=== PATIENT | female | born 1955 | race Caucasian/White ===

== ENCOUNTER 2016-10-06 13:27 | Inpatient (IN) | payer OTHER ==
[~2016-10-06] VITALS: Ht 157.5 cm; Wt 59.0 kg
[~2016-10-06 13:27] MED LIST: CREON 120000 U-1 ECC PO; DILAUDID2 MG PO; FOLIC ACID 1 MG PO; NOVOLOG FL100 UNIT/1 SC; TYLENOL WITH C1 EACH PO; ZOFRAN 4 MG TABL4 MG PO
--- NOTE | 2016-10-06 13:40 | NUR ---
BIBA FROM HOME, [facility] FALL FROM BED NOW WITH RIGHT HIP PAIN AND VISIBLE DEFORMITY. DENIES HEAD STRIKE, LOC OR BLOOD THINNERS, NO PAIN EXCEPT RIGHT HIP/THIGH.
--- NOTE | 2016-10-06 13:49 | NUR ---
SEEN BY LAZARO GOODE. IVF INFUSING, TYLENOL GIVEN, PER PA HOLDING MORPHINE UNTIL BP IMPROVES.
[2016-10-06 14:00] LABS: ABSOLUTE BASOPHIL COUNT 0 /CUMM (0.0-0.2); ABSOLUTE EOSINOPHIL COUNT 0 /CUMM (0.0-0.7); ABSOLUTE GRANULOCYTE CT 25.8 /CUMM (1.4-6.5); ABSOLUTE LYMPH COUNT 1.3 /CUMM (1.2-3.4); ABSOLUTE MONOCYTE COUNT 1.3 /CUMM (0.10-0.60); BASOPHIL % 0.2 % (0.0-2.0); EOSINOPHIL % 0 % (0-5); GRANULOCYTE % 90.6 % (42.2-75.2); HEMATOCRIT 35.8 % (37-47); MEAN CORPUSCULAR HGB 32.3 PG (27.0-31.0); MEAN CORPUSCULAR VOLUME 94.9 FL (81.0-99.0); MEAN PLATELET VOLUME 10.2 FL (7.4-10.4); PLATELET COUNT 278 /CUMM (130-400); RBC DISTRIBUTION WIDTH 13.6 % (11.5-14.5); RED BLOOD CELL CT 3.77 /CUMM (4.20-5.40); WHITE BLOOD CELL COUNT 28.4 /CUMM (4.8-10.8)
[2016-10-06 14:11] LABS: PT 10.3 SEC (9.4-12.5); PTT 28 SEC (25-37)
--- NOTE | 2016-10-06 14:13 | NUR ---
AWAITING PORTABLE XRAY; PER TECH, THEY ARE HAVING TECHNICAL ISSUES. IVF INFUSING, BP IMPROVING SLOWLY. PT REMAINS ALERT, CONTS TO APPEARS PEDERSON AND SHIVERING DESPITE BLANKETS, TEMP 96. NSR 80S ON MONITOR.
--- NOTE | 2016-10-06 14:30 | NUR ---
BP 123/58 AFTER 1000CC NS. 2MG MORPHINE GIVEN, WILL RECHECK VITALS BEFORE 2ND HALF OF DOSE. PT REMAINS ALERT.
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
--- NOTE | 2016-10-06 14:46 | NUR ---
MORPHINE GIVEN. PCXR AT BEDSIDE.
--- NOTE | 2016-10-06 15:57 | NUR ---
PINK TO DRAWN AND SENT TO LAB
--- NOTE | 2016-10-06 16:00 | NUR ---
PT CONTS TO C/O SEVERE PAIN, PA AWARE, DILAUDID GIVEN. PXR AT BEDSIDE.
--- NOTE | 2016-10-06 16:13 | CT SCAN REPORT ---
EXAMINATION: CT ABDOMEN AND PELVIS WITHOUT CONTRAST CLINICAL INFORMATION: History of fall. Fractured right hip. Abdominal pain. COMPARISON: CT of the abdomen and pelvis done on 12/30/2013. TECHNIQUE: Multidetector volumetric imaging was performed from the superior aspect of the liver through the pubic symphysis. Sagittal and coronal reformatted images were obtained on the technologist's workstation. DLP: 288.56 mGy-cm. FINDINGS: LUNG BASES: Subtle micronodularity is noted bilaterally, appears much more pronounced or new since prior study. Previously identified bibasilar atelectasis or interval resolution. Coronary arterial calcifications are present. LIVER, GALLBLADDER, AND BILIARY TREE: Stable indeterminate approximately 1.1 cm hypodensity is noted within the left lobe of the liver, unchanged since 12/30/2013. Underlying diffuse hepatic hypodensity consistent with hepatic steatosis is noted. The gallbladder is moderately distended, shows layering hyperdensity consistent with milk of calcium/calculi and measures approximately 3.6 cm at its maximum transverse dimension. The hypodense material seen along the dependent part of the gallbladder lumen appears new since prior study. There is no intrahepatic or extrahepatic biliary ductal dilatation present. PANCREAS: Remarkable for diffuse intraparenchymal as well as intraductal calcification with underlying pancreatic ductal dilatation, similar to prior study dated 12/30/2013, consistent with chronic calcific pancreatitis. There is no superimposed discrete focal mass or peripancreatic fluid collection or lymphadenopathy identified. SPLEEN: Unremarkable. ADRENAL GLANDS: Unremarkable. KIDNEYS AND URETERS: The kidneys are normal in size, shape, and attenuation. No hydronephrosis, hydroureter, or calculi seen. No perinephric stranding. BLADDER: The urinary bladder is decompressed, there is a Palacio's catheter present, accordingly urinary bladder is not evaluated. GASTROINTESTINAL TRACT: Significant fecal residual is noted within the large bowel. There is a short segment luminal narrowing identified within the proximal part of the sigmoid colon, although may represent physiologic changes, however, possibility of developing neoplasm may also have similar appearance and cannot be further differentiated. Followup direct visualization/colonoscopy is recommended if not performed recently. The small-bowel loops as well as the stomach appeared decompressed. ABDOMINAL WALL: No significant hernia is appreciated. LYMPH NODES: Normal. VASCULAR: Diffuse atherosclerotic disease is noted within the aorta and its branches without aneurysm formation. PELVIC VISCERA: There is no pelvic mass present. There is no free fluid and/or free air present. OSSEOUS STRUCTURES: Comminuted displaced right proximal femoral shaft fracture is present with extension into the intertrochanteric region with surrounding extensive soft tissue edema, hemorrhage extending into the proximal aspect of the visualized right medial thigh. Scoliotic and multilevel degenerative spondylosis-related changes are noted in the spine with most pronounced changes noted at L3-L4, and to a lesser extent L2-L3 level. IMPRESSION: 1. Comminuted displaced right proximal femoral shaft fracture with extension into the intertrochanteric region, surrounded by extensive soft tissue edema, and hemorrhage. 2. Nonspecific subtle micronodularity is noted within the visualized lung parenchyma, either appears more pronounced or new since prior study. 3. Hepatic steatosis and stable indeterminate 1.1 cm hypodensity within the left lobe of the liver. 4. Stable noncomplicated chronic calcific pancreatitis. 5. Short segment apparent narrowing involving the proximal part of the sigmoid colon, not optimally characterized. Followup direct visualization/colonoscopy is recommended if not performed recently. 6. Mildly distended gallbladder with features suggestive of milk of calcium and tiny layering calculi. This critical result was discussed with LAZARO Patel in the ED department at 3:47 PM on 10/06/2016 and it was ascertained that the content and urgency of the report was understood at the time of direct communication.
--- NOTE | 2016-10-06 16:26 | RADIOLOGY REPORT ---
EXAMINATION: XR HIP, RIGHT CLINICAL INFORMATION: Fall. Trauma. COMPARISON: None. TECHNIQUE: AP portable at 2:52 PM FINDINGS: Comminuted intratrochanteric fracture of the right hip. Superior displacement distal fracture fragment. Femoral head within the acetabulum. IMPRESSION: Comminuted intratrochanteric fracture of right hip.
--- NOTE | 2016-10-06 16:27 | RADIOLOGY REPORT ---
EXAMINATION: XR PORTABLE CHEST CLINICAL INFORMATION: Preop. COMPARISON: None. TECHNIQUE: Portable view of the chest was obtained. FINDINGS: No significant abnormality is noted involving the heart, lungs, mediastinum, bony thorax or soft tissues. IMPRESSION: Normal chest.
--- NOTE | 2016-10-06 17:00 | NUR ---
SURGERY AT BEDSIDE
--- NOTE | 2016-10-06 17:27 | Cons- Orthopedic ---
See Addendum General Information and HPI Consulting Request Date of Consult: 10/06/16 Requested By: emergency dept Reason for Consult: right hip fracture Source of Information: patient Exam Limitations: no limitations History of Present Illness: 61 yo female presents with right leg deformity and inability to ambulte after fall out of bed this am. She deneis loc at the time of fall. xrays taken after the fall demonstrate rigth intertrochanteric hip fracture requiring surgical fixation for ambulation Allergies/Medications Allergies: Coded Allergies: apple (Severe, THROAT CLOSURE 06/28/16) rose (Severe, THROAT CLOSURE 06/28/16) CHERRIES cezar (Severe, THROAT CLOSURE 06/28/16) peach (Severe, THROAT CLOSURE 06/28/16) sertraline (Intermediate, RASH 06/28/16) birch (UNKNOWN 06/28/16) Home Med List: Aspirin (Aspirin*) 81 MG TAB.CHEW 1 TAB PO DAILY Heart (Reported) Bupropion HCl (Bupropion HCl Sr) 150 MG TABLET.ER 1 TAB PO BID SMOKING CESSATION (Reported) Exemestane 25 MG TABLET 1 TAB PO DAILY BREAST CA (Reported) Folic Acid 1 MG TABLET 1 MG PO DAILY FOLIC ACID SUPPLEMENT (Reported) Insulin Aspart, Recombinant (Novolog Flexpen) 100 UNIT/ML INSULN.PEN DM ( Reported) Past History Medical History Musculoskeletal: OSTEOPENIA Endocrine: diabetes Cancer(s): BREAST CANCER Surgical History Pertinent Surgical History: 1 Family History Relations & Conditions If Any: BROTHER FHx: diabetes mellitus FHx: epilepsy FATHER FHx: diabetes mellitus MOTHER FH: breast cancer Psychosocial History Services at Home: None ETOH Use: occasional use Exam & Diagnostic Data Vital Signs and I&O Vital Signs Date Time Temp Pulse Resp B/P Pulse O2 O2 Flow FiO2 Ox Delivery Rate 10/06 1626 96.0 115 18 96/70 99 Room Air 10/06 1430 95.6 90 20 123/58 100 Room Air 10/06 1419 90 16 101/68 10/06 1412 99 10/06 1401 102/57 10/06 1335 96.0 115 20 90/54 99 Room Air Intake & Output 10/06 1600 10/06 0800 10/06 0000 10/05 1600 10/05 0800 10/05 0000 Intake Total 1100 Output Total Balance 1100 Intake, IV 1100 Patient 115 lb Weight Physical Exam General Appearance: anxious, mild distress Head: atraumatic, normal appearance Eyes: Bilateral: normal appearance, PERRL. Respiratory: normal breath sounds Cardiovascular: regular rate/rhythm, tachycardia Peripheral Pulses: 4+ dorsalis pedis (R), 4+ dorsalis pedis (L) Gastrointestinal: normal bowel sounds, soft Extremities: right le shortened and externally rotated, calves soft to palp Neurologic/Psych: awake, alert Skin: diaphoresis, pallor Last 24 Hours of Labs: Laboratory Tests 10/06 1510 Urines Urine Color (YEL,AMB,STR) YEL Urine Clarity (CLEAR) CLEAR Urine pH (5.0 - 8.0) 6.0 Ur Specific [place] (1.001 - 1.035) 1.020 Urine Protein (NEG,<30 MG/DL) NEG Urine Ketones (NEG) NEG Urine Nitrite (NEG) NEG Urine Bilirubin (NEG) NEG Urine Urobilinogen (0.1 - 1.0 EU/dl) 0.2 Ur Leukocyte Esterase (NEG) NEG Ur Microscopic SEDIMENT EXAMINED Urine RBC (0 - 5 /HPF) RARE Urine WBC (0 - 2 /HPF) RARE Ur Epithelial Cells (NONE,FEW) MOD H Urine Mucus (FEW,NONE) FEW Urine Hemoglobin (NEG) TRACE-LYSED Urine Glucose (N MG/DL) NEG 10/06 1343 Chemistry Sodium (137 - 145 mmol/L) 136 L Potassium (3.5 - 5.1 mmol/L) 5.0 Chloride (98 - 107 mmol/L) 98 Carbon Dioxide (22 - 30 mmol/L) 24 Anion Gap (5 - 16) 14 BUN (7 - 17 mg/dL) 6 L Creatinine (0.5 - 1.0 mg/dL) 0.7 Estimated GFR (>60 ml/min) > 60 BUN/Creatinine Ratio (7 - 25 %) 8.6 Glucose (65 - 99 mg/dL) 112 H Calcium (8.4 - 10.2 mg/dL) 9.4 Total Bilirubin (0.2 - 1.3 mg/dL) 0.7 AST (14 - 36 U/L) 67 H ALT (9 - 52 U/L) 35 Alkaline Phosphatase (<127 U/L) 155 H Total Protein (6.3 - 8.2 g/dL) 6.7 Albumin (3.5 - 5.0 g/dL) 4.0 Globulin (1.9 - 4.2 gm/dL) 2.7 Albumin/Globulin Ratio (1.1 - 2.2 %) 1.5 Amylase (30 - 110 U/L) 85 Lipase (23 - 300 U/L) 23 Coagulation PT (9.4 - 12.5 SEC) 10.3 INR (0.90 - 1.19) 0.98 APTT (25 - 37 SEC) 28 Hematology CBC w Diff MAN DIFF ORDERED WBC (4.8 - 10.8 /CUMM) 28.4 H RBC (4.20 - 5.40 /CUMM) 3.77 L Hgb (12.0 - 16.0 G/DL) 12.2 Hct (37 - 47 %) 35.8 L MCV (81.0 - 99.0 FL) 94.9 MCH (27.0 - 31.0 PG) 32.3 H RDW (11.5 - 14.5 %) 13.6 Plt Count (130 - 400 /CUMM) 278 MPV (7.4 - 10.4 FL) 10.2 Gran % (42.2 - 75.2 %) 90.6 H Lymphocytes % (20.5 - 51.1 %) 4.7 L Monocytes % (1.7 - 9.3 %) 4.5 Eosinophils % (0 - 5 %) 0 Basophils % (0.0 - 2.0 %) 0.2 Absolute Granulocytes (1.4 - 6.5 /CUMM) 25.8 H Segmented Neutrophils (42.2 - 75.2 %) 86 H Band Neutrophils (0.0 - 5.0 %) 6 H Absolute Lymphocytes (1.2 - 3.4 /CUMM) 1.3 Lymphocytes (20.5 - 51.1 %) 7 L Monocytes (1.7 - 9.3 %) 1 L Absolute Monocytes (0.10 - 0.60 /CUMM) 1.3 H Absolute Eosinophils (0.0 - 0.7 /CUMM) 0 Absolute Basophils (0.0 - 0.2 /CUMM) 0 Platelet Estimate (ADEQUATE) VERIFIED BY SMEAR Normocytic RBCs VERIFIED Normochromic RBCs VERIFIED PUBS MCHC (33.0 - 37.0 G/DL) 34.0 Toxicology Serum Alcohol (<10 MG/DL) < 10.0 Imaging Results: SERVICE DATE: 10/06/16-1329 EXAM TYPE: RAD - XRY-HIP 1 VIEW, RIGHT EXAMINATION: XR HIP, RIGHT CLINICAL INFORMATION: Fall. Trauma. COMPARISON: None. TECHNIQUE: AP portable at 2:52 PM FINDINGS: Comminuted intratrochanteric fracture of the right hip. Superior displacement distal fracture fragment. Femoral head within the acetabulum. IMPRESSION: Comminuted intratrochanteric fracture of right hip. DICTATED BY: LINO CLARKE MD DATE/TIME DICTATED:10/06/161621 BUILDING CONSTRUCTION ENGINEER:LUANNE DATE/TIME TRANSCRIBED:10/06/161621 Assessment/Plan Assessment/Plan Ms Nelson is a 61 y/o female wo presents with right hip pain after fall out of bed today. She wa unable to ambulate after the fall. Xrays toakne demonstrated rigth hip fracture requiring surgical fixation for ambulation plan case was discussed with dr Presley who wants the patient admitted to the medical service until she is optimized for orif irght hip fracture. Consult Acknowledgment - Thank you for your consult request.
--- NOTE | 2016-10-06 17:44 | History & Physical ---
RIRI BUSTOS,NORMA 10/06/16 1744: General Information and HPI MD Statement: I have seen and personally examined LUCHO LI and documented this H&P. The patient is a 61 year old F who presented with a patient stated chief complaint of [fracture]. Source of Information: patient Exam Limitations: no limitations History of Present Illness: This is a 61-year-old female with past medical history significant for insulin independent diabetes, chronic pancreatitis secondary to alcoholism, breast cancer treated with chemotherapy, osteopenia, who was brought in by ambulance for chief complaint of right hip pain. She states that she had a bad dream this AM and accidentally rolled out of bed around 6:30 am and fell on the floor. Secondary to excruciating right hip pain she states that she was unable to move and was down for an hour. Pain has since been increasing and patient noted significant swelling in the right lower extremity. She denies hitting her head, loss of consciousness, chest pain, abdominal pain, dizziness, vomiting, or nausea. Pt denies any DE JESUS, visual changes, cp, palpitations, seizures, weakness, abdominal pain loss of bowel, or bladder control. Of note, per patient she had gone to rehabilitation about 10 years ago for alcohol detox. But recently has started consuming alcohol again. She was unwilling to quantify a particular amount of etoh stating her consumption varied day by day. She finally suggested that she drank 1 bottle of vodka per week Allergies/Medications Allergies: Coded Allergies: apple (Severe, THROAT CLOSURE 06/28/16) rose (Severe, THROAT CLOSURE 06/28/16) CHERRIES cezar (Severe, THROAT CLOSURE 06/28/16) peach (Severe, THROAT CLOSURE 06/28/16) sertraline (Intermediate, RASH 06/28/16) birch (UNKNOWN 06/28/16) Compliance With Home Meds: UNKNOWN Past History Travel History Traveled to [place] past 21 day No Medical History Musculoskeletal: OSTEOPENIA Endocrine: diabetes Cancer(s): BREAST CANCER History of MRSA: No History of VRE: No History of CDIFF: No Surgical History Surgical History: none Past Family/Social History Family History Relations & Conditions if any BROTHER FHx: diabetes mellitus FHx: epilepsy FATHER FHx: diabetes mellitus MOTHER FH: breast cancer Psychosocial History Services at Home: None ETOH Use: heavy use, patient drinks a bottle of vodka a week Review of Systems Review of Systems Constitutional: Reports: malaise, weakness. Denies: chills, diaphoresis, fever. EENTM: Denies: blurred vision. Cardiovascular: Denies: chest pain, orthopena, palpitations, syncope. Respiratory: Denies: short of breath, wheezing. GI: Denies: constipation, diarrhea, distention. Genitourinary: Reports: no symptoms. Musculoskeletal: Reports: back pain, joint pain, joint swelling, muscle pain, muscle stiffness. Skin: Reports: no symptoms. Exam & Diagnostic Data Last 24 Hrs of Vital Signs/I&O Vital Signs Date Time Temp Pulse Resp B/P Pulse O2 O2 Flow FiO2 Ox Delivery Rate 10/06 2033 97.8 76 17 98/62 95 Room Air 10/06 1937 96.1 96 18 100/62 100 Room Air 10/06 1859 96.6 97 18 93/66 10/06 1827 96.6 97 18 93/66 97 Room Air 10/06 1626 96.0 115 18 96/70 99 Room Air 10/06 1430 95.6 90 20 123/58 100 Room Air 10/06 1419 90 16 101/68 10/06 1412 99 10/06 1401 102/57 10/06 1335 96.0 115 20 90/54 99 Room Air Intake & Output 10/06 1600 10/06 0800 10/06 0000 Intake Total 1100 Output Total Balance 1100 Intake, IV 1100 Patient 52.163 kg Weight Physical Exam General Appearance Alert, Oriented X3, Cooperative, Mild Distress, patient was acutely tremulous during interview. Skin No Rashes, No Breakdown HEENT Atraumatic, PERRLA, EOMI, mucous membranes were dry. Patient had not been eating or drinking anything all day. Neck Supple Cardiovascular Regular Rate, Normal S1, Normal S2, No Murmurs Lungs Normal Air Movement Abdomen Soft, No Tenderness Neurological Cranial Nerves 3-12 NL, tremulous Extremities significant swelling in right lower extremity. Hip to mid thigh tender to palpation. No signs of ecchymoses. Last 24 Hrs of Labs/Charles: Laboratory Tests 10/06/16 1928: Lactic Acid 1.6 10/06/16 1510: Urine Color YEL, Urine Clarity CLEAR, Urine pH 6.0, Ur Specific [place] 1.020, Urine Protein NEG, Urine Ketones NEG, Urine Nitrite NEG, Urine Bilirubin NEG, Urine Urobilinogen 0.2, Ur Leukocyte Esterase NEG, Ur Microscopic SEDIMENT EXAMINED, Urine RBC RARE, Urine WBC RARE, Ur Epithelial Cells MOD H, Urine Mucus FEW, Urine Hemoglobin TRACE-LYSED, Urine Glucose NEG 10/06/16 1343: Anion Gap 14, Estimated GFR > 60, BUN/Creatinine Ratio 8.6, Glucose 112 H, Calcium 9.4, Total Bilirubin 0.7, AST 67 H, ALT 35, Alkaline Phosphatase 155 H , Creatine Kinase 156 H, Troponin I < 0.01, Total Protein 6.7, Albumin 4.0, Globulin 2.7, Albumin/Globulin Ratio 1.5, Amylase 85, Lipase 23, PT 10.3, INR 0.98, APTT 28, CBC w Diff MAN DIFF ORDERED, RBC 3.77 L, MCV 94.9, MCH 32.3 H, RDW 13.6, MPV 10.2, Gran % 90.6 H, Lymphocytes % 4.7 L, Monocytes % 4.5, Eosinophils % 0, Basophils % 0.2, Absolute Granulocytes 25.8 H, Segmented Neutrophils 86 H, Band Neutrophils 6 H, Absolute Lymphocytes 1.3, Lymphocytes 7 L, Monocytes 1 L, Absolute Monocytes 1.3 H, Absolute Eosinophils 0, Absolute Basophils 0, Platelet Estimate VERIFIED BY SMEAR, Normocytic RBCs VERIFIED, Normochromic RBCs VERIFIED, PUBS MCHC 34.0, Serum Alcohol < 10.0 Microbiology 10/06 1928 BLOOD: Blood Culture - RECD 10/06 1755 LOWER RESP: Respiratory Culture - COLB 10/06 175 LOWER RESP: Gram Stain - COLB 10/06 1755 BLOOD: Blood Culture - COLB 10/06 1510 URINE ROUT: Urine Culture - RECD Assessment/Plan Assessment: This is a 61-year-old female with past medical history significant for insulin independent diabetes, chronic pancreatitis secondary to alcoholism, breast cancer treated with chemotherapy, osteopenia, who was brought in by ambulance for chief complaint of right hip pain secondary to fall. Workup in ED showed comminuted displaced right proximal femur shaft fracture with extension into intertrochanteric region. Additionally, patient was noted have significant leukocytosis with bands. She is admitted for possible ORIF after medical stabilization. ED workup showed: Vitals temperature 96.0, heart rate 115, respiration 18, blood pressure 96/70, pulse ox 99. UA negative; CBC showed white count 28.4, with 6 bands hemoglobin 12.2, hematocrit 35.8, platelets 278. Glucose 112. AST 67, ALT 35. Alkaline phosphatase 155. Neg amylase. Negative lipase. In ED she received a bolus of normal saline, Dilaudid for pain control, Zofran, morphine and Tylenol. CT IMPRESSION: 1. Comminuted displaced right proximal femoral shaft fracture with extension into the intertrochanteric region, surrounded by extensive soft tissue edema, and hemorrhage. 2. Nonspecific subtle micronodularity is noted within the visualized lung parenchyma, either appears more pronounced or new since prior study. 3. Hepatic steatosis and stable indeterminate 1.1 cm hypodensity within the left lobe of the liver. 4. Stable noncomplicated chronic calcific pancreatitis. 5. Short segment apparent narrowing involving the proximal part of the sigmoid colon, not optimally characterized. Followup direct visualization/colonoscopy is recommended if not performed recently. 6. Mildly distended gallbladder with features suggestive of milk of calcium and tiny layering calculi. CXR IMPRESSION: Normal chest. XRAY HIP IMPRESSION: Comminuted intratrochanteric fracture of right hip. PLAN Leukocytosis: Patient comes in with a white count of 28.4 with 6 bands. Possible reactive leukocytosis secondary secondary to her trauma. Patient has had leukocytosis chronically during previous admissions. However, this is higher than previously noted and additionally she has bands. In ED temperature measured was 95-96, she is tachycardic, with hypotension. There is concern for sepsis in this patient. * Follow blood cultures Hypotension: Per CT there is extensive edema and hemorrhage around the fracture site. Possibility that patient is developing hematoma, causing significant volume loss and hypertension. She received 3 L of bolus in the ED and a subsequent pressure measured in the 90s systolic. Concern for sepsis or significant hemorrhage into fracture site. * Type and cross * Transfusion of necessary * Monitor blood pressure * IV fluids 100 mL per hour * Echocardiogram Non-comminuted fracture of right hip: Patient has history of osteopenia and has now sustained noncommitted right hip fracture. Orthopedic consult was placed, patient was evaluated, possible ORIF once she is medically optimized. * Thank you orthopedic recommendations * Oxycodone for pain * Morphine when necessary Alcohol abuse: She didn't has had history significant for alcohol abuse. She has been to rehabilitation over 10 years ago for detox. Patient is now resumed drinking. She quantified around 1 bottle of vodka per week. Last drink was yesterday, per patient she had 3 beverages. * Monitor for withdrawal * CIWA protocol * Folic acid Smoking cessation: Chronic and stable * Continue Wellbutrin Full code Diabetic diet Chemical DVT prophylaxis As Ranked By This Provider Problem List: 1. Leukocytosis 2. Closed right femoral fracture 3. ETOH abuse Core Measures/Miscellaneous Acute Coronary Syndrome ACS Diagnosis: No Cerebrovascular Accident CVA/TIA Diagnosis: No Congestive Heart Failure CHF Diagnosis: No Venous Thromboembolism VTE Risk Factors: Age > 40 VTE Prophylaxis Ordered Inpt: Pharm- Lovenox No Mech VTE prophylaxis d/t: No contraindications No VTE Pharm Prophylaxis d/t: No contraindications VTE Diagnosis: No VTE Type: NONE VTE Confirmed by (Test): NONE Severe Sepsis Severe Sepsis Present: No Septic Shock Septic Shock Present: No Miscellaneous Documentation Attending Case Discussed With: GILSON CERON MDMontrell Primary Care Physician: ANDRES LINDSAY MD Patient sees these Specialists unknown Level of Patient Care: General Medicine UL MARTINEZ BUSTOS,[facility] 10/06/16 6011: General Information and HPI Allergies/Medications Home Med list Aspirin (Aspirin*) 81 MG TAB.CHEW 1 TAB PO DAILY Heart (Reported) Bupropion HCl (Bupropion HCl Sr) 150 MG TABLET.ER 1 TAB PO BID SMOKING CESSATION (Reported) Exemestane 25 MG TABLET 1 TAB PO DAILY BREAST CA (Reported) Folic Acid 1 MG TABLET 1 MG PO DAILY FOLIC ACID SUPPLEMENT (Reported) Insulin Aspart, Recombinant (Novolog Flexpen) 100 UNIT/ML INSULN.PEN DM ( Reported) Resident Review Statement Resident Statement: examined this patient, agreed with marketing pr intern, reviewed EMR data (avail) Other Findings: 61-year-old female with past medical history significant for insulin independent diabetes, chronic pancreatitis, breast cancer treated with chemotherapy, osteopenia, nictoine dependence came to emergency department after a Mechanical fall from bed after a bad dream. She was almost on the floor for an hour and then reached her phone to call the ambulance. She denied hitting her head, LOC , CP, sob, nausea, vomiting and other warning signs like weakness of any body part or lossof bowel or urine control or seizure. Vitals in ED, patient aferile, no significant tachycardia, systolic blood pressure in 90s and diastolic in 60s. Oxygen saturation of 95-100%on RA. On examination, patient was alert and oriented to time person and place but tremulous. Dry mucous memebranes and unremarkable lung and cardiac examination. Patient was unable to move her Left lower extremity and there was a prominent swelling around proximal thigh region. Labs were significant for leukocytosis, AST 67 and CK 156 Patient was admitted on GM for the management of following problems. Non-comminuted fracture of right Hip Patient with history of osteopenia and has now sustained noncommitted right hip fracture secondary to a mechanical fall. Orthopedic consult was placed, patient was evaluated, possible ORIF once she is medically optimized. Pain management PT consult placed RCRI scored only for Insulin requirind Diabetes, 0.9% risk of major cardiac event. Leukocytosis Source unclear No visible source, rash, cough, no fever or sore throat or diarrhea or urinary sypmtoms Leukocytosis of 28.4 with 6 bands, possible reactive leukocytosis secondary secondary to her trauma. Patient has had leukocytosis chronically during previous admissions. However, this is higher than previous baseline Will check the lactic acid and for now follow her off antibiotics unless she has a high grade temperature spike. Possible Hematoma Patient is developing hematoma, causing significant volume loss and hypotension secondary to extensive edema and hemorrhage around the fracture site.. She received 3 L of bolus in the ED and a subsequent pressure measured in the 90s systolic. We will do Type and cross, monitor blood pressure and replace vloume loss with IV fluids 100 mL per hour for now and consider increasing the fluid if sustained hypotension. Nicotine dependence/ Smoking cessation Continue Wellbutrin Alcohol dependence Has had history significant for alcohol dependence Patient has resumed drinking recently and drinks around 1 bottle of vodka per week Last drink was yesterday Monitor for withdrawal Patient placed on CIWA protocol Contonue Folic acid Patient is on ALPS for DVT prophylaxis Patient is pain pathways Patient is NPO JIE BUSTOS, [facility] 10/07/16 0016: Attending Review Statement Attending Statement Attending MD Statement: examined this patient, discuss w/resident/PA/WILLOW MACHINE OPERATOR, agreed w/resident/PA/WILLOW MACHINE OPERATOR Attending Assessment/Plan: 61 yo F smoker with h/o alcohol dependence, previous DT's, HTN, T2DM, NSTEMI, chronic pancreatitis, anxiety/ depression, breast ca s/p lumpectomy and chemoradiation currently on exemestane remote h/o seizure, presents s/p mechanical fall this AM, when she rolled off the bed after a bad dream. She denies dizziness, headache or LOC. She was on the floor for 1 hour after which she reached out to the phone and called 911. She continues to drink about 1 bottle of Vodka per week. Last detox at [place] 11 yrs ago. Last drink was 24 hours prior. She notes, seasonal allergies, cold/ congestion for past 1 month, received pneumonia and flu shot. No sick contacts. Vitals: afebrile, HR tachy to 90's, BP 90/54 --> 102/57 improved with fluids. SBP stayed around 95-98 overnight. Sats 97% RA. Exam: AAO, tremulous, anxious, noted dry mucous membranes. Chest b/l clear, Heart S1S2 regular, systolic murmur , Abd soft, NT. Right LE shortened and externally rotated. Peripheral pulses equal. Labs: WBC 28.4 (of note, WBC in Jul 2016 was 21 done as outpatient), bands 6, glucose 112, lactic acid 1.6 --> 2.9, AST 67, Alk phos 155, CK 156, trop neg, UA clear, alcohol <10. Hip Xray: comminuted intratrochanteric right hip fracture. CXR: normal, CT abd/pelvis: right hip fracture surrounded by soft tissue edema and hemorrhage, hepatic steatosis, mildly distended GB with tiny layering calculi, short segment luminal narrowing of sigmoid colon ?developing neoplasm. EKG: SR. Echo (2013): EF > 65%, stage 1 diastolic dysfunction. 1. Mechanical fall with right hip fracture. Fall precautions, check vit D, B12, TSH and free T4 levels. NPO, pain management, Ortho consult. She has a h/o NSTEMI/demand ischemia (EF 45%), however unclear if she had cardiac cath/ stress test. She also had diastolic CHF in the past. Per RCRI, she has 3 risk factors placing her at 9-11% risk of major cardiac event. Will obtain echo, serial EKG and troponin, Cardio consult for clearance prior to surgery (Dr. Sims seen her in the past). 2. Leukocytosis with bandemia of unclear etiology. No localizing symptoms. CXR neg, UA neg. CT abd/pelvis shows mildly distended GB with ?calculi with slight elevated AST no tenderness on exam. Panculture, monitor off antibiotics. IV hydration, trend lactic acid. If she spikes a fever, will give broad spectrum abx. Please obtain ID consult in AM. 3. Hematoma extending into right medial thigh. Monitor CBC Q12, transfuse to keep Hb > 8.0. Hypotension could to secondary to acute blood loss. Borderline hypotension she received 3 L NS bolus, now on maintenance 100/hr. Check AM Cortisol levels. Avoid fluid overload. I have discussed with her need for central line and pressors, she is agreeable if needed. Hold off aspirin. 4. Alcohol dependence. Monitor CIWA and place on IV ativan per CIWA for acute withdrawal. Banana bag daily. 5. Smoking cessation counseling, nicotine patch. 6. T2DM on insulin. Accucheks, lantus 5 units tonight as she is NPO (pt takes 10 units at bedtime), insulin NPO SS, check HbA1c. Obtain Endo consult. 7. H/o breast cancer diagnosed 2013 on exemestane. Courtesy Oncology consult. DVT ppx Alps (hold off heparin/lovenox until surgery). Full code.
--- NOTE | 2016-10-06 18:45 | NUR ---
HOUSE STAFF AT BEDSIDE
[2016-10-06 18:59] VITALS: BP 93/66
[2016-10-06] MEDS ORDERED: BUPROPION HCL150 M4 PO (19:47)
[2016-10-06] MEDS ORDERED: EXEMESTANE PO (19:47)
--- NOTE | 2016-10-06 19:49 | NUR ---
MSG LEFT FOR DISTRIBUTION FOR TRANSPORT TO FLOOR
--- NOTE | 2016-10-06 19:59 | NUR ---
PT MEDICATED WITH MORPHINE FOR C/O PAIN. DRINKING JUICE WITHOUT ISSUES, ALERT AND ORIENTED. AWAITING TRANSPORT TO FLOOR.
[2016-10-06] MEDS ORDERED: ASPIRIN81 M4 PO (20:27)
[2016-10-06 20:33] VITALS: BP 98/62
--- NOTE | 2016-10-06 22:17 | NUR ---
PATIENT ARRIVED TO FLOOR AT 2010 FROM ER, S/P FALL, R HIP FRACTURE VS 97.88 76 17 98/67 95% ROOM AIR A&O, LCTA, SKIN INTACT, TREMULOUS C/O PAIN TO R HIP 06/23, +[facility] IV #20 TO LF WITH NS RUNNING AT 100 ML/HR BOWER INSERTED DRAINING CLEAR YELLOW URINE HX OF BREAST CA, R LUMPECTOMY, R ARM RESTRICTION CURRENT SMOKER PER PATIENT STARTED DRINKING AGAIN RECENTLY, CIWA SCALE IN PLACE ORIENTED TO ROOM AND CALL CASTAÑEDA CONTINUE TO MONITOR
[2016-10-06 23:48] VITALS: BP 98/86
[2016-10-07] VITALS (11 sets, daily range): BP systolic 72–151; BP diastolic 40–91
--- NOTE | 2016-10-07 04:41 | Admission Certification ---
Admission Certification Certification Statement - As attending physician, I certify that at the time of - admission, based on clinical presentation, severity of - symptoms, need for further diagnostic testing and - therapeutic interventions, and risk of adverse outcomes - without in-hospital treatment, in my clinical assessment, - this patient requires an acute hospital stay for a minimum - of two nights or longer. I have also considered psychsocial - factors such as support system, advanced age, financial - issues, cognitive issues, and failed out-patient treatments, - past re-admission history, safety of patient, and lack of - compliance as applicable. Specific rationale supporting this admission is: Mechanical fall, right hip fracture with adjacent hematoma. Leukocytosis of unclear etiology. Alcohol withdrawal.
--- NOTE | 2016-10-07 05:37 | NUR ---
PT WITH FINGERSTICK OF 51. PT RECEIVED LEVIMIR LAST PM AND IS NPO ON NS ONLY. MIDNIGHT INSULIN WAS HELD. VSS, ASYMPTOMATIC. DR. YANES NOTIFIED
--- NOTE | 2016-10-07 05:58 | NUR ---
D50 GIVEN AND IVF CHANGED TO D5NS AT 75
[2016-10-07 06:33] LABS: ABSOLUTE BASOPHIL COUNT 0 /CUMM (0.0-0.2); ABSOLUTE EOSINOPHIL COUNT 0 /CUMM (0.0-0.7); ABSOLUTE GRANULOCYTE CT 28.1 /CUMM (1.4-6.5); ABSOLUTE LYMPH COUNT 1.4 /CUMM (1.2-3.4); ABSOLUTE MONOCYTE COUNT 1.7 /CUMM (0.10-0.60); BASOPHIL % 0.1 % (0.0-2.0); EOSINOPHIL % 0 % (0-5); MEAN CORPUSCULAR HGB 31.8 PG (27.0-31.0); MEAN CORPUSCULAR HGB CONC 33.2 G/DL (33.0-37.0); MEAN CORPUSCULAR VOLUME 95.8 FL (81.0-99.0); PLATELET COUNT 160 /CUMM (130-400); RBC DISTRIBUTION WIDTH 13.8 % (11.5-14.5)
[2016-10-07 06:48] LABS: HEMATOCRIT 21.6 % (37-47); RED BLOOD CELL CT 2.25 /CUMM (4.20-5.40)
[2016-10-07 06:50] LABS: WHITE BLOOD CELL COUNT 31.3 /CUMM (4.8-10.8)
[2016-10-07 07:58] LABS: ABSOLUTE BASOPHIL COUNT 0.1 /CUMM (0.0-0.2); ABSOLUTE EOSINOPHIL COUNT 0 /CUMM (0.0-0.7); ABSOLUTE GRANULOCYTE CT 30.4 /CUMM (1.4-6.5); ABSOLUTE LYMPH COUNT 1.5 /CUMM (1.2-3.4); ABSOLUTE MONOCYTE COUNT 2.1 /CUMM (0.10-0.60); BASOPHIL % 0.2 % (0.0-2.0); EOSINOPHIL % 0 % (0-5); GRANULOCYTE % 89.4 % (42.2-75.2); MEAN CORPUSCULAR HGB 32.5 PG (27.0-31.0); MEAN CORPUSCULAR HGB CONC 34.3 G/DL (33.0-37.0); MEAN CORPUSCULAR VOLUME 94.7 FL (81.0-99.0); MEAN PLATELET VOLUME 11.6 FL (7.4-10.4); PLATELET COUNT 171 /CUMM (130-400); RBC DISTRIBUTION WIDTH 13.6 % (11.5-14.5); RED BLOOD CELL CT 2.34 /CUMM (4.20-5.40)
[2016-10-07 08:01] LABS: HEMATOCRIT 22.2 % (37-47)
--- NOTE | 2016-10-07 08:18 | NUR ---
CRITICAL VALUES MADE AWARE TO RN BY LAB. RN ATTEMPTED TO CONTACT MD REETUP, NO CALL BACK. RN ATTEMPTED TO CONTACT DR. ARBEN Teixeira- PENDING RETURN CALL. WILL CONTINUE ATTEMPTS TO NOTIFY PHYSICIAN'S OF CRITICAL VALUES. WILL CONT TO MONITOR PT.
--- NOTE | 2016-10-07 08:20 | PN- Orthopedic ---
See Addendum Subjective Subjective: Patient reporting continued pain in right leg. Denies chest pain, shortness of breath and difficulty breathing. Denies temperature fluctations, denies diaphoresis. Denies nausea and vomitting. Objective Vital Signs and I&Os Vital Signs Date Time Temp Pulse Resp B/P Pulse O2 O2 Flow FiO2 Ox Delivery Rate 10/07 0803 98.7 110 20 108/62 99 10/07 0528 98.7 103 20 110/78 98 Room Air 10/06 2348 98.0 97 18 98/86 97 Room Air 10/06 2033 97.8 76 17 98/62 95 Room Air 10/06 1937 96.1 96 18 100/62 100 Room Air 10/06 1859 96.6 97 18 93/66 10/06 1827 96.6 97 18 93 97 Room Air 10/06 1626 96.0 115 18 96/70 99 Room Air 10/06 1430 95.6 90 20 123/58 100 Room Air 10/06 1419 90 16 101/68 10/06 1412 99 10/06 1401 102/57 10/06 1335 96.0 115 20 90/54 99 Room Air Intake & Output 10/07 1600 10/07 0800 10/07 0000 10/06 1600 10/06 0800 10/06 0000 Intake Total 757 224 3099 Output Total 50 100 Balance 885 103 1692 Intake, IV 849 914 7707 Intake, Oral 100 400 Output, Urine 50 100 Patient 115 lb 115 lb Weight Physical Exam: General: Alert and oriented x3, no acute distress Cardiac: RRR, s1s2 Pulmonary: Bilateral lung sounds clear to auscultaion Abdomen: Non-tender, non-distended Extremities: Right leg shortened and externally rotated, thigh edematous, no redness noted, calves soft and non-tender, dp pulses palpable, skin warm and well perfused Assessment/Plan Assessment/Plan This is a 61 year old female with a right hip fracture. PMH includes iddm, breast ca, etoh use. -Of note, H/H dropped acutely overnight, repeat labs confirmed -WBC count is trending high -Transfusions to be started today -Consider sepsis protocol, to be monitored by medicine -Monitor thigh compartment, H/H decrease likely due to bleeding from fracture site -Will discuss with Dr. See
--- NOTE | 2016-10-07 09:31 | NUR ---
PT'S BP SIGNIFICANTLY LOW- SEE VFS. SLIGHT IMPROVEMENT NOTED NOW- LAST BP 80/40 MANUALLY. PT CONTINUES TO RUN WITH TACHYCARDIA- LAST PULSE 106. IV BOLUS OF NS RUNNING PER MD ORDERS. BLOOD PRODUCT TEMPORARILY PLACED ON HOLD UNTIL ANOTHER IV ACCESS ESTABLISHED. AYDEE HOLLOWAYIVSORoosevelt OZUNA.
--- NOTE | 2016-10-07 10:00 | NUR ---
PT TRANSFERED TO ICU FROM 219 BED 1 R/T HYPOTENSION. PT ARRIVED A/0, TREMULOUS, MILDLY ANXIOUS. INITIAL VSS, BP >100. NSR 90'S. PT ON RA, SATS ABOVE 95%. BLOOD TRANSFUSION IN PROGRESS. BOWER INSITU W 50CC EMPTIED. PT NPO PENDING POSSIBLE SURGERY INTERVENTION. PT REPORTED PAIN 05/23. MSO4 IVP GIVEN.
--- NOTE | 2016-10-07 11:23 | PN- Housestaff ---
RIRI BUSTOS,NORMA 10/07/16 1113: Subjective Follow-up For: FRACTURE hypotension Subjective: Saw pt at bedside this AM. She continues to be hypotensive. She was getting 1u pRBC, we had to stop blood and bolus 1 liter fluids nad restart the blood. She denied any complaints. Her RLE was tender to palpation and was firmer than yesterday. Palpable pulses. Concern for compartment syndrome given hypotension, acute blood loss anemia and tenderness. Pt will be transferred to ICU Review of Systems Constitutional: Denies: chills, fever, weakness. EENTM: Denies: blurred vision. Cardiovascular: Denies: chest pain, palpitations, peripheral edema, syncope. Respiratory: Denies: hemoptysis, short of breath, wheezing. Gastrointestinal: Denies: abdominal pain, constipation, diarrhea, nausea, vomiting. Genitourinary: Reports: no symptoms. Musculoskeletal: Reports: joint pain, joint swelling, muscle pain, muscle stiffness. Skin: Reports: no symptoms. Objective Last 24 Hrs of Vital Signs/I&O Vital Signs Date Time Temp Pulse Resp B/P Pulse O2 O2 Flow FiO2 Ox Delivery Rate 10/07 0923 106 80/46 10/07 0848 99.6 108 20 72/40 96 Room Air 10/07 0803 98.7 110 20 108/62 99 10/07 0800 98.7 110 20 108/62 10/07 0528 98.7 103 20 110/78 98 Room Air 10/06 2348 98.0 97 18 98/86 97 Room Air 10/06 2033 97.8 76 17 98/62 95 Room Air 10/06 1937 96.1 96 18 100/62 100 Room Air 10/06 1859 96.6 97 18 93/66 10/06 1827 96.6 97 18 93/66 97 Room Air 10/06 1626 96.0 115 18 96/70 99 Room Air 10/06 1430 95.6 90 20 123/58 100 Room Air 10/06 1419 90 16 101/68 10/06 1412 99 10/06 1401 102/57 10/06 1335 96.0 115 20 90/54 99 Room Air Intake & Output 10/07 1600 10/07 0800 10/07 0000 Intake Total 800 650 Output Total 50 100 Balance 750 550 Intake, IV 700 250 Intake, Oral 100 400 Output, Urine 50 100 Patient 52.163 kg Weight Physical Exam General Appearance: Alert, Oriented X3, Cooperative, Mild Distress Skin: No Significant Lesion HEENT: Atraumatic, PERRLA, EOMI Neck: Supple Cardiovascular: Normal S1, Normal S2, TACHYCARDIC. NML S1 AND S2 Lungs: Normal Air Movement Abdomen: Soft, No Tenderness Neurological: Normal Speech, Cranial Nerves 3-12 NL Extremities: RLE, has significant swelling around pelvis and thigh. Palpable pulses but extremity feels significantly more firm and tight to touch Vascular: Normal Pulses, warm extremities Current Medications: Current Medications Sig/[place] Start time Last Medication Dose Route Stop Time Status Admin Acetaminophen 650 MG Q8 PRN 10/06 194 AC PO Acetaminophen 1,000 MG ONCE ONE 10/06 1345 DC 10/06 IV 10/06 1346 1348 Acetaminophen 0 .STK-MED ONE 10/06 1341 DC IV Bupropion HCl 150 MG BID 10/06 2200 AC 10/07 PO 0755 Ceftriaxone Sodium 1,000 MG DAILY 10/07 1000 AC 10/07 IV 0907 Dextrose 25 GM ONCE ONE 10/07 0545 DC 10/07 IV 10/07 0546 0551 Dextrose/Sodium 1,000 ML Q13H 10/07 0600 AC 10/07 Chloride IV 10/07 1859 0551 Dextrose/Sodium 1,000 ML Q13H 10/07 0545 DC Chloride IV 10/07 1844 Exemestane 25 MG DAILY 10/07 1000 AC PO Folic Acid 1 MG DAILY 10/07 1000 AC 10/07 PO 0756 Hydromorphone HCl 1 MG ONCE ONE 10/06 1600 DC 10/06 IV 10/06 1601 1600 Hydromorphone HCl 0 .STK-MED ONE 10/06 1558 DC .ROUTE Insulin Detemir 5 UNITS AT BEDTIME 10/06 220 AC 10/06 SC 2214 Insulin Human Regular 0 Q6 10/06 2359 AC SC Morphine Sulfate 2 MG Q4P PRN 10/07 1015 AC IV Morphine Sulfate 0.5 MG ONCE ONE 10/06 2315 DC 10/06 IV 10/06 2316 2342 Morphine Sulfate 0 .STK-MED ONE 10/06 1956 DC .ROUTE Morphine Sulfate 0.5 MG Q8P PRN 10/06 1945 DC 10/07 IV 0420 Morphine Sulfate 0 .STK-MED ONE 10/06 1422 DC .ROUTE Morphine Sulfate 4 MG ONCE ONE 10/06 1345 DC 10/06 IV 10/06 1346 1446 Ondansetron HCl 4 MG ONCE ONE 10/06 1430 DC 10/06 IV 10/06 1431 1430 Ondansetron HCl 0 .STK-MED ONE 10/06 1347 DC .ROUTE Oxycodone HCl 5 MG Q6 PRN 10/06 1945 AC 10/07 PO 0757 Sodium Chloride 1,000 ML BOLUS ONE 10/07 0900 DC 10/07 IV 10/07 0959 0907 Sodium Chloride 1,000 ML Q10H 10/06 1930 DC 10/06 IV 10/07 0529 2051 Sodium Chloride 1,000 ML BOLUS ONE 10/06 1645 DC 10/06 IV 10/06 1744 1651 Sodium Chloride 1,000 ML BOLUS ONE 10/06 1345 DC 10/06 IV 10/06 1444 1348 Sodium Polystyrene 60 ML ONCE ONE 10/07 1030 DC Sulfonate PO 10/07 1031 Last 24 Hrs of Lab/Charles Results Last 24 Hrs of Labs/Mics: Laboratory Tests 10/07/16 0704: CBC w Diff NO MAN DIFF REQ, RBC 2.34 L, MCV 94.7, MCH 32.5 H, RDW 13.6, MPV 11.6 H, Gran % 89.4 H, Lymphocytes % 4.3 L, Monocytes % 6.1, Eosinophils % 0, Basophils % 0.2, Absolute Granulocytes 30.4 H, Absolute Lymphocytes 1.5, Absolute Monocytes 2.1 H, Absolute Eosinophils 0, Absolute Basophils 0.1, PUBS MCHC 34.3 10/07/16 0610: Lactic Acid 1.3 10/07/16 0610: Cortisol AM Sample 18.5 10/07/16 0610: Anion Gap 5, Estimated GFR 42 L, BUN/Creatinine Ratio 10.0, Creatine Kinase 282 H, Troponin I < 0.01 10/07/16 0610: Sodium Cancelled, Potassium Cancelled, Chloride Cancelled, Carbon Dioxide Cancelled, Anion Gap Cancelled, BUN Cancelled, Creatinine Cancelled, BUN/ Creatinine Ratio Cancelled, CBC w Diff MAN DIFF ORDERED, RBC 2.25 L, MCV 95.8, MCH 31.8 H, RDW 13.8, MPV 10.0, Gran % 90.0 H, Lymphocytes % 4.5 L, Monocytes % 5.4, Eosinophils % 0, Basophils % 0.1, Absolute Granulocytes 28.1 H, Segmented Neutrophils 87 H, Band Neutrophils 2, Absolute Lymphocytes 1.4, Lymphocytes 7 L, Monocytes 3, Absolute Monocytes 1.7 H, Absolute Eosinophils 0 , Basophils 1, Absolute Basophils 0, Platelet Estimate ADEQUATE, Hypochromic- Microcytic 2+, Poikilocytosis 1+, Anisocytosis 1+, PUBS MCHC 33.2 10/06/162199: Lactic Acid 2.9 H 10/06/161927: Lactic Acid 1.6 10/06/16 1510: Urine Color YEL, Urine Clarity CLEAR, Urine pH 6.0, Ur Specific [place] 1.020, Urine Protein NEG, Urine Ketones NEG, Urine Nitrite NEG, Urine Bilirubin NEG, Urine Urobilinogen 0.2, Ur Leukocyte Esterase NEG, Ur Microscopic SEDIMENT EXAMINED, Urine RBC RARE, Urine WBC RARE, Ur Epithelial Cells MOD H, Urine Mucus FEW, Urine Hemoglobin TRACE-LYSED, Urine Glucose NEG 10/06/16 1343: Anion Gap 14, Estimated GFR > 60, BUN/Creatinine Ratio 8.6, Glucose 112 H, Calcium 9.4, Total Bilirubin 0.7, AST 67 H, ALT 35, Alkaline Phosphatase 155 H , Creatine Kinase 156 H, Troponin I < 0.01, Total Protein 6.7, Albumin 4.0, Globulin 2.7, Albumin/Globulin Ratio 1.5, Amylase 85, Lipase 23, PT 10.3, INR 0.98, APTT 28, CBC w Diff MAN DIFF ORDERED, RBC 3.77 L, MCV 94.9, MCH 32.3 H, RDW 13.6, MPV 10.2, Gran % 90.6 H, Lymphocytes % 4.7 L, Monocytes % 4.5, Eosinophils % 0, Basophils % 0.2, Absolute Granulocytes 25.8 H, Segmented Neutrophils 86 H, Band Neutrophils 6 H, Absolute Lymphocytes 1.3, Lymphocytes 7 L, Monocytes 1 L, Absolute Monocytes 1.3 H, Absolute Eosinophils 0, Absolute Basophils 0, Platelet Estimate VERIFIED BY SMEAR, Normocytic RBCs VERIFIED, Normochromic RBCs VERIFIED, PUBS MCHC 34.0, Serum Alcohol < 10.0 Microbiology 10/07 929 UPPER RESP: Surveillance Culture - ORD 10/07 929 GI: Surveillance Culture - ORD 12/24 2200 BLOOD: Blood Culture - RECD 10/06 192 BLOOD: Blood Culture - RECD 10/06 1755 LOWER RESP: Respiratory Culture - COLB 10/06 1755 LOWER RESP: Gram Stain - COLB 10/06 1510 URINE ROUT: Urine Culture - RES Assessment/Plan Assessment: This is a 61-year-old female with past medical history significant for insulin independent diabetes, chronic pancreatitis secondary to alcoholism, breast cancer treated with chemotherapy, osteopenia, who was brought in by ambulance for chief complaint of right hip pain secondary to fall. Workup in ED showed comminuted displaced right proximal femur shaft fracture with extension into intertrochanteric region. Additionally, patient was noted have significant leukocytosis with bands. She is admitted for possible ORIF after medical stabilization. UA negative; CBC showed white count 28.4, with 6 bands hemoglobin 12.2, hematocrit 35.8, platelets 278. Glucose 112. AST 67, ALT 35. Alkaline phosphatase 155. Neg amylase. Negative lipase. In ED she received a bolus of normal saline, Dilaudid for pain control, Zofran, morphine and Tylenol. CT IMPRESSION: 1. Comminuted displaced right proximal femoral shaft fracture with extensioninto the intertrochanteric region, surrounded by extensive soft tissue edema,and hemorrhage. 2. Nonspecific subtle micronodularity is noted within the visualized lungparenchyma, either appears more pronounced or new since prior study. 3. Hepatic steatosis and stable indeterminate 1.1 cm hypodensity within theleft lobe of the liver. 4. Stable noncomplicated chronic calcific pancreatitis. 5. Short segment apparent narrowing involving the proximal part of thesigmoid colon, not optimally characterized. Followup directvisualization/colonoscopy is recommended if not performed recently. 6. Mildly distended gallbladder with features suggestive of milk of calciumand tiny layering calculi. CXR IMPRESSION: Normal chest. XRAY HIP IMPRESSION: Comminuted intratrochanteric fracture of right hip. PLAN Leukocytosis: Patient comes in with a white count of 28.4 with 6 bands, today increasing to 34. Possible reactive leukocytosis secondary secondary to her trauma. Patient has had leukocytosis chronically during previous admissions. However, this is higher than previously noted and additionally she has bands during admission. In ED temperature measured was 95-96 today at 99, she is tachycardic, with hypotension. There is concern for sepsis, alcohol withdrawl, adrenal insufficiency, and given acute anemia and swollen RLE, compartment syndrome. * Follow blood cultures * Transfer to ICU Hypotension: Per CT there is extensive edema and hemorrhage around the fracture site. Possibility that patient is developing hematoma, causing significant volume loss and hypertension. She received 3 L of bolus in the ED last night and a subsequent pressure measured in the 90s systolic. This AM systolic with doppler measured in 70s. Concern for sepsis/significant hemorrhage into fracture site/adrenal insufficiency/alcohol withdrawl. * Type and cross * Transfusion of necessary * Monitor blood pressure * IV fluids 100 mL per hour * Echocardiogram Non-comminuted fracture of right hip: Patient has history of osteopenia and has now sustained noncommitted right hip fracture. Orthopedic consult was placed, patient was evaluated, possible ORIF once she is medically optimized. * Thank you orthopedic recommendations * Oxycodone for pain * Morphine when necessary Alcohol abuse: She didn't has had history significant for alcohol abuse. She has been to rehabilitation over 10 years ago for detox. Patient is now resumed drinking. She quantified around 1 bottle of vodka per week. Last drink was yesterday, per patient she had 3 beverages. * Monitor for withdrawal * CIWA protocol * Folic acid Smoking cessation: Chronic and stable * Continue Wellbutrin Full code Diabetic diet Chemical DVT prophylaxis Problem List: 1. Leukocytosis 2. Closed right femoral fracture 3. ALCOHOL WITHDRAWAL Pain Ratin Pain Location: none Pain Goal: Remain pain free Pain Plan: none Tomorrow's Labs & Rationales: none JOSHUA TOVAR MD 10/07/16 1527: Attending MD Review Statement Attending Statement Attending MD Statement: examined this patient, discuss w/resident/PA/OFFSHORING MANAGER, agreed w/resident/PA/OFFSHORING MANAGER, reviewed EMR data (avail), discussed with nursing, reviewed images, amended to note Attending Assessment/Plan: The patient was seen and discussed to house staff. As above, patient became hypotensive this morning with evidence of thigh hematoma. The patient was transferred to ICU to establish hemodynamic stability. Evaluate for infection. Transfuse PRBC''s. When stable will go to OR per Orthopedics.
[2016-10-07 17:16] LABS: ABSOLUTE BASOPHIL COUNT 0 /CUMM (0.0-0.2); ABSOLUTE EOSINOPHIL COUNT 0.1 /CUMM (0.0-0.7); ABSOLUTE GRANULOCYTE CT 27.8 /CUMM (1.4-6.5); ABSOLUTE LYMPH COUNT 1.2 /CUMM (1.2-3.4); ABSOLUTE MONOCYTE COUNT 2.1 /CUMM (0.10-0.60); BASOPHIL % 0.1 % (0.0-2.0); EOSINOPHIL % 0.2 % (0-5); MEAN CORPUSCULAR HGB 30.7 PG (27.0-31.0); MEAN CORPUSCULAR HGB CONC 33.6 G/DL (33.0-37.0); MEAN CORPUSCULAR VOLUME 91.3 FL (81.0-99.0); MEAN PLATELET VOLUME 9.9 FL (7.4-10.4); PLATELET COUNT 134 /CUMM (130-400); RBC DISTRIBUTION WIDTH 16.8 % (11.5-14.5)
[2016-10-07 17:37] LABS: HEMATOCRIT 29.5 % (37-47); RED BLOOD CELL CT 3.24 /CUMM (4.20-5.40); WHITE BLOOD CELL COUNT 31.1 /CUMM (4.8-10.8)
[2016-10-07 17:38] LABS: GRANULOCYTE % 89.3 % (42.2-75.2)
--- NOTE | 2016-10-07 17:40 | NUR ---
PT DROWSEY AND AROUSBLE C/O PAIN IN RIGHT HIP WHEN TOUGHED OR MOVED. ON ASSESSMENT RIGHT HIP SWOLLWEN AND RIGHT GROIN SWOLLEN AND HARD TO TOUCH. DR. HOLDEN CALLED TO BEDSIDE TO EVALUATED PATIENT. DOPPLER PULSED TO LEG. SURGICAL PA CALLED TO BEDSIDE TO EVALUATE PATIENT. ICE AND COMPRESSION WRAP ORDERED. WILL CONTINUE TO MONITOR.
--- NOTE | 2016-10-07 19:04 | Event Note ---
Event Note Event Note: Around 4:30 PM nursing staff noticed that the patient's right thigh was much more swollen than when she was brought up to the floor earlier this morning. Patient was seen to be sedated and comfortable with no complaints other than right hip pain. Vital signs demonstrated tachycardia 110/120s and a blood pressure within normal limits. Physical examination demonstrated a soft, nontense, but visible more swollen thigh without any superficial ecchymosis. Sensation and pulses were intact in the right lower extremity, however were weak and thready. Previously scheduled 5 PM labs were drawn early to assess for further bleeding that demonstrated minimally improved/persisting leukocytosis, improved hemoglobin/hematocrit to 9.9/29.5 from 7.6/22.2 respectively and serum chemistries relatively unchanged from admission. Surgical PA was contacted who evaluated the patient. Chava See MD, of orthopedic surgery, was contacted regarding this patient whom reportedly recommended the following which was conveyed by the surgical PA: -Wrap the extremity with Pedro bandage were compression and apply ice packs -Consider vascular surgery evaluation if suspicion for vascular injury is high -Consider presurgical cardiac clearance given patient's persistent sinus tachycardia and recent runs of ventricular tachycardia -Patient is not an urgent surgical candidate at this time given her cardiac symptoms -Contact info for Chava See MD was left for urgent matters, cell phone Extremity was wrapped in place with ice as above and cardiology consultation was placed with Dr. Zarate for presurgical clearance.
[2016-10-08] VITALS (13 sets, daily range): BP systolic 112–179; BP diastolic 64–97
--- NOTE | 2016-10-08 00:43 | NUR ---
PT A/OX3, FOLLOWS COMMANDS. ON CIWA SCALE-TREMORS NOTED. PT RATES RT HIP PAIN 4 OUT OF 10 AT PRESENT-SEE EMAR FOR PAIN MED ADMINISTRATION. BREATH SOUNDS CLEAR THOUGHOUT BILATERALLY. NO COUGH, SOB OR RESP DISTRESS NOTED AT PRESENT. SEE FLOW SHEET FOR VS, 02 SATS, I/O'S. MONITOR SHOWS ST, WITH OCC PVC'S NOTED. BP STABLE AT PRESENT. ABD SOFT. NONTENDER, NONDISTENDED, POSITIVE BOWEL SOUNDS. BOWER IN PLACE-DRAINING ADEQUATE AMT OF CLEAR LINH URINE. SKIN INTACT. RT LEG DISTORTED, UPPER THIGH MARKED WITH MARKER-FIRM AND SWOLLEN. RT FOOT PINK AND WARM TO TOUCH-DOPPLER PEDAL AND POST TIBIAL PULSES NOTED. NPO SINCE 0000
--- NOTE | 2016-10-08 05:38 | PN- Orthopedic ---
See Addendum Subjective Subjective: No acute ovenright events reported, patient tolerating pain presently. No c/o chest pain, shortness of breath and difficulty breathing. No nausea and vomitting. Per telemetry, no runs of vtach overnight. No increase in RLE swelling. Objective Vital Signs and I&Os Vital Signs Date Time Temp Pulse Resp B/P Pulse O2 O2 Flow FiO2 Ox Delivery Rate 10/08 0300 107 25 126/73 10/08 0200 114 24 125/78 10/08 0000 99.4 114 30 120/82 10/08 0000 97 Room Air Room Air 10/07 2300 99.4 114 30 120/82 97 Room Air Room Air 10/07 2200 98.9 118 16 151/81 10/07 2000 98.8 116 17 122/72 10/07 1800 98.8 110 17 120/67 10/07 1600 98.8 118 17 140/91 10/07 1600 98.8 118 17 130/80 92 Room Air 10/07 1000 99.3 105 16 108/88 100 Room Air 10/07 0923 106 80/46 10/07 0848 99.6 108 20 72/40 96 Room Air 10/07 0803 98.7 110 20 108/62 99 10/07 0800 98.7 110 20 108/62 Intake & Output 10/08 0800 10/08 0000 10/07 1600 10/07 0800 10/07 0000 10/06 1600 Intake Total 1240 1775 863 296 9202 Output Total 127 200 50 100 Balance 1113 1575 920 680 7480 Intake, Blood 700 Product Intake, IV 1000 475 808 693 9383 Intake, Oral 240 600 100 400 Number 0 Bowel Movements Output, Urine 127 200 50 100 Patient 115 lb 115 lb Weight Physical Exam: General: Alert and oriented x3, no acute distress Cardiac: rate 100s, s1s2, multiple pvcs Pulmonary: CTAB Abdomen: Non-tender, non-distended Extremiteis: Moves all extremities, distal sensation intact. Right thigh compartments soft, edema remains c/w hematoma, distal to hematoma skin warm, and well perfused. bilateral calves soft and non-tender. DP pulses palpable, right foot thready. PT pulses palpable and equal bialterally Assessment/Plan Assessment/Plan This is a 61 year old female admitted to the hospital for a subtrochanteric hip fracture, right side, that she sustained after a fall at her home. Upon admission to hospital, was known to have a sudden deacrease in h/h as well as hypotensive episode. Her WBC count was markedly elevated and concern was for sepsis. She was transferred to intensive care unit. She receieved two units of prbc with good effect. Her thigh swelling was closely monitored. She will require an ORIF right femur when medically stable -Cardiology consult for clearance today -Keep strict NPO, consider surgery later this am if cleared -F/U am labs -Will d/w Dr. See
[2016-10-08 05:57] LABS: ABSOLUTE BASOPHIL COUNT 0 /CUMM (0.0-0.2); ABSOLUTE EOSINOPHIL COUNT 0 /CUMM (0.0-0.7); ABSOLUTE GRANULOCYTE CT 30.8 /CUMM (1.4-6.5); ABSOLUTE LYMPH COUNT 1.8 /CUMM (1.2-3.4); ABSOLUTE MONOCYTE COUNT 2.6 /CUMM (0.10-0.60); BASOPHIL % 0.1 % (0.0-2.0); EOSINOPHIL % 0.1 % (0-5); GRANULOCYTE % 87.3 % (42.2-75.2); HEMATOCRIT 27.9 % (37-47); MEAN CORPUSCULAR HGB 30.8 PG (27.0-31.0); MEAN CORPUSCULAR HGB CONC 33.6 G/DL (33.0-37.0); MEAN CORPUSCULAR VOLUME 91.7 FL (81.0-99.0); MEAN PLATELET VOLUME 10.4 FL (7.4-10.4); PLATELET COUNT 126 /CUMM (130-400); RBC DISTRIBUTION WIDTH 16.6 % (11.5-14.5); RED BLOOD CELL CT 3.04 /CUMM (4.20-5.40)
[2016-10-08 06:13] LABS: WHITE BLOOD CELL COUNT 35.3 /CUMM (4.8-10.8)
--- NOTE | 2016-10-08 07:39 | NUR ---
Physical Therapy. PT consult received and chart reviewed. Plan is for pt to go to OR today for R hip fracture. Please re-consult post-op with appropriate WB'ing orders.
--- NOTE | 2016-10-08 07:45 | NUR ---
REPEAT FSG AFTER AMP OF D50 WAS ADMININSTERED AT [address] MUMTAZ DAY AWARE.
--- NOTE | 2016-10-08 07:53 | NUR ---
PT SLEPT ON AND OFF DURING NIGHT. PT STATED RT HIP BETTER THAN YESTERDAY-RATED PAIN BETWEEN 4 TO 7 OUT OF 10-PT STATED WORSE WITH MOVING-SEE EMAR FOR PAIN MED ADMINISTRATION. NO INCREASE IN RT HIP AND LEG SWELLING, HAS NOT EXTENDED BEYOND MARKER LINE THOUGHOUT SHIFT. RT LEG REMAINS DISTORTED. BREATH SOUNDS CLEAR WITH DIMINISHED BREATH SOUNDS AT BASES BILATERALLY. NO COUGH, SOB OR RESP DISTRESS NOTED THOUGHOUT SHIFT. NSR-ST FOR SHIFT-HR 80-110'S, FREQUENT PVC'S NOTED. ALTHOUGH NO COUPLETS OR RUNS OF VT NOTED. SBP-100-120'S FOR SHIFT. ABD SOFT, NONTENDER, NONDISTENDED, POSITIVE BOWEL SOUNDS. BOWER DRAINED ADEQUATE AMT OF CLEAR LINH URINE. AT 0630 ACCUCHECK <50-PT WAS AWAKE, ALERT, ORIENTED X3, NO TACHYCARDIA OR DIAPHORESIS NOTED-REPORTED TO DR. CALDERON-1 AMP OF D50 IV GIVEN ORDERED. WILL MONITOR
--- NOTE | 2016-10-08 08:00 | NUR ---
REC'D THE PT AWAKE IN BED. A&OX3. C/0 7/10 DULL ACHY PAIN TO THE R HIP. RLE POSITIONED FOR COMFORT. R HIP TO MID THIGH REMAINS SWOLLEN, HOWEVER, THE SWELLING HAS NOT INCREASED TO BEYOND THE MARKER BORDER. PT HAS A DIMINISHED R PEDAL PULSE, AND A STRONG R POST TIBIAL PULSE. R FOOT IS SLIGHTLY COOLER THAN THE LEFT. PT IS IN A NSR/ST WITH FREQ PVC'S AND OCC TRIGEMINY PER THE [facility]. TATIANA BS ARE CLEAR WITH AN O2 SAT OF 97% ON ROOM AIR. ABD IS SOFT WITH NORMOACTIVE BOWEL SOUNDS. PT IS NPO AND IS ON D5NS AT 125ML/HR INFUSING VIA A #[address] TO THE LF. BOWER IN PLACE DRAINING CLEAR YELLOW URINE.
--- NOTE | 2016-10-08 09:16 | NUR ---
PT IS HAVING A BEDSIDE ECHO PERFORMED.
--- NOTE | 2016-10-08 09:59 | PN- Resident CRCU ---
MUMTAZ DAY MD 10/08/16 0959: Subjective HPI/CRCU Issues: Patient seen and examined. She is seen lying flat in bed with her head propped up. She is resting comfortably and reports that her right hip pain is well controlled on the current regimen. She states that the swelling in her right leg looks minimally improved since yesterday. Her only complaints are nasal drip with a nonproductive new cough. Otherwise she denies any headache, fever, chills, chest pain, shortness of breath, nausea, vomiting, diarrhea. No overnight events reported. Objective Vital Signs & I&O Last 8 Hrs of Vitals and I&O: Vitals: - Temperature: 97.8-99.4 - Heart Rate: 88-124 - Respiratory Rate: 13-26 - Systolic Blood pressure: 110-142 - Diastolic Blood pressure: 64-90 - Oxygen Saturation: 95-97% on room air Exam General Appearance: well developed/nourished, no apparent distress, alert, awake , anxious Other Physical Findings: General -well-developed, tremulous elderly woman appearing mildly anxious HEENT - NCAT, PERRL, EOMI, anicteric sclera Cardio - S1, S2 w/o murmurs/gallops/rubs Resp - CTA bilaterally w/o wheezing/rhochi/crackles GI - Non-tender, non-distended abdomen, Bowel sounds present Neuro - Awake and alert, CN II - XII grossly intact Extremity-swelling of right thigh without overlying ecchymosis defined by skin marker demonstrating minimal reduction in swelling, no obvious distal lower extremity swelling, pulses intact in bilateral lower extremities Current Medications: Current Medications Sig/[place] Start time Last Medication Dose Route Stop Time Status Admin Acetaminophen 650 MG Q8 PRN 10/06 1945 AC PO Bupropion HCl 150 MG BID 10/06 2200 AC 10/08 PO 1005 Ceftriaxone Sodium 1,000 MG DAILY 10/07 1000 DC 10/07 IV 0907 Dextrose 25 GM ONCE ONE 10/08 0700 DC 10/08 IV 10/08 0701 0640 Dextrose 25 GM ONCE ONE 10/07 1300 DC 10/07 IV 10/07 1301 1245 Dextrose/Sodium 1,000 ML Q8H 10/07 1300 AC 10/08 Chloride IV 0527 Dextrose/Sodium 1,000 ML Q13H 10/07 0600 DC 10/07 Chloride IV 10/07 1859 0551 Diazepam 2 MG 4 TIMES/DAY 10/07 1155 DC 10/07 PO 1421 Exemestane 25 MG DAILY 10/07 1000 AC 10/08 PO 1005 Folic Acid 1 MG DAILY 10/07 1000 AC 10/08 PO 1005 Hydromorphone HCl 0.6 MG Q4P PRN 10/07 1200 AC 10/08 IV 0333 Insulin Aspart 0 TIDAC 10/07 1200 DC 10/07 SC 10/07 2358 1855 Insulin Detemir 5 UNITS AT BEDTIME 10/06 2200 AC 10/07 SC 2116 Insulin Human Regular 0 Q6 10/07 2359 AC 10/08 SC 0027 Insulin Human Regular 0 Q6 10/06 2359 DC SC Lorazepam 0 Q1P PRN 10/07 1330 AC 10/08 IV 1005 Magnesium Sulfate 1 GM Q2H 10/08 0845 AC 10/08 Dextrose/Water 100 ML IV 10/08 1244 1006 Morphine Sulfate 2 MG Q4P PRN 10/07 1015 DC IV Oxycodone HCl 5 MG Q6 PRN 10/06 1945 AC 10/07 PO 0757 Potassium Chloride 10 MEQ Q1H 10/08 0900 DC IV 10/08 1001 Sodium Chloride 1,000 ML Q8H 10/07 1200 DC IV Sodium Polystyrene 60 ML ONCE ONE 10/07 1030 DC 10/07 Sulfonate PO 10/07 1031 1223 Impression/Plan Impression/Problem List Impression: Cardiology consult was placed last evening for clearance evaluation for potential surgical intervention today, which is still pending. Echocardiogram was obtained this morning in anticipation for this. Patient has been consistently tachycardic to the 110s/120s without any elevated troponins or EKG changes. Telemetry has demonstrated frequent PVCs, however has been otherwise without any events. Patient appears tremulous, however improved since yesterday. Her see what scoring has been 10 or less since yesterday evening requiring minimal amounts of Ativan since midnight. Problem list: -Displaced comminuted right proximal femoral shaft fracture -Proximal right lower extremity hematoma -Acute blood loss anemia -EtOH withdrawal -History of breast cancer that is post bilateral mastectomy, chemotherapy/ radiation -Leukocytosis Musculoskeletal: Sustained a fall from her bed resulting in a right hip fracture as demonstrated by x-ray and CT imaging. She was evaluated by orthopedic surgery, but surgical intervention was deferred as patient was found to have an acute drop in her hemoglobin requiring admission to the intensive care unit from the general medicine floor for medical optimization. She was started on a diabetic diet with nothing by mouth at midnight for surgery tomorrow. -Nothing by mouth, on D5 normal saline at 125 mL per hour -Monitor vital signs and hemoglobin -Cardiac clearance pending -Orthopedic consult following Cardiology: Patient has no known history of any cardiovascular disease. She has been consistently tachycardic to the 110/120s. This is most likely secondary to her acute blood loss as a reflexive tachycardia. Troponins have been consistently negative with no EKG changes. Echocardiogram was obtained in anticipation for this, which is still pending. Telemetry monitoring has demonstrated frequent PVCs. Revised cardiac risk index calculated for a score of 0 suggesting a 0.4% risk of a major cardiac event. -RCRI: 0, 0.4 risk for major cardiac event -Cardiology consult pending for clearance Hematology/oncology: Patient has a history of breast cancer with bilateral mastectomy, chemotherapy, and radiation. Last treatment reportedly received 6 months ago. She is a patient of Dr. Mejias of the [facility]. She has not had any follow- up imaging since this time apparently, but is reportedly in remission with a surveillance visit scheduled in January 2017. Patient has had persistent leukocytosis since admission. White blood cell count was elevated as recently as July to 20,000, baseline level unclear. She denies taking any adjuvant chemotherapy regimens such as Neulasta/Neupogen that could possibly account for this, however records are unavailable at this time. Consent for blood transfusion was obtained and placed on chart, type and cross was ordered. Packed red blood cells were transfused. -PRBC transfused: 2 -Daily CBC, monitor for worsening anemia/leukocytosis Psychiatry: Patient has a history of alcohol abuse for which she reports drinking vodka several times a week. Serum alcohol on admission was negative. She remains tremulous with see what scores consistently minimally elevated. -Ativan per CIWA -Ativan 2 mg by mouth every 6 hours with taper -Multivitamin/thiamine/folate -Bupropion 150 mg by mouth twice a day Endocrinology: Patient with a history of diabetes mellitus. Blood sugars have been consistently low requiring amps of dextrose. -Accu-Cheks -NovoLog sliding scale insulin 3 times a day before meals -Levemir 5 units at bedtime Pain plan: -Acetaminophen 650 mg by mouth every 8 hours as needed for pain 1-3 -Oxycodone 1 tab by mouth every 6 hours as needed for pain 4-6 -Dilaudid 0.6 mg IV every 4 hours as needed for pain 7-10 Diet-nothing by mouth for possible surgery today DVT prophylaxis-contraindication to both mechanical/pharmacological prophylaxis Code Status-full code Problem List: 1. Closed right femoral fracture 2. Leukocytosis Pain Ratin Tomorrow's Labs & Rationales: Complete blood count ICU bundle Plan DVT/Prophylaxis: contraindication to mechanical/pharmacological DVT prophylaxis JOSHUA TOVAR MD 10/08/16 1611: Attending MD Review Statement Attending Sign Off Attending Cosign Statement: I have: examined this patient, reviewed aval EMR data, discussd w/resident/PA/ LINE INSTALLER TROLLEY, agreed w/resident/PA/LINE INSTALLER TROLLEY, amended to note. Other Findings: The patient was seen early this morning. Reported to me that there were episodes of vtach, however when strips were reviewed with house staff these proved to be artifacts secondary to motion. Cardiology input from Dr. Zarate appreciated. The patient was alert and oriented at the time of my exam with some tremor and c /o pain related to hip fracture. She had received some Ativan and CIWA as per nursing. Later in morning was noted to be confused which may be related to withdrawal or medication. Elected to defer surgery and treat for withdrawal at present with Ativan/CIWA protocol. Replete Mg and maintain K. ECHO done and shows LVEF of 70% with some impaired relaxation.
--- NOTE | 2016-10-08 13:16 | Cons- Cardiology ---
General Information and HPI Consulting Request Date of Consult: 10/08/16 Requested By: JIE BUSTOS,TRUDI History of Present Illness: Pratibha is a 61 year old female with history of diabetes, osteopenia and chronic pancreatitis secondary to alcoholism. She was discovered to have a right hip fracture after a fall and now anticipates surgical repair. This patient reports falling out of bed prior to noting a severe right hip pain. She was unable to move for about one hour. She does admit to drinking alcohol. At her baseline this patient states that she can walk quickly for short distances between her house and her neighors. She does not experience any chest pain, pressure, tightness, shortness of breath, lightheadedness or palpitations with this level of activity. The patient is mildly tachycardic at present but appears to be having issues with alcohol withdrawal. She was noted to have an occasional PVC with no evidence of VT. This patient is noted to have a very elevated WBC count. Allergies/Medications Allergies: Coded Allergies: apple (Severe, THROAT CLOSURE 06/28/16) rose (Severe, THROAT CLOSURE 06/28/16) CHERRIES cezar (Severe, THROAT CLOSURE 06/28/16) peach (Severe, THROAT CLOSURE 06/28/16) sertraline (Intermediate, RASH 06/28/16) birch (UNKNOWN 06/28/16) Home Med List: Aspirin (Aspirin*) 81 MG TAB.CHEW 1 TAB PO DAILY Heart (Reported) Bupropion HCl (Bupropion HCl Sr) 150 MG TABLET.ER 1 TAB PO BID SMOKING CESSATION (Reported) Exemestane 25 MG TABLET 1 TAB PO DAILY BREAST CA (Reported) Folic Acid 1 MG TABLET 1 MG PO DAILY FOLIC ACID SUPPLEMENT (Reported) Insulin Aspart, Recombinant (Novolog Flexpen) 100 UNIT/ML INSULN.PEN DM ( Reported) Review of Systems Review of Systems: A twelve point review of systems is unremarkable. 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 Home Services at Home: None Smoking Status: Current Everyday Smoker ETOH Use: heavy use, patient drinks a bottle of vodka a week Exam & Diagnostic Data Vital Signs and I&O Vital Signs Date Time Temp Pulse Resp B/P Pulse O2 O2 Flow FiO2 Ox Delivery Rate 10/08 1200 99.6 109 21 130/82 10/08 1200 95 Room Air Room Air 10/08 1000 97.8 106 17 138/86 10/08 0800 97.8 93 18 112/78 10/08 0800 97 Room Air Room Air 10/08 0800 97.8 93 18 112/78 97 Room Air Room Air 10/08 0600 98 26 119/76 10/08 0400 117 16 127/87 10/08 0400 95 Room Air Room Air 10/08 0300 107 25 126/73 10/08 0200 114 24 125/78 10/08 0000 99.4 114 30 120/82 10/08 0000 97 Room Air Room Air 10/07 2300 99.4 114 30 120/82 97 Room Air Room Air 10/07 2200 98.9 118 16 151/81 10/07 2000 98.8 116 17 122/72 10/07 1800 98.8 110 17 120/67 10/07 1600 98.8 118 17 140/91 10/07 1600 98.8 118 17 130/80 92 Room Air Intake & Output 10/08 1600 10/08 0800 10/08 0000 10/07 1600 10/07 0800 10/07 0000 Intake Total 1025 1240 1775 800 650 Output Total 425 127 200 50 100 Balance 600 1113 1575 750 550 Intake, Blood 700 Product Intake, IV 1025 1000 475 700 250 Intake, Oral 0 240 600 100 400 Number 0 0 Bowel Movements Output, Urine 425 127 200 50 100 Patient 115 lb Weight Physical Exam: General: WD/ WN female in NAD; alert and oriented. Patient is tremulous. HEENT: NC/ AT, PERRL, EOMI, clear oropharynx Neck: no JVD, no carotid bruit Heart: tachycardic with regular rhythm, no murmur Lungs: clear bilaterally Abdomen: soft, NT, +ve bowel sounds Extremities: no edema Diagnostic Data EKG Results sinus rhythm with left atrial enlargment and left axis Assessment/Plan Assessment/Plan * This patient is currently having some withdrawal symptoms and, as such, is tachycardic. I do not see any significant dysrhythmias such as ventricular tachycardia. This patient is known from her last echo to have a normal EF but her echocardiogram should be repeated. This patient has no symptoms of myocardial ischemia or decompensated congesive heart failure and is cleared for surgery. Continue Lorazepam. Please begin metoprolol 25mg PO BID. Consult Acknowledgment - Thank you for your consult request.
--- NOTE | 2016-10-08 15:45 | NUR ---
ASSUMED CARE OF PATIENT. PATIENT AWAKE AND ALERT, RESPONDS TO NAME BUT IS CONFUSED TO PLACE AND TIME. PATIENT VERY AGITATED STATING SHE NEEDS TO PUT HER CLOTHES ON AND GO HOME. UNABLE TO REORIENT PATIENT TO FACT THAT SHE IS IN HOSPITAL WITH HIP FRACTURE. PATIENT CONTINUES TO STATE THAT IT IS "SAFE FOR ME TO DRIVE". PATIENT WITH SIGNIFICANT TREMOR TO BOTH UPPER EXTREMITIES. MD NOTIFIED AND ATIVAN 2MG IV GIVEN ORDERED. CHEST CLEAR, BOWER INTACT DRAINING CLEAR URINE. ABD SOFT NON TENDER.
--- NOTE | 2016-10-08 16:09 | ECHOCARDIOGRAM REPORT ---
LUCHO LI Age: 61 : 1955 Gender: F Exam Date: 10/08/2016 09:02 Exam Location: [facility] Ht (in): Wt (lb): 5 BSA: BP: 127 / 87 Ordering Physician: JOSE LUIS JEFFERSON, Referring Physician: JOSE LUIS JEFFERSON MD Technologist: Nelda Pimentel RDCS Room Number: [id number] Indications: HYPOTENSION Rhythm: Sinus Technical Quality: good FINDINGS Left Ventricle Normal left ventricular size, wall thickness and systolic function with no obvious regional wall motion abnormalities. Diastolic filling pattern is consistent with impaired LV relaxation. The ejection fraction is visually estimated at 70%. Right Ventricle The right ventricle is normal in size and function. Right Atrium The right atrium is normal in size. Left Atrium The left atrium is normal in size. The interatrial septum is intact. Mitral Valve The mitral valve is normal in structure and function. There is mild mitral regurgitation. Aortic Valve Structurally normal aortic valve without significant sclerosis or stenosis. There is no aortic regurgitation. Tricuspid Valve The tricuspid valve is normal in structure and function. There is trace tricuspid regurgitation. Pulmonary artery systolic pressure is normal. Pulmonic Valve Structurally normal pulmonic valve. There is no pulmonic regurgitation. Pericardium Normal pericardium without effusion. No pleural effusion. Great Vessels Normal aortic root dimension. The aortic arch and great vessels are well seen and are normal. CONCLUSIONS 1. Normal EF of 70% with impaired LV relaxation. 2. Mild mitral regurgitation. 3. Trace tricuspid regurgitation. Jose E Zarate M.D. (Electronically Signed) Final Date: 08 October 2016 16:08 MEASUREMENTS (Male / Female) Normal Values 2D ECHO LV Diastolic Diameter PLAX 4.0 cm 4.2 - 5.9 / 3.9 - 5.3 cm LV Systolic Diameter PLAX 2.4 cm 2.1 - 4.0 cm LV Fractional Shortening PLAX 40.0 % 25 - 46 % LV Ejection Fraction 2D Teich 71.2 % IVS Diastolic Thickness 1.0 cm LVPW Diastolic Thickness 1.1 cm LV Relative Wall Thickness 0.5 RV Internal Dim ED PLAX 1.5 cm 1.9 - 3.8 cm LVOT Diameter 1.8 cm Aortic Root Diameter 3.7 cm LA Systolic Diameter LX 3.4 cm 3.0 - 4.0 / 2.7 - 3.8 cm LA Volume 14.0 cm 18 - 58 / 22 - 52 cm Ascending Aorta Diameter 3.9 cm DOPPLER AV Peak Velocity 157.0 cm/s AV Peak Gradient 9.9 mmHg AV Mean Velocity 108.0 cm/s AV Mean Gradient 5.0 mmHg AV Velocity Time Integral 28.3 cm LVOT Peak Velocity 96.3 cm/s LVOT Peak Gradient 3.7 mmHg LVOT Mean Velocity 59.7 cm/s LVOT Mean Gradient 2.0 mmHg LVOT Velocity Time Integral 16.4 cm LVOT Stroke Volume 41.7 cm AV Area Cont Eq vti 1.5 cm AV Area Cont Eq pk 1.6 cm MV Peak Velocity 136.0 cm/s MV Peak Gradient 7.4 mmHg MV Mean Velocity 60.3 cm/s MV Mean Gradient 2.0 mmHg Mitral E Point Velocity 73.5 cm/s Mitral A Point Velocity 128.0 cm/s Mitral E to A Ratio 0.6 MV PHT Velocity 72.1 cm/s MV Deceleration Shelby 186.0 cm/s MV Pressure Half Time 116.3 ms MV Area PHT 1.9 cm MV Deceleration Time 180.0 ms TR Peak Velocity 144.0 cm/s TR Peak Gradient 8.3 mmHg Right Atrial Pressure 5.0 mmHg Pulmonary Artery Systolic Pressu 13.3 mmHg Right Ventricular Systolic Press 13.3 mmHg PV Peak Velocity 85.5 cm/s PV Peak Gradient 2.9 mmHg PV Mean Velocity 60.1 cm/s PV Mean Gradient 2.0 mmHg PV Velocity Time Integral 14.4 cm LV E' Lateral Velocity 7.3 cm/s Mitral E to LV E' Lateral Ratio 10.0 LV E' Septal Velocity 8.9 cm/s Mitral E to LV E' Septal Ratio 8.2
[2016-10-09] VITALS (12 sets, daily range): BP systolic 118–179; BP diastolic 54–108
--- NOTE | 2016-10-09 00:15 | NUR ---
PT WAKES UP WHEN CALLED HER NAME, DISORIENTED TO PLACE AND TIME. SATURATION 95% ON RA, LUNGS SOUND CLEAR. NST 80'S,MANUAL BP 160/80. RIGHT LEG WEAK; MOVING ALL OTHER EXTREMETIES WELL. BOWER IN PLACE, ADEQUATE UO NOTED. NPO MAINTAINED, FOR SURGERY TOMORROW.
[2016-10-09 04:58] LABS: ABSOLUTE BASOPHIL COUNT 0 /CUMM (0.0-0.2); ABSOLUTE EOSINOPHIL COUNT 0.1 /CUMM (0.0-0.7); ABSOLUTE GRANULOCYTE CT 28.8 /CUMM (1.4-6.5); ABSOLUTE LYMPH COUNT 1.7 /CUMM (1.2-3.4); ABSOLUTE MONOCYTE COUNT 2.5 /CUMM (0.10-0.60); BASOPHIL % 0.1 % (0.0-2.0); EOSINOPHIL % 0.2 % (0-5); GRANULOCYTE % 87.1 % (42.2-75.2); HEMATOCRIT 26.8 % (37-47); MEAN CORPUSCULAR HGB 30.9 PG (27.0-31.0); MEAN CORPUSCULAR HGB CONC 34.2 G/DL (33.0-37.0); MEAN CORPUSCULAR VOLUME 90.3 FL (81.0-99.0); MEAN PLATELET VOLUME 10.1 FL (7.4-10.4); PLATELET COUNT 129 /CUMM (130-400); RED BLOOD CELL CT 2.97 /CUMM (4.20-5.40)
[2016-10-09 05:03] LABS: WHITE BLOOD CELL COUNT 33.1 /CUMM (4.8-10.8)
--- NOTE | 2016-10-09 05:47 | PN- Orthopedic ---
See Addendum Subjective Subjective: The patient was seen this morning. She appeared tremulous and somewhat confused but responding to questions. She seemed comfortable and reported that her pain is under adequate control. She has no longer been tachycardic since Lopressor was started yesterday and remains on a [facility] protocol for alcohol withdrawal. Objective Vital Signs and I&Os Vital Signs Date Time Temp Pulse Resp B/P Pulse O2 O2 Flow FiO2 Ox Delivery Rate 10/09 0400 99.2 89 26 156/82 10/09 0400 99 10/09 0200 89 20 130/54 10/09 0000 99.0 86 22 160/80 10/09 0000 95 Room Air 10/09 0000 99.0 86 22 160/80 95 Room Air 10/08 2200 87 18 120/72 10/08 2132 89 18 157/88 10/08 2000 99.3 90 20 128/79 10/08 2000 95 Room Air 10/08 1800 96 18 157/64 10/08 1600 99.9 100 18 150/84 10/08 1600 99.9 100 18 120/70 94 Room Air 10/08 1406 99.6 124 20 179/87 10/08 1400 99.6 124 20 179/97 10/08 1200 99.6 109 21 130/82 10/08 1200 95 Room Air Room Air 10/08 1000 97.8 106 17 138/86 10/08 0800 97.8 93 18 112/78 10/08 0800 97 Room Air Room Air 10/08 0800 97.8 93 18 112/78 97 Room Air Room Air 10/08 0600 98 26 119/76 Intake & Output 10/09 0800 10/09 0000 10/08 1600 10/08 0800 10/08 0000 10/07 1600 Intake Total 163 669 6597 1240 1775 Output Total 485 600 425 127 200 Balance 166 874 310 6172 1575 Intake, Blood 700 Product Intake, IV 319 041 6107 1000 475 Intake, Oral 120 100 0 240 600 Number 0 0 Bowel Movements Output, Urine 485 600 425 127 200 Physical Exam: Gen.: Alert, restless, and tremulous. Skin: Warm and dry Extremities: Bilateral lower extremities are warm without calf tenderness or significant edema. Gross motor or sensory are intact. Right thigh compartments remain soft and the leg is externally rotated. There are palpable distal pulses and good capillary refill. Assessment/Plan Assessment/Plan Assessment: 61-year-old female status post right femoral fracture status post fall out of bed. The patient is still assuming signs of alcohol withdrawal however tachycardias improved since beginning beta blockers. Recommendations: Keep nothing by mouth with IV hydration for possible operative intervention today if deemed optimized by the medical staff. CIWA protocol Strict bedrest Continue Palacio catheter PRN pain medications Follow-up morning labs and replete electrolytes as needed
--- NOTE | 2016-10-09 08:00 | NUR ---
REC'D THE PT IN BED, A&OX3, BROWN EXCEPT THE RLE SECONDARY TO HIP FRACTURE. PT IS FIDGETY IN THE BED AND REQUIRES FREQUENT REINSTRUCTION TO KEEP HER L ARM STRAIGHT HER IV KEEPS OCCLUDING- ARM BOARD PLACED AND THE ARM WAS ELEVATED ON A PILLOW. PT IS IN A NSR WITH PVC'S PER THE SNOWMAKER. SWELLING TO THE R THIGH HAS DECREASED SINCE 10/08. RLE REMAINS BENT AT A 45 DEGREE ANGLE. DENIES ANY PAIN. TATIANA BS ARE CLEAR BUT DIMINISHED AT THE BASES WITH AN 02 SAT OF 93% ON ROOM AIR. PT HAS A LOW GRADE TEMP OF 99.7 ORALLY. ABD IS SOFT WITH NORMOACTIVE BOWEL SOUNDS. REMAINS NPO FOR POSSIBLE OR TODAY TO FIX HIP FRACTURE. BOWER IN PLACE DRAINING CLEAR YELLOW URINE.
--- NOTE | 2016-10-09 09:03 | NUR ---
THE PT'S P2 SAT WAS NOTED TO BE 86-88% ON ROOM AIR AT 0850. PT REPOSITIONED WITH HOB AT 45 DEGREES AND ENCORAGED TO TAKE DEEP SLOW BREATHS THE PT WAS TACHYPNEIC. THE O2 SAT DID NOT INCREASE. PT PLACED ON A 2LNC AT 0855 AND THE SAT ONLY INCREASED TO 92%. DR MUMTAZ DAY MADE AWARE AND AT 0900 A STAT PORTABLE CXR WAS PERFORMED. WILL CONTINUE TO MONITOR.
--- NOTE | 2016-10-09 09:42 | RADIOLOGY REPORT ---
EXAMINATION: XR PORTABLE CHEST CLINICAL INFORMATION: Leukocytosis and history of alcohol use. Evaluate for aspiration. COMPARISON: CXR from 10/06/2016 TECHNIQUE: Portable view of the chest was obtained. FINDINGS: Interval development of patchy bilateral pulmonary opacities. The airspace disease is most pronounced within the left upper lobe. No pneumothorax or pleural effusion. Cardiac silhouette is borderline enlarged. No acute skeletal findings. IMPRESSION: Interval development of patchy bilateral pulmonary opacities. The findings are suggestive of multilobar pneumonia.
--- NOTE | 2016-10-09 10:15 | PN- Resident CRCU ---
MUMTAZ DAY MD 10/09/1612: Subjective HPI/CRCU Issues: Patient seen and examined. She is seen lying flat resting comfortably in bed. She appears more somnolent today with her speech slow with an apathetic affect. Respiratory rate appears to be increased but she denies any symptoms of shortness of breath or productive cough. She is oriented to person place and time, but appears distracted. Otherwise she denies any headache, fever, chills, chest pain, productive cough, nausea, vomiting or diarrhea. No overnight events reported. Objective Vital Signs & I&O Last 8 Hrs of Vitals and I&O: Intake & Output 10/09 1600 Intake Total Output Total Balance Patient 52.163 kg Weight Vitals: - Temperature: 99.0-100.7 - Heart Rate: 84-92 - Respiratory Rate: 24-34 - Systolic Blood pressure: 120-162 - Diastolic Blood pressure: 72-92 - Oxygen Saturation: 94% on 3.0 L via nasal cannula Exam General Appearance: well developed/nourished, no apparent distress, alert, awake , anxious, lethargic, thin Other Physical Findings: General -thin, elderly woman in mild respiratory distress appearing lethargic with blunted affect HEENT - NCAT, PERRL, EOMI, anicteric sclera Cardio - S1, S2 w/o murmurs/gallops/rubs Resp -diffuse rhonchi without crackles, tachypnea GI -soft, nontender, nondistended, bowel sounds present Neuro -awake and alert to person place and time, admits to visual hallucinations , blunted affect, lethargic/somnolent/apathetic Genitourinary-Palacio catheter in place Current Medications: Current Medications Sig/[place] Start time Last Medication Dose Route Stop Time Status Admin Acetaminophen 650 MG Q8 PRN 10/06 1945 AC 10/09 PO 1024 Azithromycin 500 MG DAILY 10/09 1044 AC Sodium Chloride 250 ML IV Bupropion HCl 150 MG BID 10/06 2200 DC 10/09 PO 1024 Ceftriaxone Sodium 1,000 MG DAILY 10/09 1044 AC IV Dextrose 12.5 GM ONCE ONE 10/09 0700 DC 10/09 IV 10/09 0701 0700 Dextrose 12.5 GM ONCE ONE 10/09 0645 DC 10/09 IV 10/09 0646 0647 Dextrose/Sodium 1,000 ML Q8H 10/09 0700 DC Chloride IV Dextrose/Sodium 1,000 ML ONCE ONE 10/09 0000 AC 10/08 Chloride IV 10/09 1319 2213 Dextrose/Sodium 1,000 ML Q8H 10/07 1300 DC 10/08 Chloride IV 0527 Exemestane 25 MG DAILY 10/07 1000 AC 10/09 PO 1024 Folic Acid 1 MG DAILY 10/07 1000 AC 10/09 PO 1025 Hydromorphone HCl 0.6 MG Q4P PRN 10/07 1200 AC 10/08 IV 2133 Insulin Aspart 0 TIDAC 10/08 1700 CAN SC 10/09 0000 Insulin Detemir 5 UNITS AT BEDTIME 10/06 2200 AC 10/08 SC 2133 Insulin Human Regular 0 Q6 10/08 2359 DC SC Insulin Human Regular 0 Q6 10/08 1800 AC 10/08 SC 1754 Insulin Human Regular 0 Q6 10/07 2359 DC 10/08 SC 0027 Lorazepam 2 MG ONE ONE 10/08 1545 DC 10/08 IV 10/08 1546 1543 Lorazepam 2 MG Q6 10/08 1215 AC 10/09 PO 0641 Lorazepam 0 Q1P PRN 10/07 1330 AC 10/09 IV 1025 Magnesium Sulfate 1 GM ONCE ONE 10/09 0900 AC 10/09 Dextrose/Water 100 ML IV 10/09 1259 1023 Magnesium Sulfate 1 GM ONCE ONE 10/09 0700 AC 10/09 Dextrose/Water 100 ML IV 10/09 1059 0701 Magnesium Sulfate 1 GM Q2H 10/09 0645 DC Dextrose/Water 100 ML IV 10/09 1044 Magnesium Sulfate 1 GM Q2H 10/08 0845 DC 10/08 Dextrose/Water 100 ML IV 10/08 1244 1006 Metoprolol Tartrate 25 MG BID 10/08 1336 AC 10/09 PO 1024 Oxycodone HCl 5 MG Q6 PRN 10/06 1945 AC 10/07 PO 0757 Potassium Chloride 10 MEQ ONCE ONE 10/09 0800 DC IV 10/09 0801 Potassium Chloride 20 MEQ Q13H 10/09 0745 AC 10/09 Dextrose/Sodium 1,000 ML IV 10/09 2044 0846 Chloride Potassium Chloride 10 MEQ ONCE ONE 10/09 0700 DC 10/09 IV 10/09 0701 0702 Potassium Chloride 20 MEQ Q13H 10/09 0645 DC Dextrose/Sodium 1,000 ML IV Chloride Thiamine HCl 100 MG DAILY 10/09 1018 AC PO Impression/Plan Impression/Problem List Impression: Patient became febrile with tachypnea this morning and was placed on a nasal cannula at 3.0 L O2 per minute and was found to be saturating in the low 90s. A chest x-ray was obtained that was suggestive of a multi lobar pneumonia. Cultures have thus far remained negative. Patient was started on ceftriaxone and azithromycin. Surgical PA was contacted in regards to this and it was decided that patient was not a candidate for surgical intervention given her current medical condition and the semi-selective/nonurgent nature of the surgery. She is considered medically stable for transfer to the general medicine floor at this time. Problem list: -Displaced comminuted right proximal femoral shaft fracture -Proximal right lower extremity hematoma -Acute blood loss anemia -EtOH withdrawal -Multilobar pneumonia -History of breast cancer that is post bilateral mastectomy, chemotherapy/ radiation -Leukocytosis Musculoskeletal: Sustained a fall from her bed resulting in a right hip fracture as demonstrated by x-ray and CT imaging. She was evaluated by orthopedic surgery, but surgical intervention was deferred as patient was found to have an acute drop in her hemoglobin requiring admission to the intensive care unit from the general medicine floor for medical optimization. She was started on a diabetic diet with nothing by mouth at midnight for surgery tomorrow. -Monitor vital signs and hemoglobin -Cardiac clearance obtained -Orthopedic consult following Cardiology: Patient has no known history of any cardiovascular disease. She has been consistently tachycardic to the 110/120s. This is most likely secondary to her acute blood loss as a reflexive tachycardia. Troponins have been consistently negative with no EKG changes. Echocardiogram was obtained in anticipation for this, which is still pending. Telemetry monitoring has demonstrated frequent PVCs. Revised cardiac risk index calculated for a score of 0 suggesting a 0.4% risk of a major cardiac event. -RCRI: 0, 0.4 risk for major cardiac event -service delivery management consultant cleared patient for surgery Respiratory/infectious disease: Patient was found to be eyebrow, tachypneic and hypoxic on 10/09/16. Chest x- ray suggested a multi lobar pneumonia. Cultures have been no growth to date. Patient was started on intravenous antibiotics. -Ceftriaxone 1 g IV daily -Azithromycin 500 mg IV daily -Urine Cx (10/06): NGTD -BCx x2 (10/06): NGTD -Follow up with surgical PA when medically clear for surgery -Follow-up sputum culture obtained 10/09/16 Hematology/oncology: Patient has a history of breast cancer with bilateral mastectomy, chemotherapy, and radiation. Last treatment reportedly received 6 months ago. She is a patient of Dr. Mejias of the [facility]. She has not had any follow- up imaging since this time apparently, but is reportedly in remission with a surveillance visit scheduled in January 2017. Patient has had persistent leukocytosis since admission. White blood cell count was elevated as recently as July to ,000, baseline level unclear. She denies taking any adjuvant chemotherapy regimens such as Neulasta/Neupogen that could possibly account for this, however records are unavailable at this time. Consent for blood transfusion was obtained and placed on chart, type and cross was ordered. Packed red blood cells were transfused. -PRBC transfused: 2 -Daily CBC, monitor for worsening anemia/leukocytosis Psychiatry: Patient has a history of alcohol abuse for which she reports drinking vodka several times a week. Serum alcohol on admission was negative. She remains tremulous with see what scores consistently minimally elevated. -Ativan per CIWA -Ativan 2 mg by mouth every 6 hours with taper -Multivitamin/thiamine/folate -Bupropion on hold -Consider psychiatry/social work consult Endocrinology: Patient with a history of diabetes mellitus. Blood sugars have been consistently low requiring amps of dextrose. -Accu-Cheks -NovoLog sliding scale insulin 3 times a day before meals -Levemir 5 units at bedtime Pain plan: -Acetaminophen 650 mg by mouth every 8 hours as needed for pain 1-3 -Oxycodone 1 tab by mouth every 6 hours as needed for pain 4-6 -Dilaudid 0.6 mg IV every 4 hours as needed for pain 7-10 Diet - diabetic diet DVT prophylaxis-contraindication to both mechanical/pharmacological prophylaxis Code Status-full code Problem List: 1. Closed right femoral fracture Pain Ratin Tomorrow's Labs & Rationales: Complete blood count ICU bundle Plan DVT/Prophylaxis: contraindication to mechanical/pharmacological DVT prophylaxis KITTY SALGADO MD 10/09/16 1523: Attending MD Review Statement Attending Sign Off Attending Cosign Statement: I have: examined this patient, reviewed [facility] EMR data, discussd w/resident/PA/ [employer] TECHNICIAN, agreed w/resident/PA/GROUND S[employer]AT PU[employer] TECHNICIAN. Other Findings: 61F PMH IDDM, chronic pancreatitis secondary to alcoholism, breast cancer treated with chemotherapy, osteopenia presenting with fall out of bed and right hip fracture. Has been unable to go to OR for repair due to persistent leukocytosis and delirium. Patient has a history of alcohol abuse and likely is experiencing some alcohol withdrawal. Her CXR shows multilobar pneumonia. Afebrile, stable vitals. On exam bilateral rhonchi and tender right hip, otherwise normal. Plan - May downgrade to general medicine - Continue Ceftriaxone and Azithromycin - Follow up sputum and blood cultures - TRC/nebulizer treatments - Continue Ativan taper - Hgb has been stable since initial drop, continue to monitor - Follow orthopedic recommendations - Started on Thiamine, will continue - Follow cardiology recommendations - Would wait for pneumonia and delirium to improve before taking to OR - Lovenox for DVT PPx
--- NOTE | 2016-10-09 10:30 | NUR ---
PT'S O2 WAS INCREASED TO 3L FROM 2L AT 0950-O2 AT IS NOW 94%. PT'S TEMP ORALLY AT 1000 WAS 100.7-TYLENOL 650MG PO ADMINISTERED. IN ADDITION THE PT WAS VERY RESTLESS IN THE BED AND HER CIWA WAS 15-MEDICATED WITH ATIVAN 0.5MG IV PER THE CIWA SCALE AT THIS TIME. NEW LF #20 IV PLACED BY PRATIK BEYER RN AT THIS TIME AND THE ERNESTINE IV WAS DC'D. THE PT IS IN THE PROCESS OF RECEIVING MAGNESIUM REPLACEMENT OF 1GM AND WILL THEN RECEIVE KCL 10MEQ IV AFTERWARDS.
--- NOTE | 2016-10-09 11:30 | NUR ---
PT IS MUCH LESS RESTLESS AND IS ACTUALLY SLEEPING AT PRESENT. PT IS TO RECEIVE ROCEPHIN 1000MG AND ZITHROMAX 500MG, BOTH IV WHEN RECEIVED FROM PHARMACY. PER RADIOLOGIST'S READING OF THE CXR A MULTILOBAR PNEUMOINIA IS SUSPECTED. TEMP IS 100.7 PRESENTLY.
--- NOTE | 2016-10-09 19:30 | NUR ---
ASSUMED CARE OF PATIENT. RT IN TO ASSESS PT. OXYGEN SAT 85% WITH INCREASED RESPIRATORY RATE OF 34 AND INCREASED CONFUSION AND AGITATION. OXYGEN INCREASED TO 5L AND MD NOTIFIED AND IN TO EXAMINE PATIENT. OXYGEN INCREASED TO 35% VENTIMASK WITH LITTLE IMPROVEMENT. RESP NEB TX GIVEN TO PATIENT WITH LIMITED IMPROVEMENT.
--- NOTE | 2016-10-09 20:00 | NUR ---
PORTABLE CXR AND ABG DONE. PATIENT INCREASED TO 55% PARTIAL NON REBREATHER WITH IMPROVING SAT TO 94%. PATIENT LESS RESTLESS. LUNGS WITH SCATTERED RHONCHI AND DECREASED BREATH SOUNDS TO L CHEST AND BASES.
--- NOTE | 2016-10-09 20:12 | Event Note ---
Event Note Event Note: Patient desaturated to 87% on RA around 7:00pm and her O2 requiremnets went up to 6.0 liters and she was placed on a Venti mask. Repeating BCx2, ABG, CXR, as patient spiked a temp of 101F. Starting on Vanc and Ceftaz
--- NOTE | 2016-10-09 20:45 | RADIOLOGY REPORT ---
EXAMINATION: XR PORTABLE CHEST CLINICAL INFORMATION: Worsening respiratory distress. COMPARISON: Chest x-ray 10/09/2016 , 9:12 AM TECHNIQUE: Portable view of the chest was obtained. A 10:00 PM FINDINGS: Persistent unchanged bilateral airspace disease. Confluent opacities more significant in the left upper lobe than in the right lung. Severity is unchanged since prior study. No pleural effusion. No pulmonary vascular congestion. IMPRESSION: Persistent bilateral airspace disease unchanged since prior chest x-ray this a.m.
[2016-10-10] VITALS (7 sets, daily range): BP systolic 92–132; BP diastolic 0–77
--- NOTE | 2016-10-10 01:55 | NUR ---
PATIENT'S SATURATION WAS DOWN TO 85% ON 60% PRB. SUCTIONED BY RT AND OBTAINED THICK SPUTUM. SATURATION IMPROVED TO 95%. BILATERAL RHONCHI HEARD. BOWER IN PLACE, ADEQUATE UO AT THIS TIME. ABDOMEN SOFT, NORMOACTIVE BS. FORTAZ GIVEN ORDERED. ATIVAN NOT GIVEN AT MN, PT SLEEPY.
--- NOTE | 2016-10-10 04:30 | NUR ---
SATURATION DOQN TO 65-70% ON 100% NRB. RESPIRATORY NOTIFIED. PT BAGGED. PT RESTLESS. INTUBATED BY ANESTHESIA, # 8 ETT, AC20 500, 100,5. SATURATION 93-95%. SUCTIONED AND OBTAINED THICK BLACKBURN SECRETIONS. CXR DONE FOR ETT AND OGT PLACEMENT.
--- NOTE | 2016-10-10 04:48 | Event Note ---
Event Note Event Note: We were called to the ICU. Patient is desaturating. She was on nonrebreather mask,with FiO2 60% and was saturating around 90-95%. According to him she suddenly started desaturating to 55%. Her heart rate was 110 -120, BP was 210/ 110mmHg. We decided that the patient should be intubated.We called respiratory therapist and also anesthesia loans consultant. The patient was intubated at 430 a.m.She was kept on ventilator at the setting of TV 500, PEEP-5, IPEP 16, EPEP - 6 and PEEP - 5. We also ordered state Chest x-ray to see the position of the endotracheal tube and ABG after an hour to see the blood oxygenation. We also informed the family about the situation.
--- NOTE | 2016-10-10 05:37 | RADIOLOGY REPORT ---
EXAMINATION: XR PORTABLE CHEST CLINICAL INFORMATION: Endotracheal intubation. COMPARISON: Chest radiography 10/09/2016. TECHNIQUE: Portable view of the chest was obtained. FINDINGS: Endotracheal tube terminates 6 cm above the king. The enteric tube terminates in the [id number], with side port over the stomach. Bilateral parenchymal consolidation is demonstrated, stable to slightly worse compared to prior exam. No pneumothorax. Mediastinal contours are unchanged. No acute osseous abnormalities. IMPRESSION: 1. Endotracheal tube terminates approximately 6 cm above the king. 2. Diffuse bilateral parenchymal consolidation, stable to slightly worse compared to prior exam.
[2016-10-10 05:47] LABS: ABSOLUTE BASOPHIL COUNT 0 /CUMM (0.0-0.2); ABSOLUTE EOSINOPHIL COUNT 0.1 /CUMM (0.0-0.7); ABSOLUTE GRANULOCYTE CT 30.9 /CUMM (1.4-6.5); ABSOLUTE MONOCYTE COUNT 1.5 /CUMM (0.10-0.60); BASOPHIL % 0 % (0.0-2.0); EOSINOPHIL % 0.2 % (0-5); GRANULOCYTE % 92.1 % (42.2-75.2); HEMATOCRIT 28.7 % (37-47); MEAN CORPUSCULAR HGB 31.5 PG (27.0-31.0); MEAN CORPUSCULAR HGB CONC 34.8 G/DL (33.0-37.0); MEAN CORPUSCULAR VOLUME 90.7 FL (81.0-99.0); MEAN PLATELET VOLUME 10.3 FL (7.4-10.4); PLATELET COUNT 143 /CUMM (130-400); RBC DISTRIBUTION WIDTH 15.8 % (11.5-14.5); RED BLOOD CELL CT 3.17 /CUMM (4.20-5.40)
[2016-10-10 06:02] LABS: WHITE BLOOD CELL COUNT 33.6 /CUMM (4.8-10.8)
--- NOTE | 2016-10-10 08:08 | Cons- CRCU ---
MUMTAZ DAY MD 10/10/16 0808: General Information and HPI Consulting Request Date of Consult: 10/10/16 Requested By: Dr. Joseph History of Present Illness: 61-year-old woman with multiple medical problems significant for EtOH abuse and breast cancer status post chemotherapy/radiation seen for evaluation of worsening respiratory distress and hypoxia. Patient was brought in by ambulance after sustaining a fall from bed height after rolling out of bed and injuring her right lower extremity/hip. Vital signs on admission were significant for tachycardia and borderline hypotension. Physical examination was remarkable for a tremulous woman with a significantly swollen right lower extremity that was tender to palpation. Lab work demonstrated WBC 28.4, normal hemoglobin/ hematocrit and was otherwise unremarkable. Hip x-ray and CT abdomen/pelvis demonstrated an acute displaced comminuted femoral shaft fracture with extension to the intertrochanteric region. Consent for blood transfusion was obtained in addition to a type and cross. Patient was started on intravenous fluids after taken and admitted to the general medicine floor. The day following admission routine blood work demonstrated an acute drop in her hemoglobin from 12.2 to 7.2 with increased swelling in the right lower extremity. Patient was transferred to the intensive care unit for further monitoring and 2 units of packed red blood cells were transfused. Patient was to undergo surgical intervention of the acute hip fracture on , however that morning patient was seen to be somnolent, febrile, tachypnea, and hypoxic to 89% on room air. Arterial blood gas and chest x-ray were obtained which demonstrated a metabolic alkalosis and airway disease suggestive of a multi-lobar pneumonia. Patient continued to have worsening respiratory distress for which she was ultimately intubated. At present patient remains intubated saturating adequately on ventilator. She remains minimally arousable well being maintained on an Ativan drip and as needed fentanyl pushes. She appears comfortable and in no acute distress. Review of systems is unobtainable. Overnight events are as reported above. Allergies/Medications Allergies: Coded Allergies: apple (Severe, THROAT CLOSURE 06/28/16) rose (Severe, THROAT CLOSURE 06/28/16) CHERRIES cezar (Severe, THROAT CLOSURE 06/28/16) peach (Severe, THROAT CLOSURE 06/28/16) sertraline (Intermediate, RASH 06/28/16) birch (UNKNOWN 06/28/16) Home Med List: Aspirin (Aspirin*) 81 MG TAB.CHEW 1 TAB PO DAILY Heart (Reported) Bupropion HCl (Bupropion HCl Sr) 150 MG TABLET.ER 1 TAB PO BID SMOKING CESSATION (Reported) Exemestane 25 MG TABLET 1 TAB PO DAILY BREAST CA (Reported) Folic Acid 1 MG TABLET 1 MG PO DAILY FOLIC ACID SUPPLEMENT (Reported) Insulin Aspart, Recombinant (Novolog Flexpen) 100 UNIT/ML INSULN.PEN DM ( Reported) Current Medications: Current Medications Sig/[place] Start time Last Medication Dose Route Stop Time Status Admin Acetaminophen 650 MG .STK-MED ONE 10/09 2010 DC PO 10/09 2011 Acetaminophen 650 MG Q8 PRN 10/06 1945 AC 10/09 PO 2017 Albuterol Sulfate 3 ML BID 10/09 1148 AC 10/10 INH 0809 Azithromycin 500 MG DAILY 10/09 1044 DC 10/09 Sodium Chloride 250 ML IV 1410 Ceftazidime 1,000 MG IQ8 10/10 0000 DC 10/10 IV 0954 Ceftriaxone Sodium 1,000 MG DAILY 10/10 1127 AC 10/10 IV 1251 Ceftriaxone Sodium 1,000 MG DAILY 10/09 1044 DC 10/09 IV 1142 Exemestane 25 MG DAILY 10/07 1000 AC 10/10 PO 1028 Fentanyl Citrate 25 MCG Q6P PRN 10/10 1345 AC 10/10 IV 1357 Folic Acid 1 MG DAILY 10/07 1000 AC 10/10 PO 1028 Hydromorphone HCl 0.6 MG Q4P PRN 10/07 1200 AC 10/08 IV 2133 Insulin Aspart 0 TIDAC 10/09 1200 DC SC Insulin Detemir 5 UNITS AT BEDTIME 10/06 2200 AC 10/09 SC 2146 Insulin Human Regular 0 Q6 10/10 0802 DC SC Lorazepam 2 MG Q8P PRN 10/10 0800 DC IV Lorazepam 1.5 MG Q6 10/10 0600 CAN PO Lorazepam 50 MG ONCE ONE 10/10 0530 AC 10/10 Sodium Chloride 500 ML IV 10/11 0529 0538 Lorazepam 2 MG Q6 10/08 1215 DC 10/09 PO 10/10 0000 1808 Lorazepam 0 Q1P PRN 10/07 1330 AC 10/09 IV 1747 Magnesium Sulfate 1 GM ONCE ONE 10/10 0700 DC 10/10 Dextrose/Water 100 ML IV 10/10 1059 0924 Metoprolol Tartrate 5 MG Q8 10/10 0600 DC 10/10 IV 0716 Metoprolol Tartrate 25 MG BID 10/08 1336 DC 10/09 PO 2146 Non-Formulary 0 SEE ADMIN CRITERIA 10/10 0445 CAN Medication ANY Nystatin 5 ML 4 TIMES/DAY 10/10 1152 AC 10/10 PO 1250 Oxycodone HCl 5 MG Q6 PRN 10/06 1945 AC 10/07 PO 0757 Potassium Chloride 20 MEQ Q13H 10/09 2115 DC 10/09 Dextrose/Sodium 1,000 ML IV 10/10 1014 2143 Chloride Potassium Chloride 20 MEQ Q13H 10/09 0745 DC 10/09 Dextrose/Sodium 1,000 ML IV 10/09 2044 0846 Chloride Potassium Phosphate 15 mMol ONE ONE 10/09 2030 DC 10/09 Sodium Chloride 250 ML IV 10/10 0033 2220 Propofol 1,000 MG CONTINOUS INFUSION 10/10 0515 DC N/A 100 ML IV Sodium Chloride 1,000 ML BOLUS ONE 10/10 0845 DC 10/10 IV 10/10 0944 0845 Thiamine HCl 100 MG DAILY 10/09 1018 DC 10/09 PO 1154 Vancomycin HCl 1,000 MG Q24H 10/09 2000 DC 10/09 Sodium Chloride 250 ML IV 204 Review of Systems Review of Systems Constitutional: Reports: see HPI. 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 Home Services at Home: None Smoking Status: Current Everyday Smoker ETOH Use: heavy use, patient drinks a bottle of vodka a week Exam & Diagnostic Data Last 24 Hrs of Vital Signs/I&O Vital Signs Date Time Temp Pulse Resp B/P Pulse O2 O2 Flow FiO2 Ox Delivery Rate 10/10 1416 50 10/10 1200 99.2 87 28 118/72 100 Ventilator 70% 10/10 1200 100 Ventilator 70% 10/10 1131 70 10/10 0816 98 Ventilator 100% 10/10 0810 100 10/10 0800 98.6 81 34 92/0 10/10 0800 98.6 81 34 92/0 98 Ventilator 100% 10/10 0800 98 Ventilator 100% 10/10 0716 107 30 117/58 10/10 0501 100 10/10 0400 96.6 78 36 132/60 93 Non 100% ReBreather 10/10 0200 81 34 124/77 10/10 0031 93 Part 60% ReBreather 10/10 0000 97.7 79 34 112/70 10/10 0000 94 Part 60% ReBreather 10/10 0000 97.7 79 34 112/70 94 Part 60% ReBreather 10/09 2200 98.8 82 24 119/70 10/09 2146 86 28 114/72 10/09 2142 98.8 10/09 2017 101.0 10/09 2000 101.0 88 28 118/73 10/09 2000 101.0 88 28 118/73 90 Venti Mask 35% 10/09 1918 85 Nasal 3.0L Cannula 10/09 1800 99.1 80 20 122/60 10/09 1600 99.1 79 28 122/60 10/09 1600 94 Nasal 3.0L Cannula 10/09 1600 99.1 79 28 122/60 94 Nasal 3.0L Cannula 10/09 1550 Nasal 3.0L Cannula Intake & Output 10/10 1600 10/10 0800 10/10 0000 Intake Total 2180 775 477 Output Total 330 195 465 Balance 1850 580 12 Intake, IV 2180 775 387 Intake, Oral 90 Output, 30 Gastric Drainage Output, Urine 300 195 465 Physical Exam Other Physical Findings: General -thin, frail/sickly older than stated age woman in mild respiratory distress HEENT - NCAT, PERRL, EOMI, anicteric sclera Cardio - S1, S2 w/o murmurs/gallops/rubs Resp -diffuse rhonchi with minimal bibasilar crackles, intubated on ventilator at 70% FiO2 saturating 100% GI -soft, nontender, nondistended, bowel sounds present Neuro - Awake and alert, CN II - XII grossly intact Extremities: -RLE: Swollen proximal right lower extremity, non-tense without any overlying ecchymosis, normal distal pulses without any lower extremity edema Last 48 Hrs of Labs/Charles: Laboratory Tests 10/10/16 1455: Sodium Pending, Potassium Pending, Chloride Pending, Carbon Dioxide Pending, Anion Gap Pending, BUN Pending, Creatinine Pending, Glucose Pending, Calcium Pending, Phosphorus Pending, Magnesium Pending, Total Bilirubin Pending, AST Pending, ALT Pending, Ammonia Pending, Albumin Pending, CBC w Diff Pending, WBC Pending, RBC Pending, Hgb Pending, Hct Pending, MCV Pending, MCH Pending, RDW Pending, Plt Count Pending, MPV Pending, PUBS MCHC Pending 10/10/16 1310: Anion Gap 6, Estimated GFR > 60, Glucose 423 H, Lactic Acid 1.6, Calcium 5.4 *L , Phosphorus 2.7, Magnesium 1.2 L, Total Bilirubin 0.8, AST 36, ALT 25, Creatine Kinase 89, Albumin 1.5 L, Amylase < 30 L, Lipase < 10 L, CBC w Diff MAN DIFF ORDERED, RBC 2.30 L, MCV 90.3, MCH 30.4, RDW 15.5 H, MPV 9.5, Gran % 88.8 H, Lymphocytes % 2.7 L, Monocytes % 8.5, Eosinophils % 0, Basophils % 0 L, Absolute Granulocytes 16.9 H, Segmented Neutrophils 84 H, Band Neutrophils 5, Absolute Lymphocytes 0.5 L, Lymphocytes 6 L, Monocytes 5, Absolute Monocytes 1.6 H, Absolute Eosinophils 0, Absolute Basophils 0, Platelet Estimate DECREASED, Polychromasia 1+, Anisocytosis 1+, PUBS MCHC 33.6 10/10/16 0605: pH 7.35, pCO2 40, pO2 78 L, HCO3 21, ABG O2 Sat (Measured) 92.0 L, P-50 (Temp Corrected) Y, Carboxyhemoglobin 0.3 L, O2 Concentration % 100%, Temperature 100.2 H, Respiration Rate 20, O2 Delivery Method ESPRIT, Vent Mode AC, Expiratory Pressure 5, Tidal Volume 500, Phlebotomy Draw Site LEFT RADIAL 10/10/16 0400: Anion Gap 11, Estimated GFR > 60, Glucose 63 L, Calcium 7.4 L, Phosphorus 3.9, Magnesium 1.5 L, Total Bilirubin 1.3, AST 43 H, ALT 30, Albumin 2.4 L, CBC w Diff MAN DIFF ORDERED, RBC 3.17 L, MCV 90.7, MCH 31.5 H, RDW 15.8 H, MPV 10.3 , Gran % 92.1 H, Lymphocytes % 3.1 L, Monocytes % 4.6, Eosinophils % 0.2, Basophils % 0 L, Absolute Granulocytes 30.9 H, Segmented Neutrophils 86 H, Band Neutrophils 6 H, Absolute Lymphocytes 1.0 L, Lymphocytes 1 L, Monocytes 6, Absolute Monocytes 1.5 H, Absolute Eosinophils 0.1, Basophils 1, Absolute Basophils 0, Platelet Estimate ADEQUATE, Polychromasia 1+, Ovalocytes FEW, Stomatocytes FEW, PUBS MCHC 34.8, Fld Total RBCs Counted 100 10/09/16 1950: pH 7.50 H, pCO2 24 L, pO2 63 L, HCO3 18 L, ABG O2 Sat (Measured) 90.0 L, P- 50 (Temp Corrected) Y, Carboxyhemoglobin 0.3 L, O2 Concentration % 55%, Temperature 101.0 H, O2 Delivery Method VM, Phlebotomy Draw Site RIGHT BRACHIAL 10/09/16 0410: Anion Gap 8, Estimated GFR > 60, Glucose 56 L, Calcium 7.7 L, Phosphorus 2.3 L, Magnesium 1.4 L, Total Bilirubin 0.9, AST 38 H, ALT 29, Albumin 2.3 L, CBC w Diff MAN DIFF ORDERED, RBC 2.97 L, MCV 90.3, MCH 30.9, RDW 16.0 H, MPV 10.1, Gran % 87.1 H, Lymphocytes % 5.1 L, Monocytes % 7.5, Eosinophils % 0.2, Basophils % 0.1, Absolute Granulocytes 28.8 H, Absolute Lymphocytes 1.7, Absolute Monocytes 2.5 H, Absolute Eosinophils 0.1, Absolute Basophils 0, Platelet Estimate DECREASED, Polychromasia 1+, Hypochromic-Microcytic 2+, PUBS MCHC 34.2 Microbiology 10/10 1300 URINE ROUT: Streptococcus pneumoniae Antigen (M - COMP Assessment/Plan Impression/Plan: Overnight patient was intubated for worsening respiratory distress. Patient was continued on ceftriaxone for suspicion for community-acquired/possible aspiration pneumonia, however ARDS is still under consideration. OG tube was placed today and tube feeds are to begin this evening. Patient becomes hypoglycemic each morning so NovoLog sliding scale insulin was held. Cardiology consult felt patient may be fluid overloaded and advised intravenous Lasix to increase urine output. She is continued on an Ativan drip for sedation in addition to as needed fentanyl pushes. The orthopedic team request that they be contacted when patient is stabilized for surgery at . Problem list: -Displaced comminuted right proximal femoral shaft fracture -Proximal right lower extremity hematoma -Acute blood loss anemia -EtOH withdrawal -Multilobar pneumonia vs ARDS -History of breast cancer that is post bilateral mastectomy, chemotherapy/ radiation -Leukocytosis Musculoskeletal: Sustained a fall from her bed resulting in a right hip fracture as demonstrated by x-ray and CT imaging. She was evaluated by orthopedic surgery, but surgical intervention was deferred as patient was found to have an acute drop in her hemoglobin requiring admission to the intensive care unit from the general medicine floor for medical optimization. She was started on a diabetic diet with nothing by mouth at midnight for surgery tomorrow. -Monitor vital signs and hemoglobin -Cardiac clearance obtained -Orthopedic consult following Cardiology: Patient has no known history of any cardiovascular disease. She has been consistently tachycardic to the 110/120s. This is most likely secondary to her acute blood loss as a reflexive tachycardia. Troponins have been consistently negative with no EKG changes. Echocardiogram was obtained in anticipation for this, which is still pending. Telemetry monitoring has demonstrated frequent PVCs. Revised cardiac risk index calculated for a score of 0 suggesting a 0.4% risk of a major cardiac event. -RCRI: 0, 0.4 risk for major cardiac event -system consultant cleared patient for surgery Respiratory/infectious disease: Multi lobar pneumonia versus ARDS Patient was found to be hypotensive, tachypneic and hypoxic on 10/09/16. Chest x-ray suggested a multi lobar pneumonia. Cultures have been no growth to date. Patient was started on intravenous antibiotics. Patient had continued respiratory distress and was subsequently intubated and placed on a ventilator. -Ceftriaxone 1 g IV daily -Azithromycin discontinued -Urine Cx (10/06): NGTD -BCx x2 (10/06): NGTD -Follow up with surgical PA when medically clear for surgery Hematology/oncology: Patient has a history of breast cancer with bilateral mastectomy, chemotherapy, and radiation. Last treatment reportedly received 6 months ago. She is a patient of Dr. [facility]jias of the [facility]. She has not had any follow- up imaging since this time apparently, but is reportedly in remission with a surveillance visit scheduled in January 2017. Patient has had persistent leukocytosis since admission. White blood cell count was elevated as recently as July to 20,000, baseline level unclear. She denies taking any adjuvant chemotherapy regimens such as Neulasta/Neupogen that could possibly account for this, however records are unavailable at this time. Consent for blood transfusion was obtained and placed on chart, type and cross was ordered. Packed red blood cells were transfused. -PRBC transfused: 2 -Daily CBC, monitor for worsening anemia/leukocytosis Psychiatry: Patient has a history of alcohol abuse for which she reports drinking vodka several times a week. Serum alcohol on admission was negative. She remains tremulous with see what scores consistently minimally elevated. -Ativan per CIWA -Ativan as above -Multivitamin/thiamine/folate -Bupropion on hold -Consider psychiatry/social work consult Endocrinology: Patient with a history of diabetes mellitus. Blood sugars have been consistently low requiring amps of dextrose. -Accu-Cheks -NovoLog held for hypoglycemia -Levemir 5 units at bedtime Pain plan: -Acetaminophen 650 mg by mouth every 8 hours as needed for pain 1-3 -Oxycodone 1 tab by mouth every 6 hours as needed for pain 4-6 -Dilaudid 0.6 mg IV every 4 hours as needed for pain 7-10 Diet - diabetic diet DVT PPX - mechanical for LLE Code Status-full code Consult Acknowledgment - Thank you for your consult request. CK SHAW MD 10/10/16 0859: Assessment/Plan Other Findings/Comments: Ck Stock M.D. have examined this patient, reviewed available EMR data, personally reviewed images, discussed with resident/PA/ATM TECHNICIAN, discussed management plan with housestaff and nursing staff, discussed managment plan all of healthcare providers, discussed management plan with patient and/or family, agreed with resident/PA/ATM TECHNICIAN. The past history and parts of the chart have been autopopulated. Impression 61 year old woman hx breast ca, s/p chemo/rt, brought by ambulance after fall out of bed accidently. Found to have a dispaced right intratrochanteric fracture and was evaluated by orthopedic surgery. Routine labwork demonstrated an acute blood loss anemia. S/p transfusion for a right sided hematoma with a stabilized hemoglobin. Started on beta blockade in anticipation of orthopedic surgery. EtOH withdrawal as well. Was started on ceftriaxone/zithromax, then started on vancomycin and ceftazadime , for presumed pneumonia. The CXR abnormality can represent fluid, acute lung injury/ARDS vs infectious process. Had hypoxemic respiratory failure. Hypoglycemia. Last chemo 6 months ago. Hypoxemic respiratory failure possibly secondary to hypoglycemia/ams/pneumonia Plan Respiratory -cont mechanical ventilation -AC 500/20/70%/5 ID -ID consultation was requested overnight -leukocytosis -currently on vancomycin, ceftazadime -cxr with worsening opacities could be service center representative of an infectious process, no obvious fluid overload CVS -beta blockade was held due to low bp, piloerection, possibly masking hypoglycemia symptoms -f/u cardiology Heme -leukocytosis, now on abx, will follow up ID recommendations -hx of breast ca, will need follow up with oncology after acute illness Metabolic -electrolyte repletion -if any further hypoglycemia events will increase dextrose infusion and call endocrinology Alimentary -NPO overnight, but will begin tube feeds Neuro -ativan drip, etoh withdrawal, lytes repletion, sedation as needed, arousable and moves extremities TTS 60 min Consult Acknowledgment - Thank you for your consult request.
--- NOTE | 2016-10-10 10:00 | NUR ---
Patient is restless, SAS 4-5, ativan gtt infusing at 3mg/hr and has been titrated up per protocol~ IVP ativan prn for agitation. Pt unable to follow commands but can move all extremities. RLE weak r/t fracture. Soft bilateral wrist restraints in place. Pupils equal and reactive. Confused prior to intubation. NSR with pvc's on tele monitor, HR= 80-90's, SBP currently 90-100's, 1 liter normal saline bolus given at 0845 for a BP of 84/0 with the doppler. Remains intubated with a #8 to the right at 22cm, was retaped by respiratory this morning. Lungs rhonchorous and diminished at the bases. Vent settings currently AC 20/500/70/5. Thick reyes secretions noted to the ETT. Patient is tachypneic at times. Dr. Villegas made aware respiratory rate in the 30's- ativan given prn per order and gtt increased per protocol. OGT in place to low wall suction with scant light brown output. Abdomen is soft and non tender with + bowel sounds. INC of stool overnight. Remains NPO. Palacio in place draining clear yellow urine. +1 LUE and RLE edema is noted with trace generalized edema. No areas of pressure injury are noted. Hematome to RLE appears improved and is outlined. D5 1/2 NS w/ 20meq kcl infusing @ 75mls/hr. IV abx per order, pt received IV mag bolus. Bloodwork to be redrawn at 1300. Pts step mom at the bedside and updated on POC. Dr. Villegas in to assess and stated no need for CTA at this time. Will continue to closely monitor patient.
--- NOTE | 2016-10-10 10:37 | Cons- Infect Disease ---
General Information and HPI Consulting Request Date of Consult: 10/10/16 Requested By: KITTY SALGADO MD Reason for Consult: Rule out bilateral pneumonia/leukocytosis Source of Information: old records Exam Limitations: unable to give history, clinical condition History of Present Illness: This is a 61-year-old woman with history of diabetes, alcohol abuse with chronic pancreatitis, breast cancer, status post lumpectomy and chemoradiation, with a leukocytosis noted over the past 3 months of unclear etiology, admitted on October 06 with right hip pain after falling out of bed. On admission she was afebrile. Laboratory data revealed a white blood cell count of 28,000, BUN/ creatinine 6 and 0.7, alk phosphatase 155, AST/ALT 67 and 35, troponin less than 0.01, serum alcohol level less than 10. Urinalysis rare RBC/rare WBCs. Chest x -ray was negative. X-ray of the right hip revealed a comminuted intertrochanteric fracture of the right hip. CT of the abdomen and pelvis revealed a comminuted displaced right proximal femoral shaft fracture with extension into the intertrochanteric region, surrounded by extensive soft tissue edema and hemorrhage; stable non-complicated chronic calcific pancreatitis and hepatic steatosis also noted. She was placed on a CIWA protocol. On October 07 her H&H was noted to have dropped to 7 and 22 and she was transferred to the ICU and transfused 2 units of blood. On October 08 she was noted to be markedly hypoglycemic and this has recurred on the subsequent mornings. On October 09 she was noted to be more somnolent and tachypnea. Chest x-ray revealed bilateral densities and she was begun on Ceftriaxone and Azithromycin. Later in the day her respiratory status worsened and she spiked to 101. She was intubated and antibiotics were changed to Vancomycin and Ceftazidime. She has received Ativan and is currently unable to provide any history. Allergies/Medications Allergies: Coded Allergies: apple (Severe, THROAT CLOSURE 06/28/16) rose (Severe, THROAT CLOSURE 06/28/16) CHERRIES cezar (Severe, THROAT CLOSURE 06/28/16) peach (Severe, THROAT CLOSURE 06/28/16) sertraline (Intermediate, RASH 06/28/16) birch (UNKNOWN 06/28/16) Home Med List: Aspirin (Aspirin*) 81 MG TAB.CHEW 1 TAB PO DAILY Heart (Reported) Bupropion HCl (Bupropion HCl Sr) 150 MG TABLET.ER 1 TAB PO BID SMOKING CESSATION (Reported) Exemestane 25 MG TABLET 1 TAB PO DAILY BREAST CA (Reported) Folic Acid 1 MG TABLET 1 MG PO DAILY FOLIC ACID SUPPLEMENT (Reported) Insulin Aspart, Recombinant (Novolog Flexpen) 100 UNIT/ML INSULN.PEN DM ( Reported) Past History Travel History Traveled to [place] past 21 day No Medical History Blood Transfusion Hx: No Neurological: NONE EENT: NONE Cardiovascular: hypertension, hyperlipidemia Respiratory: NONE Gastrointestinal: pancreatitis Hepatic: NONE Renal: NONE Musculoskeletal: OSTEOPENIA Psychiatric: alcohol dependence (hx of DT's), depression Endocrine: diabetes Blood Disorders: NONE Cancer(s): BREAST CANCER [employer]GER/Reproductive: NONE History of MRSA: No History of VRE: No History of CDIFF: No Isolation History: Standard Surgical History Surgical History: LUMPECTOMY-R SIDE TONSILECTOMY Family History Relations & Conditions If Any: BROTHER FHx: diabetes mellitus FHx: epilepsy FATHER FHx: diabetes mellitus MOTHER FH: breast cancer Psychosocial History Where Do You Live? Home Services at Home: None Smoking Status: Current Everyday Smoker ETOH Use: heavy use, patient drinks a bottle of vodka a week Review of Systems Comments Unobtainable Exam & Diagnostic Data Last 24 Hrs of Vital Signs/I&O Vital Signs Date Time Temp Pulse Resp B/P Pulse O2 O2 Flow FiO2 Ox Delivery Rate 10/10 0816 98 Ventilator 100% 10/10 0810 100 10/10 0716 107 30 117/58 10/10 0501 100 10/10 0400 96.6 78 36 132/60 93 Non 100% ReBreather 10/10 0200 81 34 124/77 10/10 0031 93 Part 60% ReBreather 10/10 0000 97.7 79 34 112/70 10/10 0000 94 Part 60% ReBreather 10/10 0000 97.7 79 34 11270 94 Part 60% ReBreather 10/09 2200 98.8 82 24 119/70 10/09 2146 86 28 114/72 10/09 2142 98.8 10/09 2017 101.0 10/09 2000 101.0 88 28 118/73 10/09 2000 101.0 88 28 118/73 90 Venti Mask 35% 10/09 1918 85 Nasal 3.0L Cannula 10/09 1800 99.1 80 20 122/60 10/09 1600 99.1 79 28 122/60 10/09 1600 94 Nasal 3.0L Cannula 10/09 1600 99.1 79 28 122/60 94 Nasal 3.0L Cannula 10/09 1550 Nasal 3.0L Cannula 10/09 1400 98.6 82 20 119/64 10/09 1200 100.7 79 26 123/74 10/09 1150 100.7 10/09 1024 100.7 10/09 1024 100.7 99 28 179/108 Intake & Output 10/10 1600 10/10 0800 10/10 0000 Intake Total 775 477 Output Total 195 465 Balance 580 12 Intake, IV 775 387 Intake, Oral 90 Output, Urine 195 465 Physical Exam Other Physical Findings: She is sedated and only responsive to pain, on the ventilator. MAXIMUM TEMPERATURE 101. Skin reveals no rash. HEENT exam is negative. Neck is supple with no adenopathy. Lungs are clear. Heart regular rhythm with no murmur. Abdomen is soft, questionably tender on palpation, with positive bowel sounds. Back no CVA tenderness. Extremities no cyanosis, clubbing or edema. Neuro is without focality. Palacio catheter is in place. Last 24 Hours of Lab Results: Laboratory Tests 10/10 10/10 0605 0400 Blood Gas pH (7.35 - 7.45 PH) 7.35 pCO2 (35 - 45 TORR) 40 pO2 (80 - 100 TORR) 78 L HCO3 (21 - 28 MEQ/L) 21 ABG O2 Sat (Measured) (>96.0 %) 92.0 L P-50 (Temp Corrected) Y Carboxyhemoglobin (1.5 - 5.0 %) 0.3 L O2 Concentration % 100% Temperature (97.0 - 100.0 FARH) 100.2 H Respiration Rate (BPM) 20 O2 Delivery Method ESPRIT Vent Mode AC Expiratory Pressure (CMH2O/P) 5 Tidal Volume (CC) 500 Chemistry Sodium (137 - 145 mmol/L) 134 L Potassium (3.5 - 5.1 mmol/L) 3.7 Chloride (98 - 107 mmol/L) 102 Carbon Dioxide (22 - 30 mmol/L) 21 L Anion Gap (5 - 16) 11 BUN (7 - 17 mg/dL) 7 Creatinine (0.5 - 1.0 mg/dL) 0.4 L Estimated GFR (>60 ml/min) > 60 Glucose (65 - 99 mg/dL) 63 L Calcium (8.4 - 10.2 mg/dL) 7.4 L Phosphorus (2.5 - 4.5 mg/dL) 3.9 Magnesium (1.6 - 2.3 mg/dL) 1.5 L Total Bilirubin (0.2 - 1.3 mg/dL) 1.3 AST (14 - 36 U/L) 43 H ALT (9 - 52 U/L) 30 Albumin (3.5 - 5.0 g/dL) 2.4 L Hematology CBC w Diff MAN DIFF ORDERED WBC (4.8 - 10.8 /CUMM) 33.6 *H RBC (4.20 - 5.40 /CUMM) 3.17 L Hgb (12.0 - 16.0 G/DL) 10.0 L Hct (37 - 47 %) 28.7 L MCV (81.0 - 99.0 FL) 90.7 MCH (27.0 - 31.0 PG) 31.5 H RDW (11.5 - 14.5 %) 15.8 H Plt Count (130 - 400 /CUMM) 143 MPV (7.4 - 10.4 FL) 10.3 Gran % (42.2 - 75.2 %) 92.1 H Lymphocytes % (20.5 - 51.1 %) 3.1 L Monocytes % (1.7 - 9.3 %) 4.6 Eosinophils % (0 - 5 %) 0.2 Basophils % (0.0 - 2.0 %) 0 L Absolute Granulocytes (1.4 - 6.5 /CUMM) 30.9 H Segmented Neutrophils (42.2 - 75.2 %) 86 H Band Neutrophils (0.0 - 5.0 %) 6 H Absolute Lymphocytes (1.2 - 3.4 /CUMM) 1.0 L Lymphocytes (20.5 - 51.1 %) 1 L Monocytes (1.7 - 9.3 %) 6 Absolute Monocytes (0.10 - 0.60 /CUMM) 1.5 H Absolute Eosinophils (0.0 - 0.7 /CUMM) 0.1 Basophils (0.0 - 2.0 %) 1 Absolute Basophils (0.0 - 0.2 /CUMM) 0 Platelet Estimate (ADEQUATE) ADEQUATE Polychromasia 1+ Ovalocytes FEW Stomatocytes FEW PUBS MCHC (33.0 - 37.0 G/DL) 34.8 Miscellaneous Phlebotomy Draw Site LEFT RADIAL Other Body Source Fld Total RBCs Counted (%) 100 10/09 1950 Blood Gas pH (7.35 - 7.45 PH) 7.50 H pCO2 (35 - 45 TORR) 24 L pO2 (80 - 100 TORR) 63 L HCO3 (21 - 28 MEQ/L) 18 L ABG O2 Sat (Measured) (>96.0 %) 90.0 L P-50 (Temp Corrected) Y Carboxyhemoglobin (1.5 - 5.0 %) 0.3 L O2 Concentration % 55% Temperature (97.0 - 100.0 FARH) 101.0 H O2 Delivery Method VM Miscellaneous Phlebotomy Draw Site RIGHT BRACHIAL Last 24 Hours of [place] Results: Blood cultures October 06 negative Blood cultures October 09 negative Urine culture October 06 negative Sputum culture October 10 pending, with gram stain revealing moderate white blood cells and no organisms Diagnostic Data Recent Imaging Findings: Chest x-ray October 10, personally reviewed, reveals diffuse bilateral parenchymal consolidation Chest x-ray October 06 negative X-ray of the right hip October 06 revealed a comminuted intertrochanteric fracture of the right hip. CT of the abdomen and pelvis October 06 revealed a comminuted displaced right proximal femoral shaft fracture with extension into the intertrochanteric region , surrounded by extensive soft tissue edema and hemorrhage; stable non- complicated chronic calcific pancreatitis and hepatic steatosis also noted. Assessment/Plan Assessment/Plan Impression: This is a 61-year-old woman with diabetes, alcohol abuse, with chronic pancreatitis, and a persistent leukocytosis over the last several months, admitted on October 06 after a fall at home resulting in right hip fracture, complicated by a hematoma, with a marked drop in her H&H, placed on a CIWA protocol for impending DTs, with the development of increasing respiratory distress, fever and symptoms of alcohol withdrawal and with bilateral densities on chest x-ray. Aspiration pneumonia is possible, given her overall condition, though her chest x-ray is more suggestive of fluid overload (note she is 7 1/2 L ahead) or ARDS and her sputum gram stain does not reveal any organisms. Her leukocytosis is of unclear etiology. As it has been elevated for several months it is likely secondary to a noninfectious process, though it is higher than when last checked 2 months prior to admission. This may be in part secondary to stress, but there could now be an infectious component. The hematoma could be infected, but this is unlikely, and her blood cultures remain negative. Suggestion: 1. Further management of her fluids per Cardiology 2. Urine for strep pneumo antigen 3. Follow-up recent cultures 4. Discontinue Vancomycin and Ceftazidime 5. Restart Ceftriaxone 1 g IV every 24 hours pending above Consult Acknowledgment - Thank you for your consult request.
[2016-10-10 13:47] LABS: ABSOLUTE BASOPHIL COUNT 0 /CUMM (0.0-0.2); ABSOLUTE EOSINOPHIL COUNT 0 /CUMM (0.0-0.7); ABSOLUTE GRANULOCYTE CT 16.9 /CUMM (1.4-6.5); ABSOLUTE LYMPH COUNT 0.5 /CUMM (1.2-3.4); ABSOLUTE MONOCYTE COUNT 1.6 /CUMM (0.10-0.60); BASOPHIL % 0 % (0.0-2.0); EOSINOPHIL % 0 % (0-5); GRANULOCYTE % 88.8 % (42.2-75.2); MEAN CORPUSCULAR HGB 30.4 PG (27.0-31.0); MEAN CORPUSCULAR HGB CONC 33.6 G/DL (33.0-37.0); MEAN CORPUSCULAR VOLUME 90.3 FL (81.0-99.0); MEAN PLATELET VOLUME 9.5 FL (7.4-10.4); PLATELET COUNT 116 /CUMM (130-400); RBC DISTRIBUTION WIDTH 15.5 % (11.5-14.5)
[2016-10-10 14:16] LABS: HEMATOCRIT 20.8 % (37-47)
--- NOTE | 2016-10-10 14:39 | PN- Resident CRCU ---
Impression/Plan Impression/Problem List Impression: Patient became febrile with tachypnea this morning and was placed on a nasal cannula at 3.0 L O2 per minute and was found to be saturating in the low 90s. A chest x-ray was obtained that was suggestive of a multi lobar pneumonia. Cultures have thus far remained negative. Patient was started on ceftriaxone and azithromycin. Surgical PA was contacted in regards to this and it was decided that patient was not a candidate for surgical intervention given her current medical condition and the semi-selective/nonurgent nature of the surgery. She is considered medically stable for transfer to the general medicine floor at this time. Problem list: -Displaced comminuted right proximal femoral shaft fracture -Proximal right lower extremity hematoma -Acute blood loss anemia -EtOH withdrawal -Multilobar pneumonia -History of breast cancer that is post bilateral mastectomy, chemotherapy/ radiation -Leukocytosis Musculoskeletal: Sustained a fall from her bed resulting in a right hip fracture as demonstrated by x-ray and CT imaging. She was evaluated by orthopedic surgery, but surgical intervention was deferred as patient was found to have an acute drop in her hemoglobin requiring admission to the intensive care unit from the general medicine floor for medical optimization. She was started on a diabetic diet with nothing by mouth at midnight for surgery tomorrow. -Monitor vital signs and hemoglobin -Cardiac clearance obtained -Orthopedic consult following Cardiology: Patient has no known history of any cardiovascular disease. She has been consistently tachycardic to the 110/120s. This is most likely secondary to her acute blood loss as a reflexive tachycardia. Troponins have been consistently negative with no EKG changes. Echocardiogram was obtained in anticipation for this, which is still pending. Telemetry monitoring has demonstrated frequent PVCs. Revised cardiac risk index calculated for a score of 0 suggesting a 0.4% risk of a major cardiac event. -RCRI: 0, 0.4 risk for major cardiac event -banking consultant cleared patient for surgery Respiratory/infectious disease: Patient was found to be eyebrow, tachypneic and hypoxic on 10/09/16. Chest x- ray suggested a multi lobar pneumonia. Cultures have been no growth to date. Patient was started on intravenous antibiotics. -Ceftriaxone 1 g IV daily -Azithromycin 500 mg IV daily -Urine Cx (10/06): NGTD -BCx x2 (10/06): NGTD -Follow up with surgical PA when medically clear for surgery -Follow-up sputum culture obtained 10/09/16 Hematology/oncology: Patient has a history of breast cancer with bilateral mastectomy, chemotherapy, and radiation. Last treatment reportedly received 6 months ago. She is a patient of Dr. Mejias of the [facility]. She has not had any follow- up imaging since this time apparently, but is reportedly in remission with a surveillance visit scheduled in January 2017. Patient has had persistent leukocytosis since admission. White blood cell count was elevated as recently as July to 20,000, baseline level unclear. She denies taking any adjuvant chemotherapy regimens such as Neulasta/Neupogen that could possibly account for this, however records are unavailable at this time. Consent for blood transfusion was obtained and placed on chart, type and cross was ordered. Packed red blood cells were transfused. -PRBC transfused: 2 -Daily CBC, monitor for worsening anemia/leukocytosis Psychiatry: Patient has a history of alcohol abuse for which she reports drinking vodka several times a week. Serum alcohol on admission was negative. She remains tremulous with see what scores consistently minimally elevated. -Ativan per CIWA -Ativan 2 mg by mouth every 6 hours with taper -Multivitamin/thiamine/folate -Bupropion on hold -Consider psychiatry/social work consult Endocrinology: Patient with a history of diabetes mellitus. Blood sugars have been consistently low requiring amps of dextrose. -Accu-Cheks -NovoLog sliding scale insulin 3 times a day before meals -Levemir 5 units at bedtime Pain plan: -Acetaminophen 650 mg by mouth every 8 hours as needed for pain 1-3 -Oxycodone 1 tab by mouth every 6 hours as needed for pain 4-6 -Dilaudid 0.6 mg IV every 4 hours as needed for pain 7-10 Diet - diabetic diet DVT prophylaxis-contraindication to both mechanical/pharmacological prophylaxis Code Status-full code Plan DVT/Prophylaxis: contraindication to mechanical/pharmacological DVT prophylaxis
--- NOTE | 2016-10-10 15:18 | PN- Cardiology ---
Subjective Subjective: * Patient is intubated and sedated. * respiratory distress last night * calcium 5.4 * severe anemia * fever, increased WBC count and bilateral infiltrates noted Objective Vital Signs and I&Os Vital Signs Date Time Temp Pulse Resp B/P Pulse O2 O2 Flow FiO2 Ox Delivery Rate 10/10 1508 Ventilator 70% 10/10 1501 Ventilator 70% 10/10 1416 50 10/10 1200 99.2 87 28 118/72 100 Ventilator 70% 10/10 1200 100 Ventilator 70% 10/10 1131 70 10/10 0816 98 Ventilator 100% 10/10 0810 100 10/10 0800 98.6 81 34 92/0 10/10 0800 98.6 81 34 92/0 98 Ventilator 100% 10/10 0800 98 Ventilator 100% 10/10 0716 107 30 117/58 10/10 0501 100 10/10 0400 96.6 78 36 132/60 93 Non 100% ReBreather 10/10 0200 81 34 124/77 10/10 0031 93 Part 60% ReBreather 10/10 0000 97.7 79 34 112/70 10/10 0000 94 Part 60% ReBreather 10/10 0000 97.7 79 34 112/70 94 Part 60% ReBreather 10/09 2200 98.8 82 24 119/70 10/09 2146 86 28 114/72 10/09 2142 98.8 10/09 2017 101.0 10/09 2000 101.0 88 28 118/73 10/09 2000 101.0 88 28 118/73 90 Venti Mask 35% 10/09 1918 85 Nasal 3.0L Cannula 10/09 1800 99.1 80 20 122/60 10/09 1600 99.1 79 28 122/60 10/09 1600 94 Nasal 3.0L Cannula 10/09 1600 99.1 79 28 122/60 94 Nasal 3.0L Cannula 10/09 1550 Nasal 3.0L Cannula Intake & Output 10/10 1600 10/10 0800 10/10 0000 10/09 1600 10/09 0800 10/09 0000 Intake Total 2180 914 426 8840 580 651 Output Total 330 195 465 500 530 485 Balance 1850 580 12 850 50 166 Intake, IV 2180 321 865 1989 580 531 Intake, Oral 90 100 120 Output, 30 Gastric Drainage Output, Urine 300 195 465 500 530 485 Patient 115 lb Weight Physical Exam: General: WD/ WN female. Intubated and sedated. Neck: no JVD, no carotid bruit Heart: regular rate and rhythm, no murmur Lungs: clear bilaterally anteriorly Extremities: no edema Assessment/Plan Assessment/Plan * I suspect this patient has ARDS or pneumonia although decompensated CHF cannot be unequivocally excluded. It is reasonable to offer this patient a trial a diurectics to see if there is clearing of her lungs. Try Lasix 20mg IV BID and repeat a chest X-ray tomorrow. * replete calcium Continue telemetry? Yes
--- NOTE | 2016-10-10 15:39 | NUR ---
Patient continues to be tachypneic with a respiratory rate in the low 30's, bite block was placed for attempts to bite on ETT and PIP was 30-35. Dr. Villegas made aware and 25mg IVP fentanyl given per order. SAS remains 4-5, ativan gtt has been titrated up per protocol to 8mg/hr. Patient unable to follow commands. Vitals remain stable. 1300 bloodwork redrawn since ? if specimen was diluted. Dr. Zarate in to see patient at this time. Will continue to closely monitor patient.
[2016-10-10 16:00] LABS: ABSOLUTE BASOPHIL COUNT 0 /CUMM (0.0-0.2); ABSOLUTE EOSINOPHIL COUNT 0 /CUMM (0.0-0.7); ABSOLUTE GRANULOCYTE CT 21.3 /CUMM (1.4-6.5); ABSOLUTE LYMPH COUNT 0.8 /CUMM (1.2-3.4); ABSOLUTE MONOCYTE COUNT 2.2 /CUMM (0.10-0.60); BASOPHIL % 0.1 % (0.0-2.0); EOSINOPHIL % 0 % (0-5); HEMATOCRIT 25.4 % (37-47); MEAN CORPUSCULAR HGB 30.6 PG (27.0-31.0); MEAN CORPUSCULAR HGB CONC 33.6 G/DL (33.0-37.0); MEAN PLATELET VOLUME 9.9 FL (7.4-10.4); PLATELET COUNT 134 /CUMM (130-400); RBC DISTRIBUTION WIDTH 15.9 % (11.5-14.5); RED BLOOD CELL CT 2.79 /CUMM (4.20-5.40)
[2016-10-10 16:16] LABS: GRANULOCYTE % 87.3 % (42.2-75.2); WHITE BLOOD CELL COUNT 24.5 /CUMM (4.8-10.8)
--- NOTE | 2016-10-10 16:30 | NUR ---
Dr. Villegas called by house staff, patient continues to be tachypneic with a respiratory rate in the 30's, PIP 30's, a neb treatment was given by respiratory and resp rate decreased to 26-28. Ativan gtt increased to 10mg/hr per Dr. Villegas's order, and fentanyl gtt. IV lasix given per Dr. Zarate's order and Dr. Santillan okay to give lasix despite borderline SBP: 100's. No further interventions at this time. Will continue to closely monitor. Dr. Villegas aware.
--- NOTE | 2016-10-10 17:30 | NUR ---
FIO2 was increased to 70% per Dr. Yuan's orders, patient remains tachypneic with a rate of 28-32. Lungs clear and diminished. SAS remains 4-5, and pt is restless in bed moving all extremities but will not follow commands. Fentanyl gtt on hold until BP more stable, SBP ranging from 90-100's. Ativan gtt continues to infuse at 10mg/hr. Dr. Lara aware. Urine output approx 200-300ml/hr after lasix.
--- NOTE | 2016-10-10 19:10 | ULTRASOUND REPORT ---
EXAMINATION: US TRIPLEX LOWER EXTREMITY, BILATERAL CLINICAL INFORMATION: Tachycardia. Hypoxia. COMPARISON: None. TECHNIQUE: Color-flow triplex imaging with spectral analysis and compression Doppler were performed on the bilateral lower extremities. FINDINGS: Respiratory variation, normal compression and augmented flow are noted throughout the bilateral lower extremities. The visualized common femoral vein, superficial femoral vein, profunda femoral vein, popliteal vein and mid calf peroneal and posterior tibial venous segments show no evidence of deep venous thrombosis. There is no Chance's cyst. IMPRESSION: Normal triplex scan without evidence of deep venous thrombosis involving the bilateral lower extremities.
--- NOTE | 2016-10-10 20:22 | NUR ---
At 1900, pts BP noted to be 80/50 manually, and SBP with autocuff ranging from 70-80's. Dr. Yuan notified who called Dr. Villegas. Levo gtt was started at 5mcg per order thru a peripheral line. STAT INR drawn for aniticipation of TLC placement per order. SBP increased to the 100's. Pt remain tachpneic on the vent with a rate in the 30's, SAS 4-5 and pt is restless. Ativan gtt now infusing at 11mg/hr and fentanyl gtt to be started after TLC placement and BP is stable. Vent settings changed and are now AC: 20/450/70/8. ABG's drawn per order. Tube feeds were placed on hold at 1900, since HOB was lowered to help stablize BP. Awaiting TLC placement. Will cont to closely monitor patient.
[2016-10-10 20:33] LABS: PT 14.7 SEC (9.4-12.5)
--- NOTE | 2016-10-10 22:15 | Proc Note Internal Medicine ---
PRASHANTH ANDERSON 10/10/16 2211: Medicine Procedure Procedure Date: 10/10/16 Medical Procedure(s): central venous cath place Pre-Operative Diagnosis: septic shock Post-Operative Diagnosis: same Estimated Blood Loss: scant Anesthesia: general endotracheal tube Procedure Findings: Consent was obtained from the patient's step mother Rosenda Snyder over the telephone. Time out was taken. With aseptic technique under US guidance using Seldinger technique, a central lumen catheter was inserted into the right IJ vein. Non-pulsatile dark venous blood flow was seen. Catheter was sutured and CXR ordered. Patient tolerated the procedure well. Awaiting results of CXR. Attending Dr. Alas performed the procedure and was assisted by the ICU resident DOMINGA Brasher 10/11/16 0019: Medicine Procedure Procedure Findings: CXR followed up after procedure showed no complication and line was in place.
--- NOTE | 2016-10-10 23:01 | RADIOLOGY REPORT ---
EXAMINATION: XR PORTABLE CHEST CLINICAL INFORMATION: Placement of right IJ catheter. COMPARISON: Chest x-ray 10/02/2016, 5:21 AM TECHNIQUE: Portable view of the chest was obtained. 10:25 PM FINDINGS: Right IJ catheter tip at caval atrial junction good position. No pneumothorax. No change position of the endotracheal tube. Catheter tip is 6.6 cm above the king. Nasogastric tube passing down into the stomach. There is persistent diffuse bilateral airspace disease unchanged since prior study. IMPRESSION: Right IJ catheter tip in superior vena cava at the cavoatrial junction. No pneumothorax. Persistent bilateral airspace disease.
[2016-10-11] VITALS (7 sets, daily range): BP systolic 90–110; BP diastolic 60–68
[2016-10-11 05:19] LABS: ABSOLUTE BASOPHIL COUNT 0 /CUMM (0.0-0.2); ABSOLUTE EOSINOPHIL COUNT 0 /CUMM (0.0-0.7); ABSOLUTE GRANULOCYTE CT 22.5 /CUMM (1.4-6.5); ABSOLUTE LYMPH COUNT 0.8 /CUMM (1.2-3.4); ABSOLUTE MONOCYTE COUNT 2.8 /CUMM (0.10-0.60); BASOPHIL % 0 % (0.0-2.0); EOSINOPHIL % 0.1 % (0-5); GRANULOCYTE % 86.2 % (42.2-75.2); HEMATOCRIT 21.9 % (37-47); MEAN CORPUSCULAR HGB 30.9 PG (27.0-31.0); MEAN CORPUSCULAR HGB CONC 33.8 G/DL (33.0-37.0); MEAN CORPUSCULAR VOLUME 91.3 FL (81.0-99.0); MEAN PLATELET VOLUME 10.1 FL (7.4-10.4); PLATELET COUNT 142 /CUMM (130-400); RBC DISTRIBUTION WIDTH 15.2 % (11.5-14.5); WHITE BLOOD CELL COUNT 26.1 /CUMM (4.8-10.8)
--- NOTE | 2016-10-11 08:00 | NUR ---
Patient is sedated on an ativan gtt infusing at 14mg/hr and fentanyl gtt infusing at 75mcg/hr, SAS: 3, patient unable to follow commands. puils are approx 2mm and sluggish. Confused prior to intubation. Soft bilateral wrist restraints in place. NSR with pvc's on tele monitor. HR= 80-90's. SBP: 90-100's and levo gtt is infusing at 4mcg/min. + pulses with doppler and BLE are warm to touch. Remains intubated with a #8 to the right at 22cm, lungs rhonchorous and diminished at the bases. Clear thing oral secretions noted. Mouth care provided and pt receiving nystatin per order. Scant reyes thick secretions noted when suctioning through ETT. Vent settings: AC 20/450/55/8. pt is tachpneic with a resp rate of 28-32 occasionally reaching as high as 40 with stimulation- Dr. Daily made aware. OGT in place with Glucerna 1.2 infusing at 10mls/hr with 100ml water flushes every 8 hours. BM today. Palacio in place draining clear yellow urine. Trace generalized edema is noted. +1 LUE and RLE edema. Hematoma outline to RLE and is unchanged from yesterday's assessment. ALPS in place. RIJ TLC placed 10/10 and is WNL. Pt is currently receiving 1 unit pf prbc per order. Plan os for CT abdomen and chest STAT this morning. Will continue to closely monitor patient.
--- NOTE | 2016-10-11 08:12 | NUR ---
1929 REC'D PATIENT SEDATED WITH ATIVAN DRIP, SAS 3-4. SR ON THE MONITOR WITH PVC, HR 80'S. ON LEVO DRIP PERIPHERALLY UNTIL TLC INSERTED. SBP 90'S TO 100, SEE FLOWSHEET FOR TITRATTION. RT ED CHANGED SETTINGS ON THE VENT FOR FIO2 FROM 70 DOWN TO 55. POX RANGING FROM 95 TO 99 BUT DESATS HIGH 80'S WITH TURNS. FC IN AND DRAINING WITH GOOD YELLOW U/O. SKIN, RIGHT THIGH SWOLLEN, PULSES DIMINISHED ON BOTH LOWER EXT. ULTRASOUND TO BLE NEG FOR DVT. 2114 RIGHT IJ PLACED BY DR. PHILLIPS, ASSISTED BY DR. ANDERSON. CONFIRM PLACEMENT VIA CXR. LEVO DRIP SWICT TO THE TLC AFTER CXR. 99 FENTANYL AND ATIVAN SWITCH TO TLC, TITARTION DONE ACCORDING TO PT V/S, RR >30-40'S. TUBE FEEDING STARTED VIA OG TUBE @ 10 CC/HR, TOLERATED WELL. HAS BEEN HAVING LARGE LOOSE STOOL TRACE HEME + X3, SKIN IS INTACT, TYRONE CARE GIVEN H/H 7.4/21.9. 1 UNIT OF PRBC TRANSFUSED AT 0710. NO REACTION AFTER 1HR. 0715 [facility].
--- NOTE | 2016-10-11 08:58 | RADIOLOGY REPORT ---
EXAMINATION: XR PORTABLE CHEST CLINICAL INFORMATION: Hypoxia. COMPARISON: CXR from 10/10/2016 TECHNIQUE: Portable view of the chest was obtained. FINDINGS: Endotracheal tube remains 7 cm above the king. The enteric tube extends below the diaphragm and into the stomach, and the side-port of the tube is below the level of the esophagogastric junction. The right IJ central catheter terminates at the junction of the superior vena cava and right atrium. There is no pneumothorax, pneumomediastinum, overt pleural effusion or other significant interval change. Again observed is extensive interstitial and airspace opacity in both lungs. No acute skeletal findings. IMPRESSION: 1. Endotracheal tube in stable position at 7 cm above the king. 2. Pulmonary edema is similar in appearance compared to 10/10/2016.
--- NOTE | 2016-10-11 09:40 | NUR ---
Patient was transported to CT for a CT abdomen, pelvis and chest. pt tolerated procedure well. Fentanyl gtt was increased to 100mcg prior to transport since patient's respiratory rate increased to 34-36. Upon arrival back to [facility] pt was palced on a total care ICU bed. Vitals currently stable. Will continue to closely monitor patient.
--- NOTE | 2016-10-11 09:47 | CT SCAN REPORT ---
EXAMINATION: CT CHEST WITHOUT IV CONTRAST CT ABDOMEN AND PELVIS WITHOUT IV CONTRAST CLINICAL INFORMATION: 61-year-old female with history of breast carcinoma, status post mastectomy, radiation therapy and chemotherapy. Decreased hemoglobin level and hypoxia. Possible multilobar pneumonia. Intertrochanteric fracture of right femur from recent fall. COMPARISON: Chest CT of 12/09/2014. Abdomen and pelvis CT of 10/06/2016. TECHNIQUE: Noncontrast multidetector CT imaging examination of the chest, abdomen and pelvis was performed. Axial images are displayed at 5 mm and 0.625 mm slice thickness. Coronal and sagittal reformatted images were generated at the technologist's workstation and submitted for review. DLP: 458 mGy-cm FINDINGS: CHEST - LUNGS and PLEURA: The endotracheal tube is approximately 5 cm above the king. The enteric tube extends below the diaphragm and into the proximal stomach. The tip of the right internal jugular central venous catheter is at the level of the junction of the superior vena cava and right atrium. There is groundglass opacity and interlobular septal thickening - consistent with edema - within upper lobes. Also, there is groundglass opacity in the middle lobe. There is a mixture of groundglass opacity and consolidation in lower lobes. Trace bilateral pleural effusions. No pneumothorax. MEDIASTINUM: The heart size is normal. Moderate atherosclerotic calcification of coronary arteries. At the level of the right pulmonary artery, the mildly dilated ascending thoracic aorta measures 3.9 cm transverse, 4.1 cm AP, unchanged compared to 12/09/2014. There is mild atherosclerotic calcification of the aorta. No pericardial effusion. The visualized portion of the inferior thyroid gland is unremarkable. LYMPHATICS: No pathologic sized axillary lymph nodes. There is no bulky hilar lymphadenopathy. Within the mediastinum, there are multiple subcentimeter sized lymph nodes. These lymph nodes are increased in size compared to 12/09/2014 and are likely reactive to the pulmonary disease. CHEST WALL/BONES: No acute findings. ABDOMEN AND PELVIS - HEPATOBILIARY: No acute findings in the liver. There is diffuse hepatic steatosis. Stable small hypodense focus in the lateral segment of the left hepatic lobe with density of 16 Hounsfield units is compatible with a cyst (image 51, series 2). No intrahepatic bile duct dilatation. Gallbladder contains small calcified stones and/or calcified sludge. No gallbladder wall edema or pericholecystic inflammatory change. PANCREAS: Chronic pancreatic parenchymal and apparent intraductal calcification, as well, consistent with sequela of chronic pancreatitis. The main pancreatic duct is dilated up to 7-8 mm diameter. There is no acute peripancreatic edema or peripancreatic fluid collection. SPLEEN: Unremarkable. ADRENAL GLANDS: Unremarkable. KIDNEYS, URETERS, BLADDER: No nephrolithiasis or hydronephrosis. The urinary bladder is decompressed by a Palacio catheter. There is increased soft tissue edema within the retroperitoneum. GASTROINTESTINAL TRACT: The tip of the enteric tube is in the proximal stomach.. Small and large bowel loops are normal in size. No ascites or pneumoperitoneum. No focal inflammation within the mesentery. ABDOMINAL WALL: Interval development of subcutaneous tissue edema along the flanks/back and extending to the thighs. These likely secondary to anasarca. VASCULAR: Atherosclerotic calcification of the abdominal aorta and iliac arteries without aneurysm. LYMPH NODES: The retroperitoneal lymph nodes measure up to 0.8 cm short axis dimension. No iliac or inguinal lymphadenopathy. PELVIC VISCERA: No acute findings. OSSEOUS STRUCTURES: Within the lumbar spine, disc degeneration is most advanced at L2-L3 and L3-L4. There is a prominent Schmorl's node at the inferior endplate of L2. There is minimal degenerative retrolisthesis of L3 on L4 and minimal degenerative anterolisthesis of L4 on L5. Again noted is a displaced intertrochanteric fracture of the proximal right femur. IMPRESSION: 1. Pulmonary edema with trace bilateral pleural effusions. Although the mixture of consolidation and groundglass opacity in lower lobes could be secondary to edema, superimposed pneumonia is possible. 2. Within the chest, the tubes/lines are in satisfactory position. No pneumothorax. 3. Anasarca with increased edema in retroperitoneal soft tissues, and increased subcutaneous tissue edema along the abdominal wall/flanks. 4. Chronic pancreatitis, hepatic steatosis and calcified gallbladder sludge/calculi. No evidence of acute cholecystitis. 5. Displaced intertrochanteric fracture of the right femur.
--- NOTE | 2016-10-11 09:55 | PN- Cardiology ---
Subjective Subjective: * Patient is intubated and sedated. * hypotensive after receiving lasix yesterday and now on Levophed * sinus rhythm with occasional PVC's and an episode of ventricular bigeminy last night. * increasing WBC with decreasing H/H Objective Vital Signs and I&Os Vital Signs Date Time Temp Pulse Resp B/P Pulse O2 O2 Flow FiO2 Ox Delivery Rate 10/11 0557 55 10/11 0400 96 Ventilator 55% 10/11 0400 97.4 86 36 108/61 96 Ventilator 55% 10/11 0356 55 10/11 0041 55 10/11 0036 60 10/11 0000 99.5 80 36 101/63 10/11 0000 99.5 80 36 101/63 97 Ventilator 60% 10/10 2300 81 100/63 10/10 2234 60 10/10 2000 98 Ventilator 70% 10/10 2000 99.7 86 37 98/48 98 Ventilator 70% 10/10 2000 99.7 86 37 98/48 98 Ventilator 70% 10/10 1936 70 10/10 1907 86 74/44 10/10 1827 70 10/10 1604 50 10/10 1600 94 34 114/74 10/10 1600 95 Ventilator 50% 10/10 1600 100.7 93 32 114/72 95 Ventilator 50% 10/10 1508 Ventilator 70% 10/10 1501 Ventilator 70% 10/10 1416 50 10/10 1200 99.2 87 28 118/72 100 Ventilator 70% 10/10 1200 100 Ventilator 70% 10/10 1131 70 Intake & Output 10/11 1600 10/11 0800 10/11 0000 10/10 1600 10/10 0800 10/10 0000 Intake Total 1010.7 1918 2180 775 477 Output Total 1170 1160 330 195 465 Balance -159.3 758 1850 580 12 Intake, IV 850.7 1758 2180 775 387 Intake, Oral 90 Intake, Other 30 Intake, Tube 60 30 Feeding Intake, Tube 100 100 Irrigant Number 1 1 Bowel Movements Output, 30 Gastric Drainage Output, Urine 1170 1160 300 195 465 Patient 115 lb Weight Physical Exam: General: WD/ WN female. Intubated and sedated. Neck: no JVD, no carotid bruit Heart: regular rate and rhythm, no murmur Lungs: clear bilaterally anteriorly Extremities: no edema Assessment/Plan Assessment/Plan * I suspect this patient has ARDS. A superimposed infectious infiltrate cannot be excluded. Her lungs are only marginally clearler after diuresis yesterday but at the expense of a drop in blood pressure after receiving lasix. * Continue antibiotic therapy. * Continue levophed with a goal SBP of 90mmHg. Continue telemetry? Yes
--- NOTE | 2016-10-11 10:36 | PN- [facility] ---
Subjective HPI/Critical Care Issues: pt seen and examined hemoglobin dropping required triple lumen cathter and levophed ros unobtainable secondary to intubation consistent with ARDS Objective Current Medications: Current Medications Sig/[place] Start time Last Medication Dose Route Stop Time Status Admin Acetaminophen 1,000 MG Q6P PRN 10/10 1630 AC 10/11 N/A 1 UNIT IV 1027 Acetaminophen 650 MG Q8 PRN 10/06 1945 AC 10/09 PO 2017 Albuterol Sulfate 3 ML BID 10/09 1148 AC 10/11 INH 0929 Calcium Chloride 1 GM ONCE ONE 10/10 1530 CAN IV 10/10 1531 Calcium Gluconate 1 GM ONCE ONE 10/10 1600 DC 10/10 Sodium Chloride 100 ML IV 10/10 1659 1840 Ceftazidime 1,000 MG IQ8 10/10 0000 DC 10/10 IV 0954 Ceftriaxone Sodium 1,000 MG DAILY 10/10 1127 AC 10/11 IV 0935 Exemestane 25 MG DAILY 10/07 1000 AC 10/11 PO 0934 Fentanyl Citrate 1,000 MCG Q24H 10/10 1700 AC 10/11 Dextrose/Water 250 ML IV 0022 Fentanyl Citrate 25 MCG Q6P PRN 10/10 1345 DC 10/10 IV 1357 Folic Acid 1 MG DAILY 10/07 1000 AC 10/11 PO 0934 Furosemide 20 MG ONCE ONE 10/10 1530 DC 10/10 IV 10/10 1531 1612 Hydromorphone HCl 0.6 MG Q4P PRN 10/07 1200 AC 10/08 IV 2133 Insulin Aspart 0 Q4 10/11 0200 DC 10/11 SC 0600 Insulin Detemir 5 UNITS AT BEDTIME 10/06 2200 AC 10/10 SC 2300 Insulin Human Regular 0 Q6 10/11 1200 UNVr SC Insulin Human Regular 0 Q6 10/10 0802 DC SC Lorazepam 100 MG Q10H 10/11 0230 AC 10/11 Dextrose/Water 1,000 ML IV 0254 Lorazepam 100 MG Q24H 10/10 1515 DC 10/10 Dextrose/Water 1,000 ML IV 1653 Lorazepam 50 MG ONCE ONE 10/10 0530 DC 10/10 Sodium Chloride 500 ML IV 10/11 0529 0538 Lorazepam 0 Q1P PRN 10/07 1330 AC 10/09 IV 1747 Magnesium Oxide 400 MG ONE ONE 10/11 0945 DC 10/11 PO 10/11 0946 0940 Magnesium Oxide 400 MG ONE ONE 10/10 1600 DC 10/10 PO 10/10 1601 1657 Magnesium Sulfate 1 GM ONCE ONE 10/11 0945 CAN Dextrose/Water 100 ML IV 10/11 1344 Magnesium Sulfate 1 GM ONCE ONE 10/10 0700 DC 10/10 Dextrose/Water 100 ML IV 10/10 1059 0924 Norepinephrine 4 MG Q24H 10/10 1900 AC 10/10 Sodium Chloride 250 ML IV 2300 Norepinephrine 4 MG .STK-MED ONE 10/10 1854 DC IV 10/10 1855 Nystatin 5 ML 4 TIMES/DAY 10/10 1152 AC 10/11 PO 0934 Oxycodone HCl 5 MG Q6 PRN 10/06 1945 AC 10/07 PO 0757 Pantoprazole Sodium 40 MG DAILY 10/10 1835 AC 10/11 IV 0934 Potassium Chloride 10 MEQ ONCE ONE 10/11 0945 CAN IV 10/11 0946 Potassium Chloride 40 MEQ ONCE ONE 10/11 0945 CAN PO 10/11 0946 Potassium Chloride 40 MEQ ONCE ONE 10/11 0945 DC 10/11 PO 10/11 0946 0941 Potassium Chloride 20 MEQ ONCE ONE 10/10 1600 DC 10/10 PO 10/10 1601 1657 Potassium Chloride 20 MEQ ONCE ONE 10/10 1600 DC 10/10 PO 10/10 1601 1657 Vancomycin HCl 1,000 MG Q24H 10/09 2000 DC 10/09 Sodium Chloride 250 ML IV 2048 Vital Signs & I&O Last 24 Hrs of Vitals and I&O: Vital Signs Date Time Temp Pulse Resp B/P Pulse O2 O2 Flow FiO2 Ox Delivery Rate 10/11 1027 100.6 10/11 0830 55 10/11 0557 55 10/11 0400 96 Ventilator 55% 10/11 0400 97.4 86 36 108/61 96 Ventilator 55% 10/11 0356 55 10/11 0041 55 10/11 0036 60 10/11 0000 99.5 80 36 101/63 10/11 0000 99.5 80 36 101/63 97 Ventilator 60% 10/10 2300 81 100/63 10/10 2234 60 10/10 2000 98 Ventilator 70% 10/10 2000 99.7 86 37 98/48 98 Ventilator 70% 10/10 2000 99.7 86 37 98/48 98 Ventilator 70% 10/10 1936 70 10/10 1907 86 74/44 10/10 1827 70 10/10 1604 50 10/10 1600 94 34 114/74 10/10 1600 95 Ventilator 50% 10/10 1600 100.7 93 32 114/72 95 Ventilator 50% 10/10 1508 Ventilator 70% 10/10 1501 Ventilator 70% 10/10 1416 50 10/10 1200 99.2 87 28 118/72 100 Ventilator 70% 10/10 1200 100 Ventilator 70% 10/10 1131 70 Intake & Output 10/11 1600 10/11 0800 10/11 0000 Intake Total 1010.7 1918 Output Total 1170 1160 Balance -159.3 758 Intake, IV 850.7 1758 Intake, Other 30 Intake, Tube 60 30 Feeding Intake, Tube 100 100 Irrigant Number 1 1 Bowel Movements Output, Urine 1170 1160 Exam Other Physical Findings: gen sedated heent ett cvs s1, s2 lungs transmitted abd soft bs+ ext no edema, hematoma stable Results Last 24 Hrs of Lab Results: Laboratory Tests 10/11/16 0500: pH 7.47 H, pCO2 25 L, pO2 65 L, HCO3 18 L, ABG O2 Sat (Measured) 93.0 L, P- 50 (Temp Corrected) Y, Carboxyhemoglobin 1.1 L, O2 Concentration % 55%, Temperature 97.4, Respiration Rate 20, O2 Delivery Method ESPRIT, Vent Mode AC, Expiratory Pressure 8, Tidal Volume 450, Phlebotomy Draw Site LEFT RADIAL 10/11/16 0455: Anion Gap 6, Estimated GFR > 60, Glucose 220 H, Calcium 7.1 L, Phosphorus 2.2 L, Magnesium 1.5 L, Total Bilirubin 0.8, AST 29, ALT 20, Albumin 1.7 L, CBC w Diff MAN DIFF ORDERED, RBC 2.40 L, MCV 91.3, MCH 30.9, RDW 15.2 H, MPV 10.1, Gran % 86.2 H, Lymphocytes % 2.9 L, Monocytes % 10.8 H, Eosinophils % 0.1, Basophils % 0 L, Absolute Granulocytes 22.5 H, Segmented Neutrophils 82 H, Band Neutrophils 4, Absolute Lymphocytes 0.8 L, Lymphocytes 4 L, Monocytes 9, Absolute Monocytes 2.8 H, Absolute Eosinophils 0, Absolute Basophils 0, Metamyelocytes 1, Platelet Estimate ADEQUATE, Polychromasia 1+, Ovalocytes FEW, PUBS MCHC 33.8, Fld Total RBCs Counted 100 10/10/161999: pH 7.49 H, pCO2 23 L, pO2 108 H, HCO3 18 L, ABG O2 Sat (Measured) 98.0, P-50 (Temp Corrected) N, Carboxyhemoglobin 0.3 L, O2 Concentration % 70%, Respiration Rate 20, O2 Delivery Method VENT, Vent Mode AC, Expiratory Pressure 8, Tidal Volume 450, Pressure Support 0, Phlebotomy Draw Site LEFT RADIAL 10/10/16 1930: PT 14.7 H, INR 1.40 H 10/10/16 1455: Anion Gap 10, Estimated GFR > 60, Glucose 137 H, Calcium 6.9 L, Phosphorus 3.0 , Magnesium 1.6, Total Bilirubin 1.0, AST 49 H, ALT 33, Ammonia 15, Albumin 2.0 L, CBC w Diff NO MAN DIFF REQ, RBC 2.79 L, MCV 91.0, MCH 30.6, RDW 15.9 H, MPV 9.9, Gran % 87.3 H, Lymphocytes % 3.4 L, Monocytes % 9.2, Eosinophils % 0, Basophils % 0.1, Absolute Granulocytes 21.3 H, Absolute Lymphocytes 0.8 L, Absolute Monocytes 2.2 H, Absolute Eosinophils 0, Absolute Basophils 0, PUBS MCHC 33.6 10/10/16 1310: Anion Gap 6, Estimated GFR > 60, Glucose 423 H, Lactic Acid 1.6, Calcium 5.4 *L , Phosphorus 2.7, Magnesium 1.2 L, Total Bilirubin 0.8, AST 36, ALT 25, Creatine Kinase 89, Albumin 1.5 L, Amylase < 30 L, Lipase < 10 L, CBC w Diff MAN DIFF ORDERED, RBC 2.30 L, MCV 90.3, MCH 30.4, RDW 15.5 H, MPV 9.5, Gran % 88.8 H, Lymphocytes % 2.7 L, Monocytes % 8.5, Eosinophils % 0, Basophils % 0 L, Absolute Granulocytes 16.9 H, Segmented Neutrophils 84 H, Band Neutrophils 5, Absolute Lymphocytes 0.5 L, Lymphocytes 6 L, Monocytes 5, Absolute Monocytes 1.6 H, Absolute Eosinophils 0, Absolute Basophils 0, Platelet Estimate DECREASED, Polychromasia 1+, Anisocytosis 1+, PUBS MCHC 33.6 Impression/Plan Impression/Plan Impression/Plan: Impression 61 year old woman hx breast ca -right intratrochanteric fracture -acute blood loss anemia -hypoxemic respiratory failure Plan Respiratory -cont mechanical ventilation -low tidal volumes based on ibw, peep as needed to reduce fio2 ID -ID consultation appreciated -cont abx -likely ARDS CVS -f/u cardiology Heme -hx of breast ca, will need follow up with oncology after acute illness -acute blood loss anemia, possible retroperitoneal bleed, s/p CT, surgery consultation Metabolic -electrolyte repletion -finger sticks q2h Alimentary -tube feeds Neuro -sedation as needed TTS 40 min
--- NOTE | 2016-10-11 11:21 | PN- Infect Dx ---
Subjective Subjective: MAXIMUM TEMPERATURE 100.7. She became hypotensive last evening, after receiving Lasix, which did result in a diuresis, and she has been placed on Levophed, with a right IJ triple-lumen catheter inserted. She has been sedated and is unable to provide any history at this time. Objective Last 24 Hrs of Vital Signs/I&O Vital Signs Date Time Temp Pulse Resp B/P Pulse O2 O2 Flow FiO2 Ox Delivery Rate 10/11 1027 100.6 10/11 0830 55 10/11 0557 55 10/11 0400 96 Ventilator 55% 10/11 0400 97.4 86 36 108/61 96 Ventilator 55% 10/11 0356 55 10/11 0041 55 10/11 0036 60 10/11 0000 99.5 80 36 101/63 10/11 0000 99.5 80 36 101/63 97 Ventilator 60% 10/10 2300 81 100/63 10/10 2234 60 10/10 2000 98 Ventilator 70% 10/10 2000 99.7 86 37 98/48 98 Ventilator 70% 10/10 2000 99.7 86 37 98/48 98 Ventilator 70% 10/10 1936 70 10/10 1907 86 74/44 10/10 1827 70 10/10 1604 50 10/10 1600 94 34 114/74 10/10 1600 95 Ventilator 50% 10/10 1600 100.7 93 32 114/72 95 Ventilator 50% 10/10 1508 Ventilator 70% 10/10 1501 Ventilator 70% 10/10 1416 50 10/10 1200 99.2 87 28 118/72 100 Ventilator 70% 10/10 1200 100 Ventilator 70% 10/10 1131 70 Intake & Output 10/11 1600 10/11 0800 10/11 0000 Intake Total 1010.7 1918 Output Total 1170 1160 Balance -159.3 758 Intake, IV 850.7 1758 Intake, Other 30 Intake, Tube 60 30 Feeding Intake, Tube 100 100 Irrigant Number 1 1 Bowel Movements Output, Urine 1170 1160 Physical Exam Other Physical Findings: She is sedated on the ventilator Neck right IJ triple lumen catheter with no inflammation at the site Lungs are mostly clear Heart regular rhythm with no murmur Extremities right thigh swelling with evidence of a hematoma medially Palacio catheter remains in place Results Last 24 Hours of Lab Results: Laboratory Tests 10/11 10/11 0500 0455 Blood Gas pH (7.35 - 7.45 PH) 7.47 H pCO2 (35 - 45 TORR) 25 L pO2 (80 - 100 TORR) 65 L HCO3 (21 - 28 MEQ/L) 18 L ABG O2 Sat (Measured) (>96.0 %) 93.0 L P-50 (Temp Corrected) Y Carboxyhemoglobin (1.5 - 5.0 %) 1.1 L O2 Concentration % 55% Temperature (97.0 - 100.0 FARH) 97.4 Respiration Rate (BPM) 20 O2 Delivery Method ESPRIT Vent Mode AC Expiratory Pressure (CMH2O/P) 8 Tidal Volume (CC) 450 Chemistry Sodium (137 - 145 mmol/L) 131 L Potassium (3.5 - 5.1 mmol/L) 3.6 Chloride (98 - 107 mmol/L) 104 Carbon Dioxide (22 - 30 mmol/L) 21 L Anion Gap (5 - 16) 6 BUN (7 - 17 mg/dL) 7 Creatinine (0.5 - 1.0 mg/dL) 0.4 L Estimated GFR (>60 ml/min) > 60 Glucose (65 - 99 mg/dL) 220 H Calcium (8.4 - 10.2 mg/dL) 7.1 L Phosphorus (2.5 - 4.5 mg/dL) 2.2 L Magnesium (1.6 - 2.3 mg/dL) 1.5 L Total Bilirubin (0.2 - 1.3 mg/dL) 0.8 AST (14 - 36 U/L) 29 ALT (9 - 52 U/L) 20 Albumin (3.5 - 5.0 g/dL) 1.7 L Hematology CBC w Diff MAN DIFF ORDERED WBC (4.8 - 10.8 /CUMM) 26.1 H RBC (4.20 - 5.40 /CUMM) 2.40 L Hgb (12.0 - 16.0 G/DL) 7.4 *L Hct (37 - 47 %) 21.9 L MCV (81.0 - 99.0 FL) 91.3 MCH (27.0 - 31.0 PG) 30.9 RDW (11.5 - 14.5 %) 15.2 H Plt Count (130 - 400 /CUMM) 142 MPV (7.4 - 10.4 FL) 10.1 Gran % (42.2 - 75.2 %) 86.2 H Lymphocytes % (20.5 - 51.1 %) 2.9 L Monocytes % (1.7 - 9.3 %) 10.8 H Eosinophils % (0 - 5 %) 0.1 Basophils % (0.0 - 2.0 %) 0 L Absolute Granulocytes (1.4 - 6.5 /CUMM) 22.5 H Segmented Neutrophils (42.2 - 75.2 %) 82 H Band Neutrophils (0.0 - 5.0 %) 4 Absolute Lymphocytes (1.2 - 3.4 /CUMM) 0.8 L Lymphocytes (20.5 - 51.1 %) 4 L Monocytes (1.7 - 9.3 %) 9 Absolute Monocytes (0.10 - 0.60 /CUMM) 2.8 H Absolute Eosinophils (0.0 - 0.7 /CUMM) 0 Absolute Basophils (0.0 - 0.2 /CUMM) 0 Metamyelocytes (0.0 - 1.0 %) 1 Platelet Estimate (ADEQUATE) ADEQUATE Polychromasia 1+ Ovalocytes FEW PUBS MCHC (33.0 - 37.0 G/DL) 33.8 Miscellaneous Phlebotomy Draw Site LEFT RADIAL Other Body Source Fld Total RBCs Counted (%) 100 10/10 193 1455 Blood Gas pH (7.35 - 7.45 PH) 7.49 H pCO2 (35 - 45 TORR) 23 L pO2 (80 - 100 TORR) 108 H HCO3 (21 - 28 MEQ/L) 18 L ABG O2 Sat (Measured) (>96.0 %) 98.0 P-50 (Temp Corrected) N Carboxyhemoglobin (1.5 - 5.0 %) 0.3 L O2 Concentration % 70% Respiration Rate (BPM) 20 O2 Delivery Method VENT Vent Mode AC Expiratory Pressure (CMH2O/P) 8 Tidal Volume (CC) 450 Pressure Support (CMH2O/P) 0 Chemistry Sodium (137 - 145 mmol/L) 132 L Potassium (3.5 - 5.1 mmol/L) 3.7 Chloride (98 - 107 mmol/L) 101 Carbon Dioxide (22 - 30 mmol/L) 21 L Anion Gap (5 - 16) 10 BUN (7 - 17 mg/dL) 7 Creatinine (0.5 - 1.0 mg/dL) 0.4 L Estimated GFR (>60 ml/min) > 60 Glucose (65 - 99 mg/dL) 137 H Calcium (8.4 - 10.2 mg/dL) 6.9 L Phosphorus (2.5 - 4.5 mg/dL) 3.0 Magnesium (1.6 - 2.3 mg/dL) 1.6 Total Bilirubin (0.2 - 1.3 mg/dL) 1.0 AST (14 - 36 U/L) 49 H ALT (9 - 52 U/L) 33 Ammonia (9 - 30 umol/L) 15 Albumin (3.5 - 5.0 g/dL) 2.0 L Coagulation PT (9.4 - 12.5 SEC) 14.7 H INR (0.90 - 1.19) 1.40 H Hematology CBC w Diff NO MAN DIFF REQ WBC (4.8 - 10.8 /CUMM) 24.5 H RBC (4.20 - 5.40 /CUMM) 2.79 L Hgb (12.0 - 16.0 G/DL) 8.5 L Hct (37 - 47 %) 25.4 L MCV (81.0 - 99.0 FL) 91.0 MCH (27.0 - 31.0 PG) 30.6 RDW (11.5 - 14.5 %) 15.9 H Plt Count (130 - 400 /CUMM) 134 MPV (7.4 - 10.4 FL) 9.9 Gran % (42.2 - 75.2 %) 87.3 H Lymphocytes % (20.5 - 51.1 %) 3.4 L Monocytes % (1.7 - 9.3 %) 9.2 Eosinophils % (0 - 5 %) 0 Basophils % (0.0 - 2.0 %) 0.1 Absolute Granulocytes (1.4 - 6.5 /CUMM) 21.3 H Absolute Lymphocytes (1.2 - 3.4 /CUMM) 0.8 L Absolute Monocytes (0.10 - 0.60 /CUMM) 2.2 H Absolute Eosinophils (0.0 - 0.7 /CUMM) 0 Absolute Basophils (0.0 - 0.2 /CUMM) 0 PUBS MCHC (33.0 - 37.0 G/DL) 33.6 Miscellaneous Phlebotomy Draw Site LEFT RADIAL 10/10 1310 Chemistry Sodium (137 - 145 mmol/L) 129 L Potassium (3.5 - 5.1 mmol/L) 4.6 Chloride (98 - 107 mmol/L) 106 Carbon Dioxide (22 - 30 mmol/L) 17 L Anion Gap (5 - 16) 6 BUN (7 - 17 mg/dL) 6 L Creatinine (0.5 - 1.0 mg/dL) 0.4 L Estimated GFR (>60 ml/min) > 60 Glucose (65 - 99 mg/dL) 423 H Lactic Acid (0.7 - 2.1 mmol/L) 1.6 Calcium (8.4 - 10.2 mg/dL) 5.4 *L Phosphorus (2.5 - 4.5 mg/dL) 2.7 Magnesium (1.6 - 2.3 mg/dL) 1.2 L Total Bilirubin (0.2 - 1.3 mg/dL) 0.8 AST (14 - 36 U/L) 36 ALT (9 - 52 U/L) 25 Creatine Kinase (30 - 135 U/L) 89 Albumin (3.5 - 5.0 g/dL) 1.5 L Amylase (30 - 110 U/L) < 30 L Lipase (23 - 300 U/L) < 10 L Hematology CBC w Diff MAN DIFF ORDERED WBC (4.8 - 10.8 /CUMM) 19.0 H RBC (4.20 - 5.40 /CUMM) 2.30 L Hgb (12.0 - 16.0 G/DL) 7.0 *L Hct (37 - 47 %) 20.8 L MCV (81.0 - 99.0 FL) 90.3 MCH (27.0 - 31.0 PG) 30.4 RDW (11.5 - 14.5 %) 15.5 H Plt Count (130 - 400 /CUMM) 116 L MPV (7.4 - 10.4 FL) 9.5 Gran % (42.2 - 75.2 %) 88.8 H Lymphocytes % (20.5 - 51.1 %) 2.7 L Monocytes % (1.7 - 9.3 %) 8.5 Eosinophils % (0 - 5 %) 0 Basophils % (0.0 - 2.0 %) 0 L Absolute Granulocytes (1.4 - 6.5 /CUMM) 16.9 H Segmented Neutrophils (42.2 - 75.2 %) 84 H Band Neutrophils (0.0 - 5.0 %) 5 Absolute Lymphocytes (1.2 - 3.4 /CUMM) 0.5 L Lymphocytes (20.5 - 51.1 %) 6 L Monocytes (1.7 - 9.3 %) 5 Absolute Monocytes (0.10 - 0.60 /CUMM) 1.6 H Absolute Eosinophils (0.0 - 0.7 /CUMM) 0 Absolute Basophils (0.0 - 0.2 /CUMM) 0 Platelet Estimate (ADEQUATE) DECREASED Polychromasia 1+ Anisocytosis 1+ PUBS MCHC (33.0 - 37.0 G/DL) 33.6 Last 24 Hours of [place] Results: Blood cultures 2 October 09 remain negative Sputum culture October 10 no growth Urine strep pneumo antigen October 10 negative Recent Imaging Studies: Chest x-ray October 11 slight decrease in bilateral markings CT of the chest, abdomen and pelvis October 11 reveals evidence of pulmonary edema with trace bilateral pleural effusions, with a mixture of consolidation and ground glass opacities in the lower lobes; anasarca with increased edema in the retroperitoneal soft tissues and increased subcutaneous tissue edema along the abdominal wall/flanks; no increase in the edema surrounding the right hip Assessment/Plan Impression: Deterioration in her overall status with hypotension, after receiving Lasix, now on pressors, and with a further drop in her H&H, with no evidence of an increase in the hematoma surrounding her right hip on the recent CT scan, status post a hip fracture following a fall at home on the day of admission. She has a low- grade fever with white blood cell count, which was elevated for several months prior to admission, decreasing on Ceftriaxone now Day 2 of empiric treatment for possible pneumonia, though suspect that her densities on chest x-ray and CT scan represent fluid or ARDS rather than pneumonia. Suggestion: 1. Follow-up final cultures 2. Continue Ceftriaxone pending above
--- NOTE | 2016-10-11 11:48 | NUR ---
At 1010, Dr. Villegas in to assess patient. Changes were made to the vent and vent settings now AC 12/420/60/10. Per Dr. Villegas goal O2 sats 88 and greater. Finger sticks now changed to every 2 hours and to receive insulin coverage if bloos dugar greater than 180. RISS order to be placed. Ativan gtt was also increased to 20mg/hr per Dr. Villegas's order due to respiratory rate ranging from 38-32. Tube feeds have been turned off per dietaicians recommendations r/t ?refedding syndrome. At 1045, pts O2 sats began dropping to 86%- Dr. Villegas notified and vent settings changed per his order- AC 12/450/80/10. O2 sats now stable ranging from 91-95%. Levo gtt now infusing at 5mcg and titrated per protocol. Repeat labs due at 1200. Pt medicated with IV tylenol for a temp of 100.6. No s/s of pain currently noted and respiratory rate now 22-24- Dr. Villegas made aware. Will continue to closely monitor patient.
[2016-10-11 13:06] LABS: ABSOLUTE BASOPHIL COUNT 0 /CUMM (0.0-0.2); ABSOLUTE EOSINOPHIL COUNT 0.2 /CUMM (0.0-0.7); ABSOLUTE GRANULOCYTE CT 26.5 /CUMM (1.4-6.5); ABSOLUTE LYMPH COUNT 1.2 /CUMM (1.2-3.4); ABSOLUTE MONOCYTE COUNT 3.1 /CUMM (0.10-0.60); BASOPHIL % 0.1 % (0.0-2.0); EOSINOPHIL % 0.6 % (0-5); GRANULOCYTE % 85.6 % (42.2-75.2); HEMATOCRIT 25.4 % (37-47); MEAN CORPUSCULAR HGB 30.7 PG (27.0-31.0); MEAN CORPUSCULAR HGB CONC 33.7 G/DL (33.0-37.0); MEAN CORPUSCULAR VOLUME 90.8 FL (81.0-99.0); MEAN PLATELET VOLUME 9.4 FL (7.4-10.4); PLATELET COUNT 157 /CUMM (130-400); RBC DISTRIBUTION WIDTH 15.3 % (11.5-14.5)
--- NOTE | 2016-10-11 13:54 | PN- Resident CRCU ---
Subjective HPI/CRCU Issues: Patient seen and examined. She is seen lying flat in bed, intubated on a vent with multiple lines in place. She is tachypnic and appears to be in mild respiratory distress. Review of systems is unobtainable. Last night patient was found to be hypotensive after a dose of Lasix and introduction of a fentanyl drip. Patient was subsequently intubated, placed with a right internal jugular central line, and started on levophed. Objective Vital Signs & I&O Last 8 Hrs of Vitals and I&O: Vitals: - Temperature: 98.5 - Heart Rate: 78-86 - Respiratory Rate: 20-36 - Systolic Blood pressure: 87-106 - Diastolic Blood pressure: 57-66 - Oxygen Saturation: 93-97% Exam General Appearance: intubated, lethargic, mild distress, thin Other Physical Findings: General -elderly/frail-appearing woman in mild respiratory distress HEENT - NCAT, right IJ line Cardio - S1, S2 w/o murmurs/gallops/rubs Resp -rhonchorous breath sounds heard in all 4 lung gutierrez, intubated on vent GI -soft, nontender, nondistended, bowel sounds present Neuro -sedated on fentanyl/Ativan drip Extremities: -LLE: swollen proximal left lower extremity without change from previous day, no overlying ecchymosis, skin is warm with intact distal pulses Current Medications: Current Medications Sig/[place] Start time Last Medication Dose Route Stop Time Status Admin Acetaminophen 1,000 MG Q6P PRN 10/10 1630 AC 10/11 N/A 1 UNIT IV 1027 Acetaminophen 650 MG Q8 PRN 10/06 1945 AC 10/09 PO 2017 Albuterol Sulfate 3 ML BID 10/09 1148 AC 10/11 INH 0929 Calcium Chloride 1 GM ONCE ONE 10/10 1530 CAN IV 10/10 1531 Calcium Gluconate 1 GM ONCE ONE 10/10 1600 DC 10/10 Sodium Chloride 100 ML IV 10/10 1659 1840 Ceftriaxone Sodium 1,000 MG DAILY 10/10 1127 AC 10/11 IV 0935 Exemestane 25 MG DAILY 10/07 1000 AC 10/11 PO 0934 Fentanyl Citrate 1,000 MCG Q24H 10/10 1700 AC 10/11 Dextrose/Water 250 ML IV 0022 Fentanyl Citrate 25 MCG Q6P PRN 10/10 1345 DC 10/10 IV 1357 Folic Acid 1 MG DAILY 10/07 1000 AC 10/11 PO 0934 Furosemide 20 MG ONCE ONE 10/10 1530 DC 10/10 IV 10/10 1531 1612 Hydromorphone HCl 0.6 MG Q4P PRN 10/07 1200 AC 10/08 IV 2133 Insulin Aspart 0 Q4 10/11 0200 DC 10/11 SC 0600 Insulin Detemir 5 UNITS AT BEDTIME 10/06 2200 AC 10/10 SC 2300 Insulin Human Regular 0 Q6 10/11 1200 AC 10/11 SC 1221 Lorazepam 100 MG Q10H 10/11 0230 AC 10/11 Dextrose/Water 1,000 ML IV 1102 Lorazepam 100 MG Q24H 10/10 1515 DC 10/10 Dextrose/Water 1,000 ML IV 1653 Lorazepam 50 MG ONCE ONE 10/10 0530 DC 10/10 Sodium Chloride 500 ML IV 10/11 0529 0538 Lorazepam 0 Q1P PRN 10/07 1330 AC 10/09 IV 1747 Magnesium Oxide 400 MG ONE ONE 10/11 0945 DC 10/11 PO 10/11 0946 0940 Magnesium Oxide 400 MG ONE ONE 10/10 1600 DC 10/10 PO 10/10 1601 1657 Magnesium Sulfate 1 GM Q2H 10/11 1345 AC Dextrose/Water 100 ML IV 10/11 1744 Magnesium Sulfate 1 GM ONCE ONE 10/11 0945 CAN Dextrose/Water 100 ML IV 10/11 1344 Norepinephrine 4 MG Q24H 10/10 1900 AC 10/10 Sodium Chloride 250 ML IV 2300 Norepinephrine 4 MG .STK-MED ONE 10/10 1854 DC IV 10/10 1855 Nystatin 5 ML 4 TIMES/DAY 10/10 1152 AC 10/11 PO 1329 Oxycodone HCl 5 MG Q6 PRN 10/06 1945 AC 10/07 PO 0757 Pantoprazole Sodium 40 MG DAILY 10/10 1835 AC 10/11 IV 0934 Potassium Chloride 10 MEQ ONCE ONE 10/11 0945 CAN IV 10/11 0946 Potassium Chloride 40 MEQ ONCE ONE 10/11 0945 CAN PO 10/11 0946 Potassium Chloride 40 MEQ ONCE ONE 10/11 0945 DC 10/11 PO 10/11 0946 0941 Potassium Chloride 20 MEQ ONCE ONE 10/10 1600 DC 10/10 PO 10/10 1601 1657 Potassium Chloride 20 MEQ ONCE ONE 10/10 1600 DC 10/10 PO 10/10 1601 1657 Impression/Plan Impression/Problem List Impression: Overnight patient became hypoxic and to ultimately requiring intubation and sedation with a fentanyl drip. Hemoglobin was found to have dropped this morning for which a surgical consult was placed and orthopedics were made aware. It was determined that the patient required no urgent orthopedic intervention, no immediate surgical interventions were recommended from general surgery. Patient was transfused 1 unit packed red blood cells and repeat labs demonstrated improved/stable hemoglobin. She is continued on an Ativan drip at maximum dose in addition to fentanyl drip for sedation. She remains intubated with respiratory rate ranging 20-28 saturating 88-92% on 80% FiO2. She remains on intravenous antibiotics. Problem list: -Acute hypoxic respiratory failure, intubated on vent -Displaced comminuted right proximal femoral shaft fracture -Proximal right lower extremity hematoma -Acute blood loss anemia, stable -EtOH withdrawal -Multilobar pneumonia, on antibiotics -History of breast cancer that is post bilateral mastectomy, chemotherapy/ radiation -Leukocytosis Musculoskeletal: Sustained a fall from her bed resulting in a right hip fracture as demonstrated by x-ray and CT imaging. She was evaluated by orthopedic surgery, but surgical intervention was deferred as patient was found to have an acute drop in her hemoglobin requiring admission to the intensive care unit from the general medicine floor for medical optimization. She was started on a diabetic diet with nothing by mouth at midnight for surgery tomorrow. -Monitor vital signs and hemoglobin -Cardiac clearance obtained -Orthopedic consult following Cardiology: Revised cardiac risk index calculated for a score of 0 suggesting a 0.4% risk of a major cardiac event. -RCRI: 0, 0.4 risk for major cardiac event -client insights consultant cleared patient for surgery Respiratory/infectious disease: Patient has had worsening respiratory distress requiring intubation and ventilator. Intravenous Lasix therapy have minimally improved pulmonary fluid status. Repeat arterial blood gas/chest x-rays show stable airway disease. Cultures have been no growth to date. Patient was started on intravenous antibiotics. -Intubated on ventilator -Ceftriaxone 1 g IV daily -Azithromycin 500 mg IV daily -Fentanyl drip for sedation, titrate as necessary -Urine Cx (10/06): NGTD -BCx x2 (10/06): NGTD -Follow up with surgical PA when medically clear for surgery -Follow-up sputum culture obtained 10/09/16 Hematology/oncology: Patient has a history of breast cancer with bilateral mastectomy, chemotherapy, and radiation. Last treatment reportedly received 6 months ago. She is a patient of Dr. Mejias of the [facility]. She has not had any follow- up imaging since this time apparently, but is reportedly in remission with a surveillance visit scheduled in January 2017. Patient has had persistent leukocytosis since admission. White blood cell count was elevated as recently as July to 20,000, baseline level unclear. She denies taking any adjuvant chemotherapy regimens such as Neulasta/Neupogen that could possibly account for this, however records are unavailable at this time. Consent for blood transfusion was obtained and placed on chart, type and cross was ordered. Packed red blood cells were transfused. -PRBC transfused: 3 -Daily CBC, monitor for worsening anemia/leukocytosis Psychiatry: Patient has a history of alcohol abuse for which she reports drinking vodka several times a week. Serum alcohol on admission was negative. She remains tremulous with see what scores consistently minimally elevated. -Ativan drip, titrate as necessary -Multivitamin/thiamine/folate -Bupropion on hold -Consider psychiatry/social work consult Endocrinology: Patient with a history of diabetes mellitus. Blood sugars have been consistently low requiring amps of dextrose. -Accu-Cheks -Nothing by mouth sliding scale insulin Pain plan: -Acetaminophen 650 mg by mouth every 8 hours as needed for pain 1-3 -Oxycodone 1 tab by mouth every 6 hours as needed for pain 4-6 -Dilaudid 0.6 mg IV every 4 hours as needed for pain 7-10 Diet -NPO DVT prophylaxis-contraindication to both mechanical/pharmacological prophylaxis Code Status-full code Problem List: 1. Aspiration pneumonia 2. Closed right femoral fracture Pain Ratin Tomorrow's Labs & Rationales: Complete blood count ICU bundle Chest x-ray Arterial blood gas Plan DVT/Prophylaxis: contraindication to mechanical/pharmacological DVT prophylaxis
--- NOTE | 2016-10-11 15:44 | NUR ---
Levo gtt has been titrated up per order and is now infusing at 12mcg/min. Manual BP at 1500 102/64. Fentanyl gtt infusing at 50mcg, SAS-3. Vent settings remain AC: 12/450/80/10. O2 sats range from 88-94%. Patient was suctioned for scant amounts of reyes thick secretions. While cleaning and repositioning patient, O2 sats dropped to as low at 72% taking a few minutes to recover to stable oxygenation. I+O discussed with Dr. Santillan. Dr. Villegas aware and vasopressin to be started if further pressors needed to stablize BP. Will continue to closely monitor patient.
[2016-10-12] VITALS: BP 108/66
--- NOTE | 2016-10-12 03:17 | NUR ---
LATE ENTRY FOR 10/[address] JEFFERSON NOTIFIED OF CRITICAL VALUES AND ALSO BOWER OUTPUT FOR SHIFT IS ONLY 50 ML.
[2016-10-12 04:00] VITALS: BP 104/64
[2016-10-12 05:27] LABS: ABSOLUTE BASOPHIL COUNT 0 /CUMM (0.0-0.2); ABSOLUTE EOSINOPHIL COUNT 0.5 /CUMM (0.0-0.7); ABSOLUTE GRANULOCYTE CT 25.5 /CUMM (1.4-6.5); ABSOLUTE MONOCYTE COUNT 2.3 /CUMM (0.10-0.60); BASOPHIL % 0 % (0.0-2.0); EOSINOPHIL % 1.7 % (0-5); GRANULOCYTE % 87.1 % (42.2-75.2); HEMATOCRIT 26.7 % (37-47); MEAN CORPUSCULAR HGB 30.1 PG (27.0-31.0); MEAN CORPUSCULAR HGB CONC 33.4 G/DL (33.0-37.0); MEAN CORPUSCULAR VOLUME 90.2 FL (81.0-99.0); MEAN PLATELET VOLUME 9.3 FL (7.4-10.4); PLATELET COUNT 171 /CUMM (130-400); RBC DISTRIBUTION WIDTH 16.1 % (11.5-14.5); RED BLOOD CELL CT 2.96 /CUMM (4.20-5.40); WHITE BLOOD CELL COUNT 29.3 /CUMM (4.8-10.8)
[2016-10-12 08:00] VITALS: BP 100/60
--- NOTE | 2016-10-12 08:21 | RADIOLOGY REPORT ---
EXAMINATION: XR PORTABLE CHEST CLINICAL INFORMATION: Hypoxia, tachypnea COMPARISON: 10/11/2016 TECHNIQUE: Portable view of the chest was obtained. FINDINGS: Endotracheal tube tip lies approximately 4.2 cm above the king. Enteric tube courses below the diaphragm. Right IJ central line tip lies at the level of the right atrium. Lung volumes are symmetric. There are diffuse bilateral airspace opacities, slightly less extensive in the right upper lung compared to the remainder of the lungs. Overall, appearance is similar to slightly worsened since prior radiograph of 10/11/2016. No pneumothorax is seen. Small pleural effusions cannot excluded. The cardiomediastinal silhouette is stable. No acute osseous findings are seen. IMPRESSION: Diffuse bilateral airspace opacities, overall similar to slightly increased since 10/11/2016.
--- NOTE | 2016-10-12 11:27 | PN- Cardiology ---
Subjective Subjective: * Patient is intubated and sedated. * Patient remains on Levophed with blood pressure in the low nineties * sinus rhythm with occasional PVC's * elevated SBC count with stable anemia Objective Vital Signs and I&Os Vital Signs Date Time Temp Pulse Resp B/P Pulse O2 O2 Flow FiO2 Ox Delivery Rate 10/12 1054 75 10/12 0809 75 10/12 0800 99.8 98 26 100/60 10/12 0800 94 Ventilator 75% 10/12 0800 99.8 98 26 100/60 94 Ventilator 75% 10/12 0533 75 10/12 0400 99.0 94 26 104/64 96 Ventilator 75% 10/12 0400 96 Ventilator 75% 10/12 0249 75 10/12 0232 90 98/60 10/12 0000 98.4 88 23 108/66 10/12 0000 97 Ventilator 75% 10/11 2355 75 10/11 2329 98.4 88 23 108/66 96 Ventilator 75% 10/11 2243 75 10/11 2021 98.6 99 28 97/51 10/11 2000 99 Ventilator 75% 10/11 2000 98.6 84 16 110/60 99 Ventilator 75% 10/11 1950 75 10/11 1655 80 10/11 1600 98.3 80 27 90/60 10/11 1600 98.3 80 27 90/60 95 Ventilator 80% 10/11 1600 95 Ventilator 80% 10/11 1450 80 10/11 1425 81 86/58 10/11 1205 80 10/11 1200 99.6 86 20 96/62 94 Ventilator 80% 10/11 1200 94 Ventilator 80% 10/11 1130 99.6 Intake & Output 10/12 1600 10/12 0800 10/12 0000 10/11 1600 10/11 0810/11 0000 Intake Total 1794 2111.2 2425 1010.7 1918 Output Total 1550 1310 459 1652 1160 Balance 244 561.2 1475 -159.3 758 Intake, Blood 320 Product Intake, IV 1794 2111.2 1885 850.7 1758 Intake, Other 30 Intake, Tube 20 60 30 Feeding Intake, Tube 200 100 100 Irrigant Number 1 2 1 1 Bowel Movements Output, 150 Gastric Drainage Output, Urine 1550 3872 242 8898 1160 Physical Exam: General: WD/ WN female. Intubated and sedated. Neck: no JVD, no carotid bruit Heart: regular rate and rhythm, no murmur Lungs: clear bilaterally anteriorly Extremities: no edema Assessment/Plan Assessment/Plan * Pulmonary edema consistent with ARDS remains. A superimposed infectious infiltrate cannot be excluded. * Continue antibiotic therapy. * Continue levophed with a goal SBP of 90mmHg. Continue telemetry? Yes
[2016-10-12 12:00] VITALS: BP 90/60
--- NOTE | 2016-10-12 15:53 | PN- Resident CRCU ---
Subjective HPI/CRCU Issues: Patient seen and examined. She is seen lying flat in bed sedated, intubated, and maintained in bilateral upper extremity soft restraints. She appears to be in mild respiratory distress. Review of systems is unobtainable. No overnight events reported. Objective Vital Signs & I&O Last 8 Hrs of Vitals and I&O: Vitals: - Temperature: 99.0-102.1 - Heart Rate: 88-104 - Respiratory Rate: 24-29 - Systolic Blood pressure: 84-115 - Diastolic Blood pressure: 56-67 - Oxygen Saturation: 95-99% on ventilator at 75% FiO2, Vt 450, RR 12, PEEP 10 Exam General Appearance: sedated, intubated, mild distress Other Physical Findings: General -frail/elderly woman in upper extremity restraints in mild respiratory distress HEENT - NCAT, intubated with right internal jugular line Cardio - S1, S2 w/o murmurs/gallops/rubs Resp -diffuse rhonchi in all lung gutierrez without crackles, on ventilator GI -soft, nontender, nondistended, bowel sounds present -Palacio catheter in place draining clear yellow urine Neuro -intubated and sedated Extremities: -RLE: proximal right lower extremity swelling, examination unchanged from yesterday, without overlying ecchymosis, distal pulses intact without lower extremity edema Current Medications: Current Medications Sig/[place] Start time Last Medication Dose Route Stop Time Status Admin Acetaminophen 1,000 MG Q6P PRN 10/10 1630 AC 10/12 N/A 1 UNIT IV 1134 Acetaminophen 650 MG Q8 PRN 10/06 1945 AC 10/09 PO 2017 Albuterol Sulfate 3 ML EVERY 4 HRS/AWAKE 10/12 0800 AC 10/12 INH 1139 Albuterol Sulfate 3 ML BID 10/09 1148 DC 10/11 INH 1959 Ceftriaxone Sodium 1,000 MG DAILY 10/10 1127 AC 10/12 IV 1100 Exemestane 25 MG DAILY 10/07 1000 AC 10/12 PO 1100 Fentanyl Citrate 1,000 MCG Q24H 10/10 1700 DC 10/11 Dextrose/Water 250 ML IV 1459 Folic Acid 1 MG DAILY 10/07 1000 AC 10/12 PO 1100 Hydromorphone HCl 0.6 MG Q4P PRN 10/07 1200 AC 10/08 IV 2133 Insulin Detemir 5 UNITS AT BEDTIME 10/06 2200 AC 10/11 SC 2206 Insulin Human Regular 0 Q6 10/11 1200 AC 10/12 SC 1148 Lorazepam 100 MG Q5H 10/12 0230 AC 10/12 Dextrose/Water 1,000 ML IV 1434 Lorazepam 100 MG Q10H 10/11 0230 DC 10/11 Dextrose/Water 1,000 ML IV 2206 Lorazepam 0 Q1P PRN 10/07 1330 AC 10/09 IV 1747 Magnesium Sulfate 1 GM Q2H 10/12 0800 DC 10/12 Dextrose/Water 100 ML IV 10/12 1159 1049 Magnesium Sulfate 1 GM Q2H 10/11 1345 DC 10/11 Dextrose/Water 100 ML IV 10/11 1744 1444 Non-Formulary 0 SEE ADMIN CRITERIA 10/12 1000 CAN Medication ANY Non-Formulary 0 SEE ADMIN CRITERIA 10/12 1000 CAN Medication ANY Norepinephrine 4 MG Q4H 10/12 1600 AC Sodium Chloride 250 ML IV Norepinephrine 4 MG Q24H 10/10 1900 AC 10/12 Sodium Chloride 250 ML IV 10/12 1559 0232 Nystatin 5 ML 4 TIMES/DAY 10/10 1152 AC 10/12 PO 1100 Oxycodone HCl 5 MG Q6 PRN 10/06 1945 AC 10/07 PO 0757 Pantoprazole Sodium 40 MG DAILY 10/10 1835 AC 10/12 IV 1100 Potassium Chloride 40 MEQ ONCE ONE 10/12 1000 DC 10/12 PO 10/12 1001 1100 Potassium Chloride 20 MEQ Q1 10/12 0900 DC PO 10/12 1001 Propofol 1,000 MG Q12H 10/12 1015 AC 10/12 N/A 1 UNIT IV 1049 Impression/Plan Impression/Problem List Impression: Continue to have a respiratory rate of 22-28 overnight previously noted vent settings. Fentanyl drip was discontinued this morning and a propofol drip was restarted today for further sedation to lower her respiratory rate. Chest x-ray this morning was unchanged from previous days. Scheduling Analyst mentioned that patient's metabolic panel suggested that of refeeding syndrome for which tube feeds were held yesterday. Her hemoglobin has remained stable today. She is continued on Ativan drip intravenous antibiotics. Problem list: -Acute hypoxic respiratory failure, intubated on vent -Acute respiratory distress syndrome, intubated on vent -Displaced comminuted right proximal femoral shaft fracture -Proximal right lower extremity hematoma -Acute blood loss anemia, stable -EtOH withdrawal -Multilobar pneumonia, on antibiotics -History of breast cancer that is post bilateral mastectomy, chemotherapy/ radiation -Leukocytosis Respiratory/infectious disease: Patient has had worsening respiratory distress requiring intubation and ventilator. Intravenous Lasix therapy have minimally improved pulmonary fluid status. Repeat arterial blood gas/chest x-rays show stable airway disease. Cultures have been no growth to date. Patient was started on intravenous antibiotics. -Intubated on ventilator -Ceftriaxone 1 g IV daily -Fentanyl drip discontinued -Propofol drip started -Levophed drip -Urine Cx (10/06): NGTD -BCx x2 (10/06): NGTD -Follow up with surgical PA when medically clear for surgery Musculoskeletal: Sustained a fall from her bed resulting in a right hip fracture as demonstrated by x-ray and CT imaging. She was evaluated by orthopedic surgery, but surgical intervention was deferred as patient was found to have an acute drop in her hemoglobin requiring admission to the intensive care unit from the general medicine floor for medical optimization. -Monitor vital signs and hemoglobin -Cardiac clearance obtained -Orthopedic consult following Cardiology: Revised cardiac risk index calculated for a score of 0 suggesting a 0.4% risk of a major cardiac event. -RCRI: 0, 0.4 risk for major cardiac event -organizational development consultant cleared patient for surgery Hematology/oncology: Patient has a history of breast cancer with bilateral mastectomy, chemotherapy, and radiation. Last treatment reportedly received 6 months ago. She is a patient of Dr. Mejias of the [facility]. She has not had any follow- up imaging since this time apparently, but is reportedly in remission with a surveillance visit scheduled in January 2017. Patient has had persistent leukocytosis since admission. White blood cell count was elevated as recently as July to 20,000, baseline level unclear. She denies taking any adjuvant chemotherapy regimens such as Neulasta/Neupogen that could possibly account for this, however records are unavailable at this time. Consent for blood transfusion was obtained and placed on chart, type and cross was ordered. Packed red blood cells were transfused. -PRBC transfused: 3 -Daily CBC, monitor for worsening anemia/leukocytosis Psychiatry: Patient has a history of alcohol abuse for which she reports drinking vodka several times a week. Serum alcohol on admission was negative. She remains tremulous with see what scores consistently minimally elevated. -Ativan drip, titrate as necessary -Multivitamin/thiamine/folate -Bupropion on hold -Consider psychiatry/social work consult Endocrinology: Patient with a history of diabetes mellitus. Blood sugars have been consistently low requiring amps of dextrose. -Accu-Cheks -Nothing by mouth sliding scale insulin Pain plan: -Acetaminophen 650 mg by mouth every 8 hours as needed for pain 1-3 -Oxycodone 1 tab by mouth every 6 hours as needed for pain 4-6 -Dilaudid 0.6 mg IV every 4 hours as needed for pain 7-10 Diet -NPO DVT prophylaxis-mechanical ppx to LLE Code Status-full code Problem List: 1. Closed right femoral fracture Pain Ratin Tomorrow's Labs & Rationales: CBC ICU CXR ABG Plan DVT/Prophylaxis: mechanical
[2016-10-12 16:00] VITALS: BP 108/68
--- NOTE | 2016-10-12 18:12 | NUR ---
Received patient @ 0800 orally intubated with #8 ETT to the right at 22 cm and mechanically ventilated w/ rate of 12, TV-450, FIO2 75%, and peep of 10. Current RR 26 and O2 sats 93-94%. Breath sounds clear in the upper lobes and diminished to the lower upon auscultation throughout the day. Occasional scant dark reyes thick sputum/plug deep suctioned and moderate white frothy sputum suctioned from mouth, mouth care completed and nystatin applied to mouth per EMAR. Patient retaped on the left side of mouth at 1345 by RT. Patient is sedated w/ SAS-3 on fentanyl gtt at 25 mcg/hr running though the white port of the RIJ TLC Switched over to propofol @ 1015 and titrated for SAS-1-2 or RR-[address] Villegas and protocol. See ICU flow sheet. Ativan gtt is also running through the white port of the RIJ TLC at 20 mg/hr or 200 mls/hr per EMAR. Levophed is running through the blue port of the RIJ TLC and is titrated per EMAR. SBP maintained between high 80s to 110s. See ICU flow sheet. Pupils remained 2MM equal and sluggishly reactive throughout the day. Doppler pulses to lower ext and +pulses to bilateral radial sites. NSR-ST 90s-100s upon morning assessment and down to the 70s by the evening. Multiple PVCs/PAC's/ectopy noted throughout the day. OGT to ETT to LWS intermittantly. Meds given down OGT without difficulty. Placement verified. Abdomen is soft with hypoactive bowel sounds. Patient incontinent of one small, soft guiac negative BM. To be cont...
[2016-10-12 20:00] VITALS: BP 92/60
[2016-10-13] VITALS: BP 119/68
[2016-10-13 06:31] LABS: ABSOLUTE BASOPHIL COUNT 0 /CUMM (0.0-0.2); ABSOLUTE EOSINOPHIL COUNT 0.9 /CUMM (0.0-0.7); ABSOLUTE GRANULOCYTE CT 28.1 /CUMM (1.4-6.5); ABSOLUTE LYMPH COUNT 1.3 /CUMM (1.2-3.4); ABSOLUTE MONOCYTE COUNT 1.4 /CUMM (0.10-0.60); BASOPHIL % 0 % (0.0-2.0); EOSINOPHIL % 2.8 % (0-5); GRANULOCYTE % 88.7 % (42.2-75.2); HEMATOCRIT 27.5 % (37-47); MEAN CORPUSCULAR HGB 30.5 PG (27.0-31.0); MEAN CORPUSCULAR HGB CONC 33.7 G/DL (33.0-37.0); MEAN CORPUSCULAR VOLUME 90.6 FL (81.0-99.0); MEAN PLATELET VOLUME 9.7 FL (7.4-10.4); PLATELET COUNT 184 /CUMM (130-400); RBC DISTRIBUTION WIDTH 15.9 % (11.5-14.5); RED BLOOD CELL CT 3.04 /CUMM (4.20-5.40)
[2016-10-13 06:49] LABS: WHITE BLOOD CELL COUNT 31.6 /CUMM (4.8-10.8)
--- NOTE | 2016-10-13 07:34 | RADIOLOGY REPORT ---
EXAMINATION: XR PORTABLE CHEST CLINICAL INFORMATION: Hypoxia and tachypnea. COMPARISON: Previous chest x-rays most recent from yesterday previous chest CTs 10/11/2016 TECHNIQUE: Portable view of the chest was obtained. FINDINGS: The cardiac and mediastinal contours are stable. Endotracheal tube tip is 6.5 cm above the king. Nasogastric tube tip is not seen but the nasogastric tube projects over the stomach. There is a right internal jugular line with tip projecting over the cavoatrial junction. There is slight interval improvement in the bilateral groundglass attenuation and airspace disease compared to previous exams. There is no pleural effusion or pneumothorax. IMPRESSION: Nasogastric tube projects over stomach, tip not seen. Otherwise satisfactory position of support line and tube. Interval decrease in bilateral airspace disease and groundglass attenuation compared to previous exams.
[2016-10-13 08:00] VITALS: BP 100/60
--- NOTE | 2016-10-13 10:14 | PN- CRCU ---
Subjective HPI/Critical Care Issues: The patient remains intubated and sedated. She is not breathing over the ventilator. Her oxygenation has significantly improved, noting she is now on 50 % with 10 of PEEP. She remains on Levophed at 14 g per hour. She has had significant diuresis with Lasix. Her white blood cell count remains elevated at 31,000. The patient's MAXIMUM TEMPERATURE is 102.1. Her cultures remain negative. The patient's ABG has improved noting that her pH is 7.39, PCO2 32, PO2 68, and bicarbonate of 19. The patient's chest x-ray shows interval decrease in bilateral airspace disease and groundglass attenuation. Objective Current Medications: Current Medications Sig/[place] Start time Last Medication Dose Route Stop Time Status Admin Acetaminophen 1,000 MG Q6P PRN 10/10 1630 AC 10/12 N/A 1 UNIT IV 1134 Acetaminophen 650 MG Q8 PRN 10/06 1945 AC 10/09 PO 2017 Albuterol Sulfate 3 ML EVERY 4 HRS/AWAKE 10/12 0800 AC 10/13 INH 0743 Ceftriaxone Sodium 1,000 MG DAILY 10/10 1127 AC 10/12 IV 1100 Exemestane 25 MG DAILY 10/07 1000 AC 10/12 PO 1100 Fentanyl Citrate 1,000 MCG Q24H 10/10 1700 DC 10/11 Dextrose/Water 250 ML IV 1459 Folic Acid 1 MG DAILY 10/07 1000 AC 10/12 PO 1100 Furosemide 20 MG ONCE ONE 10/12 1730 DC 10/12 IV 10/12 1731 1744 Hydromorphone HCl 0.6 MG Q4P PRN 10/07 1200 AC 10/08 IV 2133 Insulin Detemir 5 UNITS AT BEDTIME 10/06 2200 AC 10/12 SC 2123 Insulin Human Regular 0 Q6 10/11 1200 AC 10/13 SC 0656 Lorazepam 100 MG Q5H 10/12 0230 AC 10/13 Dextrose/Water 1,000 ML IV 0700 Lorazepam 0 Q1P PRN 10/07 1330 AC 10/09 IV 1747 Magnesium Sulfate 1 GM Q2H 10/12 0800 DC 10/12 Dextrose/Water 100 ML IV 10/12 1159 1049 Non-Formulary 0 SEE ADMIN CRITERIA 10/12 1000 CAN Medication ANY Non-Formulary 0 SEE ADMIN CRITERIA 10/12 1000 CAN Medication ANY Norepinephrine 8 MG Q8H 10/12 1830 AC 10/13 Sodium Chloride 250 ML IV 0605 Norepinephrine 8 MG Q24H 10/12 1730 DC Sodium Chloride 250 ML IV Norepinephrine 4 MG Q4H 10/12 1600 DC Sodium Chloride 250 ML IV Norepinephrine 4 MG Q24H 10/10 1900 DC 10/12 Sodium Chloride 250 ML IV 10/12 1559 0232 Nystatin 5 ML 4 TIMES/DAY 10/10 1152 AC 10/12 PO 2123 Oxycodone HCl 5 MG Q6 PRN 10/06 1945 DC 10/07 PO 0757 Pantoprazole Sodium 40 MG DAILY 10/10 1835 AC 10/12 IV 1100 Potassium Chloride 40 MEQ ONCE ONE 10/13 0915 DC PO 10/13 0916 Potassium Chloride 40 MEQ ONCE ONE 10/12 1000 DC 10/12 PO 10/12 1001 1100 Potassium Chloride 20 MEQ Q1 10/12 0900 DC PO 10/12 1001 Propofol 1,000 MG Q5H 10/13 0515 AC 10/13 N/A 1 UNIT IV 0745 Propofol 1,000 MG Q12H 10/12 1015 DC 10/13 N/A 1 UNIT IV 0341 Propofol 1,000 MG .STK-MED ONE 10/12 0941 DC IV 10/12 0942 Vital Signs & I&O Last 24 Hrs of Vitals and I&O: Vital Signs Date Time Temp Pulse Resp B/P Pulse O2 O2 Flow FiO2 Ox Delivery Rate 10/13 0800 98.2 76 24 100/60 10/13 0800 98.2 76 24 100/60 100 Ventilator 55% 10/13 0800 100 Ventilator 55% 10/13 0736 55 10/13 0605 77 113/54 10/13 0554 65 10/13 0400 100 Ventilator 65% 10/13 0310 65 10/13 0059 65 10/13 0000 97.9 72 24 119/68 10/13 0000 97.9 72 24 119/68 99 Ventilator 65% 10/13 0000 99 Ventilator 65% 10/12 2220 70 10/12 2042 97.1 82 14 90/60 10/12 2000 94 Ventilator 70% 10/12 2000 97.1 82 14 92/60 94 Ventilator 70% 10/12 1920 75 10/12 1600 75 10/12 1600 98.7 76 19 108/68 10/12 1600 94 Ventilator 75% 10/12 1600 98.7 76 19 108/68 94 Ventilator 75% 10/12 1455 100.2 10/12 1357 75 10/12 1200 96 Ventilator 75% 10/12 1200 102.1 96 20 90/60 99 Ventilator 75% 10/12 1134 102.1 10/12 1054 75 Intake & Output 10/13 1600 10/13 0800 10/13 0000 Intake Total 2377 1878.2 Output Total 410 2350 Balance 1967 -471.8 Intake, IV 2377 1878.2 Intake, Oral 0 Intake, Other 0 Number 0 Bowel Movements Output, 150 Gastric Drainage Output, Urine 260 2350 Exam General Appearance: no apparent distress Head: atraumatic, normal appearance Neck: supple Respiratory: chest non-tender, no respiratory distress, crackles, rhonchi Cardiovascular: regular rate/rhythm Abdomen: normal bowel sounds, soft, non-tender Extremities: no edema Skin: intact, normal color, warm/dry Results Last 24 Hrs of Lab Results: Laboratory Tests 10/13/16 0515: Anion Gap 10, Estimated GFR > 60, Glucose 220 H, Calcium 7.5 L, Phosphorus 3.0 , Magnesium 1.4 L, Total Bilirubin 0.7, AST 44 H, ALT 27, Albumin 1.7 L, CBC w Diff MAN DIFF ORDERED, RBC 3.04 L, MCV 90.6, MCH 30.5, RDW 15.9 H, MPV 9.7, Gran % 88.7 H, Lymphocytes % 4.2 L, Monocytes % 4.3, Eosinophils % 2.8, Basophils % 0 L, Absolute Granulocytes 28.1 H, Segmented Neutrophils 78 H, Band Neutrophils 7 H, Absolute Lymphocytes 1.3, Lymphocytes 4 L, Monocytes 4, Absolute Monocytes 1.4 H, Eosinophils 4, Absolute Eosinophils 0.9, Absolute Basophils 0, Metamyelocytes 2 H, Myelocytes 1 H, Platelet Estimate ADEQUATE, Polychromasia 1+, Ovalocytes FEW, [place] Cells FEW, PUBS MCHC 33.7, Fld Total RBCs Counted 100 10/13/16 0220: pH 7.39, pCO2 32 L, pO2 68 L, HCO3 19 L, ABG O2 Sat (Measured) 94.0 L, P-50 (Temp Corrected) Y, Carboxyhemoglobin 0.3 L, O2 Concentration % 65%, Temperature 97.9, Respiration Rate 24, O2 Delivery Method ESPRIT, Vent Mode AC, Expiratory Pressure 10, Tidal Volume 450, Phlebotomy Draw Site LEFT RADIAL 10/12/16 2150: pH 7.27 *L, pCO2 46 H, pO2 84, HCO3 20 L, ABG O2 Sat (Measured) 95.0 L, P-50 (Temp Corrected) N, Carboxyhemoglobin 0.7 L, O2 Concentration % 70%, Temperature 97.1, Respiration Rate 12, O2 Delivery Method ESPRIT, Vent Mode AC, Expiratory Pressure 10, Tidal Volume 450, Phlebotomy Draw Site RIGHT BRACHIAL Diagnostic Data CXR Findings: Nasogastric tube projects over stomach, tip not seen. Otherwise satisfactory position of support line and tube. Interval decrease in bilateral airspace disease and groundglass attenuation compared to previous exams. Impression/Plan Impression/Plan Impression/Plan: 1. Hypoxemic respiratory failure secondary to pneumonia and ARDS. 2. Right intratrochanteric fracture. 3. Acute blood loss anemia. 4. History of respiratory failure. 5. ETOH withdrawl. 6. Displaced comminuted right proximal femoral shaft fracture. 7. History of breast cancer that is post bilateral mastectomy, chemotherapy/ radiation. Recommendations: * Continue current ventilator settings. * Will attempt to wean O2 down to 40% and then will attempt to wean the PEEP down as tolerated. * Reduce Ativan to 15 mg per hour. * Will also attempt to reduce propofol due to low blood pressure. * Sedation goal for SAS of 2. * Will monitor tidal volumes, attempt to keep around 450 ml for low tidal volume ventilation. * Attempt to wean pressors off if able. * Need to discuss antibiotics with ID. * Continue nebs/TRC. * Give Lasix 20 mg IV x 1 today, as the patient significantly improved yesterday with diuresis. * Continue tube feeds at goal. * Continue with electrolyte repletion. * Continue ventilator bundle. * Continue Alps, the patient remains off SQ heparin due to bleeding.
--- NOTE | 2016-10-13 11:30 | NUR ---
Received patient at 0800 orally intubated with #8 ETT to the left at 22cm and mechanically ventilated with rate of 24, TV-450, FIO2 of 55%, and peep of 10. Scant reyes secretions assessed w/ deep suction and moderate white frothy secretions when mouth suctioned. Mouth care completed. Rhonchi in the upper lungs bilaterally per auscultation, diminished to the lower. SAS-1. Pupils 2mm and sluggish. Ativan gtt titrated down to 10 mg/hr from 20 mg/hr per Dr. Clayton w/ miscellaneous messages and propofol titrated down per EMAR and Dr. Clayton. Levophed titrated per EMAR and SBP with goal to keep between 90s-100s. NSR in the monitor 70s w/ bigemeny/PVC's. SBP 90s. OGT left clamped after giving meds through it. To restart glucerna 1.2 per dietary. Abdomen is soft with hypoactive BS. Palacio in place draining large amounts of clear/yellow urine. Generalized trace edema, +1 edema to the left upper ext and the right lower ext/hip area. Edema/swelling/bruising extends to vagina/labia and inner thigh. SKin is warm/moist and otherwise intact. Safety maintained, patient turned and repositioned.
[2016-10-13 12:00] VITALS: BP 104/60
--- NOTE | 2016-10-13 15:03 | PN- Infect Dx ---
Subjective Subjective: MAXIMUM TEMPERATURE 102.1 yesterday afternoon, with no fever since. She remains on Levophed for hypotension. Her oxygenation has improved to some extent. Objective Last 24 Hrs of Vital Signs/I&O Vital Signs Date Time Temp Pulse Resp B/P Pulse O2 O2 Flow FiO2 Ox Delivery Rate 10/13 1415 40 10/13 1106 40 10/13 0800 98.2 76 24 100/60 10/13 0800 98.2 76 24 100/60 100 Ventilator 55% 10/13 0800 100 Ventilator 55% 10/13 0736 55 10/13 0605 77 113/54 10/13 0554 65 10/13 0400 100 Ventilator 65% 10/13 0310 65 10/13 0059 65 10/13 0000 97.9 72 24 119/68 10/13 0000 97.9 72 24 11968 99 Ventilator 65% 10/13 0000 99 Ventilator 65% 10/12 2220 70 10/12 2042 97.1 82 14 90/60 10/12 2000 94 Ventilator 70% 10/12 2000 97.1 82 14 92/60 94 Ventilator 70% 10/12 1920 75 10/12 1600 75 10/12 1600 98.7 76 19 108/68 10/12 1600 94 Ventilator 75% 10/12 1600 98.7 76 19 108/68 94 Ventilator 75% Intake & Output 10/13 1600 10/13 0800 10/13 0000 Intake Total 2377 1878.2 Output Total 410 2350 Balance 1967 -471.8 Intake, IV 2377 1878.2 Intake, Oral 0 Intake, Other 0 Number 0 Bowel Movements Output, 150 Gastric Drainage Output, Urine 260 2350 Physical Exam Other Physical Findings: She is sedated on the ventilator Neck right IJ triple-lumen catheter site with no inflammation Lungs bilateral rhonchi Heart regular rhythm with no murmur Abdomen is soft, nontender with positive bowel sounds Extremities no cyanosis, clubbing or edema Palacio catheter remains in place Results Last 24 Hours of Lab Results: Laboratory Tests 10/13 10/13 1400 0515 Blood Gas pH (7.35 - 7.45 PH) 7.44 pCO2 (35 - 45 TORR) 28 L pO2 (80 - 100 TORR) 92 HCO3 (21 - 28 MEQ/L) 19 L ABG O2 Sat (Measured) (>96.0 %) 97.0 Carboxyhemoglobin (1.5 - 5.0 %) 1.3 L O2 Concentration % 40% Temperature (97.0 - 100.0 FARH) 98.2 Respiration Rate (BPM) 24 O2 Delivery Method ESPRIT Vent Mode VC-AC Expiratory Pressure (CMH2O/P) 10 Tidal Volume (CC) 450 Chemistry Sodium (137 - 145 mmol/L) 135 L Potassium (3.5 - 5.1 mmol/L) 3.7 Chloride (98 - 107 mmol/L) 102 Carbon Dioxide (22 - 30 mmol/L) 22 Anion Gap (5 - 16) 10 BUN (7 - 17 mg/dL) 3 L Creatinine (0.5 - 1.0 mg/dL) 0.5 Estimated GFR (>60 ml/min) > 60 Glucose (65 - 99 mg/dL) 220 H Calcium (8.4 - 10.2 mg/dL) 7.5 L Phosphorus (2.5 - 4.5 mg/dL) 3.0 Magnesium (1.6 - 2.3 mg/dL) 1.4 L Total Bilirubin (0.2 - 1.3 mg/dL) 0.7 AST (14 - 36 U/L) 44 H ALT (9 - 52 U/L) 27 Albumin (3.5 - 5.0 g/dL) 1.7 L Hematology CBC w Diff MAN DIFF ORDERED WBC (4.8 - 10.8 /CUMM) 31.6 *H RBC (4.20 - 5.40 /CUMM) 3.04 L Hgb (12.0 - 16.0 G/DL) 9.3 L Hct (37 - 47 %) 27.5 L MCV (81.0 - 99.0 FL) 90.6 MCH (27.0 - 31.0 PG) 30.5 RDW (11.5 - 14.5 %) 15.9 H Plt Count (130 - 400 /CUMM) 184 MPV (7.4 - 10.4 FL) 9.7 Gran % (42.2 - 75.2 %) 88.7 H Lymphocytes % (20.5 - 51.1 %) 4.2 L Monocytes % (1.7 - 9.3 %) 4.3 Eosinophils % (0 - 5 %) 2.8 Basophils % (0.0 - 2.0 %) 0 L Absolute Granulocytes (1.4 - 6.5 /CUMM) 28.1 H Segmented Neutrophils (42.2 - 75.2 %) 78 H Band Neutrophils (0.0 - 5.0 %) 7 H Absolute Lymphocytes (1.2 - 3.4 /CUMM) 1.3 Lymphocytes (20.5 - 51.1 %) 4 L Monocytes (1.7 - 9.3 %) 4 Absolute Monocytes (0.10 - 0.60 /CUMM) 1.4 H Eosinophils (0 - 5.0 %) 4 Absolute Eosinophils (0.0 - 0.7 /CUMM) 0.9 Absolute Basophils (0.0 - 0.2 /CUMM) 0 Metamyelocytes (0.0 - 1.0 %) 2 H Myelocytes (0 - 0 %) 1 H Platelet Estimate (ADEQUATE) ADEQUATE Polychromasia 1+ Ovalocytes FEW [place] Cells FEW PUBS MCHC (33.0 - 37.0 G/DL) 33.7 Miscellaneous Phlebotomy Draw Site LEFT RADIAL Other Body Source Fld Total RBCs Counted (%) 100 10/13 10/12 0220 2150 Blood Gas pH (7.35 - 7.45 PH) 7.39 7.27 *L pCO2 (35 - 45 TORR) 32 L 46 H pO2 (80 - 100 TORR) 68 L 84 HCO3 (21 - 28 MEQ/L) 19 L 20 L ABG O2 Sat (Measured) (>96.0 %) 94.0 L 95.0 L P-50 (Temp Corrected) Y N Carboxyhemoglobin (1.5 - 5.0 %) 0.3 L 0.7 L O2 Concentration % 65% 70% Temperature (97.0 - 100.0 FARH) 97.9 97.1 Respiration Rate (BPM) 24 12 O2 Delivery Method ESPRIT ESPRIT Vent Mode AC AC Expiratory Pressure (CMH2O/P) 10 10 Tidal Volume (CC) 450 450 Miscellaneous Phlebotomy Draw Site LEFT RADIAL RIGHT BRACHIAL Last 24 Hours of [place] Results: Blood cultures 2 October 09 remain negative Urine strep pneumo antigen October 02 negative Sputum culture October 02 mixed jaime Recent Imaging Studies: Chest x-ray October 13 decreased markings bilaterally Assessment/Plan Impression: Condition remains poor, with hypotension, requiring pressors, ventilator dependence, though with a decrease in her oxygen requirements, and persistent leukocytosis despite empiric treatment with Ceftriaxone, now Day 4 of treatment for possible pneumonia, though suspect that her chest x-ray findings, which appear improved, were more likely secondary to fluid overload. The etiology of her fever yesterday is unclear and, if she responds, will need to rule out a nosocomial infection, such as line sepsis, UTI or pneumonia. Her H&H remain stable with no evidence of an increase in the hematoma surrounding her right hip on the recent CT scan, status post a hip fracture following a fall at home on the day of admission. The etiology of her leukocytosis remains unclear, but is most likely noninfectious as this has been present for several months prior to admission. Suggestion: 1. Reculture blood, urine and sputum if she re-spikes 2. Would discontinue Ceftriaxone and follow off antibiotics
[2016-10-13 16:00] VITALS: BP 110/60
--- NOTE | 2016-10-13 17:06 | NUR ---
@1600-PT SAS 1-2. PUPILS EQUAL AND SLUGGISH 2MM. NO MOVEMENT TO EXTREMTIES NOTED. RESPONDS TO PAINFUL STIM. REMAINS SEDATED ON PROPOFOL GTT AT 35MCG/KG/MIN AND ATIVAN GTT WHICH WAS TITRATED UP TO 9MG FROM 8MG/HR FOR RR 22-HOUSESTAFF AWARE AND AGREES WITH INCREASING ATIVAN GTT BACK TO 9MG. PT STARTED AT 20MG/HR THIS AM. PT REMAINS ON VENT WITH NEW SETTINGS CHANGED AT 1400-AC 18, VT 450, FIO2 40% AND PEEP 8. O2SAT 96%, LUNGS CLEAR. DIM BASES. MOUTH CARE PROVIDED. NSR HR 70S. BP STABLE AT THIS TIME ON LEVO GTT AT 14MCG/MIN-SEE ICU FLOWSHEET FOR DETAILS OF TITRATION. CVP 4 AT THIS TIME. DOSE OF LASIX 20MG THAT WAS TO BE GIVEN AT 1700 IS ON HOLD AT THIS TIME AND WILL RECHECK CVP AT 6PM PER REQUEST OF HOUSESTAFF. OGT TO LWS. PT TO START ON GLUCERNA 1.2 WHEN TF AVAIL FROM DIETARY. ABD SOFT, +BS. BOWER IN PLACE WITH ADEQUATE URINE OUTPUT NOTED. SKIN INTACT EXCEPT FOR EDEMA NOTED TO R HAND AND LUE-ELEVATED ON PILLOWS. WARM AREA TO R UPPER THIGH-NO NEW SWELLING OR REDNESS PAST PREV MARKED AREA. RIJ TLC INTACT WITH INFUSIONS OF PROPOFOL, LEVO GTT AND ATIVAN GTT. CONT TO MONITOR CLOSELY.
--- NOTE | 2016-10-13 17:28 | PN- Resident CRCU ---
Subjective HPI/CRCU Issues: Patient seen and examined. She is seen lying flat, intubated and sedated with multiple lines in place. She appears to be in no acute distress. Review of systems is unobtainable. No overnight events reported. Objective Vital Signs & I&O Last 8 Hrs of Vitals and I&O: Intake & Output 10/13 1600 Intake Total 1716 Output Total 2150 Balance -434 Intake, IV 1616 Intake, Other 100 Number 0 Bowel Movements Output, 150 Gastric Drainage Output, Urine 2000 Vitals: - Temperature: 97.9-98.8 - Heart Rate: 64-88 - Respiratory Rate: 23-25 - Systolic Blood pressure: 80-129 - Diastolic Blood pressure: 54-68 - Oxygen Saturation: 98-100% intubated on ventilator at 75% FiO2 Exam General Appearance: comfortable, sedated, intubated, mild distress Other Physical Findings: General -thin/frail woman sedated in no acute distress HEENT - NCAT, PERRL, EOMI, anicteric sclera, OG tube in place, intubated on ventilator, right IJ line in place Cardio - S1, S2 w/o murmurs/gallops/rubs Resp -diffuse rhonchi heard in all 4 lung gutierrez without crackles or wheezing GI -soft, nontender, nondistended, bowel sounds present -Palacio catheter in place Neuro -sedated/intubated on ventilator, SAS 1 Extremities: -RLE: Proximal swelling without overlying ecchymosis, distal pulses intact Current Medications: Current Medications Sig/[place] Start time Last Medication Dose Route Stop Time Status Admin Acetaminophen 1,000 MG Q6P PRN 10/10 1630 AC 10/12 N/A 1 UNIT IV 1134 Acetaminophen 650 MG Q8 PRN 10/06 1945 AC 10/09 PO 2016 Albuterol Sulfate 3 ML EVERY 4 HRS/AWAKE 10/12 0800 AC 10/13 INH 1539 Ceftriaxone Sodium 1,000 MG DAILY 10/10 1127 AC 10/13 IV 0938 Exemestane 25 MG DAILY 10/07 1000 AC 10/13 PO 0938 Folic Acid 1 MG DAILY 10/07 1000 AC 10/13 PO 0938 Furosemide 20 MG ONCE ONE 10/13 1700 CAN IV 10/13 1701 Furosemide 20 MG ONCE ONE 10/12 1730 DC 10/12 IV 10/12 1731 1744 Hydromorphone HCl 0.6 MG Q4P PRN 10/07 1200 DC 10/08 IV 2133 Insulin Detemir 5 UNITS AT BEDTIME 10/06 2200 AC 10/12 SC 2123 Insulin Human Regular 0 Q6 10/11 1200 AC 10/13 SC 0656 Lorazepam 100 MG Q5H 10/12 0230 AC 10/13 Dextrose/Water 1,000 ML IV 1641 Lorazepam 0 Q1P PRN 10/07 1330 AC 10/09 IV 1747 Magnesium Sulfate 1 GM Q2H 10/13 0930 DC 10/13 Dextrose/Water 100 ML IV 10/13 1329 1156 Norepinephrine 8 MG Q8H 10/12 1830 r 10/13 Sodium Chloride 250 ML IV 1641 Norepinephrine 8 MG Q24H 10/12 1730 DC Sodium Chloride 250 ML IV Norepinephrine 4 MG Q4H 10/12 1600 DC Sodium Chloride 250 ML IV Nystatin 5 ML 4 TIMES/DAY 10/10 1152 AC 10/13 PO 1356 Oxycodone HCl 5 MG Q6 PRN 10/06 1945 DC 10/07 PO 0757 Pantoprazole Sodium 40 MG DAILY 10/10 1835 AC 10/13 IV 0937 Potassium Chloride 40 MEQ ONCE ONE 10/13 0915 DC 10/13 PO 10/13 0916 0938 Propofol 1,000 MG Q5H 10/13 0515 AC 10/13 N/A 1 UNIT IV 1248 Propofol 1,000 MG .STK-MED ONE 10/13 0338 DC IV 10/13 0339 Propofol 1,000 MG Q12H 10/12 1015 DC 10/13 N/A 1 UNIT IV 0341 Impression/Plan Impression/Problem List Impression: Patient was stable overnight without any episodes of hypoxia or hypotension. She remained afebrile on antibiotics. Ventilator settings were changed today to tolerate a higher respiratory rate. Ativan drip was tapered down, but is still running and will be subsequently tapered down slowly. Propofol drip and levophed drip are still running. Daily chest x-rays have demonstrated stable pulmonary disease suggestive of ARDS. Tube feeds will be resumed at a conservative rate this evening. 80 mL of fluid was given during the day for medications through the OG tube, however 150 mL residual was aspirated one turn to suction-this will be monitored. Today patient was febrile while on antibiotics, however responded to Tylenol. This may be due to her increased respiratory rate and hematoma however other sources must be considered. Patient is followed off antibiotics and will be monitored for fever. Problem list: -Acute hypoxic respiratory failure, intubated on vent -Acute respiratory distress syndrome, intubated on vent -Displaced comminuted right proximal femoral shaft fracture -Proximal right lower extremity hematoma -Acute blood loss anemia, stable -EtOH withdrawal -Multilobar pneumonia, on antibiotics -History of breast cancer that is post bilateral mastectomy, chemotherapy/ radiation -Leukocytosis Respiratory/infectious disease: Patient has had worsening respiratory distress requiring intubation and ventilator. Intravenous Lasix therapy have minimally improved pulmonary fluid status. Repeat arterial blood gas/chest x-rays show stable airway disease. Cultures have been no growth to date. Patient was started on intravenous antibiotics. -Intubated on ventilator -Ceftriaxone discontinued -Propofol drip -Levophed drip -Urine Cx (10/06): NGTD -BCx x2 (10/06): NGTD -Follow up with surgical PA when medically clear for surgery Musculoskeletal: Sustained a fall from her bed resulting in a right hip fracture as demonstrated by x-ray and CT imaging. She was evaluated by orthopedic surgery, but surgical intervention was deferred as patient was found to have an acute drop in her hemoglobin requiring admission to the intensive care unit from the general medicine floor for medical optimization. -Monitor vital signs and hemoglobin -Cardiac clearance obtained -Orthopedic consult following Cardiology: Revised cardiac risk index calculated for a score of 0 suggesting a 0.4% risk of a major cardiac event. -RCRI: 0, 0.4 risk for major cardiac event -systems management consultant cleared patient for surgery Hematology/oncology: Patient has a history of breast cancer with bilateral mastectomy, chemotherapy, and radiation. Last treatment reportedly received 6 months ago. She is a patient of Dr. Mejias of the [facility]. She has not had any follow- up imaging since this time apparently, but is reportedly in remission with a surveillance visit scheduled in January 2017. Patient has had persistent leukocytosis since admission. White blood cell count was elevated as recently as July to ,000, baseline level unclear. She denies taking any adjuvant chemotherapy regimens such as Neulasta/Neupogen that could possibly account for this, however records are unavailable at this time. Consent for blood transfusion was obtained and placed on chart, type and cross was ordered. Packed red blood cells were transfused. -PRBC transfused: 3 -Daily CBC, monitor for worsening anemia/leukocytosis Psychiatry: Patient has a history of alcohol abuse for which she reports drinking vodka several times a week. Serum alcohol on admission was negative. She remains tremulous with see what scores consistently minimally elevated. -Ativan drip, titrate as necessary -Multivitamin/thiamine/folate -Bupropion on hold -Consider psychiatry/social work consult Endocrinology: Patient with a history of diabetes mellitus. Blood sugars have been consistently low requiring amps of dextrose. -Accu-Cheks -Nothing by mouth sliding scale insulin Pain plan: -Acetaminophen 650 mg by mouth every 8 hours as needed for pain 1-3 -Oxycodone 1 tab by mouth every 6 hours as needed for pain 4-6 -Dilaudid 0.6 mg IV every 4 hours as needed for pain 7-10 Diet -NPO, tube feeds restarted DVT prophylaxis-mechanical ppx to LLE Code Status-full code Problem List: 1. Closed right femoral fracture Pain Ratin Tomorrow's Labs & Rationales: Complete blood count ICU bundle Chest x-ray Arterial blood gas Plan DVT/Prophylaxis: mechanical
--- NOTE | 2016-10-13 18:14 | NUR ---
@1800-AFTER TURING AND REPOSITIONING, PT BP NOTED TO BECOME HYPOTENSIVE 62/40 AUTO AND 82/42 MANUALLY. LEVO GTT TITRATED BACK TO 13MCG. TF INFUSING ORD AT 10ML/HR. CONT TO MONITOR
--- NOTE | 2016-10-13 19:38 | PN- Cardiology ---
Subjective Subjective: The patient remains intubated and sedated. She remains on pressors for blood pressure support. She continues to be febrile. White blood count remains elevated. She is not able to give any history. Objective Vital Signs and I&Os Vital Signs Date Time Temp Pulse Resp B/P Pulse O2 O2 Flow FiO2 Ox Delivery Rate 10/13 1903 40 10/13 1641 86 103/62 10/13 1600 97.3 86 22 110/60 96 Ventilator 40% 10/13 1600 96 Ventilator 40% 10/13 1543 40 10/13 1415 40 10/13 1200 97 Ventilator 40% 10/13 1200 98.8 78 24 104/60 100 Ventilator 40% 10/13 1106 40 10/13 0800 98.2 76 24 100/60 10/13 0800 98.2 76 24 100/60 100 Ventilator 55% 10/13 0800 100 Ventilator 55% 10/13 0736 55 10/13 0605 77 113/54 10/13 0554 65 10/13 0400 100 Ventilator 65% 10/13 0310 65 10/13 0059 65 10/13 0000 97.9 72 24 119/68 10/13 0000 97.9 72 24 119/68 99 Ventilator 65% 10/13 0000 99 Ventilator 65% 10/12 2220 70 10/12 2042 97.1 82 14 90/60 10/12 2000 94 Ventilator 70% 10/12 2000 97.1 82 14 92/60 94 Ventilator 70% Intake & Output 10/13 1600 10/13 0800 10/13 0000 10/12 1600 10/12 0800 10/12 0000 Intake Total 1716 2377 1878.2 2424 1794 2111.2 Output Total 2150 410 2350 1250 1550 1550 Balance -434 1967 -471.8 1174 244 561.2 Intake, IV 1616 2377 1878.2 2344 1794 2111.2 Intake, Oral 0 Intake, Other 100 0 80 Number 0 0 1 Bowel Movements Output, 150 150 0 Gastric Drainage Output, Urine 1999 260 2350 1250 1550 1550 Physical Exam: Gen: NAD. Intubated and sedated HEENT: normal Lungs: clear to auscultation, normal resp. effort Heart: RRR, S1, S2, no murmurs Abdomen: Soft, nontender, no masses Extremities: No clubbing, cyanosis, or edema. Neuro: Patient is sedated. No focal neurologic abnormalities noted. Current Medications: Current Medications Sig/[place] Start time Last Medication Dose Route Stop Time Status Admin Acetaminophen 1,000 MG Q6P PRN 10/10 1630 AC 10/12 N/A 1 UNIT IV 1134 Acetaminophen 650 MG Q8 PRN 10/06 1945 AC 10/09 PO 2017 Albuterol Sulfate 3 ML EVERY 4 HRS/AWAKE 10/12 0800 AC 10/13 INH 1539 Ceftriaxone Sodium 1,000 MG DAILY 10/10 1127 DC 10/13 IV 0938 Exemestane 25 MG DAILY 10/07 1000 AC 10/13 PO 0938 Folic Acid 1 MG DAILY 10/07 1000 AC 10/13 PO 0938 Furosemide 20 MG ONCE ONE 10/13 1700 CAN IV 10/13 1701 Hydromorphone HCl 0.6 MG Q4P PRN 10/07 1200 DC 10/08 IV 2133 Insulin Detemir 5 UNITS AT BEDTIME 10/06 2200 AC 10/12 SC 2123 Insulin Human Regular 0 Q6 10/11 1200 AC 10/13 SC 1811 Lorazepam 100 MG Q5H 10/12 0230 AC 10/13 Dextrose/Water 1,000 ML IV 1641 Lorazepam 0 Q1P PRN 10/07 1330 AC 10/09 IV 1747 Magnesium Sulfate 1 GM Q2H 10/13 0930 DC 10/13 Dextrose/Water 100 ML IV 10/13 1329 1156 Norepinephrine 8 MG Q8H 10/12 1830 AC 10/13 Sodium Chloride 250 ML IV 1641 Nystatin 5 ML 4 TIMES/DAY 10/10 1152 AC 10/13 PO 1812 Oxycodone HCl 5 MG Q6 PRN 10/06 1945 DC 10/07 PO 0757 Pantoprazole Sodium 40 MG DAILY 10/10 1835 AC 10/13 IV 0937 Potassium Chloride 40 MEQ ONCE ONE 10/13 0915 DC 10/13 PO 10/13 0916 0938 Propofol 1,000 MG Q5H 10/13 0515 AC 10/13 N/A 1 UNIT IV 1812 Propofol 1,000 MG .STK-MED ONE 10/13 0338 DC IV 10/13 0339 Propofol 1,000 MG Q12H 10/12 1015 DC 10/13 N/A 1 UNIT IV 0341 Results Last 48 Hrs of Labs/Mics: Laboratory Tests 10/13/16 1400: pH 7.44, pCO2 28 L, pO2 92, HCO3 19 L, ABG O2 Sat (Measured) 97.0, Carboxyhemoglobin 1.3 L, O2 Concentration % 40%, Temperature 98.2, Respiration Rate 24, O2 Delivery Method ESPRIT, Vent Mode VC-AC, Expiratory Pressure 10, Tidal Volume 450, Phlebotomy Draw Site LEFT RADIAL 10/13/16 0515: Anion Gap 10, Estimated GFR > 60, Glucose 220 H, Calcium 7.5 L, Phosphorus 3.0 , Magnesium 1.4 L, Total Bilirubin 0.7, AST 44 H, ALT 27, Albumin 1.7 L, CBC w Diff MAN DIFF ORDERED, RBC 3.04 L, MCV 90.6, MCH 30.5, RDW 15.9 H, MPV 9.7, Gran % 88.7 H, Lymphocytes % 4.2 L, Monocytes % 4.3, Eosinophils % 2.8, Basophils % 0 L, Absolute Granulocytes 28.1 H, Segmented Neutrophils 78 H, Band Neutrophils 7 H, Absolute Lymphocytes 1.3, Lymphocytes 4 L, Monocytes 4, Absolute Monocytes 1.4 H, Eosinophils 4, Absolute Eosinophils 0.9, Absolute Basophils 0, Metamyelocytes 2 H, Myelocytes 1 H, Platelet Estimate ADEQUATE, Polychromasia 1+, Ovalocytes FEW, Hendrum Cells FEW, PUBS MCHC 33.7, Fld Total RBCs Counted 100 10/13/16 0220: pH 7.39, pCO2 32 L, pO2 68 L, HCO3 19 L, ABG O2 Sat (Measured) 94.0 L, P-50 (Temp Corrected) Y, Carboxyhemoglobin 0.3 L, O2 Concentration % 65%, Temperature 97.9, Respiration Rate 24, O2 Delivery Method ESPRIT, Vent Mode AC, Expiratory Pressure 10, Tidal Volume 450, Phlebotomy Draw Site LEFT RADIAL 10/12/16 2150: pH 7.27 *L, pCO2 46 H, pO2 84, HCO3 20 L, ABG O2 Sat (Measured) 95.0 L, P-50 (Temp Corrected) N, Carboxyhemoglobin 0.7 L, O2 Concentration % 70%, Temperature 97.1, Respiration Rate 12, O2 Delivery Method ESPRIT, Vent Mode AC, Expiratory Pressure 10, Tidal Volume 450, Phlebotomy Draw Site RIGHT BRACHIAL 10/12/16 0530: pH 7.42, pCO2 29 L, pO2 77 L, HCO3 18 L, ABG O2 Sat (Measured) 95.0 L, Carboxyhemoglobin 0.4 L, O2 Concentration % .75, Respiration Rate 12, O2 Delivery Method VENT, Vent Mode AC, Expiratory Pressure 10, Tidal Volume 450, Phlebotomy Draw Site LEFT RADIAL 10/12/16 0400: Anion Gap 8, Estimated GFR > 60, Glucose 188 H, Calcium 7.2 L, Phosphorus 2.3 L, Magnesium 1.5 L, Total Bilirubin 0.8, AST 30, ALT 22, Albumin 1.7 L, CBC w Diff MAN DIFF ORDERED, RBC 2.96 L, MCV 90.2, MCH 30.1, RDW 16.1 H, MPV 9.3, Gran % 87.1 H, Lymphocytes % 3.3 L, Monocytes % 7.9, Eosinophils % 1.7, Basophils % 0 L, Absolute Granulocytes 25.5 H, Segmented Neutrophils 84 H, Band Neutrophils 2, Absolute Lymphocytes 1.0 L, Lymphocytes 5 L, Monocytes 4, Absolute Monocytes 2.3 H, Eosinophils 3, Absolute Eosinophils 0.5, Absolute Basophils 0, Metamyelocytes 1, Myelocytes 1 H, Platelet Estimate ADEQUATE, Hypochromic-Microcytic 1+, Poikilocytosis FEW, Anisocytosis 1+, PUBS MCHC 33.4 Recent Imaging Studies: CXR: Nasogastric tube projects over stomach, tip not seen. Otherwise satisfactory position of support line and tube. Interval decrease in bilateral airspace disease and groundglass attenuation compared to previous exams. Assessment/Plan Assessment/Plan 1. Pneumonia 2. ARDS 3. Alcohol withdrawal 4. Volume overload Plan: * Agree with 20 mg of IV Lasix which was given today. * Will reassess volume status tomorrow and give Lasix as needed. * Check basic metabolic profile daily. * Wean off pressors if possible. Continue telemetry? Yes
[2016-10-13 20:00] VITALS: BP 108/60
[2016-10-14] VITALS: BP 120/82
--- NOTE | 2016-10-14 01:53 | NUR ---
0000 PATIENT RECEIVED WELL SEDATED- SAS 2- PROPOFAL DRIP INFUSING AT 35 MCG/KG/MIN, ATIVAN DRIP INFUSING AT 9 MG/HR VIA TLC RIJ SITE, SKIN PINK, WARM AND DRY, MEDICAID COLLECTION SPECIALIST SINUS WITHOUT ECTOPY, HEART RATE HIGH 80'S TO LOW 90'S/MIN, LEVOPHED DRIP INFUSING AT 12 MCG/MIN TO MAINTAIN BP 90'S TO 100/SYSTOLIC, MAP 70'S, ETT TO VENTILATOR WITH O2 SAT MAINTAINED AT 97% ON FIO2 OF 40%, BREATHE SOUNDS CLEAR TO MILD RHONCHI AT BASES, ABDOMEN SOFT, +BS, OGT IN PLACE- TOLERATING 10 ML/HR OF TF WELL, HOB ELEVATED, BOWER TO GRAVITY WITH CLEAR YELLOW UO
[2016-10-14 04:00] VITALS: BP 128/72
--- NOTE | 2016-10-14 06:30 | NUR ---
PATIENT REMAINS SEDATED, LEVOPHED TITRATED DOWN BP ALLOWS- NOW AT 9 MCG/MIN- SEE FREQUENT VS SHEET, AWAITING AM MD ROUNDS
[2016-10-14 06:38] LABS: ABSOLUTE BASOPHIL COUNT 0 /CUMM (0.0-0.2); ABSOLUTE EOSINOPHIL COUNT 0.5 /CUMM (0.0-0.7); ABSOLUTE GRANULOCYTE CT 30.1 /CUMM (1.4-6.5); ABSOLUTE LYMPH COUNT 1.6 /CUMM (1.2-3.4); ABSOLUTE MONOCYTE COUNT 1.4 /CUMM (0.10-0.60); BASOPHIL % 0 % (0.0-2.0); EOSINOPHIL % 1.5 % (0-5); GRANULOCYTE % 89.6 % (42.2-75.2); HEMATOCRIT 27.7 % (37-47); MEAN CORPUSCULAR HGB 30.7 PG (27.0-31.0); MEAN CORPUSCULAR VOLUME 90.5 FL (81.0-99.0); MEAN PLATELET VOLUME 10.1 FL (7.4-10.4); PLATELET COUNT 217 /CUMM (130-400); RBC DISTRIBUTION WIDTH 16.4 % (11.5-14.5); RED BLOOD CELL CT 3.07 /CUMM (4.20-5.40)
[2016-10-14 06:47] LABS: WHITE BLOOD CELL COUNT 33.6 /CUMM (4.8-10.8)
[2016-10-14 08:00] VITALS: BP 110/60
--- NOTE | 2016-10-14 08:04 | PN- Infect Dx ---
Subjective Subjective: Afebrile. She remains sedated. Objective Last 24 Hrs of Vital Signs/I&O Vital Signs Date Time Temp Pulse Resp B/P Pulse O2 O2 Flow FiO2 Ox Delivery Rate 10/14 0617 40 10/14 0400 97 Ventilator 40% 10/14 0400 98.6 86 20 128/72 97 Ventilator 40% 10/14 0332 40 10/14 0331 88 20 105/69 10/14 0126 40 10/14 0000 98.4 89 20 120/82 10/14 0000 97 Ventilator 40% 10/14 0000 98.4 89 20 120/82 97 Ventilator 40% 10/13 2153 40 10/13 2000 97 Ventilator 40% 10/13 2000 98.0 90 20 108/60 97 Ventilator 40% 10/13 1903 40 10/13 1641 86 103/62 10/13 1600 97.3 86 22 110/60 96 Ventilator 40% 10/13 1600 96 Ventilator 40% 10/13 1543 40 10/13 1415 40 10/13 1200 97 Ventilator 40% 10/13 1200 98.8 78 24 104/60 100 Ventilator 40% 10/13 1106 40 10/13 0800 98.2 76 24 100/60 10/13 0800 98.2 76 24 100/60 100 Ventilator 55% 10/13 0800 100 Ventilator 55% Intake & Output 10/14 0800 10/14 0000 10/13 1600 Intake Total 3733 581 7887 Output Total 800 1300 2150 Balance 332 -853 -434 Intake, IV 140 261 7840 Intake, Other 100 Intake, Tube 78 47 Feeding Intake, Tube 100 50 Irrigant Number 1 0 Bowel Movements Output, 50 150 Gastric Drainage Output, Urine 800 1250 2000 Physical Exam Other Physical Findings: She is unresponsive on sedation on the ventilator Neck right IJ triple lumen catheter site with no inflammation Lungs scattered rhonchi Heart regular rhythm with no murmur Abdomen is soft, nontender with positive bowel sounds Extremities right thigh swelling/ecchymosis unchanged Palacio catheter remains in place Results Last 24 Hours of Lab Results: Laboratory Tests 10/14 10/14 0545 0410 Blood Gas pH (7.35 - 7.45 PH) 7.41 pCO2 (35 - 45 TORR) 36 pO2 (80 - 100 TORR) 72 L HCO3 (21 - 28 MEQ/L) 22 ABG O2 Sat (Measured) (>96.0 %) 95.0 L P-50 (Temp Corrected) N Carboxyhemoglobin (1.5 - 5.0 %) 0 L O2 Concentration % .40 Respiration Rate (BPM) 18 O2 Delivery Method VENT Vent Mode A/C Expiratory Pressure (CMH2O/P) 8 Tidal Volume (CC) 450 Chemistry Sodium (137 - 145 mmol/L) 137 Potassium (3.5 - 5.1 mmol/L) 4.0 Chloride (98 - 107 mmol/L) 101 Carbon Dioxide (22 - 30 mmol/L) 24 Anion Gap (5 - 16) 12 BUN (7 - 17 mg/dL) 4 L Creatinine (0.5 - 1.0 mg/dL) 0.4 L Estimated GFR (>60 ml/min) > 60 Glucose (65 - 99 mg/dL) 119 H Calcium (8.4 - 10.2 mg/dL) 7.7 L Phosphorus (2.5 - 4.5 mg/dL) 3.5 Magnesium (1.6 - 2.3 mg/dL) 1.4 L Total Bilirubin (0.2 - 1.3 mg/dL) 1.0 AST (14 - 36 U/L) 63 H ALT (9 - 52 U/L) 40 Albumin (3.5 - 5.0 g/dL) 1.7 L Hematology CBC w Diff MAN DIFF ORDERED WBC (4.8 - 10.8 /CUMM) 33.6 *H RBC (4.20 - 5.40 /CUMM) 3.07 L Hgb (12.0 - 16.0 G/DL) 9.4 L Hct (37 - 47 %) 27.7 L MCV (81.0 - 99.0 FL) 90.5 MCH (27.0 - 31.0 PG) 30.7 RDW (11.5 - 14.5 %) 16.4 H Plt Count (130 - 400 /CUMM) 217 MPV (7.4 - 10.4 FL) 10.1 Gran % (42.2 - 75.2 %) 89.6 H Lymphocytes % (20.5 - 51.1 %) 4.7 L Monocytes % (1.7 - 9.3 %) 4.2 Eosinophils % (0 - 5 %) 1.5 Basophils % (0.0 - 2.0 %) 0 L Absolute Granulocytes (1.4 - 6.5 /CUMM) 30.1 H Segmented Neutrophils (42.2 - 75.2 %) 83 H Band Neutrophils (0.0 - 5.0 %) 3 Absolute Lymphocytes (1.2 - 3.4 /CUMM) 1.6 Lymphocytes (20.5 - 51.1 %) 10 L Monocytes (1.7 - 9.3 %) 1 L Absolute Monocytes (0.10 - 0.60 /CUMM) 1.4 H Eosinophils (0 - 5.0 %) 3 Absolute Eosinophils (0.0 - 0.7 /CUMM) 0.5 Absolute Basophils (0.0 - 0.2 /CUMM) 0 Platelet Estimate (ADEQUATE) ADEQUATE Polychromasia 1+ Hypochromic-Microcytic 1+ Poikilocytosis 1+ Anisocytosis 1+ PUBS MCHC (33.0 - 37.0 G/DL) 34.0 Miscellaneous Phlebotomy Draw Site LEFT RADIAL 10/13 1400 Blood Gas pH (7.35 - 7.45 PH) 7.44 pCO2 (35 - 45 TORR) 28 L pO2 (80 - 100 TORR) 92 HCO3 (21 - 28 MEQ/L) 19 L ABG O2 Sat (Measured) (>96.0 %) 97.0 Carboxyhemoglobin (1.5 - 5.0 %) 1.3 L O2 Concentration % 40% Temperature (97.0 - 100.0 FARH) 98.2 Respiration Rate (BPM) 24 O2 Delivery Method ESPRIT Vent Mode VC-AC Expiratory Pressure (CMH2O/P) 10 Tidal Volume (CC) 450 Miscellaneous Phlebotomy Draw Site LEFT RADIAL Last 24 Hours of Chrales Results: No recent cultures Recent Imaging Studies: Chest x-ray October 14, personally reviewed, reveals bilateral airspace disease unchanged from previous films Assessment/Plan Impression: Condition remains poor, with hypotension, still requiring pressors, and remaining ventilator dependent, though with improving respiratory status. She has had no further fevers, now off antibiotics, though white blood cell count remains elevated, presumably secondary to a noninfectious process that existed prior to admission. Her H&H is stable status post hematoma surrounding the right hip following a fall, resulting in a fracture, which will ultimately require repair. Suggestion: 1. Reculture blood, urine and sputum if she re-spikes 2. Would pursue placement of a PICC when feasible so that the right IJ can be removed 3. Further evaluation of her leukocytosis, to rule out an underlying disease, per Medicine 4. Continue to follow off antibiotics
--- NOTE | 2016-10-14 08:17 | RADIOLOGY REPORT ---
EXAMINATION: XR PORTABLE CHEST CLINICAL INFORMATION: ARDS versus pneumonia. Assess for change in pulmonary status. COMPARISON: Previous chest x-rays most recent from yesterday TECHNIQUE: Portable view of the chest was obtained. FINDINGS: The cardiac and mediastinal contours are stable. Endotracheal tube tip is 6 cm above the king. Nasogastric tube projects below the left diaphragm. The tip is not seen. Right internal jugular line projects over the cavoatrial junction. There is a interval increase in bilateral groundglass attenuation. There is loss of the left hemidiaphragm suggestive of increasing left lower lobe atelectasis or consolidation. There is no pleural effusion or pneumothorax. IMPRESSION: Nasogastric tube projects below the left hemidiaphragm. Tip not seen. Otherwise satisfactory position of support line and tube. Interval increase in bilateral groundglass attenuation. Increasing atelectasis or consolidation at the left lung base.
--- NOTE | 2016-10-14 09:10 | PN- Resident CRCU ---
Subjective HPI/CRCU Issues: Patient is seen and examined. she is lying comfortably on the bed, intubated and sedated. She is currently on propofol 25mcg/kg/min, norepinephrine and lorazepam 9mcg/kg/min. Currently getting tube feeds. Slowly will titrate propofol off today. No significant overnight events. Objective Vital Signs & I&O Last 8 Hrs of Vitals and I&O: Afebrile Exam General Appearance: sedated, intubated Head: atraumatic, normal appearance Respiratory: no respiratory distress Cardiovascular: regular rate/rhythm, tachycardia Gastrointestinal: normal bowel sounds, soft, non-tender Extremities: normal inspection, normal capillary refill Skin: intact Central Line Site: right IJ in place Need for Catheter: pressors Palacio Still Needed? Yes NG Tube Still Needed? Yes IV (Peripheral) Still Needed? Yes IV Drips IV Drips: Lorazepam 9mcg/kg/min Propofol 25mcg/kg/min Norepinephrine 9mcg/kg/min Nutrition Nutrition: tube feeding Current Medications: Current Medications Sig/[place] Start time Last Medication Dose Route Stop Time Status Admin Acetaminophen 1,000 MG Q6P PRN 10/10 1630 AC 10/12 N/A 1 UNIT IV 1134 Acetaminophen 650 MG Q8 PRN 10/06 1945 AC 10/09 PO 2016 Albuterol Sulfate 3 ML EVERY 4 HRS/AWAKE 10/12 0800 AC 10/14 INH 0826 Ceftriaxone Sodium 1,000 MG DAILY 10/10 1127 DC 10/13 IV 0938 Exemestane 25 MG DAILY 10/07 1000 AC 10/14 PO 0925 Folic Acid 1 MG DAILY 10/07 1000 AC 10/14 PO 0925 Furosemide 20 MG ONCE ONE 10/13 1700 CAN IV 10/13 1701 Hydromorphone HCl 0.6 MG Q4P PRN 10/07 1200 DC 10/08 IV 2133 Insulin Detemir 5 UNITS AT BEDTIME 10/06 2200 AC 10/13 SC 2146 Insulin Human Regular 0 Q6 10/11 1200 AC 10/14 SC 0607 Lorazepam 100 MG Q11H 10/14 0300 AC Dextrose/Water 1,000 ML IV Lorazepam 100 MG Q5H 10/12 0230 DC 10/14 Dextrose/Water 1,000 ML IV 0334 Lorazepam 0 Q1P PRN 10/07 1330 AC 10/09 IV 1747 Magnesium Sulfate 1 GM Q2H 10/14 0730 AC 10/14 Dextrose/Water 100 ML IV 10/14 1129 0925 Magnesium Sulfate 1 GM Q2H 10/13 0930 DC 10/13 Dextrose/Water 100 ML IV 10/13 1329 1156 Norepinephrine 8 MG Q14H 10/14 0000 AC Sodium Chloride 250 ML IV Norepinephrine 8 MG Q8H 10/12 1830 DC 10/14 Sodium Chloride 250 ML IV 0331 Nystatin 5 ML 4 TIMES/DAY 10/10 1152 AC 10/14 PO 0926 Pantoprazole Sodium 40 MG DAILY 10/10 1835 AC 10/14 IV 0925 Propofol 1,000 MG Q5H 10/13 0515 AC 10/14 N/A 1 UNIT IV 0617 CXR Findings: Nasogastric tube projects below the left hemidiaphragm. Tip not seen. Otherwise satisfactory position of support line and tube. Interval increase in bilateral groundglass attenuation. Increasing atelectasis or consolidation at the left lung base. Impression/Plan Impression/Problem List Impression: Patient was stable overnight without any episodes of hypoxia or hypotension. She remained afebrile on antibiotics. Ventilator settings were changed today to tolerate a higher respiratory rate. Ativan drip was tapered down, but is still running and will be subsequently tapered down slowly. Propofol drip and levophed drip are still running. Daily chest x-rays have demonstrated stable pulmonary disease suggestive of ARDS. Tube feeds will be resumed at a conservative rate this evening. 80 mL of fluid was given during the day for medications through the OG tube, however 150 mL residual was aspirated one turn to suction-this will be monitored. Today patient was febrile while on antibiotics, however responded to Tylenol. This may be due to her increased respiratory rate and hematoma however other sources must be considered. Patient is followed off antibiotics and will be monitored for fever. Respiratory/infectious disease: Patient has had worsening respiratory distress requiring intubation and ventilator. Intravenous Lasix therapy have minimally improved pulmonary fluid status. Repeat arterial blood gas/chest x-rays show stable airway disease. Cultures have been no growth to date. Patient was started on intravenous antibiotics. * Intubated on ventilator * current goal is to wean off ventilator, currently on PEEP of 8, VT 450. * Ceftriaxone discontinued - no spikes in fever so far. * Propofol drip - we will slowly taper it off today as it is >48hrs after starting it. * Levophed drip - currently on 9mcg/kg/min, titrate as needed. * Urine Cx (10/06): NGTD * BCx x2 (10/06): NGTD * Follow up with surgical PA when medically clear for surgery Musculoskeletal: Sustained a fall from her bed resulting in a right hip fracture as demonstrated by x-ray and CT imaging. She was evaluated by orthopedic surgery, but surgical intervention was deferred as patient was found to have an acute drop in her hemoglobin requiring admission to the intensive care unit from the general medicine floor for medical optimization. -Monitor vital signs and hemoglobin -Cardiac clearance obtained -Orthopedic consult following Cardiology: Revised cardiac risk index calculated for a score of 0 suggesting a 0.4% risk of a major cardiac event. -RCRI: 0, 0.4 risk for major cardiac event -eco industrial development consultant cleared patient for surgery Hematology/oncology: Patient has a history of breast cancer with bilateral mastectomy, chemotherapy, and radiation. Last treatment reportedly received 6 months ago. She is a patient of Dr. Mejias of the [facility]. She has not had any follow- up imaging since this time apparently, but is reportedly in remission with a surveillance visit scheduled in January 2017. Patient has had persistent leukocytosis since admission. White blood cell count was elevated as recently as July to 20,000, baseline level unclear. She denies taking any adjuvant chemotherapy regimens such as Neulasta/Neupogen that could possibly account for this, however records are unavailable at this time. Consent for blood transfusion was obtained and placed on chart, type and cross was ordered. Packed red blood cells were transfused. -PRBC transfused: 3 -Daily CBC, monitor for worsening anemia/leukocytosis Psychiatry: Patient has a history of alcohol abuse for which she reports drinking vodka several times a week. Serum alcohol on admission was negative. She remains tremulous with see what scores consistently minimally elevated. -Ativan drip, titrate as necessary -Multivitamin/thiamine/folate -Bupropion on hold -Consider psychiatry/social work consult Endocrinology: Patient with a history of diabetes mellitus. Blood sugars have been consistently low requiring amps of dextrose. -Accu-Cheks -Nothing by mouth sliding scale insulin Diet -NPO, tube feeds restarted DVT prophylaxis-mechanical ppx to LLE Code Status-full code Problem List: 1. ALCOHOL WITHDRAWAL 2. Aspiration pneumonia 3. Leukocytosis 4. Displaced comminuted fracture of shaft of right femur 5. Acute blood loss anemia Pain Ratin Pain Location: right hip Pain Plan: -Acetaminophen 650 mg by mouth every 8 hours as needed for pain 1-3 -Oxycodone 1 tab by mouth every 6 hours as needed for pain 4-6 -Dilaudid 0.6 mg IV every 4 hours as needed for pain 7-10 Tomorrow's Labs & Rationales: ICU bundle CXR cbc Plan DVT/Prophylaxis: mechanical
--- NOTE | 2016-10-14 09:43 | PN- CRCU ---
Subjective HPI/Critical Care Issues: The patient remains intubated and sedated. Her SAS remains 1 despite decreasing sedation. She remains on Levophed for BP support, although the requirement is decreased. She is afebrile. She remains in a negative fluid balance. Her CVP is 10 this morning. Her oxygen requirement has improved, noting she is on 35% with a PEEP of 8. Objective Current Medications: Current Medications Sig/[place] Start time Last Medication Dose Route Stop Time Status Admin Acetaminophen 1,000 MG Q6P PRN 10/10 1630 AC 10/12 N/A 1 UNIT IV 1134 Acetaminophen 650 MG Q8 PRN 10/06 1945 AC 10/09 PO 2017 Albuterol Sulfate 3 ML EVERY 4 HRS/AWAKE 10/12 0800 AC 10/14 INH 0826 Ceftriaxone Sodium 1,000 MG DAILY 10/10 1127 DC 10/13 IV 0938 Exemestane 25 MG DAILY 10/07 1000 AC 10/14 PO 0925 Folic Acid 1 MG DAILY 10/07 1000 AC 10/14 PO 0925 Furosemide 20 MG ONCE ONE 10/13 1700 CAN IV 10/13 1701 Hydromorphone HCl 0.6 MG Q4P PRN 10/07 1200 DC 10/08 IV 2133 Insulin Detemir 5 UNITS AT BEDTIME 10/06 2200 AC 10/13 SC 2146 Insulin Human Regular 0 Q6 10/11 1200 AC 10/14 SC 0607 Lorazepam 100 MG Q11H 10/14 0300 AC Dextrose/Water 1,000 ML IV Lorazepam 100 MG Q5H 10/12 0230 DC 10/14 Dextrose/Water 1,000 ML IV 0334 Lorazepam 0 Q1P PRN 10/07 1330 AC 10/09 IV 1747 Magnesium Sulfate 1 GM Q2H 10/14 0730 AC 10/14 Dextrose/Water 100 ML IV 10/14 1129 0925 Magnesium Sulfate 1 GM Q2H 10/13 0930 DC 10/13 Dextrose/Water 100 ML IV 10/13 1329 1156 Norepinephrine 8 MG Q14H 10/14 0000 AC Sodium Chloride 250 ML IV Norepinephrine 8 MG Q8H 10/12 1830 DC 10/14 Sodium Chloride 250 ML IV 0331 Nystatin 5 ML 4 TIMES/DAY 10/10 1152 AC 10/14 PO 0926 Pantoprazole Sodium 40 MG DAILY 10/10 1835 AC 10/14 IV 0925 Propofol 1,000 MG Q5H 10/13 0515 AC 10/14 N/A 1 UNIT IV 0617 Vital Signs & I&O Last 24 Hrs of Vitals and I&O: Vital Signs Date Time Temp Pulse Resp B/P Pulse O2 O2 Flow FiO2 Ox Delivery Rate 10/14 0822 40 10/14 0617 40 10/14 0400 97 Ventilator 40% 10/14 0400 98.6 86 20 128/72 97 Ventilator 40% 10/14 0332 40 10/14 0331 88 20 105/69 10/14 0126 40 10/14 0000 98.4 89 20 120/82 10/14 0000 97 Ventilator 40% 10/14 0000 98.4 89 20 120/82 97 Ventilator 40% 10/13 2153 40 10/13 2000 97 Ventilator 40% 10/13 2000 98.0 90 20 108/60 97 Ventilator 40% 10/13 1903 40 10/13 1641 86 103/62 10/13 1600 97.3 86 22 110/60 96 Ventilator 40% 10/13 1600 96 Ventilator 40% 10/13 1543 40 10/13 1415 40 10/13 1200 97 Ventilator 40% 10/13 1200 98.8 78 24 104/60 100 Ventilator 40% 10/13 1106 40 Intake & Output 10/14 1600 10/14 0800 10/14 0000 Intake Total 1132 447 Output Total 800 1300 Balance 332 -853 Intake, IV 954 350 Intake, Tube 78 47 Feeding Intake, Tube 100 50 Irrigant Number 1 Bowel Movements Output, 50 Gastric Drainage Output, Urine 800 1250 Exam General Appearance: no apparent distress Head: atraumatic, normal appearance Neck: supple Respiratory: chest non-tender, no respiratory distress, crackles, rhonchi Cardiovascular: regular rate/rhythm Abdomen: normal bowel sounds, soft, non-tender Extremities: no edema Skin: intact, normal color, warm/dry Results Last 24 Hrs of Lab Results: Laboratory Tests 10/14/16 0545: pH 7.41, pCO2 36, pO2 72 L, HCO3 22, ABG O2 Sat (Measured) 95.0 L, P-50 (Temp Corrected) N, Carboxyhemoglobin 0 L, O2 Concentration % .40, Respiration Rate 18, O2 Delivery Method VENT, Vent Mode A/C, Expiratory Pressure 8, Tidal Volume 450, Phlebotomy Draw Site LEFT RADIAL 10/14/16 0410: Anion Gap 12, Estimated GFR > 60, Glucose 119 H, Calcium 7.7 L, Phosphorus 3.5 , Magnesium 1.4 L, Total Bilirubin 1.0, AST 63 H, ALT 40, Albumin 1.7 L, CBC w Diff MAN DIFF ORDERED, RBC 3.07 L, MCV 90.5, MCH 30.7, RDW 16.4 H, MPV 10.1, Gran % 89.6 H, Lymphocytes % 4.7 L, Monocytes % 4.2, Eosinophils % 1.5, Basophils % 0 L, Absolute Granulocytes 30.1 H, Segmented Neutrophils 83 H, Band Neutrophils 3, Absolute Lymphocytes 1.6, Lymphocytes 10 L, Monocytes 1 L, Absolute Monocytes 1.4 H, Eosinophils 3, Absolute Eosinophils 0.5, Absolute Basophils 0, Platelet Estimate ADEQUATE, Polychromasia 1+, Hypochromic- Microcytic 1+, Poikilocytosis 1+, Anisocytosis 1+, PUBS MCHC 34.0 10/13/16 1400: pH 7.44, pCO2 28 L, pO2 92, HCO3 19 L, ABG O2 Sat (Measured) 97.0, Carboxyhemoglobin 1.3 L, O2 Concentration % 40%, Temperature 98.2, Respiration Rate 24, O2 Delivery Method ESPRIT, Vent Mode VC-AC, Expiratory Pressure 10, Tidal Volume 450, Phlebotomy Draw Site LEFT RADIAL Impression/Plan Impression/Plan Impression/Plan: 1. Hypoxemic respiratory failure secondary to pneumonia and ARDS. 2. Right intratrochanteric fracture. 3. Acute blood loss anemia. 4. History of respiratory failure. 5. ETOH withdrawl. 6. Displaced comminuted right proximal femoral shaft fracture. 7. History of breast cancer that is post bilateral mastectomy, chemotherapy/ radiation. Recommendations: * Continue current ventilator settings. * Wean PEEP down to 5 if able. * Attempt to wean propofol down to off. * Continue ativan for a sedation goal of 2. * Will monitor tidal volumes, attempt to keep around 450 ml for low tidal volume ventilation. * Attempt to wean pressors off if able. * Follow off antibiotics as per ID. * Arrange for PICC line placement so IJ can be removed. * Continue nebs/TRC. * Continue tube feeds at goal. * Continue ventilator bundle. * Continue Alps, the patient remains off SQ heparin due to bleeding.
[2016-10-14 11:20] VITALS: BP 99/62
[2016-10-14 16:00] VITALS: BP 98/58
--- NOTE | 2016-10-14 18:24 | NUR ---
Patient sedated on a propofol gtt at 5mcg and an ativan gtt that has been decreased per Dr. Palmer's order to infuse at 6mg/hr- (decreased by 20%). SAS 1-2, movements are not purposeful. Soft bilateral wrist restraints in place. NSR-ST on tele monitor. HR= 80-100's with pvc's and bigeminy. SBP: 90-100's,. levo gtt infusing as 6mcg. CVp ranging from 4-7. + pulses. Remains intubated with a #8 to the left at 22cm, Vent settings currently: AC 18/450/35/5. Lungs rhonchorous and diminished at the bases. O2 sats dropped to the high 70's when turning and repositioning patient. + Gag reflex with yankauer. Mouth care provided. OGT in place with Glucerna 1.2 infusing at 25mls/hr with 50ml water flushes every 4 hours. 15ml residual. Abdomen is soft and non tender with + bowel sounds. INC of stool. Palacio in place draining clear yellow urine. Trace generalized edema, ERNESTINE and RLE +1 edema. No areas of pressure injury currently noted. RIJ TLC WNL. Tylenol given at 1230 for a temp of 101.7, Dr. Palmer made aware and patients was cultured per order. No s/s of pain are noted. Vitals currently stable. Will continue to closely monitor patient.
--- NOTE | 2016-10-14 19:27 | PN- Cardiology ---
Subjective Subjective: The patient remains intubated and sedated and unable to give history. She remains on pressors for blood pressure support. She is in a negative fluid balance. Oxygen requirement is improving. Objective Vital Signs and I&Os Vital Signs Date Time Temp Pulse Resp B/P Pulse O2 O2 Flow FiO2 Ox Delivery Rate 10/14 1600 97.9 84 23 98/58 10/14 1600 97.9 84 23 98/58 95 Ventilator 40% 10/14 1600 95 Ventilator 40% 10/14 1340 97.9 10/14 1330 40 10/14 1239 101.7 10/14 1200 94 Ventilator 35% 10/14 1121 35 10/14 1120 102 27 99/62 96 Ventilator 35% 10/14 0822 40 10/14 0800 98.6 85 20 110/60 10/14 0800 98.6 85 20 110/60 97 Ventilator 40% 10/14 0800 97 Ventilator 40% 10/14 0617 40 10/14 0400 97 Ventilator 40% 10/14 0400 98.6 86 20 128/72 97 Ventilator 40% 10/14 0332 40 10/14 0331 88 20 105/69 10/14 0126 40 10/14 0000 98.4 89 20 120/82 10/14 0000 97 Ventilator 40% 10/14 0000 98.4 89 20 120/82 97 Ventilator 40% 10/13 2153 40 10/13 2000 97 Ventilator 40% 10/13 2000 98.0 90 20 108/60 97 Ventilator 40% Intake & Output 10/14 1600 10/14 0800 10/14 0000 10/13 1600 10/13 0800 10/13 0000 Intake Total 1147 2521 846 7204 2377 1878.2 Output Total 924 458 7262 2150 410 2350 Balance 537 332 -853 -434 1967 -471.8 Intake, IV 882 083 568 0228 2377 1878.2 Intake, Oral 0 Intake, Other 100 0 Intake, Tube 145 78 47 Feeding Intake, Tube 120 100 50 Irrigant Number 1 0 0 Bowel Movements Output, 50 150 150 Gastric Drainage Output, Urine 193 081 3940 2000 260 2350 Physical Exam: Gen: NAD. Intubated and sedated HEENT: normal Lungs: clear to auscultation, normal resp. effort Heart: RRR, S1, S2, no murmurs Abdomen: Soft, nontender, no masses Extremities: No clubbing, cyanosis, or edema. Neuro: Patient is sedated. No focal neurologic abnormalities noted. Current Medications: Current Medications Sig/[place] Start time Last Medication Dose Route Stop Time Status Admin Acetaminophen 1,000 MG Q6P PRN 10/10 1630 10/14 N/A 1 UNIT IV 1239 Acetaminophen 650 MG Q8 PRN 10/06 1945 AC 10/09 PO 2017 Albuterol Sulfate 3 ML EVERY 4 HRS/AWAKE 10/12 0800 AC 10/14 INH 1639 Exemestane 25 MG DAILY 10/07 1000 AC 10/14 PO 0925 Folic Acid 1 MG DAILY 10/07 1000 AC 10/14 PO 0925 Insulin Detemir 5 UNITS AT BEDTIME 10/06 2200 AC 10/13 SC 2146 Insulin Human Regular 0 Q6 10/11 1200 10/14 SC 1815 Lorazepam 100 MG Q11H 10/14 0300 AC 10/14 Dextrose/Water 1,000 ML IV 1653 Lorazepam 100 MG Q5H 10/12 0230 DE 10/14 Dextrose/Water 1,000 ML IV 0334 Lorazepam 0 Q1P PRN 10/07 1330 AC 10/09 IV 1747 Magnesium Sulfate 1 GM Q2H 10/14 0730 DE 10/14 Dextrose/Water 100 ML IV 10/14 1129 0925 Norepinephrine 8 MG Q14H 10/14 0000 AC Sodium Chloride 250 ML IV Norepinephrine 8 MG Q8H 10/12 1830 DC 10/14 Sodium Chloride 250 ML IV 0331 Nystatin 5 ML 4 TIMES/DAY 10/10 1152 DC 10/14 PO 0926 Pantoprazole Sodium 40 MG DAILY 10/10 1835 AC 10/14 IV 0925 Propofol 1,000 MG Q5H 10/13 0515 10/14 N/A 1 UNIT IV 1008 Results Last 48 Hrs of Labs/Mics: Laboratory Tests 10/14/16 1245: Urinalysis LIGHT H, Urine Color YEL, Urine Clarity CLEAR, Urine pH 6.0, Ur Specific [place] 1.020, Urine Protein NEG, Urine Ketones NEG, Urine Nitrite NEG, Urine Bilirubin NEG, Urine Urobilinogen 0.2, Ur Leukocyte Esterase NEG, Ur Microscopic SEDIMENT EXAMINED, Urine RBC 3-5, Urine WBC RARE, Ur Epithelial Cells RARE, Urine Mucus RARE, Urine Hemoglobin TRACE-INTACT, Urine Glucose NEG 10/14/16 1230: Anion Gap 9, Estimated GFR > 60, BUN/Creatinine Ratio 12.5, Magnesium 1.8 10/14/16 0545: pH 7.41, pCO2 36, pO2 72 L, HCO3 22, ABG O2 Sat (Measured) 95.0 L, P-50 (Temp Corrected) N, Carboxyhemoglobin 0 L, O2 Concentration % .40, Respiration Rate 18, O2 Delivery Method VENT, Vent Mode A/C, Expiratory Pressure 8, Tidal Volume 450, Phlebotomy Draw Site LEFT RADIAL 10/14/16 0410: Anion Gap 12, Estimated GFR > 60, Glucose 119 H, Calcium 7.7 L, Phosphorus 3.5 , Magnesium 1.4 L, Total Bilirubin 1.0, AST 63 H, ALT 40, Albumin 1.7 L, CBC w Diff MAN DIFF ORDERED, RBC 3.07 L, MCV 90.5, MCH 30.7, RDW 16.4 H, MPV 10.1, Gran % 89.6 H, Lymphocytes % 4.7 L, Monocytes % 4.2, Eosinophils % 1.5, Basophils % 0 L, Absolute Granulocytes 30.1 H, Segmented Neutrophils 83 H, Band Neutrophils 3, Absolute Lymphocytes 1.6, Lymphocytes 10 L, Monocytes 1 L, Absolute Monocytes 1.4 H, Eosinophils 3, Absolute Eosinophils 0.5, Absolute Basophils 0, Platelet Estimate ADEQUATE, Polychromasia 1+, Hypochromic- Microcytic 1+, Poikilocytosis 1+, Anisocytosis 1+, PUBS MCHC 34.0 10/13/16 1400: pH 7.44, pCO2 28 L, pO2 92, HCO3 19 L, ABG O2 Sat (Measured) 97.0, Carboxyhemoglobin 1.3 L, O2 Concentration % 40%, Temperature 98.2, Respiration Rate 24, O2 Delivery Method ESPRIT, Vent Mode VC-AC, Expiratory Pressure 10, Tidal Volume 450, Phlebotomy Draw Site LEFT RADIAL 10/13/16 0515: Anion Gap 10, Estimated GFR > 60, Glucose 220 H, Calcium 7.5 L, Phosphorus 3.0 , Magnesium 1.4 L, Total Bilirubin 0.7, AST 44 H, ALT 27, Albumin 1.7 L, CBC w Diff MAN DIFF ORDERED, RBC 3.04 L, MCV 90.6, MCH 30.5, RDW 15.9 H, MPV 9.7, Gran % 88.7 H, Lymphocytes % 4.2 L, Monocytes % 4.3, Eosinophils % 2.8, Basophils % 0 L, Absolute Granulocytes 28.1 H, Segmented Neutrophils 78 H, Band Neutrophils 7 H, Absolute Lymphocytes 1.3, Lymphocytes 4 L, Monocytes 4, Absolute Monocytes 1.4 H, Eosinophils 4, Absolute Eosinophils 0.9, Absolute Basophils 0, Metamyelocytes 2 H, Myelocytes 1 H, Platelet Estimate ADEQUATE, Polychromasia 1+, Ovalocytes FEW, [place] Cells FEW, PUBS MCHC 33.7, Fld Total RBCs Counted 100 10/13/16 0220: pH 7.39, pCO2 32 L, pO2 68 L, HCO3 19 L, ABG O2 Sat (Measured) 94.0 L, P-50 (Temp Corrected) Y, Carboxyhemoglobin 0.3 L, O2 Concentration % 65%, Temperature 97.9, Respiration Rate 24, O2 Delivery Method ESPRIT, Vent Mode AC, Expiratory Pressure 10, Tidal Volume 450, Phlebotomy Draw Site LEFT RADIAL 10/12/16 2150: pH 7.27 *L, pCO2 46 H, pO2 84, HCO3 20 L, ABG O2 Sat (Measured) 95.0 L, P-50 (Temp Corrected) N, Carboxyhemoglobin 0.7 L, O2 Concentration % 70%, Temperature 97.1, Respiration Rate 12, O2 Delivery Method ESPRIT, Vent Mode AC, Expiratory Pressure 10, Tidal Volume 450, Phlebotomy Draw Site RIGHT BRACHIAL Recent Imaging Studies: Chest x-ray: Nasogastric tube projects below the left hemidiaphragm. Tip not seen. Otherwise satisfactory position of support line and tube. Interval increase in bilateral groundglass attenuation. Increasing atelectasis or consolidation at the left lung base. Assessment/Plan Assessment/Plan 1. Pneumonia 2. ARDS 3. Alcohol withdrawal 4. Volume overload 5. Right hip fracture Plan: * Ventilatory support * Repair of right hip fracture on hold because of multiple medical issues * Wean off pressors if possible. Continue telemetry? Yes
[2016-10-14 20:00] VITALS: BP 91/58
--- NOTE | 2016-10-14 23:21 | NUR ---
ASSUME CARE @1930. PT IS SEDATED ON PROPOFOL/ATIVAN GTT W/MIN RESPONSE TO TACTILE STIMULI. SAS 2. INTUBATED & VENTED ON AC MODE RATE 18/ VT 450/ FIO2 40%/ PEEP 5, LS RHONCHUS & DIMISHED AT BASES. POX 94-98%. ORALLY SUCTIONED LG AMT OF SECRETIONS. ETT SUCTIONED WHITE TK SECRETIONS. SR ON THE MONITOR W/FRQ PVCS/BIGEMENY HR 90-100'S. SBP 90-100'S CORRELATING TO BOTH CUFFS. FC INSITU 7 DRAINING LINH URINE GOOD U/O. OGT INSITU & ON TF BRITTANY WELL @25ML/HR W/50CC H2O FLUSHES. ON LEVO GTT NO CHANGES DONE REMAINS @6 MCG/MIN. 2199 DURING CARE PT HAD LOOSE/SEMI FORM BROWN STOOL LG AMT. HAD TOTAL OF 3 BM IN THE EVENINGS. PT DESATS IN LOW 90'S & PLACED 100% DURING T&P. ON TOTAL CARE BED W/ROTATIONAL MODE. CHEST PT DONE EARLIER & BRITTANY WELL. CONT TO MONITOR. 2299 REPORT GIVEN TO [facility]COMING [facility].
[2016-10-15] VITALS: BP 122/60
--- NOTE | 2016-10-15 00:24 | NUR ---
PT SEDATED WITH PROPOFOL AND ATIVAN AT THIS TIME. REMAINS INTUBATED AT 40% FILO2, SATURATION 94%. LUNGS SOUND CLEAR. MINIMAL SECRETIONS OB TAINED WHEN SUCTIONED, THICK WHITE. AFEBRILE. MANUAL BP 122/60. TOLERATING GLUCERNA AT 25ML/H, NO RESIDUAL OBTAINED. ABDOMEN SOFT, NORMACTIVE BS. BOWER IN PLACE, ADEQUATE UO NOTED. LEVOPHED AT 6MCG. ACCUCHECK 149, NO COVERAGE NEEDED.
[2016-10-15 04:00] VITALS: BP 120/70
[2016-10-15 04:50] LABS: ABSOLUTE BASOPHIL COUNT 0 /CUMM (0.0-0.2); ABSOLUTE EOSINOPHIL COUNT 0.5 /CUMM (0.0-0.7); ABSOLUTE GRANULOCYTE CT 36.6 /CUMM (1.4-6.5); ABSOLUTE LYMPH COUNT 1.5 /CUMM (1.2-3.4); ABSOLUTE MONOCYTE COUNT 1.3 /CUMM (0.10-0.60); BASOPHIL % 0.1 % (0.0-2.0); EOSINOPHIL % 1.2 % (0-5); GRANULOCYTE % 91.7 % (42.2-75.2); HEMATOCRIT 27.1 % (37-47); MEAN CORPUSCULAR HGB CONC 33.5 G/DL (33.0-37.0); MEAN CORPUSCULAR VOLUME 89.7 FL (81.0-99.0); MEAN PLATELET VOLUME 10.3 FL (7.4-10.4); PLATELET COUNT 249 /CUMM (130-400); RBC DISTRIBUTION WIDTH 15.9 % (11.5-14.5); RED BLOOD CELL CT 3.02 /CUMM (4.20-5.40)
[2016-10-15 05:08] LABS: WHITE BLOOD CELL COUNT 39.9 /CUMM (4.8-10.8)
--- NOTE | 2016-10-15 07:07 | RADIOLOGY REPORT ---
EXAMINATION: XR PORTABLE CHEST CLINICAL INFORMATION: Check line and tube placement COMPARISON: Previous chest x-rays most recent from yesterday TECHNIQUE: AP portable chest FINDINGS: The endotracheal tube is a 4 cm above the king. Nasogastric tube projects below the diaphragm. The tip is not seen. Right internal jugular line projects over the cavoatrial junction. The cardiac and mediastinal contours are stable. There is bilateral groundglass attenuation and airspace disease, greatest in the left lower lobe. This does not appear appreciably changed. There is no pleural effusion or pneumothorax. IMPRESSION: Nasogastric tube projects below the left hemidiaphragm. Tip not seen. Otherwise satisfactory position of support line and tubes. No appreciable change in bilateral groundglass attenuation and airspace disease, greatest in the left lower lobe.
[2016-10-15 08:00] VITALS: BP 100/60
--- NOTE | 2016-10-15 08:00 | NUR ---
ASSUMED CARE OF PT.; SEDATED, SAS 2, PUPILS 2/BRISK, TONGUE GROSSLY SWOLLEN, DRY AND STICKING OUT OF MOUTH; DR. DAY AND DR. MCGARRY TO BEDSIDE; SKIN INTACT WITH NO RASHES NOTED; IV SOLUMEDROL AND BENADRYL GIVEN ORDERED. PT. REMAINS INTUBATED; RT SLIGHTLY INCREASED AIR IN CUFF; PT. LAVAGED AND DEEP SUCTIONED FOR THICK, YELLOW SPUTUM, LUNGS RHONCHOROUS. PROPOFOL TO TITRATE DOWN THEN OFF, FOR SAS 3, ATIVAN TO TITRATE FROM 6MG/HR TO 3MG/HR FOR SAS OF 3. MAG 1.4; TO RECEIVE MAG 1G BOLUS X2 IV. PP'S + WITH DOPPLER.
--- NOTE | 2016-10-15 09:14 | PN- CRCU ---
Subjective HPI/Critical Care Issues: The patient remains intubated and sedated. She remains on low-dose propofol. Her Ativan has been decreased to 6 mg per hour. She continues to require Levophed however her blood pressure has improved overall. She is tolerating tube feeds at goal. The patient's oxygenation has significantly improved, noting that she is now on 40% with 5 of PEEP. Her saturations remain in the high 90s. The patient remains afebrile. Objective Current Medications: Current Medications Sig/[place] Start time Last Medication Dose Route Stop Time Status Admin Acetaminophen 1,000 MG Q6P PRN 10/10 1630 AC 10/14 N/A 1 UNIT IV 1239 Acetaminophen 650 MG Q8 PRN 10/06 1945 AC 10/09 PO 2017 Albuterol Sulfate 3 ML EVERY 4 HRS/AWAKE 10/12 0800 AC 10/15 INH 0828 Diphenhydramine HCl 50 MG ONCE ONE 10/15 0830 DC IV 10/15 0831 Exemestane 25 MG DAILY 10/07 1000 AC 10/14 PO 0925 Folic Acid 1 MG DAILY 10/07 1000 AC 10/14 PO 0925 Insulin Detemir 5 UNITS AT BEDTIME 10/06 2200 AC 10/14 SC 2129 Insulin Human Regular 0 Q6 10/11 1200 AC 10/14 SC 1815 Lorazepam 50 MG Q11H 10/15 0800 AC 10/15 Dextrose/Water 500 ML IV 0816 Lorazepam 100 MG Q11H 10/14 0300 DC 10/15 Dextrose/Water 1,000 ML IV 0517 Lorazepam 0 Q1P PRN 10/07 1330 AC 10/09 IV 1747 Magnesium Sulfate 1 GM Q2H 10/15 0730 AC 10/15 Dextrose/Water 100 ML IV 10/15 1129 0816 Magnesium Sulfate 1 GM Q2H 10/14 0730 DC 10/14 Dextrose/Water 100 ML IV 10/14 1129 0925 Methylprednisolone 40 MG Q6 10/15 0830 AC IV 10/15 2359 Norepinephrine 8 MG Q14H 10/14 0000 AC 10/15 Sodium Chloride 250 ML IV 0517 Nystatin 5 ML 4 TIMES/DAY 10/10 1152 DC 10/14 PO 0926 Pantoprazole Sodium 40 MG DAILY 10/10 1835 AC 10/14 IV 0925 Propofol 1,000 MG Q5H 10/13 0515 AC 10/15 N/A 1 UNIT IV 0620 Vital Signs & I&O Last 24 Hrs of Vitals and I&O: Vital Signs Date Time Temp Pulse Resp B/P Pulse O2 O2 Flow FiO2 Ox Delivery Rate 10/15 0830 40 10/15 0609 40 10/15 0517 110 26 120/70 10/15 0400 95 Ventilator 40% 10/15 0400 98.0 110 26 120/70 95 Ventilator 40% 10/15 0346 40 10/15 0042 40 10/15 0000 98.5 96 27 122/60 10/15 0000 94 Ventilator 40% 10/15 0000 98.5 96 27 122/60 94 Ventilator 40% 10/14 2253 40 10/14 2132 99 92/59 10/14 1999 98.5 97 24 91/58 95 Ventilator 40% 10/14 2000 95 Ventilator 40% 10/14 1925 40 10/14 1630 40 10/14 1600 97.9 84 23 98/58 10/14 1600 97.9 84 23 98/58 95 Ventilator 40% 10/14 1600 95 Ventilator 40% 10/14 1340 97.9 10/14 1330 40 10/14 1239 101.7 10/14 1200 94 Ventilator 35% 10/14 1121 35 10/14 1120 102 27 99/62 96 Ventilator 35% Intake & Output 10/15 1600 10/15 0800 10/15 0000 Intake Total 933 849 Output Total 520 600 Balance 413 249 Intake, IV 582 586 Intake, Oral 0 Intake, Tube 251 163 Feeding Intake, Tube 100 100 Irrigant Number 1 3 Bowel Movements Output, Urine 520 600 Exam General Appearance: no apparent distress Head: atraumatic, normal appearance Neck: supple Respiratory: chest non-tender, no respiratory distress, crackles, rhonchi Cardiovascular: regular rate/rhythm Abdomen: normal bowel sounds, soft, non-tender Extremities: no edema Skin: intact, normal color, warm/dry Results Last 24 Hrs of Lab Results: Laboratory Tests 10/15/16 0445: pH 7.50 H, pCO2 27 L, pO2 62 L, HCO3 21, ABG O2 Sat (Measured) 92.0 L, P-50 (Temp Corrected) Y, Carboxyhemoglobin 1.3 L, O2 Concentration % 40%, Temperature 98.0, Respiration Rate 18, O2 Delivery Method ESPRIT, Vent Mode AC, Expiratory Pressure 5, Tidal Volume 450, Phlebotomy Draw Site LEFT BRACHIAL 10/15/16 0346: Anion Gap 13, Estimated GFR > 60, Glucose 167 H, Calcium 7.6 L, Phosphorus 4.0 , Magnesium 1.4 L, Total Bilirubin 1.7 H, AST 94 H, ALT 51, Albumin 1.8 L, CBC w Diff MAN DIFF ORDERED, RBC 3.02 L, MCV 89.7, MCH 30.0, RDW 15.9 H, MPV 10.3, Gran % 91.7 H, Lymphocytes % 3.7 L, Monocytes % 3.3, Eosinophils % 1.2, Basophils % 0.1, Absolute Granulocytes 36.6 H, Segmented Neutrophils 84 H, Band Neutrophils 9 H, Absolute Lymphocytes 1.5, Lymphocytes 3 L, Monocytes 3, Absolute Monocytes 1.3 H, Absolute Eosinophils 0.5, Absolute Basophils 0, Metamyelocytes 1, Platelet Estimate ADEQUATE, Polychromasia 1+, Poikilocytosis 1 +, Ovalocytes 1+, Stomatocytes FEW, PUBS MCHC 33.5, Fld Total RBCs Counted 100 10/14/16 1245: Urinalysis LIGHT H, Urine Color YEL, Urine Clarity CLEAR, Urine pH 6.0, Ur Specific [place] 1.020, Urine Protein NEG, Urine Ketones NEG, Urine Nitrite NEG, Urine Bilirubin NEG, Urine Urobilinogen 0.2, Ur Leukocyte Esterase NEG, Ur Microscopic SEDIMENT EXAMINED, Urine RBC 3-5, Urine WBC RARE, Ur Epithelial Cells RARE, Urine Mucus RARE, Urine Hemoglobin TRACE-INTACT, Urine Glucose NEG 10/14/16 1230: Anion Gap 9, Estimated GFR > 60, BUN/Creatinine Ratio 12.5, Magnesium 1.8 Impression/Plan Impression/Plan Impression/Plan: 1. Hypoxemic respiratory failure secondary to pneumonia and ARDS. 2. Displaced comminuted right proximal femoral shaft fracture. 3. Acute blood loss anemia. 4. Malnutrition. 5. ETOH withdrawl. 6. History of breast cancer that is post bilateral mastectomy, chemotherapy/ radiation. Recommendations: * Continue current ventilator settings. * Discontinue propofol. * Continue ativan for a sedation goal of 3. * Attempt to wean pressors off if able. * Follow off antibiotics as per ID. * Arrange for PICC line placement so IJ can be removed. * Continue nebs/TRC. * Continue tube feeds at goal. * Continue ventilator bundle. * Continue Alps, the patient remains off SQ heparin due to bleeding.
--- NOTE | 2016-10-15 11:06 | PN- Resident CRCU ---
Subjective HPI/CRCU Issues: Patient seen and examined. She is seen intubated on ventilator maintained in upper extremity restraints with multiple lines in place. She appears to be in no acute distress and is not arousable to tactile/verbal stimuli. Review of systems is unobtainable. No overnight events reported. Objective Vital Signs & I&O Last 8 Hrs of Vitals and I&O: Vitals: - Temperature: 98.0-98.6 - Heart Rate: 96-116 - Respiratory Rate: 22-31 - Systolic Blood pressure: 96-117 - Diastolic Blood pressure: 59-85 - Oxygen Saturation: Exam General Appearance: sedated, intubated Other Physical Findings: General -intubated/sedated elderly female in no acute distress HEENT - NCAT, PERRL, EOMI, anicteric sclera, OG tube in place, right IJ line in place, intubated, large red swollen tongue with dry scaling no drainage present, no swollen lips or rash present Cardio - S1, S2 w/o murmurs/gallops/rubs Resp -diffuse rhonchi heard in all lung gutierrez, no crackles GI -soft, nontender, nondistended, bowel sounds present Neuro -intubated/sedated, pupils reactive to light and accommodation, no spontaneous movements Extremities: -RLE: Proximal hematoma without overlying ecchymosis with minimal swelling, better than yesterday, distal pulses intact without distal lower extremity edema Current Medications: Current Medications Sig/[place] Start time Last Medication Dose Route Stop Time Status Admin Acetaminophen 1,000 MG Q6P PRN 10/10 1630 AC 10/14 N/A 1 UNIT IV 1239 Acetaminophen 650 MG Q8 PRN 10/06 1945 AC 10/09 PO 2017 Albuterol Sulfate 3 ML EVERY 4 HRS/AWAKE 10/12 08 AC 10/15 INH 0828 Diphenhydramine HCl 50 MG ONCE ONE 10/15 0830 DC 10/15 IV 10/15 0831 0940 Exemestane 25 MG DAILY 10/07 1000 AC 10/15 PO 0939 Folic Acid 1 MG DAILY 10/07 1000 AC 10/15 PO 0939 Insulin Detemir 5 UNITS AT BEDTIME 10/06 2200 AC 10/14 SC 2129 Insulin Human Regular 0 Q6 10/11 1200 AC 10/14 SC 1815 Lorazepam 50 MG Q11H 10/15 0800 AC 10/15 Dextrose/Water 500 ML IV 0816 Lorazepam 100 MG Q11H 10/14 0300 DC 10/15 Dextrose/Water 1,000 ML IV 0517 Lorazepam 0 Q1P PRN 10/07 1330 AC 10/09 IV 1747 Magnesium Sulfate 1 GM Q2H 10/15 0730 DC 10/15 Dextrose/Water 100 ML IV 10/15 1129 0935 Methylprednisolone 40 MG Q6 10/15 0830 AC 10/15 IV 10/15 2359 0939 Norepinephrine 8 MG Q14H 10/14 0000 AC 10/15 Sodium Chloride 250 ML IV 0517 Nystatin 5 ML 4 TIMES/DAY 10/10 1152 DC 10/14 PO 0926 Pantoprazole Sodium 40 MG DAILY 10/10 1835 AC 10/15 IV 0939 Propofol 1,000 MG Q5H 10/13 0515 DC 10/15 N/A 1 UNIT IV 0620 Impression/Plan Impression/Problem List Impression: Patient continues to remain hemodynamically stable with no overnight events reported. Propofol is discontinued today and Ativan drip is to be further tapered today. Levophed has been reduced but is still running. Daily arterial blood gases and chest x-rays have demonstrated stable airway disease. Her tongue was noticed to be grossly swollen this morning without any obvious maculopapular rash or lip swelling. Benadryl and Solu-Medrol was given to assess for response for a low index of suspicion for an allergic reaction to one of the ingredients in the tube feeds. Otherwise she has been tolerating the tube feeds well with low residual volumes. She was febrile to 101.7 yesterday for which she was recultured with results still pending. Right internal jugular vein line is to be discontinued today pending evaluation by interventional radiology for placement of a PICC line. Problem list: -Acute hypoxic respiratory failure, intubated on vent -Acute respiratory distress syndrome, intubated on vent -Displaced comminuted right proximal femoral shaft fracture -Proximal right lower extremity hematoma -Acute blood loss anemia, stable -EtOH withdrawal -Multilobar pneumonia, on antibiotics -History of breast cancer that is post bilateral mastectomy, chemotherapy/ radiation -Leukocytosis Respiratory/infectious disease: Patient has had worsening respiratory distress requiring intubation and ventilator. Intravenous Lasix therapy have minimally improved pulmonary fluid status. Repeat arterial blood gas/chest x-rays show stable airway disease. Cultures have been no growth to date. Patient was started on intravenous antibiotics. -Intubated on ventilator -Propofol drip discontinued -Levophed drip -Follow-up repeat cultures 10/14/16 -Follow up with surgical PA when medically clear for surgery Musculoskeletal: Sustained a fall from her bed resulting in a right hip fracture as demonstrated by x-ray and CT imaging. She was evaluated by orthopedic surgery, but surgical intervention was deferred as patient was found to have an acute drop in her hemoglobin requiring admission to the intensive care unit from the general medicine floor for medical optimization. -Monitor vital signs and hemoglobin -Cardiac clearance obtained -Orthopedic consult following Cardiology: Revised cardiac risk index calculated for a score of 0 suggesting a 0.4% risk of a major cardiac event. -RCRI: 0, 0.4 risk for major cardiac event -data migration consultant cleared patient for surgery Hematology/oncology: Patient has a history of breast cancer with bilateral mastectomy, chemotherapy, and radiation. Last treatment reportedly received 6 months ago. She is a patient of Dr. Mejias of the [facility]. She has not had any follow- up imaging since this time apparently, but is reportedly in remission with a surveillance visit scheduled in January 2017. Patient has had persistent leukocytosis since admission. White blood cell count was elevated as recently as July to 20,000, baseline level unclear. She denies taking any adjuvant chemotherapy regimens such as Neulasta/Neupogen that could possibly account for this, however records are unavailable at this time. Consent for blood transfusion was obtained and placed on chart, type and cross was ordered. Packed red blood cells were transfused. -PRBC transfused: 3 -Daily CBC, monitor for worsening anemia/leukocytosis Psychiatry: Patient has a history of alcohol abuse for which she reports drinking vodka several times a week. Serum alcohol on admission was negative. She remains tremulous with see what scores consistently minimally elevated. -Ativan drip, titrate as necessary -Multivitamin/thiamine/folate -Bupropion on hold -Consider psychiatry/social work consult Endocrinology: Patient with a history of diabetes mellitus. Blood sugars have been consistently low requiring amps of dextrose. -Accu-Cheks -Nothing by mouth sliding scale insulin Pain plan: -Acetaminophen 650 mg by mouth every 8 hours as needed for pain 1-3 -Oxycodone 1 tab by mouth every 6 hours as needed for pain 4-6 -Dilaudid 0.6 mg IV every 4 hours as needed for pain 7-10 Diet -NPO, tube feeds restarted DVT prophylaxis-mechanical ppx to LLE Code Status-full code Problem List: 1. Closed right femoral fracture Pain Ratin Tomorrow's Labs & Rationales: Complete blood count ICU bundle Chest x-ray Arterial blood gas Plan DVT/Prophylaxis: mechanical
[2016-10-15 12:00] VITALS: BP 106/60
[2016-10-15 16:00] VITALS: BP 102/60
[2016-10-15 20:00] VITALS: BP 104/68
[2016-10-16] VITALS: BP 98/64
--- NOTE | 2016-10-16 | NUR ---
0000- CVP noted to be 5. Dr. Bynum is notified. No plans to give IV fluids at this time due to patient's generalized edema. Patient remains on 2mcg of Levophed. Will cont to monitor.
[2016-10-16 05:14] LABS: ABSOLUTE BASOPHIL COUNT 0 /CUMM (0.0-0.2); ABSOLUTE EOSINOPHIL COUNT 0 /CUMM (0.0-0.7); ABSOLUTE MONOCYTE COUNT 0.8 /CUMM (0.10-0.60); BASOPHIL % 0 % (0.0-2.0); EOSINOPHIL % 0 % (0-5); MEAN CORPUSCULAR HGB CONC 33.5 G/DL (33.0-37.0); MEAN CORPUSCULAR VOLUME 90.5 FL (81.0-99.0); RBC DISTRIBUTION WIDTH 15.8 % (11.5-14.5)
[2016-10-16 05:20] LABS: ABSOLUTE GRANULOCYTE CT 41.8 /CUMM (1.4-6.5); ABSOLUTE LYMPH COUNT 1.3 /CUMM (1.2-3.4); GRANULOCYTE % 95.2 % (42.2-75.2); HEMATOCRIT 27.5 % (37-47); MEAN CORPUSCULAR HGB 30.4 PG (27.0-31.0); MEAN PLATELET VOLUME 10.6 FL (7.4-10.4); PLATELET COUNT 298 /CUMM (130-400); RED BLOOD CELL CT 3.04 /CUMM (4.20-5.40)
[2016-10-16 05:24] LABS: WHITE BLOOD CELL COUNT 43.9 /CUMM (4.8-10.8)
[2016-10-16 08:00] VITALS: BP 110/70
--- NOTE | 2016-10-16 08:18 | RADIOLOGY REPORT ---
EXAMINATION: XR PORTABLE CHEST CLINICAL INFORMATION: Pneumonia versus ARDS. Tachypnea, hypoxia and leukocytosis. COMPARISON: Chest radiograph dated 10/15/2016. TECHNIQUE: Portable view of the chest was obtained. FINDINGS: The endotracheal tube terminates 4.9 cm above the king. The right internal jugular vein catheter terminates in the region of the cavoatrial junction. The enteric tube crosses the diaphragm. The tip is collimated from the [id number]. The cardiac silhouette remains stable in size. There are stable reticular nodular opacities throughout both lungs, more pronounced within the mid to lower lungs. No pneumothorax. No large pleural effusion. IMPRESSION: Endotracheal tube terminates 4.9 cm above the king. Right internal jugular vein catheter terminates in the region of the cavoatrial junction. Stable to minimally improved reticular nodular opacities throughout both lungs.
--- NOTE | 2016-10-16 09:16 | PN- Resident CRCU ---
BARB BUSTOS,MUMTAZ 10/16/16 0905: Subjective HPI/CRCU Issues: Patient seen and examined. She is seen lying flat in bed maintained in the bilateral upper extremity restraints with several lines in place. She remains intubated on a ventilator but otherwise appears to be in no acute distress. Review of systems is unobtainable. No overnight events reported. Objective Vital Signs & I&O Last 8 Hrs of Vitals and I&O: Vitals: - Temperature: 99.7 - Heart Rate: 86-102 - Respiratory Rate: 22-28 - Systolic Blood pressure: 91-110 - Diastolic Blood pressure: 56-68 - Oxygen Saturation: 91-95% on 40% FiO2 Exam General Appearance: sedated, intubated Other Physical Findings: General -frail/elderly woman in no acute distress in bilateral upper extremity restraints HEENT - NCAT, PERRL, EOMI, anicteric sclera, intubated on vent, OG tube in place , right IJ Cardio - S1, S2 w/o murmurs/gallops/rubs Resp - CTA bilaterally w/o wheezing/rhochi/crackles GI -office, nontender, nondistended, bowel sounds present -Palacio catheter in place Neuro -sedated/intubated, limited neurological exam, pupils reactive to light Extremities: -RLE: Swollen proximal right lower extremity with ecchymosis on posterior dependent areas, distal pulses intact, no distal dependent edema Current Medications: Current Medications Sig/[place] Start time Last Medication Dose Route Stop Time Status Admin Acetaminophen 1,000 MG Q6P PRN 10/10 1630 AC 10/14 N/A 1 UNIT IV 1239 Acetaminophen 650 MG Q8 PRN 10/06 1945 AC 10/09 PO 2017 Albuterol Sulfate 3 ML EVERY 4 HRS/AWAKE 10/12 0800 AC 10/16 INH 0755 Ceftazidime 1,000 MG IQ8 10/15 1600 AC 10/15 IV 2341 Exemestane 25 MG DAILY 10/07 1000 AC 10/15 PO 0939 Folic Acid 1 MG DAILY 10/07 1000 AC 10/15 PO 0939 Glycerin 2 SPRAY Q2P PRN 10/15 1430 AC 10/15 PO 1642 Insulin Detemir 5 UNITS AT BEDTIME 10/06 2200 AC 10/15 SC 2240 Insulin Human Regular 0 Q6 10/11 1200 AC 10/16 SC 0652 Lorazepam 50 MG Q11H 10/15 0800 AC 10/15 Dextrose/Water 500 ML IV 0816 Lorazepam 0 Q1P PRN 10/07 1330 AC 10/09 IV 1747 Magnesium Sulfate 1 GM ONCE ONE 10/16 0730 AC Dextrose/Water 100 ML IV 10/16 1129 Magnesium Sulfate 1 GM Q2H 10/15 0730 DC 10/15 Dextrose/Water 100 ML IV 10/15 1129 0935 Methylprednisolone 40 MG Q6 10/15 0830 DC 10/15 IV 10/15 2359 2341 Norepinephrine 8 MG Q14H 10/14 0000 AC 10/15 Sodium Chloride 250 ML IV 1744 Pantoprazole Sodium 40 MG DAILY 10/10 1835 AC 10/15 IV 0939 Patient Medication 1 UNIT 1600 10/15 1600 HI Teaching ED 10/15 1601 Propofol 1,000 MG Q5H 10/13 0515 DC 10/15 N/A 1 UNIT IV 0620 Impression/Plan Impression/Problem List Impression: Patient continues to remain hemodynamically stable with no overnight events reported as in previous night. Follow drip was discontinued yesterday and Ativan drip remains at 1 mg per hour today. Levophed was titrated but remains running. Her proximal right lower extremity appears ecchymotic on the posterior dependent areas this morning. Her right IJ line is to be removed today and a PICC line is to be placed. Her tongue swelling has dramatically improved today with Benadryl and Solu-Medrol and addition of [place] mouthwash. Sputum cultures have grown gram-negative rods yesterday for which patient was started on ceftazidime. She continues to tolerate tube feeds. She is more arousable today with an SAS of 2-3. Problem list: -Acute hypoxic respiratory failure, intubated on vent -Acute respiratory distress syndrome, intubated on vent -Displaced comminuted right proximal femoral shaft fracture -Proximal right lower extremity hematoma -Acute blood loss anemia, stable -EtOH withdrawal -Multilobar pneumonia, on antibiotics -History of breast cancer that is post bilateral mastectomy, chemotherapy/ radiation -Leukocytosis Respiratory/infectious disease: Patient remains intubated on ventilator. Lasix given as tolerated for fluid overload. Daily arterial blood gas/chest x-rays are to be obtained for assessment of respiratory disease. -Intubated on ventilator -Levophed drip -Ceftazidime 1 g IV every 8 hours -Sputum cultures growing gram-negative rods -Follow up with surgical PA when medically clear for surgery Musculoskeletal: Sustained a fall from her bed resulting in a right hip fracture as demonstrated by x-ray and CT imaging. She was evaluated by orthopedic surgery, but surgical intervention was deferred as patient was found to have an acute drop in her hemoglobin requiring admission to the intensive care unit from the general medicine floor for medical optimization. -Monitor vital signs and hemoglobin -Cardiac clearance obtained -Orthopedic consult following Cardiology: Revised cardiac risk index calculated for a score of 0 suggesting a 0.4% risk of a major cardiac event. -RCRI: 0, 0.4 risk for major cardiac event -advisor consultant cleared patient for surgery Hematology/oncology: Patient has a history of breast cancer with bilateral mastectomy, chemotherapy, and radiation. Last treatment reportedly received 6 months ago. She is a patient of Dr. Mejias of the [facility]. She has not had any follow- up imaging since this time apparently, but is reportedly in remission with a surveillance visit scheduled in January 2017. Patient has had persistent leukocytosis since admission. White blood cell count was elevated as recently as July to 20,000, baseline level unclear. She denies taking any adjuvant chemotherapy regimens such as Neulasta/Neupogen that could possibly account for this, however records are unavailable at this time. Consent for blood transfusion was obtained and placed on chart, type and cross was ordered. Packed red blood cells were transfused. -PRBC transfused: 3 -Daily CBC, monitor for worsening anemia/leukocytosis Psychiatry: Patient has a history of alcohol abuse for which she reports drinking vodka several times a week. Serum alcohol on admission was negative. She remains tremulous with see what scores consistently minimally elevated. -Ativan drip, titrate as necessary -Multivitamin/thiamine/folate -Bupropion on hold -Consider psychiatry/social work consult Endocrinology: Patient with a history of diabetes mellitus. Blood sugars have been consistently low requiring amps of dextrose. -Accu-Cheks -Nothing by mouth sliding scale insulin Pain plan: -Acetaminophen 650 mg by mouth every 8 hours as needed for pain 1-3 -Oxycodone 1 tab by mouth every 6 hours as needed for pain 4-6 -Dilaudid 0.6 mg IV every 4 hours as needed for pain 7-10 Diet -NPO, tube feeds restarted DVT prophylaxis-mechanical ppx to LLE Code Status-full code Problem List: 1. Displaced comminuted fracture of shaft of right femur Pain Ratin Tomorrow's Labs & Rationales: Complete blood count ICU bundle Arterial blood gas Chest x-ray Plan DVT/Prophylaxis: CK Prather MD 10/16/16 1140: Attending MD Review Statement Attending Sign Off Attending Cosign Statement: I have: examined this patient, reviewed avalbl EMR data, personally reviewd images, discussd w/resident/PA/REGISTERED ASSOCIATE, discussed mgmt plan w/yelena, discussed mgmt plan w/CM, discussed mgmt plan w/pt, agreed w/resident/PA/REGISTERED ASSOCIATE, amended to note. Other Findings: ICk M.D. have examined this patient, reviewed available EMR data, personally reviewed images, discussed with resident/PA/REGISTERED ASSOCIATE, discussed management plan with housestaff and nursing staff, discussed managment plan all of healthcare providers, discussed management plan with patient and/or family, agreed with resident/PA/REGISTERED ASSOCIATE. The past history and parts of the chart have been autopopulated. TTS 40 min
[2016-10-16 12:00] VITALS: BP 106/72
--- NOTE | 2016-10-16 12:10 | PN- Infect Dx ---
Subjective Subjective: Afebrile. She remains sedated, but on decreased doses of Ativan, and pressor dependent, though on decreased doses of Levophed. Several loose stools reported. Objective Last 24 Hrs of Vital Signs/I&O Vital Signs Date Time Temp Pulse Resp B/P Pulse O2 O2 Flow FiO2 Ox Delivery Rate 10/16 1051 40 10/16 0802 40 10/16 0800 98.2 101 18 110/70 10/16 0800 98.2 101 18 110/70 98 Ventilator 40% 10/16 0527 40 10/16 0400 94 Ventilator 40% 10/16 0254 40 10/16 0052 40 10/16 0000 98.8 90 27 98/64 01/03 0000 98.8 90 27 98/64 94 Ventilator 40% 10/16 0000 94 Ventilator 40% 10/15 2250 40 10/15 1999 94 Ventilator 40% 10/15 1999 98.2 84 22 104/68 94 Ventilator 40% 10/15 1935 40 10/15 1935 40 10/15 1631 40 10/15 1600 95 Ventilator 40% 10/15 1600 99.9 91 28 102/60 95 Ventilator 40% / 1409 40 10/15 1200 94 Ventilator 40% 10/15 1200 99.4 97 24 106/60 94 Ventilator 30% Intake & Output 10/16 1600 10/16 0800 10/16 0000 Intake Total 671 658 Output Total 280 450 Balance 391 208 Intake, IV 123 142 Intake, Tube 448 416 Feeding Intake, Tube 100 100 Irrigant Number 2 1 Bowel Movements Output, Urine 280 450 Physical Exam Other Physical Findings: She is sedated, responsive to pain only HEENT swollen protruded tongue Neck right IJ triple-lumen catheter with no inflammation at the site Lungs are clear Heart regular rhythm with no murmur Extremities right thigh swelling unchanged Palacio catheter remains in place Results Last 24 Hours of Lab Results: Laboratory Tests 10/16 10/16 0510 0340 Blood Gas pH (7.35 - 7.45 PH) 7.51 H pCO2 (35 - 45 TORR) 28 L pO2 (80 - 100 TORR) 76 L HCO3 (21 - 28 MEQ/L) 22 ABG O2 Sat (Measured) (>96.0 %) 96.0 P-50 (Temp Corrected) N Carboxyhemoglobin (1.5 - 5.0 %) 0.6 L O2 Concentration % .40 Respiration Rate (BPM) 18 O2 Delivery Method VENT Vent Mode A/C Expiratory Pressure (CMH2O/P) 5 Tidal Volume (CC) 450 Chemistry Sodium (137 - 145 mmol/L) 136 L Potassium (3.5 - 5.1 mmol/L) 4.3 Chloride (98 - 107 mmol/L) 96 L Carbon Dioxide (22 - 30 mmol/L) 26 Anion Gap (5 - 16) 13 BUN (7 - 17 mg/dL) 13 Creatinine (0.5 - 1.0 mg/dL) 0.5 Estimated GFR (>60 ml/min) > 60 Glucose (65 - 99 mg/dL) 308 H Calcium (8.4 - 10.2 mg/dL) 7.9 L Phosphorus (2.5 - 4.5 mg/dL) 4.2 Magnesium (1.6 - 2.3 mg/dL) 1.8 Total Bilirubin (0.2 - 1.3 mg/dL) 1.0 AST (14 - 36 U/L) 66 H ALT (9 - 52 U/L) 45 Albumin (3.5 - 5.0 g/dL) 2.0 L Hematology CBC w Diff MAN DIFF ORDERED WBC (4.8 - 10.8 /CUMM) 43.9 *H RBC (4.20 - 5.40 /CUMM) 3.04 L Hgb (12.0 - 16.0 G/DL) 9.2 L Hct (37 - 47 %) 27.5 L MCV (81.0 - 99.0 FL) 90.5 MCH (27.0 - 31.0 PG) 30.4 RDW (11.5 - 14.5 %) 15.8 H Plt Count (130 - 400 /CUMM) 298 MPV (7.4 - 10.4 FL) 10.6 H Gran % (42.2 - 75.2 %) 95.2 H Lymphocytes % (20.5 - 51.1 %) 2.9 L Monocytes % (1.7 - 9.3 %) 1.9 Eosinophils % (0 - 5 %) 0 Basophils % (0.0 - 2.0 %) 0 L Absolute Granulocytes (1.4 - 6.5 /CUMM) 41.8 H Segmented Neutrophils (42.2 - 75.2 %) 89 H Band Neutrophils (0.0 - 5.0 %) 6 H Absolute Lymphocytes (1.2 - 3.4 /CUMM) 1.3 Lymphocytes (20.5 - 51.1 %) 3 L Monocytes (1.7 - 9.3 %) 1 L Absolute Monocytes (0.10 - 0.60 /CUMM) 0.8 H Absolute Eosinophils (0.0 - 0.7 /CUMM) 0 Absolute Basophils (0.0 - 0.2 /CUMM) 0 Metamyelocytes (0.0 - 1.0 %) 1 Platelet Estimate (ADEQUATE) ADEQUATE Hypochromic-Microcytic 1+ Anisocytosis 1+ Ovalocytes 1+ PUBS MCHC (33.0 - 37.0 G/DL) 33.5 Miscellaneous Phlebotomy Draw Site LEFT RADIAL Last 24 Hours of [place] Results: Sputum culture October 14 positive for Stenotrophomonas maltophilia sensitive to Levaquin and Bactrim Blood cultures 2 days October 14 negative Recent Imaging Studies: Chest x-ray October 16 improving bilateral reticulonodular opacities Assessment/Plan Impression: Condition remains poor, with hypotension, though on decreasing pressors, and increasing leukocytosis, possibly in part secondary to the steroids she received yesterday for her tongue swelling, which is of unclear etiology, or pneumonia, with a recent sputum culture positive for Stenotrophomonas, though her respiratory status and chest x-ray have overall improved. She has had intermittent fevers and was begun on Ceftazidime yesterday, but, given the final sputum culture results, will need to adjust her antibiotics. She does have a baseline leukocytosis, likely secondary to a noninfectious process that existed prior to admission. Her H&H is stable status post a hematoma surrounding the right hip following a fall, resulting in a fracture, which will ultimately require repair. Suggestion: 1. Would pursue placement of a PICC so that the right IJ can be removed 2. Follow-up stool for C. difficile 3. Discontinue Ceftazidime 4. Further evaluation of her leukocytosis, to rule out an underlying disease, per Medicine 5. Begin Bactrim 200 mg (based on the trimethoprim dose) IV every 8 hours
--- NOTE | 2016-10-16 13:10 | RADIOLOGY REPORT ---
EXAMINATION: XR PORTABLE CHEST CLINICAL INFORMATION: Post extubation COMPARISON: None. TECHNIQUE: 70 degrees AP chest portable at 12:31 PM. FINDINGS: The endotracheal tube is 5.2 cm above the king. Nasogastric tube tip is in stomach. Right jugular central line is in right atrium. Both lungs are in moderate inspiration with bilateral groundglass and reticular nodular opacities which are stable. There is new right PICC line with this tip caval venous junction IMPRESSION: Stable lines as described above with a new PICC line tip at atriocaval junction. No appreciable change in bilateral groundglass and reticulonodular airspace disease in both lungs.
[2016-10-16 16:00] VITALS: BP 90/60
[2016-10-16 20:52] VITALS: BP 96/53
--- NOTE | 2016-10-16 23:22 | NUR ---
AVSS.SEDATED ON ATIVAN GTT. +PP.GEN EDEMA. IV ABX CONT VIA PICC SITE. REMAIN VENTILATED WITH SATS 95.HOB ELEVATED.SATHISH PATENT.SEE ICU FLOWSHEETS FOR FURTHER DETAILS
[2016-10-17] VITALS: BP 102/70
--- NOTE | 2016-10-17 02:28 | NUR ---
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
[2016-10-17 04:00] VITALS: BP 100/62
[2016-10-17 05:37] LABS: ABSOLUTE BASOPHIL COUNT 0 /CUMM (0.0-0.2); ABSOLUTE EOSINOPHIL COUNT 0.5 /CUMM (0.0-0.7); ABSOLUTE GRANULOCYTE CT 31.5 /CUMM (1.4-6.5); ABSOLUTE LYMPH COUNT 1.6 /CUMM (1.2-3.4); ABSOLUTE MONOCYTE COUNT 0.7 /CUMM (0.10-0.60); BASOPHIL % 0 % (0.0-2.0); EOSINOPHIL % 1.5 % (0-5); HEMATOCRIT 25.2 % (37-47); MEAN CORPUSCULAR HGB 30.1 PG (27.0-31.0); MEAN CORPUSCULAR HGB CONC 33.6 G/DL (33.0-37.0); MEAN CORPUSCULAR VOLUME 89.8 FL (81.0-99.0); MEAN PLATELET VOLUME 10.1 FL (7.4-10.4); PLATELET COUNT 304 /CUMM (130-400); RBC DISTRIBUTION WIDTH 16.4 % (11.5-14.5); RED BLOOD CELL CT 2.81 /CUMM (4.20-5.40)
[2016-10-17 05:59] LABS: WHITE BLOOD CELL COUNT 34.2 /CUMM (4.8-10.8)
--- NOTE | 2016-10-17 07:02 | NUR ---
0600 NO CHANGES IN STATUS NOTED OVERNIGHT, AM PORTABLE CXR DONE, AWAITING AM MD ROUNDS
[2016-10-17 08:00] VITALS: BP 110/60
--- NOTE | 2016-10-17 08:02 | RADIOLOGY REPORT ---
EXAMINATION: XR PORTABLE CHEST CLINICAL INFORMATION: Hypoxia, tachypnea. COMPARISON: 10/16/2016 TECHNIQUE: Portable view of the chest was obtained. FINDINGS: The endotracheal tube terminates 5 cm above the king. Enteric tube courses below the diaphragm. Right-sided PICC line terminates near the cavoatrial junction. Cardiac leads overlie the chest. The lungs are well expanded. There are persistent hazy bibasilar opacities with interstitial prominence. No pneumothorax. The cardiomediastinal silhouette is unchanged. No acute osseous abnormality. IMPRESSION: No significant change from prior. Hazy bibasilar opacities persist which could represent small pleural effusions. Persistent interstitial prominence most suggestive of mild edema. Endotracheal tube terminating 5 cm above the king.
--- NOTE | 2016-10-17 10:46 | PN- Infect Dx ---
Subjective Subjective: MAXIMUM TEMPERATURE 100. She remains on Levophed, though on a decreased dose. Several liquid stools reported. She remains sedated and unable to provide any history. Objective Last 24 Hrs of Vital Signs/I&O Vital Signs Date Time Temp Pulse Resp B/P Pulse O2 O2 Flow FiO2 Ox Delivery Rate 10/17 0801 40 10/17 0526 40 10/17 0400 94 Ventilator 40% 10/17 0400 100.0 96 21 100/62 94 Ventilator 40% 10/17 0251 40 10/17 0052 40 10/17 0000 99.7 98 22 102/70 01/04 0000 95 Ventilator 40% 10/17 0000 99.7 98 22 102/70 95 Ventilator 40% 10/16 2215 40 10/16 2129 99 24 93/55 10/16 2052 99.4 100 26 96/53 97 Ventilator 40% 10/16 2000 96 Ventilator 40% 10/16 1907 40 10/16 1702 40 10/16 1641 104 96/61 10/16 1600 98.0 104 38 90/60 10/16 1600 98.0 104 38 90/60 95 Ventilator 40% 10/16 1600 94 Ventilator 40% 10/16 1423 40 10/16 1200 96 Ventilator 40% 10/16 1200 98.0 98 26 106/72 95 Ventilator 40% 10/16 1051 40 Intake & Output 10/17 1600 10/17 0800 10/17 0000 Intake Total 563 1086 Output Total 360 940 Balance 203 146 Intake, IV 76 622 Intake, Tube 387 364 Feeding Intake, Tube 100 100 Irrigant Number 1 1 Bowel Movements Output, Urine 360 940 Physical Exam Other Physical Findings: She is sedated on the ventilator with no response Lungs bilateral rhonchi Heart regular rhythm with no murmur Abdomen is soft, with positive bowel sounds, with no obvious tenderness Extremities no cyanosis, clubbing or edema; PICC in the right upper extremity with no inflammation at the site Palacio catheter remains in place Results Last 24 Hours of Lab Results: Laboratory Tests 10/17 10/17 0500 0355 Chemistry Sodium (137 - 145 mmol/L) 136 L Potassium (3.5 - 5.1 mmol/L) 3.9 Chloride (98 - 107 mmol/L) 96 L Carbon Dioxide (22 - 30 mmol/L) 28 Anion Gap (5 - 16) 12 BUN (7 - 17 mg/dL) 16 Creatinine (0.5 - 1.0 mg/dL) 0.5 Estimated GFR (>60 ml/min) > 60 Glucose (65 - 99 mg/dL) 159 H Hemoglobin A1c Pending Calcium (8.4 - 10.2 mg/dL) 8.0 L Phosphorus (2.5 - 4.5 mg/dL) 3.8 Magnesium (1.6 - 2.3 mg/dL) 1.5 L Total Bilirubin (0.2 - 1.3 mg/dL) 0.6 AST (14 - 36 U/L) 91 H ALT (9 - 52 U/L) 57 H Albumin (3.5 - 5.0 g/dL) 1.8 L Hematology CBC w Diff MAN DIFF ORDERED WBC (4.8 - 10.8 /CUMM) 34.2 *H RBC (4.20 - 5.40 /CUMM) 2.81 L Hgb (12.0 - 16.0 G/DL) 8.5 L Hct (37 - 47 %) 25.2 L MCV (81.0 - 99.0 FL) 89.8 MCH (27.0 - 31.0 PG) 30.1 RDW (11.5 - 14.5 %) 16.4 H Plt Count (130 - 400 /CUMM) 304 MPV (7.4 - 10.4 FL) 10.1 Gran % (42.2 - 75.2 %) 92.0 H Lymphocytes % (20.5 - 51.1 %) 4.6 L Monocytes % (1.7 - 9.3 %) 1.9 Eosinophils % (0 - 5 %) 1.5 Basophils % (0.0 - 2.0 %) 0 L Absolute Granulocytes (1.4 - 6.5 /CUMM) 31.5 H Segmented Neutrophils (42.2 - 75.2 %) 87 H Band Neutrophils (0.0 - 5.0 %) 3 Absolute Lymphocytes (1.2 - 3.4 /CUMM) 1.6 Lymphocytes (20.5 - 51.1 %) 6 L Monocytes (1.7 - 9.3 %) 3 Absolute Monocytes (0.10 - 0.60 /CUMM) 0.7 H Eosinophils (0 - 5.0 %) 1 Absolute Eosinophils (0.0 - 0.7 /CUMM) 0.5 Absolute Basophils (0.0 - 0.2 /CUMM) 0 Platelet Estimate (ADEQUATE) ADEQUATE Polychromasia 1+ Poikilocytosis 1+ Ovalocytes 1+ Stomatocytes FEW PUBS MCHC (33.0 - 37.0 G/DL) 33.6 Other Body Source Fld Total RBCs Counted (%) 100 Last 24 Hours of Charles Results: Blood cultures 2 October 14 negative Stool C. difficile October 16 pending Recent Imaging Studies: Chest x-ray October 17 hazy bibasilar opacities persist Assessment/Plan Impression: Condition remains poor, though stable with some evidence of improvement, on decreasing pressors and with white blood cell count decreasing, now on Bactrim for possible pneumonia secondary to Stenotrophomonas, isolated from a recent sputum culture, though suspect this may just represent colonization. She has had multiple loose stools, raising concern for C. difficile. Suggestion: 1. Follow-up stool for C. difficile 2. Continue Bactrim
--- NOTE | 2016-10-17 11:47 | PN- Resident CRCU ---
Subjective HPI/CRCU Issues: Patient seen and examined. He is seen lying flat in bed maintained in bilateral upper extremity restraints intubated on a ventilator with multiple lines in place. She appears to be in no acute distress and is not arousable to verbal/ tactile stimuli. Review of systems is unobtainable. No overnight events reported. Objective Vital Signs & I&O Last 8 Hrs of Vitals and I&O: Vitals: - Temperature: 98.0-100.0 - Heart Rate: 92-100 - Respiratory Rate: 18-22 - Systolic Blood pressure: 85-108 - Diastolic Blood pressure: 55-68 - Oxygen Saturation: 92-100% on 40% FiO2 Exam General Appearance: no apparent distress, sedated, intubated Other Physical Findings: General -frail/elderly woman, intubated on ventilator in no acute distress HEENT - NCAT, PERRL, EOMI, anicteric sclera, OG tube in place Cardio - S1, S2 w/o murmurs/gallops/rubs Resp -mild rhonchi without crackles, intubated GI -soft, nontender, nondistended, bowel sounds present Neuro -somnolent/lethargic/sedated, not arousable to verbal/tactile stimuli, pupils reactive to light, Babinski negative Extremities: -RLE: Proximal right lower extremity demonstrates hematoma with overlying ecchymosis on posterior aspect, no distal lower extremity swelling, pulses intact Current Medications: Current Medications Sig/[place] Start time Last Medication Dose Route Stop Time Status Admin Acetaminophen 1,000 MG Q6P PRN 10/10 1630 AC 10/14 N/A 1 UNIT IV 1239 Acetaminophen 650 MG Q8 PRN 10/06 1945 AC 10/09 PO 2017 Albuterol Sulfate 3 ML EVERY 4 HRS/AWAKE 10/12 0800 AC 10/17 INH 1138 Ceftazidime 1,000 MG IQ8 10/15 1600 DC 10/16 IV 0900 Exemestane 25 MG DAILY 10/07 1000 AC 10/17 PO 1029 Folic Acid 1 MG DAILY 10/07 1000 AC 10/17 PO 1029 Furosemide 40 MG ONCE ONE 10/17 0945 DC 10/17 IV 10/17 0946 1039 Furosemide 20 MG ONCE ONE 10/16 1615 DC 10/16 IV 10/16 1616 1639 Glycerin 2 SPRAY Q2P PRN 10/15 1430 AC 10/17 PO 0627 Insulin Aspart 0 Q4 10/16 1800 AC 10/17 SC 1036 Insulin Aspart 6 UNITS ONCE ONE 10/16 1630 DC 10/16 SC 10/16 1631 1630 Insulin Detemir 5 UNITS BID 10/16 2200 AC 10/17 AZ 1035 Insulin Detemir 5 UNITS AT BEDTIME 10/06 2200 DC 10/15 SC 2240 Insulin Human Regular 0 Q6 10/11 1200 DC 10/16 SC 1300 Lorazepam 50 MG Q11H 10/15 0800 AC 10/16 Dextrose/Water 500 ML IV 1639 Lorazepam 0 Q1P PRN 10/07 1330 AC 10/09 IV 1747 Magnesium Sulfate 1 GM Q2H 10/17 0730 DC 10/17 Dextrose/Water 100 ML IV 10/17 1129 1030 Non-Formulary 0 SEE ADMIN CRITERIA 10/16 1415 CAN Medication ANY Norepinephrine 8 MG Q14H 10/14 0000 DC 10/16 Sodium Chloride 250 ML IV 2129 Pantoprazole Sodium 40 MG DAILY 10/10 1835 AC 10/17 IV 1029 Trimethoprim/ 12.5 ML Q8H 10/16 1415 AC 10/17 Sulfamethoxazole IV 0546 Dextrose/Water 250 ML Impression/Plan Impression/Problem List Impression: Patient continues to remain hemodynamically stable with no overnight events as in previous days. She is to be titrated off of the Ativan and Levophed as tolerated. Leukocytosis is improving after initiation of intravenous Bactrim antibiotics. Patient is noted to be minimally more swollen in her upper extremities today which Lasix were given. She is still not rousable to verble/ tactile stimuli. C. difficile toxin was found to be positive today and patient was begun on oral vancomycin. Plain film of her abdomen was obtained to rule out any occult toxic megacolon, which was subsequently active. Problem list: -Acute hypoxic respiratory failure, intubated on vent -Acute respiratory distress syndrome, intubated on vent -Displaced comminuted right proximal femoral shaft fracture -Proximal right lower extremity hematoma -Acute blood loss anemia, stable -EtOH withdrawal -Multilobar pneumonia, on antibiotics -History of breast cancer that is post bilateral mastectomy, chemotherapy/ radiation -Leukocytosis -C. Diff colitis, on oral vancomycin Respiratory/infectious disease: Patient remains intubated on ventilator. Lasix given as tolerated for fluid overload. Daily arterial blood gas/chest x-rays are to be obtained for assessment of respiratory disease. -Intubated on ventilator -Levophed drip titrating down -Ceftazidime discontinued -Bactrim IV -Vancomycin 125mg PO Q6H -Sputum cultures: Stenotrophomonas resistant to ceftazidime -Follow up with surgical PA when medically clear for surgery Musculoskeletal: Sustained a fall from her bed resulting in a right hip fracture as demonstrated by x-ray and CT imaging. She was evaluated by orthopedic surgery, but surgical intervention was deferred as patient was found to have an acute drop in her hemoglobin requiring admission to the intensive care unit from the general medicine floor for medical optimization. -Monitor vital signs and hemoglobin -Cardiac clearance obtained -Orthopedic consult following Cardiology: Revised cardiac risk index calculated for a score of 0 suggesting a 0.4% risk of a major cardiac event. -RCRI: 0, 0.4 risk for major cardiac event -human performance consultant cleared patient for surgery Hematology/oncology: Patient has a history of breast cancer with bilateral mastectomy, chemotherapy, and radiation. Last treatment reportedly received 6 months ago. She is a patient of Dr. Mejias of the [facility]. She has not had any follow- up imaging since this time apparently, but is reportedly in remission with a surveillance visit scheduled in January 2017. Patient has had persistent leukocytosis since admission. White blood cell count was elevated as recently as July to 20,000, baseline level unclear. She denies taking any adjuvant chemotherapy regimens such as Neulasta/Neupogen that could possibly account for this, however records are unavailable at this time. Consent for blood transfusion was obtained and placed on chart, type and cross was ordered. Packed red blood cells were transfused. -PRBC transfused: 3 -Daily CBC, monitor for worsening anemia/leukocytosis Psychiatry: Patient has a history of alcohol abuse for which she reports drinking vodka several times a week. Serum alcohol on admission was negative. She remains tremulous with see what scores consistently minimally elevated. -Ativan drip, titrate as necessary -Multivitamin/thiamine/folate -Bupropion on hold -Consider psychiatry/social work consult Endocrinology: Patient with a history of diabetes mellitus. Blood sugars have been consistently low requiring amps of dextrose. -Accu-Cheks -Nothing by mouth sliding scale insulin Pain plan: -Acetaminophen 650 mg by mouth every 8 hours as needed for pain 1-3 -Oxycodone 1 tab by mouth every 6 hours as needed for pain 4-6 -Dilaudid 0.6 mg IV every 4 hours as needed for pain 7-10 Diet -NPO, tube feeds continuing DVT prophylaxis-mechanical ppx to LLE Code Status-full code Problem List: 1. Displaced comminuted fracture of shaft of right femur Pain Ratin Tomorrow's Labs & Rationales: Complete blood count ICU bundle Arterial blood gas Chest x-ray Plan DVT/Prophylaxis: mechanical
[2016-10-17 12:00] VITALS: BP 98/60
--- NOTE | 2016-10-17 14:44 | ULTRASOUND REPORT ---
EXAMINATION: US TRIPLEX LOWER EXTREMITY, BILATERAL CLINICAL INFORMATION: Acute respiratory failure; question of pulmonary embolus and/or deep venous thrombosis. COMPARISON: Venous ultrasound examination dated 10/10/2016. TECHNIQUE: Color-flow triplex imaging with spectral analysis and compression Doppler were performed on the bilateral lower extremities. FINDINGS: Respiratory variation, normal compression and augmented flow are noted throughout the bilateral lower extremities. The visualized common femoral vein, proximal greater saphenous vein, femoral vein, profunda femoral vein, popliteal vein and visualized mid calf venous segments show no evidence of deep venous thrombosis. There is no Chance's cyst. IMPRESSION: Normal triplex scan without evidence of deep venous thrombosis involving the bilateral lower extremities.
--- NOTE | 2016-10-17 14:48 | RADIOLOGY REPORT ---
EXAMINATION: XR ABDOMEN CLINICAL INDICATION: Diarrhea, hypoxia, tachypnea and hypotension. COMPARISON: CT abdomen and pelvis without contrast 10/06/2016. TECHNIQUE: Single AP view of the abdomen. FINDINGS: Single AP view of the abdomen demonstrates a minimal amount of retained stool throughout the colon. There is an enteric catheter with the tip of the catheter visualized terminating in the expected region of the gastric fundus. The bowel gas pattern is nonspecific, without findings indicative of obstruction or ileus. There is atherosclerosis of the abdominal aorta. No acute osseous abnormality is identified. IMPRESSION: Nonspecific bowel gas pattern, without findings indicative of obstruction or ileus. A minimal amount of retained stool throughout the colon. An enteric catheter terminates within the gastric fundus.
[2016-10-17 16:00] VITALS: BP 112/60
--- NOTE | 2016-10-17 18:08 | PN- Cardiology ---
Subjective Subjective: * Patient remains intubated and sedated. * sinus rhythm with occasional PVC's * hepatic transaminases continue to climb * WBC count remains elevated and patient is severely anemic * on low dose levophed still to maintain blood pressure Objective Vital Signs and I&Os Vital Signs Date Time Temp Pulse Resp B/P Pulse O2 O2 Flow FiO2 Ox Delivery Rate 10/17 1600 99.1 96 23 112/60 10/17 1600 99.1 96 23 112/60 93 Ventilator 40% 10/17 1600 95 Ventilator 40% 10/17 1427 40 10/17 1300 101 84/54 / 1200 99.3 106 28 98/60 95 Ventilator 40% 10/17 1200 94 Ventilator 40% 10/17 1120 40 10/17 0801 40 10/17 0800 99.6 96 18 110/60 10/17 0800 94 Ventilator 40% 10/17 0800 99.6 96 18 110/60 94 Ventilator 40% 10/17 0526 40 10/17 0400 94 Ventilator 40% 10/17 0400 100.0 96 21 100/62 94 Ventilator 40% 10/17 0251 40 10/17 0052 40 10/17 0000 99.7 98 22 102/70 10/17 0000 95 Ventilator 40% 10/17 0000 99.7 98 22 102/70 95 Ventilator 40% 10/16 2215 40 10/16 2129 99 24 93/55 10/16 2052 99.4 100 26 96/53 97 Ventilator 40% 10/16 1999 96 Ventilator 40% 10/16 1907 40 Intake & Output 10/17 1600 10/17 0800 10/17 0000 10/16 1600 10/16 0800 10/16 0000 Intake Total 4937 020 9674 828 671 658 Output Total 1050 360 940 200 280 450 Balance 28 203 146 628 391 208 Intake, IV 523 76 622 238 123 142 Intake, Oral 0 Intake, Other 166 180 Intake, Tube 389 387 364 410 448 416 Feeding Intake, Tube 100 100 100 100 Irrigant Number 0 1 1 1 2 1 Bowel Movements Output, Urine 1050 360 940 200 280 450 Physical Exam: General: WD/ WN female. Intubated and sedated. Neck: no JVD, no carotid bruit Heart: regular rate and rhythm, no murmur Lungs: clear bilaterally anteriorly Extremities: no edema Assessment/Plan Assessment/Plan * Mild pulmonary edema remains. Continue gentle diuresis as tolerated by blood pressure. * Continue antibiotic therapy. * Continue levophed with a goal SBP of 90mmHg. Continue telemetry? Yes
--- NOTE | 2016-10-17 18:48 | NUR ---
Received patient at 0800 am, orally intubated w/ #8 ETT to the right at 22 cm and mechanically ventilated w/ rate of 18, tidal volume-450, fio2-40%, and peep of 5 w/ o2 sats 92-94%. RT retaped patient on the Left a little after 8 am. No secretions noted w/ deep suction and scant thin clear w/ oral suctioning. Scattered rhonchi auscultated on and off throughout the day, otherwise, patient is diminishe to the bases and clear in the upper lobes at times. NSR-ST on the monitor 90s-100s with no ectopy noted. Patient's sB/P 90s-110s. Started shift on levophed at 1.5 mcg/min and titration down attempted around 10 am without success. SBP down in the 80s per autocuff and manually. Ending gtt rate at 3 mcg/min w/ sbp's 90s-100s. Patient's SAS-3, w/ ativan gtt running at 1mg/hr through HANANE picc line placed 10/16/15. Ativan gtt shut off @ 1130am. By the afternoon, patient opening eye and moving mouth and hands/feet but not purposefully. Pupils remain 4mm and brisk, equal and reactive. Abdomen is soft/distended, +BS. INC of yellow/loose stools. CDIFF came back positive and patient placed on enteric precautions. PO vanco started and given through the OGT. OGT still at ETT w/ glucerna 1.2 tube feeds running at 52 mls/hr w/ q4 hour water flushes of 50 mls each. Less than 5ml of residual noted w/ each check. Palacio in place draining clear, matthias urine. Generalized +1 edema, +2 edema to bilateral hands/labia/right hip. Bruising noted to inside of Right thigh. Skin is moist, otherwise intact, Diminished pulses noted throughout. Safety maintained. Continued to monitor.
[2016-10-17 20:00] VITALS: BP 100/60
[2016-10-18 00:48] VITALS: BP 98/50
--- NOTE | 2016-10-18 02:50 | NUR ---
avss.remain unresponsive and not following commands. pupils reactive. +pp.lung sounds diminished and remain ventilated with sats >95%.iv abx cont via picc site.tf cont via ogt with min residuals.hob elevated. mcgrath patent with good uo.+bm and perineal care done.will cont to monitor
[2016-10-18 03:43] VITALS: BP 106/62
[2016-10-18 05:26] LABS: ABSOLUTE BASOPHIL COUNT 0 /CUMM (0.0-0.2); ABSOLUTE EOSINOPHIL COUNT 0.8 /CUMM (0.0-0.7); ABSOLUTE GRANULOCYTE CT 34.9 /CUMM (1.4-6.5); ABSOLUTE LYMPH COUNT 1.6 /CUMM (1.2-3.4); ABSOLUTE MONOCYTE COUNT 0.5 /CUMM (0.10-0.60); BASOPHIL % 0.1 % (0.0-2.0); EOSINOPHIL % 2.1 % (0-5); GRANULOCYTE % 92.2 % (42.2-75.2); HEMATOCRIT 23.5 % (37-47); MEAN CORPUSCULAR HGB 30.2 PG (27.0-31.0); MEAN CORPUSCULAR HGB CONC 33.3 G/DL (33.0-37.0); MEAN CORPUSCULAR VOLUME 90.7 FL (81.0-99.0); MEAN PLATELET VOLUME 10.4 FL (7.4-10.4); PLATELET COUNT 311 /CUMM (130-400); RBC DISTRIBUTION WIDTH 16.1 % (11.5-14.5)
[2016-10-18 05:52] LABS: WHITE BLOOD CELL COUNT 37.9 /CUMM (4.8-10.8)
--- NOTE | 2016-10-18 07:20 | NUR ---
0700: RECEIVED PT IN BED. UNSRESPONSIVE, SAS 3. PT OPENS EYES BRIEFLY WITH TURNING OR PAINFUL STIMULI. PUPILS REACTIVE. INTUBATED ETT #8 TO LEFT LIP @ 22CM. VENT SETTINGS AC-18 450/40%/5 RHONCHI NOTED THROUGHOUT. PT HAVING LOTS OF ORAL SECRETIONS, MOUTH SUCTIONED AND MOUTH CARE PROVIDED. NSR ON MONITOR. 80'S. B/P 90'S-100'S. ON LEVO GTT AT 3 MCG/MIN, TITRATE TO AN SBP OF 90 OR GREATER. AFEBRILE. OGT IN PLACE, NO RESIDUAL AT THIS TIME. TUBE FEED GLUCERNA 1.2 RUNNING AT GOAL RATE OF 52 ML/HR WITH Q4 H2O FLUSHES 50ML. PT HAVING LOOSE STOOLS. BOWER IN PLACE DRAINING ADEQUATE AMOUNTS OF CLEAR YELLOW URINE. BILATERAL EDEMA NOTED TO HANDS, ELEVATED ON PILLOWS. R HIP EDEMA NOTED. ECCHYMOTIC AREA TO RIGHT HIP. + PEDAL AND RADIAL PULSES. BOTTOM RED BUT BLANCHABLE. HANANE DL PICC IN PLACE, +BLOOD RETURN, DRESSING INTACT. BILATERAL WRIST RESTRAINTS IN PLACE. TURNED AND REPOSITIONED. WILL MONITOR.
[2016-10-18 08:00] VITALS: BP 94/60
--- NOTE | 2016-10-18 08:39 | NUR ---
MANUAL B/P 110/70 MAP 83 LEVO GTT TURNED DOWN TO 2MCG/MIN WILL MONITOR.
--- NOTE | 2016-10-18 10:10 | PN- CRCU ---
Subjective HPI/Critical Care Issues: Patient seen and examined. She has been found to have C. difficile in her stool. Respiratory culture shows Stenotrophomonas maltophilia. Her abdominal x-ray shows nonspecific bowel gas pattern. Chest x-ray shows no significant change with a hazy bibasilar opacities. Currently afebrile on 40% FiO2 review of systems is unobtainable given sedation and intubation. Objective Current Medications: Current Medications Sig/[place] Start time Last Medication Dose Route Stop Time Status Admin Acetaminophen 1,000 MG Q6P PRN 10/10 1630 AC 10/17 N/A 1 UNIT IV 2009 Acetaminophen 650 MG Q8 PRN 10/06 1945 AC 10/09 PO 2016 Albuterol Sulfate 3 ML EVERY 4 HRS/AWAKE 10/12 0800 AC 10/18 INH 0903 Exemestane 25 MG DAILY 10/07 1000 AC 10/18 PO 0903 Folic Acid 1 MG DAILY 10/07 1000 AC 10/18 PO 0903 Glycerin 2 SPRAY Q2P PRN 10/15 1430 AC 10/17 PO 0627 Insulin Aspart 0 Q4 10/16 1800 AC 10/18 SC 0944 Insulin Detemir 5 UNITS BID 10/16 2200 AC 10/18 SC 0903 Lorazepam 50 MG Q11H 10/15 0800 AC 10/16 Dextrose/Water 500 ML IV 1639 Lorazepam 0 Q1P PRN 10/07 1330 AC 10/09 IV 1747 Magnesium Sulfate 1 GM Q2H 10/18 0900 AC 10/18 Dextrose/Water 100 ML IV 10/18 1259 0921 Magnesium Sulfate 1 GM Q2H 10/17 0730 DC 10/17 Dextrose/Water 100 ML IV 10/17 1129 1030 Norepinephrine 8 MG Q14H 10/17 1300 AC 10/18 Sodium Chloride 250 ML IV 0218 Pantoprazole Sodium 40 MG DAILY 10/10 1835 AC 10/18 IV 0903 Trimethoprim/ 12.5 ML Q8H 10/16 1415 AC 10/18 Sulfamethoxazole IV 0524 Dextrose/Water 250 ML Vancomycin HCl 125 MG Q6 10/17 1350 AC 10/18 PO 0504 Vital Signs & I&O Last 24 Hrs of Vitals and I&O: Vital Signs Date Time Temp Pulse Resp B/P Pulse O2 O2 Flow FiO2 Ox Delivery Rate 10/18 0931 40 10/18 08 98.2 82 25 94/60 10/18 0800 96 Ventilator 40% 10/18 0800 98.2 82 25 94/60 96 Ventilator 40% 10/18 0528 40 10/18 0343 95 Ventilator 40% 10/18 0343 82 20 106/62 96 / 0218 83 20 98/62 / 0048 97.9 88 20 98/50 / 0048 97.9 88 2 98/50 / 0048 96 Ventilator 40% 10/18 0044 40 10/17 2245 40 10/17 2200 98.6 10/17 2009 100.6 10/17 1999 97 Ventilator 40% 10/17 1999 100.6 101 22 100/60 97 Ventilator 40% 10/17 1915 40 /04 1640 40 10/17 1600 99.1 96 23 112/60 10/17 1600 99.1 96 23 112/60 93 Ventilator 40% 10/17 1600 95 Ventilator 40% 10/17 1427 40 10/17 1300 101 84/54 10/17 1200 99.3 106 28 98/60 95 Ventilator 40% 10/17 1200 94 Ventilator 40% 10/17 1120 40 Intake & Output 10/18 1600 10/18 0800 10/18 0000 Intake Total 1854 1247 Output Total 350 362 Balance 1504 885 Intake, IV 290 691 Intake, Other 40 Intake, Tube 364 416 Feeding Intake, Tube 1200 100 Irrigant Number 2 2 Bowel Movements Output, Urine 350 362 Exam Other Physical Findings: General - intubated sedated HEENT - ET tube Cardiovascular - S1, S2 Lungs - transmitted breath sounds bilaterally Abdomen - soft, bowel sounds positive, no tenderness Extremities - without edema or cyanosis Results Last 24 Hrs of Lab Results: Laboratory Tests 10/18/16 0605: pH 7.54 H, pCO2 32 L, pO2 77 L, HCO3 27, ABG O2 Sat (Measured) 95.0 L, P-50 (Temp Corrected) Y, Carboxyhemoglobin 0.4 L, O2 Concentration % 40%, Temperature 98.3, Respiration Rate 18, O2 Delivery Method ESPRIT, Vent Mode AC, Expiratory Pressure 5, Tidal Volume 450, Phlebotomy Draw Site LEFT RADIAL 10/18/16 0400: Anion Gap 9, Estimated GFR > 60, Glucose 172 H, Calcium 7.7 L, Phosphorus 4.1, Magnesium 1.6, Total Bilirubin 0.5, AST 49 H, ALT 55 H, Albumin 1.8 L, CBC w Diff MAN DIFF ORDERED, RBC 2.60 L, MCV 90.7, MCH 30.2, RDW 16.1 H, MPV 10.4, Gran % 92.2 H, Lymphocytes % 4.2 L, Monocytes % 1.4 L, Eosinophils % 2.1, Basophils % 0.1, Absolute Granulocytes 34.9 H, Segmented Neutrophils 84 H, Band Neutrophils 4, Absolute Lymphocytes 1.6, Lymphocytes 3 L, Monocytes 4, Absolute Monocytes 0.5, Eosinophils 5, Absolute Eosinophils 0.8, Absolute Basophils 0, Platelet Estimate ADEQUATE, Polychromasia 1+, Poikilocytosis 1+, Ovalocytes 1+, PUBS MCHC 33.3, Fld Total RBCs Counted 100 Impression/Plan Impression/Plan Impression/Plan: Impression 61 year old woman hx breast ca - right intratrochanteric fracture - acute blood loss anemia - improved hypoxemic respiratory failure presumed ards - c.diff in stool Plan Respiratory -cont mechanical ventilation ID -ID consultation appreciated -cont abx -c.diff and stenotrophomonas CVS -f/u cardiology Heme -hx of breast ca, will need follow up with oncology after acute illness -acute blood loss anemia, possible retroperitoneal bleed, s/p CT, surgery consultation Metabolic -ins/outs, monitor electrolytes -finger sticks q2h Alimentary -tube feeds Neuro -sedation as needed TTS 40 min
--- NOTE | 2016-10-18 11:13 | PN- Infect Dx ---
Subjective Subjective: MAXIMUM TEMPERATURE 100.6. She had 4 loose bowel movements reported yesterday and 2 loose bowel movements overnight. She remains on Levophed, which is continuing to be tapered, and is currently off sedation. Objective Last 24 Hrs of Vital Signs/I&O Vital Signs Date Time Temp Pulse Resp B/P Pulse O2 O2 Flow FiO2 Ox Delivery Rate 10/18 0931 40 10/18 0800 98.2 82 25 94/60 10/18 0800 96 Ventilator 40% 10/18 0800 98.2 82 25 94/60 96 Ventilator 40% 10/18 0528 40 10/18 0343 95 Ventilator 40% 10/18 0343 82 20 106/62 96 10/18 0218 83 20 98/62 10/18 0048 97.9 88 20 98/50 10/18 0048 97.9 88 2 98/50 / 0048 96 Ventilator 40% 10/18 0044 40 10/17 2245 40 10/17 2200 98.6 /2009 100.6 /1999 97 Ventilator 40% 10/17 2000 100.6 101 22 100/60 97 Ventilator 40% 10/17 1915 40 04 1640 40 10/17 1600 99.1 96 23 112/60 /04 1600 99.1 96 23 112/60 93 Ventilator 40% 10/17 1600 95 Ventilator 40% 10/17 1427 40 10/17 1300 101 84/54 / 1200 99.3 106 28 98/60 95 Ventilator 40% 10/17 1200 94 Ventilator 40% 10/17 1120 40 Intake & Output 10/18 1600 10/18 0800 10/18 0000 Intake Total 1854 1247 Output Total 350 362 Balance 1504 885 Intake, IV 290 691 Intake, Other 40 Intake, Tube 364 416 Feeding Intake, Tube 1200 100 Irrigant Number 2 2 Bowel Movements Output, Urine 350 362 Physical Exam Other Physical Findings: She is responsive to pain, on the ventilator Lungs scattered rhonchi bilaterally Heart regular rhythm with no murmur Abdomen is soft, with no obvious tenderness, positive bowel sounds Extremities PICC in the right upper extremity with no inflammation at the site Palacio catheter remains in place Results Last 24 Hours of Lab Results: Laboratory Tests 10/18 10/18 0605 0400 Blood Gas pH (7.35 - 7.45 PH) 7.54 H pCO2 (35 - 45 TORR) 32 L pO2 (80 - 100 TORR) 77 L HCO3 (21 - 28 MEQ/L) 27 ABG O2 Sat (Measured) (>96.0 %) 95.0 L P-50 (Temp Corrected) Y Carboxyhemoglobin (1.5 - 5.0 %) 0.4 L O2 Concentration % 40% Temperature (97.0 - 100.0 FARH) 98.3 Respiration Rate (BPM) 18 O2 Delivery Method ESPRIT Vent Mode AC Expiratory Pressure (CMH2O/P) 5 Tidal Volume (CC) 450 Chemistry Sodium (137 - 145 mmol/L) 131 L Potassium (3.5 - 5.1 mmol/L) 4.0 Chloride (98 - 107 mmol/L) 93 L Carbon Dioxide (22 - 30 mmol/L) 30 Anion Gap (5 - 16) 9 BUN (7 - 17 mg/dL) 15 Creatinine (0.5 - 1.0 mg/dL) 0.5 Estimated GFR (>60 ml/min) > 60 Glucose (65 - 99 mg/dL) 172 H Calcium (8.4 - 10.2 mg/dL) 7.7 L Phosphorus (2.5 - 4.5 mg/dL) 4.1 Magnesium (1.6 - 2.3 mg/dL) 1.6 Total Bilirubin (0.2 - 1.3 mg/dL) 0.5 AST (14 - 36 U/L) 49 H ALT (9 - 52 U/L) 55 H Albumin (3.5 - 5.0 g/dL) 1.8 L Hematology CBC w Diff MAN DIFF ORDERED WBC (4.8 - 10.8 /CUMM) 37.9 *H RBC (4.20 - 5.40 /CUMM) 2.60 L Hgb (12.0 - 16.0 G/DL) 7.8 L Hct (37 - 47 %) 23.5 L MCV (81.0 - 99.0 FL) 90.7 MCH (27.0 - 31.0 PG) 30.2 RDW (11.5 - 14.5 %) 16.1 H Plt Count (130 - 400 /CUMM) 311 MPV (7.4 - 10.4 FL) 10.4 Gran % (42.2 - 75.2 %) 92.2 H Lymphocytes % (20.5 - 51.1 %) 4.2 L Monocytes % (1.7 - 9.3 %) 1.4 L Eosinophils % (0 - 5 %) 2.1 Basophils % (0.0 - 2.0 %) 0.1 Absolute Granulocytes (1.4 - 6.5 /CUMM) 34.9 H Segmented Neutrophils (42.2 - 75.2 %) 84 H Band Neutrophils (0.0 - 5.0 %) 4 Absolute Lymphocytes (1.2 - 3.4 /CUMM) 1.6 Lymphocytes (20.5 - 51.1 %) 3 L Monocytes (1.7 - 9.3 %) 4 Absolute Monocytes (0.10 - 0.60 /CUMM) 0.5 Eosinophils (0 - 5.0 %) 5 Absolute Eosinophils (0.0 - 0.7 /CUMM) 0.8 Absolute Basophils (0.0 - 0.2 /CUMM) 0 Platelet Estimate (ADEQUATE) ADEQUATE Polychromasia 1+ Poikilocytosis 1+ Ovalocytes 1+ PUBS MCHC (33.0 - 37.0 G/DL) 33.3 Miscellaneous Phlebotomy Draw Site LEFT RADIAL Other Body Source Fld Total RBCs Counted (%) 100 Last 24 Hours of Charles Results: Stool C. difficile October 16 positive Blood cultures October 14 negative Recent Imaging Studies: Abdominal x-ray October 17 reveals a nonspecific bowel gas pattern, with no findings of obstruction or ileus Assessment/Plan Impression: Condition remains poor, now with positive C. difficile, for which she is on po Vancomycin, with temperatures remaining normal but with increasing white blood cell count. She remains on Bactrim, now Day 2, for Stenotrophomonas isolated from the sputum culture, though am not convinced she has pneumonia and suspect this may just represent colonization. She is overall improved with decreasing need for pressors and with respiratory status stable. Suggestion: 1. Continue po Vancomycin 2. Continue Bactrim
[2016-10-18 12:00] VITALS: BP 80/50
--- NOTE | 2016-10-18 12:13 | NUR ---
PT OFF LEVO SINCE 944. B/P MANUALLY AT THIS TIME 80/50, MAP 61. LEGS ELEVATED. WILL RECHECK B/P IN 15 MINUTES.
--- NOTE | 2016-10-18 13:45 | NUR ---
1300: PT RESTARTED ON LEVO GTT AT 1MCG/MIN PER ORDER, KEEP MAP >65. WILL MONITOR.
[2016-10-18 16:00] VITALS: BP 92/58
--- NOTE | 2016-10-18 16:14 | PN- Resident CRCU ---
Subjective HPI/CRCU Issues: Patient seen and examined. She is seen lying upright in bed, intubated on a ventilator with multiple lines in place. She appears to be in no acute distress. Review of systems is unobtainable. No overnight events reported. Objective Vital Signs & I&O Last 8 Hrs of Vitals and I&O: Intake & Output 10/18 1600 Intake Total 1035.5 Output Total 300 Balance 735.5 Intake, IV 222.5 Intake, Tube 438 Feeding Intake, Tube 375 Irrigant Number 1 Bowel Movements Output, Urine 300 Patient 63.134 kg Weight Vital Signs: - TMax: 98.2 - HR: 82 - 88 - RR: 19 - 29 - Systolic BP: 96-111 - Diastolic BP: 53-70 - pO2: 95-98% Exam General Appearance: sedated, intubated Other Physical Findings: General - frail/elderly woman, intubated in bilateral upper extremity soft restraints in no acute distress HEENT - NCAT, PERRL, anicteric sclera, OG tube in place CVS - S1, S2 w/o m/g/r Resp - CTA bilaterally, intubated on vent GI - soft, nontender, nondistended, bowel sounds present - mcgrath catheter in place Neuro - lethargic/somnlonent, minimally arousable to verbal/tactile stimuli Ext - RUE PICC line in place, swelling of both hands, proximal swelling of RLE with ecchymosis, pulses intact in all four extremities Current Medications: Current Medications Sig/[place] Start time Last Medication Dose Route Stop Time Status Admin Acetaminophen 1,000 MG Q6P PRN 10/10 1630 AC 10/17 N/A 1 UNIT IV 2009 Acetaminophen 650 MG Q8 PRN 10/06 1945 AC 10/09 PO 2016 Albuterol Sulfate 3 ML EVERY 4 HRS/AWAKE 10/12 0800 AC 10/18 INH 1125 Exemestane 25 MG DAILY 10/07 1000 AC 10/18 PO 0903 Folic Acid 1 MG DAILY 10/07 1000 AC 10/18 PO 0903 Glycerin 2 SPRAY Q2P PRN 10/15 1430 AC 10/17 PO 0627 Insulin Aspart 0 Q4 10/16 1800 AC 10/18 SC 1418 Insulin Detemir 5 UNITS BID 10/16 2200 AC 10/18 SC 0903 Lorazepam 50 MG Q11H 01/02 0800 DC 10/16 Dextrose/Water 500 ML IV 1639 Lorazepam 0 Q1P PRN 10/07 1330 AC 10/09 IV 1747 Magnesium Sulfate 1 GM Q2H 10/18 0900 DC 10/18 Dextrose/Water 100 ML IV 10/18 1259 1021 Norepinephrine 8 MG Q14H 10/18 1500 AC 10/18 Sodium Chloride 250 ML IV 1537 Norepinephrine 8 MG Q14H 10/17 1300 DC 10/18 Sodium Chloride 250 ML IV 0218 Pantoprazole Sodium 40 MG DAILY 10/10 1835 AC 10/18 IV 0903 Trimethoprim/ 12.5 ML Q8H 10/16 1415 AC 10/18 Sulfamethoxazole IV 1536 Dextrose/Water 250 ML Vancomycin HCl 125 MG Q6 10/17 1350 AC 10/18 PO 1213 Impression/Plan Impression/Problem List Impression: Patient continues to remain hemodynamically stable. She is no off of propofol, ativan, and will hopefully have levophed titrated off today. She is now minimally arousable to verbal and tactile stimuli but does not have spontanoues movement of her extremities and only briefly opens her eyes. She is continued on IV flagyl and PO vancomycin. Problem list: -Acute hypoxic respiratory failure, intubated on vent -Acute respiratory distress syndrome, intubated on vent -Displaced comminuted right proximal femoral shaft fracture -Proximal right lower extremity hematoma -Acute blood loss anemia, stable -EtOH withdrawal -Multilobar pneumonia, on antibiotics -History of breast cancer that is post bilateral mastectomy, chemotherapy/ radiation -Leukocytosis -C. Diff colitis, on oral vancomycin Respiratory/infectious disease: Patient remains intubated on ventilator. Lasix given as tolerated for fluid overload. Daily arterial blood gas/chest x-rays are to be obtained for assessment of respiratory disease. -Intubated on ventilator -Levophed drip titrating down -Ceftazidime discontinued -Bactrim IV -Vancomycin 125mg PO Q6H -Sputum cultures: Stenotrophomonas resistant to ceftazidime -Follow up with surgical PA when medically clear for surgery Musculoskeletal: Sustained a fall from her bed resulting in a right hip fracture as demonstrated by x-ray and CT imaging. She was evaluated by orthopedic surgery, but surgical intervention was deferred as patient was found to have an acute drop in her hemoglobin requiring admission to the intensive care unit from the general medicine floor for medical optimization. -Monitor vital signs and hemoglobin -Cardiac clearance obtained -Orthopedic consult following Cardiology: Revised cardiac risk index calculated for a score of 0 suggesting a 0.4% risk of a major cardiac event. -RCRI: 0, 0.4 risk for major cardiac event -interventional sale consultant cleared patient for surgery Hematology/oncology: Patient has a history of breast cancer with bilateral mastectomy, chemotherapy, and radiation. Last treatment reportedly received 6 months ago. She is a patient of Dr. Mejias of the [facility]. She has not had any follow- up imaging since this time apparently, but is reportedly in remission with a surveillance visit scheduled in January 2017. Patient has had persistent leukocytosis since admission. White blood cell count was elevated as recently as July to ,000, baseline level unclear. She denies taking any adjuvant chemotherapy regimens such as Neulasta/Neupogen that could possibly account for this, however records are unavailable at this time. Consent for blood transfusion was obtained and placed on chart, type and cross was ordered. Packed red blood cells were transfused. -PRBC transfused: 3 -Daily CBC, monitor for worsening anemia/leukocytosis Psychiatry: Patient has a history of alcohol abuse for which she reports drinking vodka several times a week. Serum alcohol on admission was negative. She remains tremulous with see what scores consistently minimally elevated. -Ativan drip discontinued -Multivitamin/thiamine/folate -Bupropion on hold -Consider psychiatry/social work consult Endocrinology: Patient with a history of diabetes mellitus. Blood sugars have been consistently low requiring amps of dextrose. -Accu-Cheks -Nothing by mouth sliding scale insulin Pain plan: -Acetaminophen 650 mg by mouth every 8 hours as needed for pain 1-3 -Oxycodone 1 tab by mouth every 6 hours as needed for pain 4-6 -Dilaudid 0.6 mg IV every 4 hours as needed for pain 7-10 Diet -NPO, tube feeds continuing DVT prophylaxis-mechanical ppx to LLE Code Status-full code Problem List: 1. Displaced comminuted fracture of shaft of right femur Pain Ratin Tomorrow's Labs & Rationales: CBC ICU bundle ABG CXR Plan DVT/Prophylaxis: mechanical
--- NOTE | 2016-10-18 16:23 | RADIOLOGY REPORT ---
EXAMINATION: XR PORTABLE CHEST CLINICAL INFORMATION: Hypoxia. Tachypnea. COMPARISON: X-ray of the chest performed 10/17/2016 and October 16, 2016. TECHNIQUE: Portable view of the chest was obtained. FINDINGS: There is again noted to be bilateral interstitial lung disease with some more confluent disease in the retrocardiac area. No pneumothorax or significant pleural effusions identified. Endotracheal tube tip is seen approximately 5 cm above king. Nasogastric tube seen traversing to the stomach. Right subclavian central venous catheter is seen with tip at caval atrial junction. IMPRESSION: Interstitial pulmonary edema of cardiogenic or noncardiogenic etiology. No significant change in appearance..
--- NOTE | 2016-10-18 16:35 | NUR ---
1515: LEVO GTT INCREASED TO 3MCG/MIN AT THIS TIME TO MAINTAIN MAP >65. SEE FLOW SHEET FOR VITALS AND TITRATION.
--- NOTE | 2016-10-18 16:49 | NUR ---
PT TO CT SCAN FOR HEAD AND ABD CT WITH THIS RN, DISTRIBUTION AND RESPIRATORY.
--- NOTE | 2016-10-18 17:51 | CT SCAN REPORT ---
EXAMINATION: CT HEAD WITHOUT CONTRAST CLINICAL INFORMATION: Unresponsive after medication administration. COMPARISON: None. TECHNIQUE: Contiguous axial imaging was performed from the skull base to vertex without intravenous administration of contrast. DLP: 600.71 mGy-cm. FINDINGS: There is no evidence of acute intracranial hemorrhage or territorial infarction. No abnormal mass effect or midline shift is seen. [place] to white matter differentiation is well preserved. No extra-axial fluid collections are identified. There is atrophy with prominence of the ventricles and the sulci and hypodensity of the periventricular white matter due to chronic small vessel ischemic disease. There is vascular calcifications of the internal carotid arteries bilaterally. The osseous structures and soft tissues are normal. The mastoid air cells and visualized portions of the paranasal sinuses are well aerated. IMPRESSION: No acute intracranial pathology.
--- NOTE | 2016-10-18 17:56 | NUR ---
BACK FROM CT, NO ISSUES. VSS.
--- NOTE | 2016-10-18 18:25 | CT SCAN REPORT ---
EXAMINATION: CT ABDOMEN AND PELVIS WITHOUT CONTRAST CLINICAL INFORMATION: Anemia. Acute blood loss. Concern for intraperitoneal bleed. COMPARISON: CT abdomen pelvis 10/06/2016, 10/11/2016. TECHNIQUE: Multidetector volumetric imaging was performed from the superior aspect of the liver through the pubic symphysis. Sagittal and coronal reformatted images were obtained on the technologist's workstation. DLP: 493.4 mGy-cm. FINDINGS: LUNG BASES: Bibasilar consolidation worse on the left than right. Air bronchograms on the left. There is groundglass opacity and mosaic attenuation of the lungs consistent with small airways disease with mild bronchial wall thickening. Compared to CT study 10/11/2016, there is improved aeration at right lung base and denser consolidation at the left lung base. LIVER, GALLBLADDER, AND BILIARY TREE: The liver is normal in size, shape, and attenuation. No focal hepatic lesion or biliary ductal dilatation is present. Stable small hypodensity left lobe of liver likely hepatic cyst. Hyperdense material layering dependently in the gallbladder may be calcific sludge or small stones. No dilatation of the biliary ducts. PANCREAS: Coarse calcifications throughout the pancreas consistent with a chronic pancreatitis. No evidence of an acute inflammation. The fat planes around the pancreas are normal. No free fluid. There is dilatation of the pancreatic duct to a diameter of about 7 mm. SPLEEN: Unremarkable. ADRENAL GLANDS: Unremarkable. KIDNEYS AND URETERS: No renal or ureteral calculus. No hydronephrosis. BLADDER: Palacio catheter within the bladder. There is air within the bladder from instrumentation. GASTROINTESTINAL TRACT: There is mild bowel wall thickening at the rectum sigmoid distally. No bowel obstruction. No air in the bowel wall. Moderate volume of stool in the colon. The small bowel loops are normal. The appendix is not seen. Nasogastric tube in the stomach. MESENTERY: Small amount of free fluid in the mesentery but no abscess or air collection. This includes some stranding and fluid in the presacral space and around the rectum and sigmoid. No large fluid collections consistent with a hemorrhage. ABDOMINAL WALL: There is moderate anasarca. LYMPH NODES: No bulky lymphadenopathy. VASCULAR: There is vascular wall calcifications of aorta and iliac arteries without aneurysm. PELVIC VISCERA: Uterus is anteverted. No adnexal abnormality. OSSEOUS STRUCTURES: There is a comminuted intertrochanteric fracture of the right hip. Femoral head remains seated in the acetabulum. Multilevel degenerative change of the spine with disc height narrowing and endplate spurs and facet joint arthrosis. Vacuum disc phenomenon at L4-L5 and significant disc height narrowing at L3-L4. IMPRESSION: 1. Anasarca. Small amount of fluid in the peritoneal cavity related to the anasarca. No interval change since 10/11/2016. No evidence of intra-abdominal or retroperitoneal bleed. 2. Mild thickening of the rectum sigmoid bowel wall similar to prior CAT scan 10/11/2016. No bowel obstruction. Nasogastric tube in stomach. 3. Chronic pancreatitis without acute change of the pancreas. 4. Cholelithiasis. 5. Persistent bibasilar airspace disease. Improved aeration at the right lung base and worsening consolidation at the left lung base compared with the CAT scan of 10/11/2016. 6. Palacio catheter in bladder. 7. Continue displaced intertrochanteric fracture of right femur.
[2016-10-19] VITALS: BP 90/58
[2016-10-19 05:16] LABS: ABSOLUTE BASOPHIL COUNT 0 /CUMM (0.0-0.2); ABSOLUTE EOSINOPHIL COUNT 0.7 /CUMM (0.0-0.7); ABSOLUTE GRANULOCYTE CT 33.7 /CUMM (1.4-6.5); ABSOLUTE LYMPH COUNT 1.5 /CUMM (1.2-3.4); ABSOLUTE MONOCYTE COUNT 1.1 /CUMM (0.10-0.60); BASOPHIL % 0.1 % (0.0-2.0); EOSINOPHIL % 1.8 % (0-5); GRANULOCYTE % 91.2 % (42.2-75.2); HEMATOCRIT 22.8 % (37-47); MEAN CORPUSCULAR HGB 29.9 PG (27.0-31.0); MEAN CORPUSCULAR VOLUME 90.7 FL (81.0-99.0); MEAN PLATELET VOLUME 9.8 FL (7.4-10.4); PLATELET COUNT 319 /CUMM (130-400); RBC DISTRIBUTION WIDTH 16.7 % (11.5-14.5); RED BLOOD CELL CT 2.51 /CUMM (4.20-5.40)
[2016-10-19 05:57] LABS: WHITE BLOOD CELL COUNT 36.9 /CUMM (4.8-10.8)
--- NOTE | 2016-10-19 07:49 | ECHOCARDIOGRAM REPORT ---
LUCHO LI Age: 61 : 1955 Gender: F Exam Date: 10/17/2016 20:07 Exam Location: [facility] Ht (in): 62 Wt (lb): 115 BSA: 1.51 BP: 112 / 60 Ordering Physician: MUMTAZ DAY MD Referring Physician: Jose E Zarate MD, PhD Technologist: Nelda Pimentel KAE Room Number: 111 Indications: SHORTNESS OF BREATH Rhythm: Sinus Technical Quality: technically limited FINDINGS Left Ventricle Normal left ventricular size with mild left ventricular hypertrophy. Normal systolic function with no obvious regional wall motion abnormalities. Normal left ventricular diastolic filling pattern for age. The ejection fraction is visually estimated at 70%. Right Ventricle The right ventricle is normal in size and function. Right Atrium The right atrium is normal in size. Left Atrium The left atrium is normal in size. The interatrial septum is intact. Mitral Valve The mitral valve is normal in structure and function. There is no mitral regurgitation. Aortic Valve Structurally normal aortic valve without significant sclerosis or stenosis. There is no aortic regurgitation. Tricuspid Valve The tricuspid valve is normal in structure and function. There is trace tricuspid regurgitation. Pulmonary artery systolic pressure is normal. Pulmonic Valve Structurally normal pulmonic valve. There is no pulmonic regurgitation. Pericardium Normal pericardium without effusion. No pleural effusion. Great Vessels Normal aortic root dimension. The aortic arch and great vessels are well seen and are normal. CONCLUSIONS 1. Normal EF of 70%. 2. Mild left ventricular hypertrophy. 3. Trace tricuspid regurgitation. Jose E Zarate M.D. (Electronically Signed) Final Date: 19 October 2016 07:48 MEASUREMENTS (Male / Female) Normal Values 2D ECHO LV Diastolic Diameter PLAX 3.8 cm 4.2 - 5.9 / 3.9 - 5.3 cm LV Systolic Diameter PLAX 2.4 cm 2.1 - 4.0 cm LV Fractional Shortening PLAX 36.8 % 25 - 46 % LV Ejection Fraction 2D Teich 67.5 % IVS Diastolic Thickness 1.3 cm LVPW Diastolic Thickness 1.2 cm LV Relative Wall Thickness 0.7 RV Internal Dim ED PLAX 2.0 cm 1.9 - 3.8 cm LVOT Diameter 2.0 cm Aortic Root Diameter 3.5 cm LA Systolic Diameter LX 2.2 cm 3.0 - 4.0 / 2.7 - 3.8 cm Ascending Aorta Diameter 3.6 cm DOPPLER AV Peak Velocity 141.0 cm/s AV Peak Gradient 8.0 mmHg AV Mean Velocity 91.9 cm/s AV Mean Gradient 4.0 mmHg AV Velocity Time Integral 21.0 cm LVOT Peak Velocity 94.0 cm/s LVOT Peak Gradient 3.5 mmHg LVOT Mean Velocity 64.2 cm/s LVOT Mean Gradient 2.0 mmHg LVOT Velocity Time Integral 19.8 cm LVOT Stroke Volume 62.2 cm AV Area Cont Eq vti 3.0 cm AV Area Cont Eq pk 2.1 cm MV Peak Velocity 94.2 cm/s MV Peak Gradient 3.5 mmHg MV Mean Velocity 57.7 cm/s MV Mean Gradient 2.0 mmHg Mitral E Point Velocity 67.6 cm/s Mitral A Point Velocity 71.6 cm/s Mitral E to A Ratio 0.9 MV PHT Velocity 83.4 cm/s MV Deceleration Newton 396.0 cm/s MV Pressure Half Time 63.2 ms MV Area PHT 3.5 cm MV Deceleration Time 201.0 ms TR Peak Velocity 107.0 cm/s TR Peak Gradient 4.6 mmHg Right Atrial Pressure 5.0 mmHg Pulmonary Artery Systolic Pressu 9.6 mmHg Right Ventricular Systolic Press 9.6 mmHg PV Peak Velocity 108.0 cm/s PV Peak Gradient 4.7 mmHg PV Mean Velocity 72.4 cm/s PV Mean Gradient 3.0 mmHg PV Velocity Time Integral 16.7 cm LV E' Lateral Velocity 6.6 cm/s Mitral E to LV E' Lateral Ratio 10.3 LV E' Septal Velocity 6.0 cm/s Mitral E to LV E' Septal Ratio 11.2
[2016-10-19 08:00] VITALS: BP 94/50
--- NOTE | 2016-10-19 10:54 | PN- CRCU ---
Subjective HPI/Critical Care Issues: pt seen and examined minimally arousable mechanically ventilated ros unobtainable tmax 100.6, tc 97.1 40% fio2 wbc 36.9 cdiff + abg with alkalemia Objective Current Medications: Current Medications Sig/[place] Start time Last Medication Dose Route Stop Time Status Admin Acetaminophen 1,000 MG .STK-MED ONE 10/18 2007 DC IV 10/18 2008 Acetaminophen 1,000 MG Q6P PRN 10/10 1630 10/18 N/A 1 UNIT IV 2012 Acetaminophen 650 MG Q8 PRN 10/06 1945 AC 10/09 PO 2017 Albuterol Sulfate 3 ML EVERY 4 HRS/AWAKE 10/12 0800 AC 10/19 INH 0741 Artificial Tears 2 GTT TID 10/18 2200 10/19 OPH 0025 Exemestane 25 MG DAILY 10/07 1000 AC 10/19 PO 1021 Folic Acid 1 MG DAILY 10/07 1000 AC 10/19 PO 1021 Glycerin 2 SPRAY Q2P PRN 10/15 1430 AC 10/17 PO 0627 Insulin Aspart 0 Q4 10/16 1800 AC 10/19 SC 0632 Insulin Detemir 5 UNITS BID 10/16 2200 10/18 SC 2205 Lorazepam 0 Q1P PRN 10/07 1330 AC 10/09 IV 1747 Magnesium Sulfate 1 GM Q2H 10/19 0745 10/19 Dextrose/Water 100 ML IV 10/19 1144 1021 Magnesium Sulfate 1 GM Q2H 10/18 0900 DC 10/18 Dextrose/Water 100 ML IV 10/18 1259 1021 Norepinephrine 8 MG Q14H 10/18 1500 AC 10/19 Sodium Chloride 250 ML IV 0549 Norepinephrine 8 MG Q14H 10/17 1300 DC 10/18 Sodium Chloride 250 ML IV 0218 Pantoprazole Sodium 40 MG DAILY 10/10 1835 10/19 IV 1021 Trimethoprim/ 12.5 ML Q8H 10/16 1415 10/19 Sulfamethoxazole IV 0548 Dextrose/Water 250 ML Vancomycin HCl 125 MG Q6 10/17 1350 10/19 PO 0548 Vital Signs & I&O Last 24 Hrs of Vitals and I&O: Vital Signs Date Time Temp Pulse Resp B/P Pulse O2 O2 Flow FiO2 Ox Delivery Rate 10/19 0931 Ventilator 70% 10/19 0802 40 10/19 0623 40 10/19 0549 83 91/58 10/19 0408 40 10/19 0400 98 Ventilator 40% 10/19 0155 40 10/19 0000 97.1 80 18 90/58 10/19 0000 97.1 80 18 98 Ventilator 40% 10/19 0000 98 Ventilator 40% 10/18 2251 40 10/18 2238 99.3 10/18 2013 100.6 10/18 2000 97 Ventilator 40% 10/18 1940 40 10/18 1610 40 10/18 1600 99.2 92 19 92/58 10/18 1600 98 Ventilator 40% 10/18 1600 99.2 92 19 / 98 Ventilator 40% 10/18 1537 91 92/58 10/18 1426 40 10/18 1200 96 Ventilator 40% 10/18 1200 97.8 92 21 80/50 96 Ventilator 40% 10/18 1137 40 Intake & Output 10/19 1600 10/19 0800 10/19 0000 Intake Total 1361 1145 Output Total 550 250 Balance 811 895 Intake, IV 672 469 Intake, Oral 0 Intake, Other 80 150 Intake, Tube 459 376 Feeding Intake, Tube 150 150 Irrigant Number 1 1 Bowel Movements Output, Urine 550 250 Patient 136 lb Weight Exam Other Physical Findings: General - intubated HEENT - ET tube Cardiovascular - S1, S2 Lungs - transmitted breath sounds bilaterally Abdomen - soft, bowel sounds positive, no tenderness Extremities - without edema or cyanosis Results Last 24 Hrs of Lab Results: Laboratory Tests 10/19/16 0755: pH 7.53 H, pCO2 30 L, pO2 103 H, HCO3 25, ABG O2 Sat (Measured) 98.0, P-50 ( Temp Corrected) YES, Carboxyhemoglobin 0.4 L, O2 Concentration % 40%, Temperature 97.1, Respiration Rate 18, O2 Delivery Method VENT, Vent Mode AC, Expiratory Pressure 5, Tidal Volume 450, Phlebotomy Draw Site LEFT RADIAL 10/19/16 0500: RPR Titer/FTA Pending 10/19/16 0435: Anion Gap 8, Estimated GFR > 60, Glucose 186 H, Calcium 7.5 L, Phosphorus 4.0, Magnesium 1.7, Total Bilirubin 0.5, AST 34, ALT 47, Albumin 1.8 L, Vitamin B12 Pending, Folate Pending, Prolactin 23.0 H, CBC w Diff MAN DIFF ORDERED, RBC 2.51 L, MCV 90.7, MCH 29.9, RDW 16.7 H, MPV 9.8, Gran % 91.2 H, Lymphocytes % 4.0 L, Monocytes % 2.9, Eosinophils % 1.8, Basophils % 0.1, Absolute Granulocytes 33.7 H, Segmented Neutrophils 86 H, Band Neutrophils 4, Absolute Lymphocytes 1.5, Lymphocytes 5 L, Monocytes 2, Absolute Monocytes 1.1 H, Eosinophils 2, Absolute Eosinophils 0.7, Absolute Basophils 0, Metamyelocytes 1, Platelet Estimate ADEQUATE, Polychromasia 1+, Poikilocytosis 1+, Basophilic Stippling SLIGHT, Ovalocytes 1+, PUBS MCHC 33.0, Fld Total RBCs Counted 100 Impression/Plan Impression/Plan Impression/Plan: Impression 61 year old woman hx breast ca - right intratrochanteric fracture - acute blood loss anemia - improved hypoxemic respiratory failure presumed ards - c.diff in stool Plan Respiratory -cont mechanical ventilation -reduce rr to 14, repeat abg in pm ID -ID consultation appreciated -cont abx -c.diff and stenotrophomonas CVS -f/u cardiology Heme -hx of breast ca, will need follow up with oncology after acute illness -acute blood loss anemia, possible retroperitoneal bleed, s/p CT, surgery consultation Metabolic -ins/outs, monitor electrolytes -finger sticks q2h Alimentary -tube feeds Neuro -check b12, tsh, rpr, ammonia, prolactin, check EEG TTS 40 min
--- NOTE | 2016-10-19 11:04 | PN- Infect Dx ---
Subjective Subjective: MAXIMUM TEMPERATURE 100.6. Several loose stools reported overnight. She remains on a low dose of Levophed but off sedation. Objective Last 24 Hrs of Vital Signs/I&O Vital Signs Date Time Temp Pulse Resp B/P Pulse O2 O2 Flow FiO2 Ox Delivery Rate 10/19 0931 Ventilator 70% 10/19 0802 40 10/19 0623 40 10/19 0549 83 91/58 10/19 0408 40 10/19 0400 98 Ventilator 40% 10/19 0155 40 10/19 0000 97.1 80 18 90/58 10/19 0000 97.1 80 18 90/58 98 Ventilator 40% 10/19 0000 98 Ventilator 40% 10/18 2251 40 10/18 2238 99.3 10/18 2012 100.6 10/18 1999 97 Ventilator 40% 10/18 1940 40 10/18 1610 40 10/18 1600 99.2 92 19 92/58 10/18 1600 98 Ventilator 40% 10/18 1600 99.2 92 19 92/58 98 Ventilator 40% 10/18 1537 91 92/58 10/18 1426 40 10/18 1200 96 Ventilator 40% 10/18 1200 97.8 92 21 80/50 96 Ventilator 40% 10/18 1137 40 Intake & Output 10/19 1600 10/19 0800 10/19 0000 Intake Total 1361 1145 Output Total 550 250 Balance 811 895 Intake, IV 672 469 Intake, Oral 0 Intake, Other 80 150 Intake, Tube 459 376 Feeding Intake, Tube 150 150 Irrigant Number 1 1 Bowel Movements Output, Urine 550 250 Patient 136 lb Weight Physical Exam Other Physical Findings: She is responsive to pain, opening her eyes. Lungs are clear Heart regular rhythm with no murmur Extremities PICC in the right upper extremity with no inflammation at the site Palacio catheter remains in place Results Last 24 Hours of Lab Results: Laboratory Tests 10/19 10/19 0755 0500 Blood Gas pH (7.35 - 7.45 PH) 7.53 H pCO2 (35 - 45 TORR) 30 L pO2 (80 - 100 TORR) 103 H HCO3 (21 - 28 MEQ/L) 25 ABG O2 Sat (Measured) (>96.0 %) 98.0 P-50 (Temp Corrected) YES Carboxyhemoglobin (1.5 - 5.0 %) 0.4 L O2 Concentration % 40% Temperature (97.0 - 100.0 FARH) 97.1 Respiration Rate (BPM) 18 O2 Delivery Method VENT Vent Mode AC Expiratory Pressure (CMH2O/P) 5 Tidal Volume (CC) 450 Miscellaneous Phlebotomy Draw Site LEFT RADIAL Serology RPR Titer/FTA Pending 10/19 434 Chemistry Sodium (137 - 145 mmol/L) 128 L Potassium (3.5 - 5.1 mmol/L) 4.2 Chloride (98 - 107 mmol/L) 91 L Carbon Dioxide (22 - 30 mmol/L) 28 Anion Gap (5 - 16) 8 BUN (7 - 17 mg/dL) 12 Creatinine (0.5 - 1.0 mg/dL) 0.5 Estimated GFR (>60 ml/min) > 60 Glucose (65 - 99 mg/dL) 186 H Calcium (8.4 - 10.2 mg/dL) 7.5 L Phosphorus (2.5 - 4.5 mg/dL) 4.0 Magnesium (1.6 - 2.3 mg/dL) 1.7 Total Bilirubin (0.2 - 1.3 mg/dL) 0.5 AST (14 - 36 U/L) 34 ALT (9 - 52 U/L) 47 Albumin (3.5 - 5.0 g/dL) 1.8 L Vitamin B12 (239 - 931 pg/mL) Pending Folate (2.76 - 20.0 ng/mL) Pending Prolactin (3.0 - 18.6 ng/mL) 23.0 H Hematology CBC w Diff MAN DIFF ORDERED WBC (4.8 - 10.8 /CUMM) 36.9 *H RBC (4.20 - 5.40 /CUMM) 2.51 L Hgb (12.0 - 16.0 G/DL) 7.5 L Hct (37 - 47 %) 22.8 L MCV (81.0 - 99.0 FL) 90.7 MCH (27.0 - 31.0 PG) 29.9 RDW (11.5 - 14.5 %) 16.7 H Plt Count (130 - 400 /CUMM) 319 MPV (7.4 - 10.4 FL) 9.8 Gran % (42.2 - 75.2 %) 91.2 H Lymphocytes % (20.5 - 51.1 %) 4.0 L Monocytes % (1.7 - 9.3 %) 2.9 Eosinophils % (0 - 5 %) 1.8 Basophils % (0.0 - 2.0 %) 0.1 Absolute Granulocytes (1.4 - 6.5 /CUMM) 33.7 H Segmented Neutrophils (42.2 - 75.2 %) 86 H Band Neutrophils (0.0 - 5.0 %) 4 Absolute Lymphocytes (1.2 - 3.4 /CUMM) 1.5 Lymphocytes (20.5 - 51.1 %) 5 L Monocytes (1.7 - 9.3 %) 2 Absolute Monocytes (0.10 - 0.60 /CUMM) 1.1 H Eosinophils (0 - 5.0 %) 2 Absolute Eosinophils (0.0 - 0.7 /CUMM) 0.7 Absolute Basophils (0.0 - 0.2 /CUMM) 0 Metamyelocytes (0.0 - 1.0 %) 1 Platelet Estimate (ADEQUATE) ADEQUATE Polychromasia 1+ Poikilocytosis 1+ Basophilic Stippling SLIGHT Ovalocytes 1+ PUBS MCHC (33.0 - 37.0 G/DL) 33.0 Other Body Source Fld Total RBCs Counted (%) 100 Last 24 Hours of [place] Results: No recent cultures Assessment/Plan Impression: Low-grade fevers with persistent leukocytosis on po Vancomycin Day 2 of treatment for C. difficile infection, with diarrhea persisting, and Bactrim now Day 3 of treatment for Stenotrophomonas isolated from the sputum culture, though suspect this may just represent colonization, and, if white blood cell count remains elevated, would be inclined to discontinue this. Her overall status remains poor, minimally responsive despite discontinuation of sedation and still pressor dependent, though she is overall improved. Of note she was noted to have a leukocytosis 3 months prior to admission, suggesting some underlying disease prior to admission. Suggestion: 1. Continue po Vancomycin 2. Continue Bactrim
--- NOTE | 2016-10-19 12:09 | RADIOLOGY REPORT ---
EXAMINATION: XR PORTABLE CHEST CLINICAL INFORMATION: Assess for worsening pulmonary disease. COMPARISON: X-ray of the chest performed 10/18/2016. TECHNIQUE: Portable view of the chest was obtained. FINDINGS: The endotracheal tube terminates 7 cm above the king. This is at the level of the clavicles. This is slightly retracted from previous studies, previously measuring 6.5 cm above the king. Right-sided PICC line terminates near the cavoatrial junction. Enteric tube is in place. Cardiac leads overlie the chest. The lungs are well expanded. There is persistent small left pleural effusion with airspace opacity. Persistent interstitial prominence. No pneumothorax. The cardiomediastinal silhouette is unchanged. IMPRESSION: 1. Endotracheal tube terminating at the level of the clavicles, 7 cm above the king. This is slightly retracted from previous. Consider advancement. 2. Persistent small left pleural effusion with associated airspace opacity. This is suspicious for pneumonia when compared to the prior abdominal CT. Overall this has a similar appearance to prior.
--- NOTE | 2016-10-19 15:53 | NUR ---
PT INTUBATED AND MOSTLY UNRESPONSIVE NOT BREATHING OVER VENT. WHEN STIMULATED WITH MOUTH CARE OR BATHING SHE DOES FOR A WHILE BLINK HER EYES AND RESIST SWABS OR SUCTION IN HER MOUTH. BILATERAL ARM RESTRAINTS D/C/D PT DOES NOT MOVE HER ARMS, HER LINES ARE INTACT. UNSUCESSFUL ATTEMPT TO TITRATE OFF LEVO( SEE CRITICAL CARE FLOW SHEET). TF IS INFUSING AT GOAL RATE WITH MNIMAL RESIDUALS.
[2016-10-19 16:00] VITALS: BP 88/40
--- NOTE | 2016-10-19 19:26 | PN- Resident CRCU ---
Subjective HPI/CRCU Issues: Patient seen and examined. She is seen lying in bed with her head propped up with multiple lines in place. She appears to be in no acute distress. Review of systems is unobtainable. No overnight events reported. Objective Vital Signs & I&O Last 8 Hrs of Vitals and I&O: Intake & Output 10/19 1600 Intake Total 752 Output Total 500 Balance 252 Intake, IV 240 Intake, Tube 412 Feeding Intake, Tube 100 Irrigant Number 1 Bowel Movements Output, Urine 500 Vitals: - Temperature: 100.6 - Heart Rate: 80-94 - Respiratory Rate: 14-18 - Systolic Blood pressure: 88-94 - Diastolic Blood pressure: 40-58 - Oxygen Saturation: 95-98% on 40% FiO2 Exam General Appearance: intubated Other Physical Findings: General - frail/elderly woman in no acute distress HEENT - NCAT, PERRL, anicteric sclera, OG tube in place, endotracheal tube in place CVS - S1, S2 w/o m/g/r Resp - Diffuse rhonchi in all lung gutierrez without crackles GI - soft, nontender, nondistended, bowel sounds present - mcgrath catheter in place Neuro - somnolent/lethargic, miminally arousable to verbal stimuli, random spontaneous movements, pupils reactive to light bilaterally, babinski negative Ext: - RLE: swollen proximale extremity with hematoma and ecchymosis, intact distal pulses, no edema Current Medications: Current Medications Sig/[place] Start time Last Medication Dose Route Stop Time Status Admin Acetaminophen 1,000 MG .STK-MED ONE 10/18 2007 DC IV 10/18 2008 Acetaminophen 1,000 MG Q6P PRN 10/10 1630 AC 10/18 N/A 1 UNIT IV 2012 Acetaminophen 650 MG Q8 PRN 10/06 1945 AC 10/09 PO 2017 Albuterol Sulfate 3 ML EVERY 4 HRS/AWAKE 10/12 0800 AC 10/19 INH 1600 Artificial Tears 2 GTT TID 10/18 2200 AC 10/19 OPH 1600 Exemestane 25 MG DAILY 10/07 1000 AC 10/19 PO 1021 Folic Acid 1 MG DAILY 10/07 1000 AC 10/19 PO 1021 Glycerin 2 SPRAY Q2P PRN 10/15 1430 AC 10/17 PO 0627 Insulin Aspart 0 Q4 10/16 1800 AC 10/19 SC 1807 Insulin Detemir 5 UNITS BID 10/16 2200 AC 10/19 SC 1000 Lorazepam 0 Q1P PRN 10/07 1330 AC 10/09 IV 1747 Magnesium Sulfate 1 GM Q2H 10/19 0745 DC 10/19 Dextrose/Water 100 ML IV 10/19 1144 1021 Norepinephrine 8 MG Q14H 10/18 1500 AC 10/19 Sodium Chloride 250 ML IV 0549 Pantoprazole Sodium 40 MG DAILY 10/10 1835 AC 10/19 IV 1021 Trimethoprim/ 12.5 ML Q8H 10/16 1415 AC 10/19 Sulfamethoxazole IV 1530 Dextrose/Water 250 ML Vancomycin HCl 125 MG Q6 10/17 1350 AC 10/19 PO 1757 Impression/Plan Impression/Problem List Impression: Patients clinical condition remains unchanged today, she is minimally rousable to tactile stimuli. Labs to consider alternative diagnosis of altered mental status were sent today including B12, folate, TSH, lactic acid, ammonia, and urine toxicology. Prolactin returned mildly elevated and urine benzodiazepines returned persistently elevated probably secondary to mobilization of the substance from her fat stores. EEG was ordered today with results pending. Problem list: -Acute hypoxic respiratory failure, intubated on vent -Acute respiratory distress syndrome, intubated on vent -Displaced comminuted right proximal femoral shaft fracture -Proximal right lower extremity hematoma -Acute blood loss anemia, stable -EtOH withdrawal -Multilobar pneumonia, on antibiotics -History of breast cancer that is post bilateral mastectomy, chemotherapy/ radiation -Leukocytosis -C. Diff colitis, on oral vancomycin Respiratory/infectious disease: Patient remains intubated on ventilator. Lasix given as tolerated for fluid overload. Daily arterial blood gas/chest x-rays are to be obtained for assessment of respiratory disease. -Intubated on ventilator -Levophed drip titrating down -Bactrim IV -Vancomycin 125mg PO Q6H -Sputum cultures: Stenotrophomonas resistant to ceftazidime -Follow up with surgical PA when medically clear for surgery Musculoskeletal: Sustained a fall from her bed resulting in a right hip fracture as demonstrated by x-ray and CT imaging. She was evaluated by orthopedic surgery, but surgical intervention was deferred as patient was found to have an acute drop in her hemoglobin requiring admission to the intensive care unit from the general medicine floor for medical optimization. -Monitor vital signs and hemoglobin -Cardiac clearance obtained -Orthopedic consult following Cardiology: Revised cardiac risk index calculated for a score of 0 suggesting a 0.4% risk of a major cardiac event. -RCRI: 0, 0.4 risk for major cardiac event -consultants intern cleared patient for surgery Hematology/oncology: Patient has a history of breast cancer with bilateral mastectomy, chemotherapy, and radiation. Last treatment reportedly received 6 months ago. She is a patient of Dr. Mejias of the [facility]. She has not had any follow- up imaging since this time apparently, but is reportedly in remission with a surveillance visit scheduled in January 2017. Patient has had persistent leukocytosis since admission. White blood cell count was elevated as recently as July to ,000, baseline level unclear. She denies taking any adjuvant chemotherapy regimens such as Neulasta/Neupogen that could possibly account for this, however records are unavailable at this time. Consent for blood transfusion was obtained and placed on chart, type and cross was ordered. Packed red blood cells were transfused. -PRBC transfused: 3 -Daily CBC, monitor for worsening anemia/leukocytosis Psychiatry: Patient has a history of alcohol abuse for which she reports drinking vodka several times a week. Serum alcohol on admission was negative. She remains tremulous with see what scores consistently minimally elevated. -Multivitamin/thiamine/folate -Bupropion on hold -Consider psychiatry/social work consult Endocrinology: Patient with a history of diabetes mellitus. Blood sugars have been consistently low requiring amps of dextrose. -Accu-Cheks -Nothing by mouth sliding scale insulin Pain plan: -Acetaminophen 650 mg by mouth every 8 hours as needed for pain 1-3 -Oxycodone 1 tab by mouth every 6 hours as needed for pain 4-6 -Dilaudid 0.6 mg IV every 4 hours as needed for pain 7-10 Diet -NPO, tube feeds continuing DVT prophylaxis-mechanical ppx to LLE Code Status-full code Problem List: 1. Displaced comminuted fracture of shaft of right femur Pain Ratin Tomorrow's Labs & Rationales: CBC ICU Bundle ABG CXR Plan DVT/Prophylaxis: mechanical
[2016-10-20] VITALS: BP 100/54
[2016-10-20 05:15] LABS: ABSOLUTE BASOPHIL COUNT 0 /CUMM (0.0-0.2); ABSOLUTE EOSINOPHIL COUNT 0.5 /CUMM (0.0-0.7); ABSOLUTE LYMPH COUNT 1.3 /CUMM (1.2-3.4); ABSOLUTE MONOCYTE COUNT 1.1 /CUMM (0.10-0.60); BASOPHIL % 0.1 % (0.0-2.0); EOSINOPHIL % 1.7 % (0-5); GRANULOCYTE % 89.9 % (42.2-75.2); HEMATOCRIT 22.7 % (37-47); MEAN CORPUSCULAR HGB CONC 32.7 G/DL (33.0-37.0); MEAN CORPUSCULAR VOLUME 91.8 FL (81.0-99.0); MEAN PLATELET VOLUME 10.2 FL (7.4-10.4); PLATELET COUNT 394 /CUMM (130-400); RBC DISTRIBUTION WIDTH 16.6 % (11.5-14.5); RED BLOOD CELL CT 2.47 /CUMM (4.20-5.40); WHITE BLOOD CELL COUNT 28.9 /CUMM (4.8-10.8)
--- NOTE | 2016-10-20 07:35 | RADIOLOGY REPORT ---
EXAMINATION: XR PORTABLE CHEST CLINICAL INFORMATION: ARDS COMPARISON: Chest x-ray 10/19/2016 TECHNIQUE: AP portable semierect chest x-ray FINDINGS: Endotracheal tube is positioned approximately 3.8 cm above the king, unchanged. There is a PICC line at the junction of the superior vena cava and right atrium, unchanged. There is an enteric tube above the diaphragm. Heart size and mediastinal contour is unchanged. Pulmonary vascularity is within normal limits. Mild diffuse interstitial opacities are present as previously throughout the lungs. There is continued consolidation and atelectasis in the retrocardiac left lower lobe. There is some increased opacity at the right lung base which may be related to increased atelectasis. No other change is seen in the lung gutierrez at this time. There is no pneumothorax IMPRESSION: Tubes and lines in place. Little interval change in the appearance of the lung gutierrez since the previous exam. Persistent mild diffuse interstitial opacity with atelectasis or consolidation at the left lung base. Slight increase in atelectasis at the right lung base.
[2016-10-20 08:00] VITALS: BP 88/60
--- NOTE | 2016-10-20 08:43 | PN- Resident CRCU ---
Subjective HPI/CRCU Issues: - Acute hypoxic respiratory failure 2/2 ARDS, currently intubated - Obtunded 2/2 seizures?, sedative medications versus dementia - Hypopnatremia - ABLA - Displaced comminuted right proximal femoral shaft fracture - C. Diff colitis - Hx of breast cancer that is post bilateral mastectomy, chemotherapy/radiation -IDDM 24 Hour Events: Patient seen and examined at [facility]. She is minimally responsive to painful stimuli, but remains obtunded and mechanically intubated. Objective Vital Signs & I&O Last 8 Hrs of Vitals and I&O: Laboratory Tests 10/20 10/20 1155 0415 Blood Gas pH (7.35 - 7.45 PH) 7.53 H pCO2 (35 - 45 TORR) 32 L pO2 (80 - 100 TORR) 97 HCO3 (21 - 28 MEQ/L) 25 ABG O2 Sat (Measured) (>96.0 %) 96.0 P-50 (Temp Corrected) N Carboxyhemoglobin (1.5 - 5.0 %) 0.3 L O2 Concentration % 40% Respiration Rate (BPM) 14 O2 Delivery Method VENT Vent Mode AC Expiratory Pressure (CMH2O/P) 5 Tidal Volume (CC) 450 Pressure Support (CMH2O/P) 0 Chemistry Sodium (137 - 145 mmol/L) 129 L Potassium (3.5 - 5.1 mmol/L) 4.6 Chloride (98 - 107 mmol/L) 92 L Carbon Dioxide (22 - 30 mmol/L) 28 Anion Gap (5 - 16) 9 BUN (7 - 17 mg/dL) 9 Creatinine (0.5 - 1.0 mg/dL) 0.5 Estimated GFR (>60 ml/min) > 60 Glucose (65 - 99 mg/dL) 232 H Calcium (8.4 - 10.2 mg/dL) 7.8 L Phosphorus (2.5 - 4.5 mg/dL) 4.1 Magnesium (1.6 - 2.3 mg/dL) 1.8 Total Bilirubin (0.2 - 1.3 mg/dL) 0.5 AST (14 - 36 U/L) 23 ALT (9 - 52 U/L) 36 Albumin (3.5 - 5.0 g/dL) 1.9 L Hematology CBC w Diff MAN DIFF ORDERED WBC (4.8 - 10.8 /CUMM) 28.9 H RBC (4.20 - 5.40 /CUMM) 2.47 L Hgb (12.0 - 16.0 G/DL) 7.4 *L Hct (37 - 47 %) 22.7 L MCV (81.0 - 99.0 FL) 91.8 MCH (27.0 - 31.0 PG) 30.0 RDW (11.5 - 14.5 %) 16.6 H Plt Count (130 - 400 /CUMM) 394 MPV (7.4 - 10.4 FL) 10.2 Gran % (42.2 - 75.2 %) 89.9 H Lymphocytes % (20.5 - 51.1 %) 4.5 L Monocytes % (1.7 - 9.3 %) 3.8 Eosinophils % (0 - 5 %) 1.7 Basophils % (0.0 - 2.0 %) 0.1 Absolute Granulocytes (1.4 - 6.5 /CUMM) 26.0 H Segmented Neutrophils (42.2 - 75.2 %) 84 H Band Neutrophils (0.0 - 5.0 %) 3 Absolute Lymphocytes (1.2 - 3.4 /CUMM) 1.3 Lymphocytes (20.5 - 51.1 %) 8 L Monocytes (1.7 - 9.3 %) 3 Absolute Monocytes (0.10 - 0.60 /CUMM) 1.1 H Absolute Eosinophils (0.0 - 0.7 /CUMM) 0.5 Absolute Basophils (0.0 - 0.2 /CUMM) 0 Metamyelocytes (0.0 - 1.0 %) 1 Myelocytes (0 - 0 %) 1 H Platelet Estimate (ADEQUATE) ADEQUATE Basophilic Stippling SLIGHT Anisocytosis 1+ PUBS MCHC (33.0 - 37.0 G/DL) 32.7 L Miscellaneous Phlebotomy Draw Site LEFT RADIAL 10/19 10/19 2300 1415 Blood Gas pH (7.35 - 7.45 PH) 7.52 H pCO2 (35 - 45 TORR) 33 L pO2 (80 - 100 TORR) 101 H HCO3 (21 - 28 MEQ/L) 26 ABG O2 Sat (Measured) (>96.0 %) 98.0 Carboxyhemoglobin (1.5 - 5.0 %) 1.1 L O2 Concentration % 40% Respiration Rate (BPM) 14 O2 Delivery Method VENT Vent Mode VC/AC Expiratory Pressure (CMH2O/P) 5 Tidal Volume (CC) 450 Miscellaneous Phlebotomy Draw Site LEFT RADIAL Toxicology Urine Opiates Screen (>2000 NG/ML) < 100.00 Methadone Screen (>300 NG/ML) < 40 Barbiturate Screen (>200 NG/ML) < 60 Ur Phencyclidine Scrn (>25 NG/ML) < 6.00 Amphetamines Screen (>1000 NG/ML) < 100 U Benzodiazepines Scrn (>200 NG/ML) 558 H Urine Cocaine Screen (>300 NG/ML) < 50 Urine Cannabis Screen (>50 NG/ML) < 5.00 Exam General Appearance: sedated, lethargic Head: atraumatic Neck: normal inspection, supple Respiratory: chest non-tender, transmitted breath sounds Cardiovascular: regular rate/rhythm Gastrointestinal: normal bowel sounds, soft, non-tender Extremities: no edema Cranial Nerves: PERRL Nutrition Nutrition: tube feeding Current Medications: Current Medications Sig/[place] Start time Last Medication Dose Route Stop Time Status Admin Acetaminophen 1,000 MG Q6P PRN 10/10 1630 AC 10/18 N/A 1 UNIT IV 2012 Acetaminophen 650 MG Q8 PRN 10/06 1945 AC 10/09 PO 2017 Albuterol Sulfate 3 ML EVERY 4 HRS/AWAKE 10/12 0800 AC 10/20 INH 1236 Artificial Tears 2 GTT TID 10/18 2200 AC 10/20 OPH 1228 Exemestane 25 MG DAILY 10/07 1000 AC 10/20 PO 1227 Folic Acid 1 MG DAILY 10/07 1000 AC 10/20 PO 1227 Glycerin 2 SPRAY Q2P PRN 10/15 1430 AC 10/17 PO 0627 Insulin Aspart 0 Q4 10/16 1800 r 10/20 SC 1105 Insulin Detemir 5 UNITS BID 10/16 2200 AC 10/20 SC 1105 Lorazepam 0 Q1P PRN 10/07 1330 DC 10/09 IV 1747 Magnesium Oxide 400 MG ONE ONE 10/20 1215 DC PO 10/20 1216 Magnesium Sulfate 1 GM ONCE ONE 10/20 1215 AC Dextrose/Water 100 ML IV 10/20 1614 Norepinephrine 8 MG Q14H 10/18 1500 AC 10/20 Sodium Chloride 250 ML IV 0104 Pantoprazole Sodium 40 MG DAILY 10/10 1835 AC 10/20 IV 1227 Potassium Chloride 40 MEQ ONCE ONE 10/20 1215 CANr PO 10/20 1216 Thiamine HCl 100 MG DAILY 10/20 1310 AC Sodium Chloride 100 ML IV 10/22 1012 Trimethoprim/ 12.5 ML Q8H 10/16 1415 AC 10/20 Sulfamethoxazole IV 0559 Dextrose/Water 250 ML Vancomycin HCl 125 MG Q6 10/17 1350 AC 10/20 PO 0559 CXR Findings: SERVICE DATE: 10/20/16050 EXAM TYPE: RAD - XRY-PORTABLE CHEST XRAY EXAMINATION: XR PORTABLE CHEST CLINICAL INFORMATION: ARDS COMPARISON: Chest x-ray 10/19/2016 TECHNIQUE: AP portable semierect chest x-ray FINDINGS: Endotracheal tube is positioned approximately 3.8 cm above the king, unchanged. There is a PICC line at the junction of the superior vena cava and right atrium, unchanged. There is an enteric tube above the diaphragm. Heart size and mediastinal contour is unchanged. Pulmonary vascularity is within normal limits. Mild diffuse interstitial opacities are present as previously throughout the lungs. There is continued consolidation and atelectasis in the retrocardiac left lower lobe. There is some increased opacity at the right lung base which may be related to increased atelectasis. No other change is seen in the lung gutierrez at this time. There is no pneumothorax IMPRESSION: Tubes and lines in place. Little interval change in the appearance of the lung gutierrez since the previous exam. Persistent mild diffuse interstitial opacity with atelectasis or consolidation at the left lung base. Slight increase in atelectasis at the right lung base. Impression/Plan Impression/Problem List Impression: Patients clinical condition remains unchanged today, she is minimally rousable to tactile stimuli. Labs to consider alternative diagnosis of altered mental status were sent today including B12, folate, TSH, lactic acid, ammonia, and urine toxicology. Prolactin returned mildly elevated and urine benzodiazepines returned persistently elevated probably secondary to mobilization of the substance from her fat stores. EEG was ordered today with results pending. Problem list: -Acute hypoxic respiratory failure, intubated on vent - Hyponatremia -Acute respiratory distress syndrome, intubated on vent -Displaced comminuted right proximal femoral shaft fracture -Proximal right lower extremity hematoma -Acute blood loss anemia, stable -EtOH withdrawal -Multilobar pneumonia, on antibiotics -History of breast cancer that is post bilateral mastectomy, chemotherapy/ radiation -Leukocytosis -C. Diff colitis, on oral vancomycin Respiratory/infectious disease: Patient remains intubated on ventilator. Daily arterial blood gas/chest x-rays are to be obtained for assessment of respiratory disease. -Intubated on ventilator -Levophed drip titrated down to zero -Continue on Bactrim IV -Vancomycin 125mg PO Q6H for C. Diff -Sputum cultures: Stenotrophomonas resistant to ceftazidime -Follow up with surgical PA when medically clear for surgery Musculoskeletal: Sustained a fall from her bed resulting in a right hip fracture as demonstrated by x-ray and CT imaging. She was evaluated by orthopedic surgery, but surgical intervention was deferred as patient was found to have an acute drop in her hemoglobin requiring admission to the intensive care unit from the general medicine floor for medical optimization. -Monitor vital signs and hemoglobin -Cardiac clearance obtained -Orthopedic consult following Cardiology: Revised cardiac risk index calculated for a score of 0 suggesting a 0.4% risk of a major cardiac event. -RCRI: 0, 0.4 risk for major cardiac event -sap pp consultant cleared patient for surgery Hematology/oncology: Patient has a history of breast cancer with bilateral mastectomy, chemotherapy, and radiation. Last treatment reportedly received 6 months ago. She is a patient of Dr. Mejias of the [facility]. She has not had any follow- up imaging since this time apparently, but is reportedly in remission with a surveillance visit scheduled in January 2017. Patient has had persistent leukocytosis since admission. White blood cell count was elevated as recently as July to 20,000, baseline level unclear. She denies taking any adjuvant chemotherapy regimens such as Neulasta/Neupogen that could possibly account for this, however records are unavailable at this time. Consent for blood transfusion was obtained and placed on chart, type and cross was ordered. Packed red blood cells were transfused. -PRBC transfused: 3 -F/U repeat CBC @ 2:00pm as H&H dropped to 7.4 - F/U guiac - Goal to maintain CBC > 7 Psychiatry: Patient has a history of alcohol abuse for which she reported drinking vodka several times a week. Serum alcohol on admission was negative. -Will satrt her on high dose thiamine for wernickes. -Multivitamin/thiamine/folate -Bupropion on hold -Consider psychiatry/social work consult once extubated Endocrinology: Patient with a history of diabetes mellitus. FSG's ranging in the 300's. Will go up on sliding scale. Endo consult in AM if sugars remain uncontrolled. -Accu-Cheks -Nothing by mouth sliding scale insulin Neurology Neuro consult placed with Vania Peña F/U EEG Will start on high dose thiamine today. 2/2 hypoonatremia? - F/U serum osmolarity, urine osm. F/U neuro recs. Of notye CT was negative for any IC bleed or stroke. Diet -NPO, tube feeds continuing DVT prophylaxis-mechanical ppx to LLE Code Status-full code Pain Ratin Tomorrow's Labs & Rationales: CBC ICU Bundle ABG CXR Plan DVT/Prophylaxis: mechanical Problem List: 1. Acute blood loss anemia 2. Comminuted right humeral fracture Pain Ratin Tomorrow's Labs & Rationales: CBC ICU CXR ABG Plan DVT/Prophylaxis: mechanical
--- NOTE | 2016-10-20 11:33 | PN- CRCU ---
See Addendum Subjective HPI/Critical Care Issues: pt seen and examined minimally responsive to painful stimuli awaiting eeg no new events awaiting abg 40% fio2 ROS unobtainable secondary to intubation/obtundation Objective Current Medications: Current Medications Sig/Hol[place] Start time Last Medication Dose Route Stop Time Status Admin Acetaminophen 1,000 MG Q6P PRN 10/10 1630 AC 10/18 N/A 1 UNIT IV 2012 Acetaminophen 650 MG Q8 PRN 10/06 1945 AC 10/09 PO 2016 Albuterol Sulfate 3 ML EVERY 4 HRS/AWAKE 10/12 0800 AC 10/20 INH 0907 Artificial Tears 2 GTT TID 10/18 2200 AC 10/19 OPH 2211 Exemestane 25 MG DAILY 10/07 1000 AC 10/19 PO 1021 Folic Acid 1 MG DAILY 10/07 1000 AC 10/19 PO 1021 Glycerin 2 SPRAY Q2P PRN 10/15 1430 AC 10/17 PO 0627 Insulin Aspart 0 Q4 10/16 1800 AC 10/20 SC 1105 Insulin Detemir 5 UNITS BID 10/16 2200 AC 10/20 SC 1105 Lorazepam 0 Q1P PRN 10/07 1330 AC 10/09 IV 1747 Magnesium Sulfate 1 GM Q2H 10/19 0745 DC 10/19 Dextrose/Water 100 ML IV 10/19 1144 1021 Norepinephrine 8 MG Q14H 10/18 1500 AC 10/20 Sodium Chloride 250 ML IV 0104 Pantoprazole Sodium 40 MG DAILY 10/10 1835 AC 10/19 IV 1021 Trimethoprim/ 12.5 ML Q8H 10/16 1415 AC 10/20 Sulfamethoxazole IV 0559 Dextrose/Water 250 ML Vancomycin HCl 125 MG Q6 10/17 1350 AC 10/20 PO 0559 Vital Signs & I&O Last 24 Hrs of Vitals and I&O: Vital Signs Date Time Temp Pulse Resp B/P Pulse O2 O2 Flow FiO2 Ox Delivery Rate 10/20 0859 40 10/20 0800 97 Ventilator 40% 10/20 08 99.0 88 18 88/60 95 Ventilator 40% 10/20 0611 40 10/20 0400 98 Ventilator 40% 10/20 0310 40 10/20 0104 82 97/54 10/20 0042 40 10/20 0000 99.1 88 15 100/54 98 Ventilator 40% 10/20 0000 98 Ventilator 40% 10/19 2256 40 10/19 1999 94 Ventilator 40% 10/19 1931 40 10/19 1601 40 10/19 1600 98 Ventilator 40% 10/19 1600 98.0 94 18 88/40 96 Ventilator 40% 10/19 1430 40 10/19 1200 95 Ventilator 40% 10/19 1156 40 Intake & Output 10/20 1600 10/20 0800 10/20 0000 Intake Total 830 1038 Output Total 800 550 Balance 30 488 Intake, IV 293 540 Intake, Tube 437 398 Feeding Intake, Tube 100 100 Irrigant Number 1 2 Bowel Movements Output, Urine 800 550 Exam Other Physical Findings: General - intubated, minimally responsive to painful stimuli HEENT - ET tube Cardiovascular - S1, S2 Lungs - transmitted breath sounds bilaterally Abdomen - soft, bowel sounds positive, no tenderness Extremities - without edema or cyanosis Results Last 24 Hrs of Lab Results: Laboratory Tests 10/20/16 0415: Anion Gap 9, Estimated GFR > 60, Glucose 232 H, Calcium 7.8 L, Phosphorus 4.1, Magnesium 1.8, Total Bilirubin 0.5, AST 23, ALT 36, Albumin 1.9 L, CBC w Diff MAN DIFF ORDERED, RBC 2.47 L, MCV 91.8, MCH 30.0, RDW 16.6 H, MPV 10.2, Gran % 89.9 H, Lymphocytes % 4.5 L, Monocytes % 3.8, Eosinophils % 1.7, Basophils % 0.1, Absolute Granulocytes 26.0 H, Segmented Neutrophils 84 H, Band Neutrophils 3, Absolute Lymphocytes 1.3, Lymphocytes 8 L, Monocytes 3, Absolute Monocytes 1.1 H, Absolute Eosinophils 0.5, Absolute Basophils 0, Metamyelocytes 1, Myelocytes 1 H, Platelet Estimate ADEQUATE, Basophilic Stippling SLIGHT, Anisocytosis 1+, PUBS MCHC 32.7 L 10/19/16 2300: pH 7.52 H, pCO2 33 L, pO2 101 H, HCO3 26, ABG O2 Sat (Measured) 98.0, Carboxyhemoglobin 1.1 L, O2 Concentration % 40%, Respiration Rate 14, O2 Delivery Method VENT, Vent Mode VC/AC, Expiratory Pressure 5, Tidal Volume 450, Phlebotomy Draw Site LEFT RADIAL 10/19/16 1415: Urine Opiates Screen < 100.00, Methadone Screen < 40, Barbiturate Screen < 60, Ur Phencyclidine Scrn < 6.00, Amphetamines Screen < 100, U Benzodiazepines Scrn 558 H, Urine Cocaine Screen < 50, Urine Cannabis Screen < 5.00 10/19/16 1225: Ammonia < 9 L Impression/Plan Impression/Plan Impression/Plan: Impression 61 year old woman hx breast ca - right intratrochanteric fracture - acute blood loss anemia - improved hypoxemic respiratory failure presumed ards - c.diff in stool and stenotrophomonas in sputum Plan Respiratory -cont mechanical ventilation -abg today ID -ID consultation appreciated -cont abx -c.diff and stenotrophomonas CVS -f/u cardiology Heme -hx of breast ca, will need follow up with oncology after acute illness -acute blood loss anemia, possible retroperitoneal bleed, s/p CT, surgery consultation Metabolic -ins/outs, monitor electrolytes -finger sticks q2h Alimentary -tube feeds Neuro -prolactin mildly elevated, check EEG, neuro consultation TTS 40 min
[2016-10-20 16:00] VITALS: BP 100/50
[2016-10-20 17:53] LABS: ABSOLUTE BASOPHIL COUNT 0.1 /CUMM (0.0-0.2); ABSOLUTE EOSINOPHIL COUNT 0.3 /CUMM (0.0-0.7); ABSOLUTE GRANULOCYTE CT 18.4 /CUMM (1.4-6.5); ABSOLUTE LYMPH COUNT 1.5 /CUMM (1.2-3.4); BASOPHIL % 0.4 % (0.0-2.0); EOSINOPHIL % 1.3 % (0-5); MEAN CORPUSCULAR HGB 30.1 PG (27.0-31.0); MEAN CORPUSCULAR HGB CONC 32.8 G/DL (33.0-37.0); MEAN CORPUSCULAR VOLUME 91.6 FL (81.0-99.0); MEAN PLATELET VOLUME 9.6 FL (7.4-10.4); PLATELET COUNT 348 /CUMM (130-400); RBC DISTRIBUTION WIDTH 16.5 % (11.5-14.5); RED BLOOD CELL CT 2.11 /CUMM (4.20-5.40); WHITE BLOOD CELL COUNT 21.3 /CUMM (4.8-10.8)
[2016-10-20 18:01] LABS: GRANULOCYTE % 86.3 % (42.2-75.2); HEMATOCRIT 19.3 % (37-47)
--- NOTE | 2016-10-20 19:30 | Event Note ---
Event Note Event Note: Her repeat H&H in the afternoon came down to 6.3/19.3 from 7.5 thsi AM. Paged surgical PA. Surgery is not of the opinion that she may be bleeding at the sit eof her fracture. Will transfuse iwth 2 PRBCs for now, and F/U CBC. Of note patient had a CT of Abd/Pelvis done 2 days ago, which did not show any evidence of retroperitoneal bleed. Touched based with Dr. Villegas. Will hold off CT of Abd/Pelvis/Chest for now. If H&H continues to drop will consider raygoza CTing. Would also consider Heme/ Onc input at that point. Ordering DIC work-up. F/U results.
--- NOTE | 2016-10-20 21:19 | NUR ---
PT UNRESPONSIVE TO VERBAL AND PAINFUL STIMULI. EXTREMITIES FLOPPY. PUPILS EQUAL AND REACT BRISKLY TO LIGHT. ORALLY INTUBATED AND VENTED, BREATH SOUNDS CLEAR WITH DIMINISHED BREATH SOUNDS AT BASES BILATERALLY. MINIMAL SUCTIONING OF ETT. NO SOB OR RESP DISTRESS NOTED AT PRESENT. SEE FLOW SHEET FOR VS, 02 SATS, I/O'S. MONITOR SHOWS ST, NO ECTOPY NOTED AT PRESENT. BP STABLE AT PRESENT. ABD SOFT, NONTENDER, NONDISTENDED, POSITIVE BOWEL SOUNDS. BOWER IN PLACE-DRAINING ADEQUATE AMT OF CLEAR LINH URINE AT PRESENT. SKIN INTACT. GENERALIZED EDEMA OF TRUNK AND UPPER LEGS NOTED-2+, BUE WITH 3+ EDEMA. ON TOTAL CARE BED. OGT IN PLACE-PLACEMENT CONFIRM BY AIR-ON TUBE FEEDS TOLERATED WELL AT PRESENT. TEMP 100.0 RECTALLY-DR. MARQUEZ AWARE. TYLENOL 650MG PO GIVEN PRIOR TO BLOOD TRANSFUSION. 1ST UNIT OF PRBC UP ORDERED FOR H+H-6.3 AND 19.3-2 UNITS ORDERED-TOLERATING WELL AT PRESENT.
[2016-10-20 21:46] LABS: PT 11.6 SEC (9.4-12.5); PTT 27 SEC (25-37)
[2016-10-21] VITALS: BP 113/72
--- NOTE | 2016-10-21 00:43 | RADIOLOGY REPORT ---
EXAMINATION: XR PORTABLE CHEST CLINICAL INFORMATION: Orogastric tube replacement status post distal lodging. COMPARISON: 10/20/2016 TECHNIQUE: Portable view of the chest was obtained. FINDINGS: The endotracheal tube terminates 5.5 cm above the king. The enteric tube extends into the stomach. Right-sided PICC line remains in place terminating near the cavoatrial junction. Cardiac leads overlie the chest. The lungs are well expanded. Persistent retrocardiac opacity mild interstitial prominence diffusely. No pneumothorax. The cardiomediastinal silhouette is unchanged. IMPRESSION: 1. Enteric tube terminating in the stomach. Endotracheal tube terminating 5.5 cm above the king. 2. Persistent retrocardiac opacity suggestive of small pleural effusion with airspace opacity. Mild interstitial prominence.
--- NOTE | 2016-10-21 01:23 | NUR ---
AT 2345 OGT FOUND COMPLETELY OUT-PT WITH LARGE AMT OF CLEAR ORAL SECREATIONS-TUBE FEEDS PUT ON HOLD-REPORTED TO DR. MARQUEZ-OGT REPLACED WITHOUT DIFFICULTY, CXRAY DONE TO CONFIRM PLACEMENT. PER DR MARQUEZ OGT IN GOOD POSITION-TUBE FEEDS RESUMED AT 0045.
[2016-10-21 06:10] LABS: ABSOLUTE BASOPHIL COUNT 0 /CUMM (0.0-0.2); ABSOLUTE EOSINOPHIL COUNT 0.4 /CUMM (0.0-0.7); ABSOLUTE GRANULOCYTE CT 19.7 /CUMM (1.4-6.5); ABSOLUTE LYMPH COUNT 1.4 /CUMM (1.2-3.4); ABSOLUTE MONOCYTE COUNT 1.4 /CUMM (0.10-0.60); BASOPHIL % 0 % (0.0-2.0); EOSINOPHIL % 1.9 % (0-5); GRANULOCYTE % 85.9 % (42.2-75.2); MEAN CORPUSCULAR HGB 29.4 PG (27.0-31.0); MEAN CORPUSCULAR HGB CONC 33.5 G/DL (33.0-37.0); MEAN CORPUSCULAR VOLUME 87.7 FL (81.0-99.0); MEAN PLATELET VOLUME 10.2 FL (7.4-10.4); PLATELET COUNT 382 /CUMM (130-400); RBC DISTRIBUTION WIDTH 18.1 % (11.5-14.5)
[2016-10-21 06:30] LABS: RED BLOOD CELL CT 3.35 /CUMM (4.20-5.40)
[2016-10-21 06:31] LABS: HEMATOCRIT 29.4 % (37-47)
--- NOTE | 2016-10-21 07:02 | NUR ---
PT REMAINS UNRESPONSIVE TO VERBAL STIMULI, SLIGHT OPENING OF EYES WITH NOXIOUS STIMULI. RHONCI THOUGHOUT BILATERALLY, SUCTIONING FOR MOD TO LG AMT OF THICK BLACK[place]URN SECREATIONS. 02 SATS 97-98% FOR SHIFT. MONITOR NSR, HR-90'S NO ECTOPY FOR SHIFT. SBP-90-110'S FOR SHIFT. RECEIVED 2 UNITS PRBC-TOLERATED WELL WITHOUT EVIDENCE OF TRANSFUSION REACTION. AM HEMATOLOGY STILL PENDING. NO EVIDENCE OF BLEEDING NOTED THOUGHOUT SHIFT. RT THIGH BRUISED, HARD TO TOUCH. ON TUBE FEEDS-TOLERATED WELL THOUGHOUT SHIFT. ADEQUATE URINE OUTPUT FOR SHIFT. SKIN REMAINS INTACT. NO OTHER CHANGE THOUGHOUT SHIFT
[2016-10-21 07:08] LABS: WHITE BLOOD CELL COUNT 22.9 /CUMM (4.8-10.8)
[2016-10-21 08:00] VITALS: BP 100/60
--- NOTE | 2016-10-21 08:07 | RADIOLOGY REPORT ---
EXAMINATION: XR PORTABLE CHEST CLINICAL INFORMATION: Intubated COMPARISON: Portable chest 10/21/2016 at 0028 hours, 10/20/2016, 10/19/2016. TECHNIQUE: Portable upright AP view of the chest is performed at 0621 hours. FINDINGS: Endotracheal tube tip is approximately 3.2 cm above king. Nasogastric tube is seen in the abdomen and extending beyond the inferior film [id number]. The right PICC line tip is at the superior vena cava right atrial junction. Again, there is airspace opacity with probable effusion at the left base. Coarsening of the interstitial markings and bronchovascular markings left perihilar region is stable. Right lung shows no airspace consolidation. Cardiac and visualized hilar and mediastinal contours and bony structures are stable. IMPRESSION: 1. Endotracheal tube 3.2 cm above king. 2. Stable airspace opacity and effusion left base. Interstitial prominence left perihilar stable.
--- NOTE | 2016-10-21 09:18 | PN- Infect Dx ---
Subjective Subjective: MAXIMUM TEMPERATURE 100.2. Loose brown, guaiac negative, stools continue to be reported. She again dropped her H&H yesterday requiring blood transfusions. Objective Last 24 Hrs of Vital Signs/I&O Vital Signs Date Time Temp Pulse Resp B/P Pulse O2 O2 Flow FiO2 Ox Delivery Rate 10/21 0810 35 10/21 0643 35 10/21 0400 98 Ventilator 35% 10/21 0352 35 10/21 0053 35 10/21 0000 98 Ventilator 35% 10/21 0000 99.4 92 17 113/72 98 Ventilator 35% 10/20 2212 35 10/20 2151 100.2 10/20 2057 100.0 10/20 2000 98 Ventilator 35% 10/20 1958 35 10/20 1707 35 10/20 1600 98 Venti Mask 35% 10/20 1600 98.0 78 20 100/50 98 Ventilator 35% 10/20 1434 40 10/20 1200 98 Ventilator 40% 10/20 1138 40 Intake & Output 10/21 1600 10/21 0800 10/21 0000 Intake Total 1187 762 Output Total 470 430 Balance 717 332 Intake, Blood 506 127 Product Intake, IV 265 265 Intake, Tube 316 345 Feeding Intake, Tube 100 25 Irrigant Number 2 1 Bowel Movements Output, Urine 470 430 Patient 136 lb Weight Physical Exam Other Physical Findings: She is alert and responsive on the ventilator Lungs are clear Heart regular rhythm with no murmur Abdomen is soft, nontender with positive bowel sounds Extremities right thigh swelling unchanged; no cyanosis, clubbing or edema; PICC in the right upper extremity with no inflammation at the site Palacio catheter remains in place Results Last 24 Hours of Lab Results: Laboratory Tests 10/21 10/21 10/21 0540 0512 0511 Blood Gas pH (7.35 - 7.45 PH) 7.55 H pCO2 (35 - 45 TORR) 27 L pO2 (80 - 100 TORR) 87 HCO3 (21 - 28 MEQ/L) 22 ABG O2 Sat (Measured) (>96.0 %) 96.0 P-50 (Temp Corrected) Y Carboxyhemoglobin (1.5 - 5.0 %) 0.8 L O2 Concentration % 35% Temperature (97.0 - 100.0 FARH) 99.5 Respiration Rate (BPM) 12 O2 Delivery Method ESPRIT Vent Mode AC Expiratory Pressure (CMH2O/P) 5 Tidal Volume (CC) 450 Chemistry Sodium (137 - 145 mmol/L) 128 L Potassium (3.5 - 5.1 mmol/L) 4.7 Chloride (98 - 107 mmol/L) 91 L Carbon Dioxide (22 - 30 mmol/L) 27 Anion Gap (5 - 16) 10 BUN (7 - 17 mg/dL) 8 Creatinine (0.5 - 1.0 mg/dL) 0.4 L Estimated GFR (>60 ml/min) > 60 Glucose (65 - 99 mg/dL) 109 H Calcium (8.4 - 10.2 mg/dL) 8.0 L Phosphorus (2.5 - 4.5 mg/dL) 5.1 H Magnesium (1.6 - 2.3 mg/dL) 1.7 Total Bilirubin (0.2 - 1.3 mg/dL) 1.0 AST (14 - 36 U/L) 32 ALT (9 - 52 U/L) 44 Albumin (3.5 - 5.0 g/dL) 2.1 L Hematology CBC w Diff NO MAN DIFF REQ WBC (4.8 - 10.8 /CUMM) 22.9 H RBC (4.20 - 5.40 /CUMM) 3.35 L Hgb (12.0 - 16.0 G/DL) 9.9 L Hct (37 - 47 %) 29.4 L MCV (81.0 - 99.0 FL) 87.7 MCH (27.0 - 31.0 PG) 29.4 RDW (11.5 - 14.5 %) 18.1 H Plt Count (130 - 400 /CUMM) 382 MPV (7.4 - 10.4 FL) 10.2 Gran % (42.2 - 75.2 %) 85.9 H Lymphocytes % (20.5 - 51.1 %) 6.0 L Monocytes % (1.7 - 9.3 %) 6.2 Eosinophils % (0 - 5 %) 1.9 Basophils % (0.0 - 2.0 %) 0 L Absolute Granulocytes (1.4 - 6.5 /CUMM) 19.7 H Absolute Lymphocytes (1.2 - 3.4 /CUMM) 1.4 Absolute Monocytes (0.10 - 0.60 /CUMM) 1.4 H Absolute Eosinophils (0.0 - 0.7 /CUMM) 0.4 Absolute Basophils (0.0 - 0.2 /CUMM) 0 PUBS MCHC (33.0 - 37.0 G/DL) 33.5 Miscellaneous Phlebotomy Draw Site LEFT RADIAL 10/20 2039 Coagulation PT (9.4 - 12.5 SEC) 11.6 INR (0.90 - 1.19) 1.11 APTT (25 - 37 SEC) 27 Fibrinogen Activity (200 - 393 MG/DL) 507 H Fibrin Degrad Products (< 10 ug/ml) >10 but < 40 ug/ml H D-Dimer (70 - 232 ng/ml) 1806 H 10/20 10/20 1740 1155 Blood Gas pH (7.35 - 7.45 PH) 7.53 H pCO2 (35 - 45 TORR) 32 L pO2 (80 - 100 TORR) 97 HCO3 (21 - 28 MEQ/L) 25 ABG O2 Sat (Measured) (>96.0 %) 96.0 P-50 (Temp Corrected) N Carboxyhemoglobin (1.5 - 5.0 %) 0.3 L O2 Concentration % 40% Respiration Rate (BPM) 14 O2 Delivery Method VENT Vent Mode AC Expiratory Pressure (CMH2O/P) 5 Tidal Volume (CC) 450 Pressure Support (CMH2O/P) 0 Hematology CBC w Diff NO MAN DIFF REQ WBC (4.8 - 10.8 /CUMM) 21.3 H RBC (4.20 - 5.40 /CUMM) 2.11 L Hgb (12.0 - 16.0 G/DL) 6.3 *L Hct (37 - 47 %) 19.3 *L MCV (81.0 - 99.0 FL) 91.6 MCH (27.0 - 31.0 PG) 30.1 RDW (11.5 - 14.5 %) 16.5 H Plt Count (130 - 400 /CUMM) 348 MPV (7.4 - 10.4 FL) 9.6 Gran % (42.2 - 75.2 %) 86.3 H Lymphocytes % (20.5 - 51.1 %) 7.1 L Monocytes % (1.7 - 9.3 %) 4.9 Eosinophils % (0 - 5 %) 1.3 Basophils % (0.0 - 2.0 %) 0.4 Absolute Granulocytes (1.4 - 6.5 /CUMM) 18.4 H Absolute Lymphocytes (1.2 - 3.4 /CUMM) 1.5 Absolute Monocytes (0.10 - 0.60 /CUMM) 1.0 H Absolute Eosinophils (0.0 - 0.7 /CUMM) 0.3 Absolute Basophils (0.0 - 0.2 /CUMM) 0.1 PUBS MCHC (33.0 - 37.0 G/DL) 32.8 L Miscellaneous Phlebotomy Draw Site LEFT RADIAL Urines Urine Osmolality (300 - 1000 MOSM/KG) 501 Last 24 Hours of Charles Results: No recent cultures Recent Imaging Studies: Chest x-ray, personally reviewed, reveals left lower lobe density unchanged Assessment/Plan Impression: Low-grade fevers persist though white blood cell count is decreasing on po Vancomycin Day 4 of treatment for C. difficile infection, with diarrhea persisting, and Bactrim now Day 5 of treatment for Stenotrophomonas isolated from the sputum culture, though suspect this may just represent colonization. Her H&H has again dropped, with no obvious source of bleeding, and she has been transfused. Given what appears to be a chronic leukocytosis, at least for the past 3 months, an underlying bone marrow disorder must be considered. Suggestion: 1. Agree with Hematology input 2. Continue po Vancomycin 3. Continue Bactrim
--- NOTE | 2016-10-21 09:28 | PN- CRCU ---
Subjective HPI/Critical Care Issues: Patient seen and examined this morning. She continues to be lethargic and minimally responsive to painful stimuli. Her hemoglobin was reduced yesterday but resolved and maintains be at 9.9 this morning. She has had a blood transfusion with good response. There is no signs of active bleeding. The review of systems unobtainable secondary to intubated state. Objective Current Medications: Current Medications Sig/[place] Start time Last Medication Dose Route Stop Time Status Admin Acetaminophen 650 MG .STK-MED ONE 10/20 2050 DC PO 10/20 2051 Acetaminophen 1,000 MG Q6P PRN 10/10 1630 AC 10/18 N/A 1 UNIT IV 2012 Acetaminophen 650 MG Q8 PRN 10/06 1945 AC 10/20 PO 2056 Albuterol Sulfate 3 ML EVERY 4 HRS/AWAKE 10/12 0800 AC 10/21 INH 0752 Artificial Tears 2 GTT TID 10/18 220 AC 10/20 OPH 2228 Exemestane 25 MG DAILY 10/07 1000 AC 10/20 PO 1227 Folic Acid 1 MG DAILY 10/07 1000 AC 10/20 PO 1227 Glycerin 2 SPRAY Q2P PRN 10/15 1430 AC 10/17 PO 0627 Insulin Aspart 0 Q4 10/16 1800 AC 10/21 SC 0629 Insulin Detemir 5 UNITS BID 10/16 2200 AC 10/20 SC 2220 Lorazepam 0 Q1P PRN 10/07 1330 DC 10/09 IV 1747 Magnesium Oxide 400 MG ONE ONE 10/20 1215 DC 10/20 PO 10/20 1216 1404 Magnesium Sulfate 1 GM ONCE ONE 10/20 1215 DC 10/20 Dextrose/Water 100 ML IV 10/20 1614 1405 Norepinephrine 8 MG Q14H 10/18 1500 DC 10/20 Sodium Chloride 250 ML IV 1405 Pantoprazole Sodium 40 MG BID 10/20 2200 AC 10/20 IV 2221 Pantoprazole Sodium 40 MG DAILY 10/10 1835 DC 10/20 IV 1227 Patient Medication 1 UNIT ONE NR 10/20 1830 [place] Teaching ED 10/20 1900 Potassium Chloride 40 MEQ ONCE ONE 10/20 1215 CAN PO 10/20 1216 Thiamine HCl 100 MG DAILY 10/20 1310 AC 10/20 Sodium Chloride 100 ML IV 10/22 1012 1432 Trimethoprim/ 12.5 ML Q8H 10/16 1415 AC 10/21 Sulfamethoxazole IV 0629 Dextrose/Water 250 ML Vancomycin HCl 125 MG Q6 10/17 1350 AC 10/21 PO 0630 Vital Signs & I&O Last 24 Hrs of Vitals and I&O: Vital Signs Date Time Temp Pulse Resp B/P Pulse O2 O2 Flow FiO2 Ox Delivery Rate 10/21 809 35 10/21 0643 35 10/21 0400 98 Ventilator 35% 10/21 0352 35 10/21 0053 35 10/21 0000 98 Ventilator 35% 10/21 0000 99.4 92 17 113/72 98 Ventilator 35% 10/20 2212 35 10/20 2151 100.2 10/20 2057 100.0 10/20 2000 98 Ventilator 35% 10/20 1958 35 10/20 1707 35 10/20 1600 98 Venti Mask 35% 10/20 1600 98.0 78 20 100/50 98 Ventilator 35% 10/20 1434 40 10/20 1200 98 Ventilator 40% 10/20 1138 40 Intake & Output 10/21 1600 10/21 0800 10/21 0000 Intake Total 1187 762 Output Total 470 430 Balance 717 332 Intake, Blood 506 127 Product Intake, IV 265 265 Intake, Tube 316 345 Feeding Intake, Tube 100 25 Irrigant Number 2 1 Bowel Movements Output, Urine 470 430 Patient 136 lb Weight Exam Other Physical Findings: General - intubated, minimally responsive to painful stimuli HEENT - ET tube Cardiovascular - S1, S2 Lungs - transmitted breath sounds bilaterally Abdomen - soft, bowel sounds positive, no tenderness Extremities - without edema or cyanosis Results Last 24 Hrs of Lab Results: Laboratory Tests 10/21/16 0540: pH 7.55 H, pCO2 27 L, pO2 87, HCO3 22, ABG O2 Sat (Measured) 96.0, P-50 (Temp Corrected) Y, Carboxyhemoglobin 0.8 L, O2 Concentration % 35%, Temperature 99.5 , Respiration Rate 12, O2 Delivery Method ESPRIT, Vent Mode AC, Expiratory Pressure 5, Tidal Volume 450, Phlebotomy Draw Site LEFT RADIAL 10/21/16 0512: CBC w Diff NO MAN DIFF REQ, RBC 3.35 L, MCV 87.7, MCH 29.4, RDW 18.1 H, MPV 10.2, Gran % 85.9 H, Lymphocytes % 6.0 L, Monocytes % 6.2, Eosinophils % 1.9, Basophils % 0 L, Absolute Granulocytes 19.7 H, Absolute Lymphocytes 1.4, Absolute Monocytes 1.4 H, Absolute Eosinophils 0.4, Absolute Basophils 0, PUBS MCHC 33.5 10/21/16 0511: Anion Gap 10, Estimated GFR > 60, Glucose 109 H, Calcium 8.0 L, Phosphorus 5.1 H, Magnesium 1.7, Total Bilirubin 1.0, AST 32, ALT 44, Albumin 2.1 L 10/20/16 2040: PT 11.6, INR 1.11, APTT 27, Fibrinogen Activity 507 H, Fibrin Degrad Products > 10 but < 40 ug/ml H, D-Dimer 1806 H 10/20/16 1740: CBC w Diff NO MAN DIFF REQ, RBC 2.11 L, MCV 91.6, MCH 30.1, RDW 16.5 H, MPV 9.6, Gran % 86.3 H, Lymphocytes % 7.1 L, Monocytes % 4.9, Eosinophils % 1.3, Basophils % 0.4, Absolute Granulocytes 18.4 H, Absolute Lymphocytes 1.5, Absolute Monocytes 1.0 H, Absolute Eosinophils 0.3, Absolute Basophils 0.1, PUBS MCHC 32.8 L, Urine Osmolality 501 10/20/16 1155: pH 7.53 H, pCO2 32 L, pO2 97, HCO3 25, ABG O2 Sat (Measured) 96.0, P-50 (Temp Corrected) N, Carboxyhemoglobin 0.3 L, O2 Concentration % 40%, Respiration Rate 14, O2 Delivery Method VENT, Vent Mode AC, Expiratory Pressure 5, Tidal Volume 450, Pressure Support 0, Phlebotomy Draw Site LEFT RADIAL Impression/Plan Impression/Plan Impression/Plan: Impression 61 year old woman hx breast ca - right intratrochanteric fracture - acute blood loss anemia - improved hypoxemic respiratory failure presumed ards - c.diff in stool and stenotrophomonas in sputum Plan Respiratory -cont mechanical ventilation -CTA with abd and pelvis including chest ID -ID consultation appreciated -cont abx -c.diff and stenotrophomonas CVS -f/u cardiology Heme -hx of breast ca, will need follow up with oncology after acute illness -acute blood loss anemia, stabilized now but intermittent drops in hematocrit -if + for VTE would require filter given anemia -ldh/haptoglobin, monitor cbc, coags Metabolic -ins/outs, monitor electrolytes -finger sticks q2h Alimentary -tube feeds Neuro -prolactin mildly elevated, check EEG, neuro consultation TTS 40 min
--- NOTE | 2016-10-21 13:27 | CT SCAN REPORT ---
EXAMINATION: CT ABDOMEN AND PELVIS WITH CONTRAST CLINICAL INFORMATION: 61-year-old female with right hip fracture, right hip hematoma. Suspected retroperitoneal bleed. COMPARISON: Most recent prior noncontrast CT of the abdomen and pelvis done on 10/18/2016. TECHNIQUE: Multidetector volumetric imaging was performed of the abdomen and pelvis before and after the IV administration of 95 mL of Optiray 350 intravenous contrast. Sagittal and coronal reformatted images were obtained on the technologist's workstation. DLP: 969.60 mGy-cm. ( For CT of the chest abdomen and pelvis). FINDINGS: LUNG BASES: Please refer to the CT of the chest done at the same time for full details. LIVER, GALLBLADDER, AND BILIARY TREE: Persistent stable approximately 1.5 cm hepatic hypodensity is noted within the left lobe, most consistent with a cyst. The remainder of the entire liver shows no other discrete focal abnormality. Intraluminal layering hyperdensities are noted within the dependent part of the gallbladder consistent with gallbladder calculi, sludge or combination thereof, similar to prior study. No CT evidence of biliary ductal dilatation or features of obstruction identified, unchanged. PANCREAS: Stable diffuse chronic calcific pancreatitis related changes are noted. SPLEEN: Nonspecific subtle 3 peripheral hypodensities are present, the larger measures approximately 2 cm while the smaller measures approximately 0.5 cm, both of them are not detected on the prior noncontrast studies. Differential includes intrasplenic cyst versus old infarction and in the appropriate clinical setting lymphoma, metastases as well. ADRENAL GLANDS: There is no adrenal mass present. KIDNEYS AND URETERS: The kidneys are normal in size, shape, and attenuation. No hydronephrosis, hydroureter, or calculi seen. No perinephric stranding. BLADDER: There is a Palacio's catheter present. Air-fluid level is noted. GASTROINTESTINAL TRACT: The small, large bowel loops are decompressed. There is no abnormal air-fluid levels suggestive of obstruction present. There are no inflammatory changes visualized. ABDOMINAL WALL: No significant hernia is appreciated. LYMPH NODES: Multiple shotty upper retroperitoneal lymph nodes are present, unchanged. VASCULAR: Atherosclerotic disease is noted within the aorta and its branches, unchanged. PELVIC VISCERA: Nonspecific perirectal stranding is noted, similar to prior study. There is no pelvic mass, free fluid and/or free air present. OTHER FINDINGS: Specifically, there is no retroperitoneal hematoma identified. Inferior to the comminuted fracture involving the right proximal femur, there is a large soft tissue subacute hematoma identified within the proximal upper medial aspect of the right thigh, measures approximately 5.4 x 2.7 cm. In addition, there is generalized subcutaneous soft tissue thickening, stranding present within the entire abdomen and pelvis, similar to prior study. OSSEOUS STRUCTURES: Previously documented comminuted fracture involving the right intertrochanteric region, proximal femur appear unchanged. There is a large hematoma identified within the adjacent proximal medial musculatures. Multilevel degenerative changes are noted in the spine. No significant change. IMPRESSION: 1. No acute intra-abdominal and/or intrapelvic pathology is present. Specifically, no evidence of any retroperitoneal hematoma identified. However, there is a large 5.4 x 2.7 cm subacute hematoma identified within the proximal, upper medial aspect of the right thigh adjacent to the comminuted fracture involving the right proximal femur. 2. 1.5 cm presumed hepatic cyst. 3. Few nonspecific splenic hypodensities are identified, the largest measures 2 cm. Possible differential diagnostic consideration is given as above. 4. Features consistent with generalized nonspecific subcutaneous edema. 5. Multiple shotty stable retroperitoneal nonspecific lymph nodes.
--- NOTE | 2016-10-21 13:31 | CT SCAN REPORT ---
EXAMINATION: CT ANGIOGRAM OF THE CHEST WITH AND WITHOUT CONTRAST (CT PULMONARY ANGIOGRAM FOR PE) CLINICAL INFORMATION: Elevated D-dimer. Suspected pulmonary embolism. COMPARISON: CT of the chest done on 10/11/2016. TECHNIQUE: Prior to contrast administration, noncontrast localization images were obtained. Subsequently, multidetector volumetric imaging was performed from the thoracic inlet to below the diaphragms following the administration of 95 mL Optiray 350 intravenous contrast. No contrast reaction reported. Sagittal, coronal, and MIP oblique sagittal reformatted images were obtained on the CT workstation, uploaded to PACS, and reviewed. Total exam dose-length product 969.6 mGy-cm. FINDINGS: QUALITY OF STUDY/CONTRAST BOLUS: Satisfactory. PULMONARY ARTERIES: No central or segmental pulmonary emboli. THORACIC AORTA: The ascending thoracic aorta measures approximately 4 cm at the level of the right pulmonary artery, similar to prior study. There is no aortic dissection identified. LUNG: Previously documented extensive groundglass opacities involving both lung gutierrez show significant interval improvement. Previously identified dense consolidation at right lower lobe also shows significant interval improvement. There is persistent dense consolidation identified involving left lower lobe of the lung. The tip of the endotracheal tube is seen approximately 4 cm above the level of the king PLEURA: Trace amount of left-sided pleural effusion is noted. MEDIASTINUM: Multiple shotty mediastinal lymph nodes are noted. Atherosclerotic disease including coronary artery calcifications are present. Trace amount of new pericardial effusion is noted. There is an enteric tube visualized with its tip seen extending into the body of the stomach. Right-sided central catheter is present, appears in good position. CHEST WALL/AXILLA: Multiple stable shotty left axillary lymph nodes are present. OSSEOUS STRUCTURES: No suspicious lytic or sclerotic abnormalities. UPPER ABDOMEN: Please refer to the CT of the abdomen and pelvis report done at the same time for further full details. IMPRESSION: 1. No CT evidence of pulmonary embolism. 2. Previously documented extensive bilateral groundglass airspace opacities show interval improvement with near complete resolution of dense consolidation at right lung base and persistent dense consolidation at left lower lobe of the lung. 3. Trace amount of left-sided pleural effusion, similar to prior study. 4. Stable mildly dilated ascending thoracic aorta, atherosclerotic disease including coronary arterial calcifications and new trace amount of pericardial effusion since the prior study dated 10/11/2016.
[2016-10-21 16:00] VITALS: BP 110/70
--- NOTE | 2016-10-21 19:03 | PN- Resident CRCU ---
Subjective HPI/CRCU Issues: Patient seen and examined. She is seen lying flat in bed intubated on a ventilator with multiple lines in place. She appears to be in no acute distress. She in more responsive today to verbal and tactile stimuli and follows simple commands such as hand grasps. Review of systems is unobtainable. No overnight events reported. Objective Vital Signs & I&O Last 8 Hrs of Vitals and I&O: Vitals: - Temperature: 98.0 - 99.4 - Heart Rate: 84 - 100 - Respiratory Rate: 15 - 29 - Systolic Blood pressure: 95 - 128 - Diastolic Blood pressure: 57 - 72 - Oxygen Saturation: 97 - 99% on 35% FiO2 Exam General Appearance: well developed/nourished, no apparent distress, intubated, lethargic Other Physical Findings: General -frail/elderly woman with multiple lines in place in no acute distress HEENT - NCAT, PERRL, EOMI, anicteric sclera, endotracheal tube, OG tube Cardio - S1, S2 w/o murmurs/gallops/rubs Resp - CTA bilaterally w/o wheezing/rhochi/crackles GI -soft, nontender, nondistended, bowel sounds present -Palacio catheter in place Neuro -lethargic, moderately responsive to tactile/verbal stimuli, follows simple commands Current Medications: Current Medications Sig/[place] Start time Last Medication Dose Route Stop Time Status Admin Acetaminophen 650 MG .STK-MED ONE 10/20 2050 DC PO 10/20 2051 Acetaminophen 1,000 MG Q6P PRN 10/10 1630 AC 10/18 N/A 1 UNIT IV 2012 Acetaminophen 650 MG Q8 PRN 10/06 1945 AC 10/20 PO 2056 Albuterol Sulfate 3 ML EVERY 4 HRS/AWAKE 10/12 0800 AC 10/21 INH 1611 Artificial Tears 2 GTT TID 10/18 2200 AC 10/21 OPH 1600 Exemestane 25 MG DAILY 10/07 1000 AC 10/21 PO 1249 Folic Acid 1 MG DAILY 10/07 1000 AC 10/21 PO 1249 Glycerin 2 SPRAY Q2P PRN 10/15 1430 AC 10/17 PO 0627 Insulin Aspart 0 Q4 10/16 1800 AC 10/21 SC 1846 Insulin Detemir 5 UNITS BID 10/16 2200 AC 10/21 SC 1000 Magnesium Sulfate 1 GM Q2H 10/21 1015 DC 10/21 Dextrose/Water 100 ML IV 10/21 1414 1200 Pantoprazole Sodium 40 MG BID 10/20 2200 AC 10/21 IV 1249 Patient Medication 1 UNIT ONE NR 10/20 1830 [place] Teaching ED 10/20 1900 Thiamine HCl 100 MG DAILY 10/20 1310 AC 10/21 Sodium Chloride 100 ML IV 10/22 1012 1249 Trimethoprim/ 12.5 ML Q8H 10/16 1415 AC 10/21 Sulfamethoxazole IV 1530 Dextrose/Water 250 ML Vancomycin HCl 125 MG Q6 10/17 1350 AC 10/21 PO 1845 Impression/Plan Impression/Problem List Impression: Patient was found to have a drop in her hemoglobin yesterday requiring two units of packed red blood cells. Repeat CBC obtained this evening is still pending. CTA chest/abdomen/pelvis ruled out any presence of pulmonary embolism or retroperitoneal bleed, but did identify a small subacute hematoma within the vicinity of the previously identified right hip fracture. Surgery was updated regarding this finding and will evaluate the patient tomorrow. LDH obtained was mildly elevated and haptoglobin level is still pending. Heme/onc consult may be placed tomorrow pending CBC/haptoglobin results. EEG still pending. Problem list: -Acute hypoxic respiratory failure, intubated on vent -Acute respiratory distress syndrome, intubated on vent -Displaced comminuted right proximal femoral shaft fracture -Proximal right lower extremity hematoma -Acute blood loss anemia, stable -EtOH withdrawal -Multilobar pneumonia, on antibiotics -History of breast cancer that is post bilateral mastectomy, chemotherapy/ radiation -Leukocytosis -C. Diff colitis, on oral vancomycin Respiratory/infectious disease: Patient remains intubated on ventilator. Lasix given as tolerated for fluid overload. Daily arterial blood gas/chest x-rays are to be obtained for assessment of respiratory disease. -Intubated on ventilator -Bactrim IV -Vancomycin 125mg PO Q6H -Sputum cultures: Stenotrophomonas resistant to ceftazidime -Follow up with surgical PA when medically clear for surgery Musculoskeletal: Sustained a fall from her bed resulting in a right hip fracture as demonstrated by x-ray and CT imaging. She was evaluated by orthopedic surgery, but surgical intervention was deferred as patient was found to have an acute drop in her hemoglobin requiring admission to the intensive care unit from the general medicine floor for medical optimization. -Monitor vital signs and hemoglobin -Cardiac clearance obtained -Orthopedic consult following Cardiology: Revised cardiac risk index calculated for a score of 0 suggesting a 0.4% risk of a major cardiac event. -RCRI: 0, 0.4 risk for major cardiac event -sales consultant residential manager cleared patient for surgery Hematology/oncology: Patient has a history of breast cancer with bilateral mastectomy, chemotherapy, and radiation. Last treatment reportedly received 6 months ago. She is a patient of Dr. Mejias of the [facility]. She has not had any follow- up imaging since this time apparently, but is reportedly in remission with a surveillance visit scheduled in January 2017. Patient has had persistent leukocytosis since admission. White blood cell count was elevated as recently as July to ,000, baseline level unclear. She denies taking any adjuvant chemotherapy regimens such as Neulasta/Neupogen that could possibly account for this, however records are unavailable at this time. Consent for blood transfusion was obtained and placed on chart, type and cross was ordered. Packed red blood cells were transfused. -PRBC transfused: 5 -Daily CBC, monitor for worsening anemia/leukocytosis Psychiatry: Patient has a history of alcohol abuse for which she reports drinking vodka several times a week. Serum alcohol on admission was negative. She remains tremulous with see what scores consistently minimally elevated. -Multivitamin/thiamine/folate -Bupropion on hold -Consider psychiatry/social work consult Endocrinology: Patient with a history of diabetes mellitus. Blood sugars have been consistently low requiring amps of dextrose. -Accu-Cheks -Novolog SSI Pain plan: -Acetaminophen 650 mg by mouth every 8 hours as needed for pain 1-3 -Oxycodone 1 tab by mouth every 6 hours as needed for pain 4-6 -Dilaudid 0.6 mg IV every 4 hours as needed for pain 7-10 Diet -NPO, tube feeds continuing DVT prophylaxis-mechanical ppx to LLE Code Status-full code Problem List: 1. Displaced comminuted fracture of shaft of right femur Pain Ratin Tomorrow's Labs & Rationales: CBC ICU bundle CXR ABG Plan DVT/Prophylaxis: mechanical
[2016-10-21 19:05] LABS: ABSOLUTE BASOPHIL COUNT 0.1 /CUMM (0.0-0.2); ABSOLUTE EOSINOPHIL COUNT 0.2 /CUMM (0.0-0.7); ABSOLUTE GRANULOCYTE CT 19.9 /CUMM (1.4-6.5); ABSOLUTE LYMPH COUNT 1.2 /CUMM (1.2-3.4); ABSOLUTE MONOCYTE COUNT 1.7 /CUMM (0.10-0.60); BASOPHIL % 0.5 % (0.0-2.0); EOSINOPHIL % 0.9 % (0-5); GRANULOCYTE % 86.1 % (42.2-75.2); HEMATOCRIT 30.9 % (37-47); MEAN CORPUSCULAR HGB 29.8 PG (27.0-31.0); MEAN CORPUSCULAR VOLUME 87.6 FL (81.0-99.0); MEAN PLATELET VOLUME 9.8 FL (7.4-10.4); PLATELET COUNT 434 /CUMM (130-400); RBC DISTRIBUTION WIDTH 18.2 % (11.5-14.5); RED BLOOD CELL CT 3.53 /CUMM (4.20-5.40)
[2016-10-21 19:25] LABS: WHITE BLOOD CELL COUNT 23.1 /CUMM (4.8-10.8)
--- NOTE | 2016-10-21 19:26 | NUR ---
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 SPORADICALLY SHE WILL OPEN HER EYES, SHE FROWNS WHEN TURNED IN BED. MONITOR REMAINS NSR. B/P IS STABLE( OFF PRESSORS SINCE 10/20). TEMP MAX 99. STOOL REMAINS LOOSE AND GRAINY. SHE HAD 2 LARGE STOOLS TODAY. TRANSFERRED TO CT FOR CTA THIS MORNING MONITORED BY RN AND RESPIRATORY THERAPIST.
--- NOTE | 2016-10-21 20:26 | NUR ---
PT OPENS EYES TO NAME CALLING, POSITIVE HAND SQUEEZE ON DEMAND. EXTREMITIES REMAIN FLOPPY. PUPILS EQUAL AND REACT BRISKLY TO LIGHT. ORALLY INTUBATED AND VENTED. BREATH SOUNDS CLEAR WITH DIMINISHED BREATH SOUNDS AT BASES BILATERALLY. SUCTIONING FOR MOD OF THICK BLACKBURN SECREATIONS. SEE FLOW SHEET FOR VS, 02 SATS, I/O'S. MONITOR SHOWS NSR-ST, NO ECTOPY NOTED AT PRESENT. BP STABLE AT PRESENT. ABD SOFT, NONTENDER, NONDISTENDED, POSITIVE BOWEL SOUNDS. OGT IN PLACE-PLACEMENT CONFIRMED BY AIR-ON TUBE FEEDS-TOLERATING WELL AT PRESENT. BOWER IN PLACE-DRAINING ADEQUATE AMT OF CLEAR LINH URINE AT PRESENT. SKIN INTACT. RT UPPER THIGH BRUISE NOTED, HARD TO TOUCH, BUT NO CHANGE IN SIZE OR APPEARANCE FROM YESTERDAY.
--- NOTE | 2016-10-21 21:24 | Cons- Neurology ---
General Information and HPI Consulting Request Date of Consult: 10/21/16 Requested By: LUIS ALBERTO SHAW MD Reason for Consult: Prolonged encephalopathy Source of Information: old records Exam Limitations: unable to give history, clinical condition, physical impairment History of Present Illness: This is a 61-year-old female with past medical history significant for NIDDM, chronic pancreatitis secondary to alcoholism, breast cancer treated with chemotherapy, who was brought in [facility] by ambulance for new onset right hip pain. She had accidentally rolled out of bed early in the morning and fell on the floor. She suffered from excruciating right hip pain and was unable to move for an hour. She was therefore brought to [facility] and admitted. Initial physical examination was remarkable for a tremulous woman with a significantly swollen right lower extremity that was tender to palpation. Lab work demonstrated WBC 28.4, normal hemoglobin/hematocrit and was otherwise unremarkable. Hip x-ray and CT abdomen/pelvis demonstrated an acute displaced comminuted femoral shaft fracture with extension to the intertrochanteric region. The day following admission routine blood work demonstrated an acute drop in her hemoglobin from 12.2 to 7.2 with increased swelling in the right lower extremity. Patient was transferred to the intensive care unit for further monitoring and 2 units of packed red blood cells were transfused. Patient was to undergo surgical intervention of the acute hip fracture on , however that morning she became somnolent, febrile, tachypnea, and hypoxic to 89% on room air. Arterial blood gas and chest x-ray were obtained which demonstrated a metabolic alkalosis and airway disease suggestive of a multi- lobar pneumonia. Patient continued to have worsening respiratory distress for which she was ultimately intubated. Her condition continued to remain poor with hypotension, requiring pressors, ventilator dependence, though with a decrease in her oxygen requirements, and persistent leukocytosis despite empiric treatment with Ceftriaxone. ID suspected another possible source of infection. She was later found to have C. difficile in her stool. Respiratory culture also revealed Stenotrophomonas maltophilia. We were consulted as her mental status continued to be poor and she remained unresponsive. However, over the last 24 hours she has shown some signs of improvement opening her eyes and following simple commands at times. Allergies/Medications Allergies: Coded Allergies: apple (Severe, THROAT CLOSURE 06/28/16) rose (Severe, THROAT CLOSURE 06/28/16) CHERRIES cezar (Severe, THROAT CLOSURE 06/28/16) peach (Severe, THROAT CLOSURE 06/28/16) sertraline (Intermediate, RASH 06/28/16) birch (UNKNOWN 06/28/16) Home Med List: Aspirin (Aspirin*) 81 MG TAB.CHEW 1 TAB PO DAILY Heart (Reported) Bupropion HCl (Bupropion HCl Sr) 150 MG TABLET.ER 1 TAB PO BID SMOKING CESSATION (Reported) Exemestane 25 MG TABLET 1 TAB PO DAILY BREAST CA (Reported) Folic Acid 1 MG TABLET 1 MG PO DAILY FOLIC ACID SUPPLEMENT (Reported) Insulin Aspart, Recombinant (Novolog Flexpen) 100 UNIT/ML INSULN.PEN DM ( Reported) Current Medications: Current Medications Sig/Holland Start time Last Medication Dose Route Stop Time Status Admin Acetaminophen 1,000 MG Q6P PRN 10/10 1630 AC 10/18 N/A 1 UNIT IV 2012 Acetaminophen 650 MG Q8 PRN 10/06 1945 AC 10/20 PO 205 Albuterol Sulfate 3 ML EVERY 4 HRS/AWAKE 10/12 0800 AC 10/21 INH 1920 Artificial Tears 2 GTT TID 10/18 2200 AC 10/21 OPH 1600 Exemestane 25 MG DAILY 10/07 1000 AC 10/21 PO 1249 Folic Acid 1 MG DAILY 10/07 1000 AC 10/21 PO 1249 Glycerin 2 SPRAY Q2P PRN 10/15 1430 AC 10/17 PO 0627 Insulin Aspart 0 Q4 10/16 1800 AC 10/21 SC 1846 Insulin Detemir 5 UNITS BID 10/16 2200 AC 10/21 SC 1000 Magnesium Sulfate 1 GM Q2H 10/21 1015 DC 10/21 Dextrose/Water 100 ML IV 10/21 1414 1200 Pantoprazole Sodium 40 MG BID 10/20 2200 AC 10/21 IV 1249 Thiamine HCl 100 MG DAILY 10/20 1310 AC 10/21 Sodium Chloride 100 ML IV 10/22 1012 1249 Trimethoprim/ 12.5 ML Q8H 10/16 1415 AC 10/21 Sulfamethoxazole IV 1530 Dextrose/Water 250 ML Vancomycin HCl 125 MG Q6 10/17 1350 AC 10/21 PO 1845 Review of Systems Review of Systems: Has per HPI. 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 Home Services at Home: None Smoking Status: Current Everyday Smoker ETOH Use: heavy use, patient drinks a bottle of vodka a week Exam & Diagnostic Data Vital Signs and I&O Vital Signs Date Time Temp Pulse Resp B/P Pulse O2 O2 Flow FiO2 Ox Delivery Rate 10/21 1999 98 Ventilator 35% 10/21 1926 35 10/21 1618 35 10/21 1600 95 Ventilator 35% 10/21 1600 98.0 90 18 110/70 98 Ventilator 35% 10/21 1429 35 10/21 1209 35 10/21 1200 96 Ventilator 35% 10/21 0810 35 10/21 0800 98 Ventilator 35% 10/21 0800 98.0 90 20 100/60 98 Ventilator 35% 10/21 0643 35 10/21 0400 98 Ventilator 35% 10/21 0352 35 10/21 0053 35 10/21 0000 98 Ventilator 35% 10/21 0000 99.4 92 17 113/72 98 Ventilator 35% 10/20 2212 35 10/20 2151 100.2 Intake & Output 10/21 1600 10/21 0800 01/08 0000 Intake Total 716 1187 762 Output Total 430 470 430 Balance 286 717 332 Intake, Blood 506 127 Product Intake, IV 200 265 265 Intake, Tube 416 316 345 Feeding Intake, Tube 100 100 25 Irrigant Number 2 2 1 Bowel Movements Output, Urine 430 470 430 Patient 136 lb Weight Physical Exam: Intubated, opens eyes to call of her name. Hypersomnokent. Suppressed cough reflex. EOMI, YESICA. Face symmetric. Non-tremulous. Squeezes my hands on both sides equally to command. Does not follow command to move legs but responds to tactile stimulation. Toes are mute. Last 48 Hours of Lab Results: Laboratory Tests 10/21 10/21 1830 0540 Blood Gas pH (7.35 - 7.45 PH) 7.55 H pCO2 (35 - 45 TORR) 27 L pO2 (80 - 100 TORR) 87 HCO3 (21 - 28 MEQ/L) 22 ABG O2 Sat (Measured) (>96.0 %) 96.0 P-50 (Temp Corrected) Y Carboxyhemoglobin (1.5 - 5.0 %) 0.8 L O2 Concentration % 35% Temperature (97.0 - 100.0 FARH) 99.5 Respiration Rate (BPM) 12 O2 Delivery Method ESPRIT Vent Mode AC Expiratory Pressure (CMH2O/P) 5 Tidal Volume (CC) 450 Hematology CBC w Diff NO MAN DIFF REQ WBC (4.8 - 10.8 /CUMM) 23.1 H RBC (4.20 - 5.40 /CUMM) 3.53 L Hgb (12.0 - 16.0 G/DL) 10.5 L Hct (37 - 47 %) 30.9 L MCV (81.0 - 99.0 FL) 87.6 MCH (27.0 - 31.0 PG) 29.8 RDW (11.5 - 14.5 %) 18.2 H Plt Count (130 - 400 /CUMM) 434 H MPV (7.4 - 10.4 FL) 9.8 Gran % (42.2 - 75.2 %) 86.1 H Lymphocytes % (20.5 - 51.1 %) 5.2 L Monocytes % (1.7 - 9.3 %) 7.3 Eosinophils % (0 - 5 %) 0.9 Basophils % (0.0 - 2.0 %) 0.5 Absolute Granulocytes (1.4 - 6.5 /CUMM) 19.9 H Absolute Lymphocytes (1.2 - 3.4 /CUMM) 1.2 Absolute Monocytes (0.10 - 0.60 /CUMM) 1.7 H Absolute Eosinophils (0.0 - 0.7 /CUMM) 0.2 Absolute Basophils (0.0 - 0.2 /CUMM) 0.1 PUBS MCHC (33.0 - 37.0 G/DL) 34.0 Miscellaneous Phlebotomy Draw Site LEFT RADIAL 10/21 10/21 10/21 0512 0511 0500 Chemistry Sodium (137 - 145 mmol/L) 128 L Potassium (3.5 - 5.1 mmol/L) 4.7 Chloride (98 - 107 mmol/L) 91 L Carbon Dioxide (22 - 30 mmol/L) 27 Anion Gap (5 - 16) 10 BUN (7 - 17 mg/dL) 8 Creatinine (0.5 - 1.0 mg/dL) 0.4 L Estimated GFR (>60 ml/min) > 60 Glucose (65 - 99 mg/dL) 109 H Calcium (8.4 - 10.2 mg/dL) 8.0 L Phosphorus (2.5 - 4.5 mg/dL) 5.1 H Magnesium (1.6 - 2.3 mg/dL) 1.7 Total Bilirubin (0.2 - 1.3 mg/dL) 1.0 AST (14 - 36 U/L) 32 ALT (9 - 52 U/L) 44 Lactate Dehydrogenase (313 - 618 U/L) 694 H Albumin (3.5 - 5.0 g/dL) 2.1 L Hematology CBC w Diff NO MAN DIFF REQ WBC (4.8 - 10.8 /CUMM) 22.9 H RBC (4.20 - 5.40 /CUMM) 3.35 L Hgb (12.0 - 16.0 G/DL) 9.9 L Hct (37 - 47 %) 29.4 L MCV (81.0 - 99.0 FL) 87.7 MCH (27.0 - 31.0 PG) 29.4 RDW (11.5 - 14.5 %) 18.1 H Plt Count (130 - 400 /CUMM) 382 MPV (7.4 - 10.4 FL) 10.2 Gran % (42.2 - 75.2 %) 85.9 H Lymphocytes % (20.5 - 51.1 %) 6.0 L Monocytes % (1.7 - 9.3 %) 6.2 Eosinophils % (0 - 5 %) 1.9 Basophils % (0.0 - 2.0 %) 0 L Absolute Granulocytes (1.4 - 6.5 /CUMM) 19.7 H Absolute Lymphocytes (1.2 - 3.4 /CUMM) 1.4 Absolute Monocytes (0.10 - 0.60 /CUMM) 1.4 H Absolute Eosinophils (0.0 - 0.7 /CUMM) 0.4 Absolute Basophils (0.0 - 0.2 /CUMM) 0 PUBS MCHC (33.0 - 37.0 G/DL) 33.5 Haptoglobin Pending 10/20 2039 Coagulation PT (9.4 - 12.5 SEC) 11.6 INR (0.90 - 1.19) 1.11 APTT (25 - 37 SEC) 27 Fibrinogen Activity (200 - 393 MG/DL) 507 H Fibrin Degrad Products (< 10 ug/ml) >10 but < 40 ug/ml H D-Dimer (70 - 232 ng/ml) 1806 H 10/20 10/20 1740 1155 Blood Gas pH (7.35 - 7.45 PH) 7.53 H pCO2 (35 - 45 TORR) 32 L pO2 (80 - 100 TORR) 97 HCO3 (21 - 28 MEQ/L) 25 ABG O2 Sat (Measured) (>96.0 %) 96.0 P-50 (Temp Corrected) N Carboxyhemoglobin (1.5 - 5.0 %) 0.3 L O2 Concentration % 40% Respiration Rate (BPM) 14 O2 Delivery Method VENT Vent Mode AC Expiratory Pressure (CMH2O/P) 5 Tidal Volume (CC) 450 Pressure Support (CMH2O/P) 0 Hematology CBC w Diff NO MAN DIFF REQ WBC (4.8 - 10.8 /CUMM) 21.3 H RBC (4.20 - 5.40 /CUMM) 2.11 L Hgb (12.0 - 16.0 G/DL) 6.3 *L Hct (37 - 47 %) 19.3 *L MCV (81.0 - 99.0 FL) 91.6 MCH (27.0 - 31.0 PG) 30.1 RDW (11.5 - 14.5 %) 16.5 H Plt Count (130 - 400 /CUMM) 348 MPV (7.4 - 10.4 FL) 9.6 Gran % (42.2 - 75.2 %) 86.3 H Lymphocytes % (20.5 - 51.1 %) 7.1 L Monocytes % (1.7 - 9.3 %) 4.9 Eosinophils % (0 - 5 %) 1.3 Basophils % (0.0 - 2.0 %) 0.4 Absolute Granulocytes (1.4 - 6.5 /CUMM) 18.4 H Absolute Lymphocytes (1.2 - 3.4 /CUMM) 1.5 Absolute Monocytes (0.10 - 0.60 /CUMM) 1.0 H Absolute Eosinophils (0.0 - 0.7 /CUMM) 0.3 Absolute Basophils (0.0 - 0.2 /CUMM) 0.1 PUBS MCHC (33.0 - 37.0 G/DL) 32.8 L Miscellaneous Phlebotomy Draw Site LEFT RADIAL Urines Urine Osmolality (300 - 1000 MOSM/KG) 501 10/20 10/19 0415 2300 Blood Gas pH (7.35 - 7.45 PH) 7.52 H pCO2 (35 - 45 TORR) 33 L pO2 (80 - 100 TORR) 101 H HCO3 (21 - 28 MEQ/L) 26 ABG O2 Sat (Measured) (>96.0 %) 98.0 Carboxyhemoglobin (1.5 - 5.0 %) 1.1 L O2 Concentration % 40% Respiration Rate (BPM) 14 O2 Delivery Method VENT Vent Mode VC/AC Expiratory Pressure (CMH2O/P) 5 Tidal Volume (CC) 450 Chemistry Sodium (137 - 145 mmol/L) 129 L Potassium (3.5 - 5.1 mmol/L) 4.6 Chloride (98 - 107 mmol/L) 92 L Carbon Dioxide (22 - 30 mmol/L) 28 Anion Gap (5 - 16) 9 BUN (7 - 17 mg/dL) 9 Creatinine (0.5 - 1.0 mg/dL) 0.5 Estimated GFR (>60 ml/min) > 60 Glucose (65 - 99 mg/dL) 232 H Serum Osmolality (285 - 295 MOSM/KG) 281 L Calcium (8.4 - 10.2 mg/dL) 7.8 L Phosphorus (2.5 - 4.5 mg/dL) 4.1 Magnesium (1.6 - 2.3 mg/dL) 1.8 Total Bilirubin (0.2 - 1.3 mg/dL) 0.5 AST (14 - 36 U/L) 23 ALT (9 - 52 U/L) 36 Albumin (3.5 - 5.0 g/dL) 1.9 L Hematology CBC w Diff MAN DIFF ORDERED WBC (4.8 - 10.8 /CUMM) 28.9 H RBC (4.20 - 5.40 /CUMM) 2.47 L Hgb (12.0 - 16.0 G/DL) 7.4 *L Hct (37 - 47 %) 22.7 L MCV (81.0 - 99.0 FL) 91.8 MCH (27.0 - 31.0 PG) 30.0 RDW (11.5 - 14.5 %) 16.6 H Plt Count (130 - 400 /CUMM) 394 MPV (7.4 - 10.4 FL) 10.2 Gran % (42.2 - 75.2 %) 89.9 H Lymphocytes % (20.5 - 51.1 %) 4.5 L Monocytes % (1.7 - 9.3 %) 3.8 Eosinophils % (0 - 5 %) 1.7 Basophils % (0.0 - 2.0 %) 0.1 Absolute Granulocytes (1.4 - 6.5 /CUMM) 26.0 H Segmented Neutrophils (42.2 - 75.2 %) 84 H Band Neutrophils (0.0 - 5.0 %) 3 Absolute Lymphocytes (1.2 - 3.4 /CUMM) 1.3 Lymphocytes (20.5 - 51.1 %) 8 L Monocytes (1.7 - 9.3 %) 3 Absolute Monocytes (0.10 - 0.60 /CUMM) 1.1 H Absolute Eosinophils (0.0 - 0.7 /CUMM) 0.5 Absolute Basophils (0.0 - 0.2 /CUMM) 0 Metamyelocytes (0.0 - 1.0 %) 1 Myelocytes (0 - 0 %) 1 H Platelet Estimate (ADEQUATE) ADEQUATE Basophilic Stippling SLIGHT Anisocytosis 1+ PUBS MCHC (33.0 - 37.0 G/DL) 32.7 L Miscellaneous Phlebotomy Draw Site LEFT RADIAL Assessment/Plan Assessment: 61 year old with known heavy alcoholism, who presented with a fall from bed and hip fracture, and a very high count, pneumonia and C.diff, and likely alcohol withdrawal and was eventually intubated for ARDS, still move poor mentation. Due to all of these complications she has yet to have hip surgery. She has multiple reasons to be encephalopathic: alcohol encephalopathy which could continue even despite the end of the withdrawal period, multiple infections, and possibly other undiagnosed blood dyscrasia. Recommendations: 1. EEG 2. If mentation does not continue to improve, or goes down hill would recommend an LP to assess for infection and cytology for possible spread of malignancy. 3. Consider NCHCT. 4. Thiamine, B12, Folate and electrolyte supplementation. Consult Acknowledgment - Thank you for your consult request.
[2016-10-22] VITALS: BP 119/80
[2016-10-22 04:55] LABS: ABSOLUTE BASOPHIL COUNT 0 /CUMM (0.0-0.2); ABSOLUTE EOSINOPHIL COUNT 0.3 /CUMM (0.0-0.7); ABSOLUTE GRANULOCYTE CT 19.8 /CUMM (1.4-6.5); ABSOLUTE LYMPH COUNT 1.2 /CUMM (1.2-3.4); ABSOLUTE MONOCYTE COUNT 1.6 /CUMM (0.10-0.60); BASOPHIL % 0 % (0.0-2.0); EOSINOPHIL % 1.3 % (0-5); HEMATOCRIT 29.8 % (37-47); MEAN CORPUSCULAR HGB 29.5 PG (27.0-31.0); MEAN CORPUSCULAR HGB CONC 33.3 G/DL (33.0-37.0); MEAN CORPUSCULAR VOLUME 88.6 FL (81.0-99.0); MEAN PLATELET VOLUME 9.6 FL (7.4-10.4); PLATELET COUNT 470 /CUMM (130-400); RED BLOOD CELL CT 3.37 /CUMM (4.20-5.40); WHITE BLOOD CELL COUNT 22.9 /CUMM (4.8-10.8)
[2016-10-22 04:59] LABS: GRANULOCYTE % 86.5 % (42.2-75.2)
--- NOTE | 2016-10-22 07:28 | NUR ---
PT CONTINUES TO BE LETHARGIC, BUT OPENING EYES TO NAME CALLING, FOLLOWS SIMPLE COMMANDS, RT HAND GRASP SLIGHLTY STRONGER THAN LT, PUPILS EQUAL AND REACT BRISKLY TO LIGHT. BREATH SOUNDS COARSE BILATERALLY, SUCTIONING FOR MOD TO LG AMT OF THIN BLACKBURN SECREATIONS. NSR-ST, HR 90-100'S NO ECTOPY NOTED THOUGHOUT SHIFT. BP 100-110'S THOUGHOUT SHIFT. BUE WITH 3-4+ PITTING EDEMA-ELEVATED ON PILLOWS, TRUNK TO UPPER THIGHS AND LABIA WITH 2+ EDEMA. ADEQUATE URINE OUTPUT FOR SHIFT-CLEAR LINH URINE. PT PASSING LIGHT BROWN MUCUSY STOOLS. SKIN INTACT. RT UPPER THIGH WITH BRUISED AREA, HARD TO TOUCH, BUT NO CHANGE IN COLOR OR SIZE THOUGHOUT SHIFT
[2016-10-22 08:00] VITALS: BP 146/74
--- NOTE | 2016-10-22 08:11 | RADIOLOGY REPORT ---
EXAMINATION: XR PORTABLE CHEST CLINICAL INFORMATION: Hypoxia. Intubated on ventilator. Presumptive diagnosis of ARDS. COMPARISON: Prior chest x-rays, most recent of which is dated 10/21/2016. CT scan of the chest dated 10/21/2016. TECHNIQUE: Portable view of the chest was obtained. FINDINGS: Endotracheal tube tip approximately 3.8 cm above the king. Enteric tube courses into the abdomen with tip not included. Right subclavian PICC line in the deep SVC. Cardiomediastinal silhouette within normal limits in size. No significant change in bibasilar opacities, left greater than right, shown on CT scan to represent bilateral lower lobe airspace opacities and small left pleural effusion. Upper lungs remain clear. No pneumothorax. Osteopenia is suspected. IMPRESSION: 1. Line and tubes in place as discussed above. 2. No significant change in bilateral lower lobe airspace opacities and small left-sided pleural effusion.
--- NOTE | 2016-10-22 08:30 | NUR ---
REC'D THE PT ORALLY INTUBATED AND MECHANICALLY VENTILATED PER MD ORDER. PT IS AWAKE AND FOLLOWS COMMANDS. ABLE TO SQUEEZE HANDS BILATERALLY. MOVES LLE. RLE REMAINS BENT AT 90 DEGREE ANGLE. DENIES ANY PAIN, NUMBNESS OR TINGLING. THE PT IS IN A NSR WITHOUT ECTOPY PER THE AIRCRAFT CYLINDER MECHANIC. MG+IS 1.6 THE FIRDST OF 2 1GM MAG SULFATE INFUSIONS STARTED. TATIANA BS ARE CLEAR WITH AN O2 SAT OF 98% ON THE VENT AT 35%. NO RESP DISTRESS NOTED. ABD IS SOFT WITH NORMOACTIVE BOWEL SOUNDS. OGT IN PLACE AT 55CM AT THE LIP. GLUCERNA 1.2 INFUSING AT 52ML/HR(GOAL)- NO RESIDUAL NOTED. WATER FLUSHES OF 50ML Q4H. BOWER IN PLACE DRAINING CLEAR YELLOW URINE. HANANE DUAL LUMEN PICC IN PLACE-FLUSHED WITH 10ML/NS TO THE RED PORT. PURPLE PORT IN USE FOR MAGNESIUM.
--- NOTE | 2016-10-22 09:03 | PN- CRCU ---
Subjective HPI/Critical Care Issues: Pt seen and examined mechanical ventilation no sedation arousable to verbal stimuli but lethargic hemoglobin stable wbc stabilized tx for cdiff ortho following moving extremities no further drops in hemoglobin afebrile Objective Current Medications: Current Medications Sig/Hol[place] Start time Last Medication Dose Route Stop Time Status Admin Acetaminophen 1,000 MG Q6P PRN 10/10 1630 AC 10/18 N/A 1 UNIT IV 2012 Acetaminophen 650 MG Q8 PRN 10/06 1945 AC 10/20 PO 205 Albuterol Sulfate 3 ML EVERY 4 HRS/AWAKE 10/12 08 AC 10/22 INH 0806 Artificial Tears 2 GTT TID 10/18 2200 AC 10/21 OPH 2206 Exemestane 25 MG DAILY 10/07 1000 AC 10/21 PO 1249 Folic Acid 1 MG DAILY 10/07 1000 AC 10/21 PO 1249 Glycerin 2 SPRAY Q2P PRN 10/15 1430 AC 10/17 PO 0627 Insulin Aspart 0 Q4 10/16 1800 AC 10/22 SC 0213 Insulin Detemir 5 UNITS BID 10/16 2200 AC 10/21 SC 2204 Magnesium Sulfate 1 GM Q2H 10/22 0730 AC 10/22 Dextrose/Water 100 ML IV 10/22 1129 0817 Magnesium Sulfate 1 GM Q2H 10/21 1015 DC 10/21 Dextrose/Water 100 ML IV 10/21 1414 1200 Pantoprazole Sodium 40 MG BID 10/20 2200 AC 10/21 IV 2159 Thiamine HCl 100 MG DAILY 10/20 1310 AC 10/21 Sodium Chloride 100 ML IV 10/22 1012 1249 Trimethoprim/ 12.5 ML Q8H 10/16 1415 AC 10/22 Sulfamethoxazole IV 0538 Dextrose/Water 250 ML Vancomycin HCl 125 MG Q6 10/17 1350 AC 10/22 PO 0537 Vital Signs & I&O Last 24 Hrs of Vitals and I&O: Vital Signs Date Time Temp Pulse Resp B/P Pulse O2 O2 Flow FiO2 Ox Delivery Rate 10/22 806 35 10/22 08 99.7 97 17 146/74 98 Ventilator 35% 10/22 627 35 10/22 0400 98 Ventilator 35% 10/22 0324 35 10/22 0133 35 10/22 0000 98 Ventilator 35% 10/22 0000 99.8 99 20 119/80 98 Ventilator 35% 10/21 2122 35 10/21 2000 98 Ventilator 35% 10/21 1926 35 10/21 1618 35 10/21 1600 95 Ventilator 35% 10/21 1600 98.0 90 18 110/70 98 Ventilator 35% 10/21 1429 35 10/21 1209 35 10/21 1200 96 Ventilator 35% Intake & Output 10/22 1600 10/22 0800 10/22 0000 Intake Total 771 666 Output Total 510 470 Balance 261 196 Intake, IV 265 265 Intake, Tube 406 301 Feeding Intake, Tube 100 100 Irrigant Number 3 2 Bowel Movements Output, Urine 510 470 Patient 138 lb Weight Exam Other Physical Findings: General - intubated, arousable HEENT - ET tube Cardiovascular - S1, S2 Lungs - transmitted breath sounds bilaterally Abdomen - soft, bowel sounds positive, no tenderness Extremities - without edema or cyanosis Results Last 24 Hrs of Lab Results: Laboratory Tests 10/22/16 0510: pH 7.53 H, pCO2 28 L, pO2 88, HCO3 23, ABG O2 Sat (Measured) 96.0, P-50 (Temp Corrected) Y, Carboxyhemoglobin 0.2 L, O2 Concentration % 35%, Temperature 99.5 , Respiration Rate 12, O2 Delivery Method ESPRIT, Vent Mode AC, Expiratory Pressure 5, Tidal Volume 450, Phlebotomy Draw Site LEFT RADIAL 10/22/16 0419: Anion Gap 10, Estimated GFR > 60, Glucose 122 H, Calcium 8.4, Phosphorus 5.0 H , Magnesium 1.6, Total Bilirubin 0.8, AST 54 H, ALT 53 H, Albumin 2.2 L, CBC w Diff NO MAN DIFF REQ, RBC 3.37 L, MCV 88.6, MCH 29.5, RDW 18.0 H, MPV 9.6, Gran % 86.5 H, Lymphocytes % 5.1 L, Monocytes % 7.1, Eosinophils % 1.3, Basophils % 0 L, Absolute Granulocytes 19.8 H, Absolute Lymphocytes 1.2, Absolute Monocytes 1.6 H, Absolute Eosinophils 0.3, Absolute Basophils 0, PUBS MCHC 33.3 10/21/16 1830: CBC w Diff NO MAN DIFF REQ, RBC 3.53 L, MCV 87.6, MCH 29.8, RDW 18.2 H, MPV 9.8, Gran % 86.1 H, Lymphocytes % 5.2 L, Monocytes % 7.3, Eosinophils % 0.9, Basophils % 0.5, Absolute Granulocytes 19.9 H, Absolute Lymphocytes 1.2, Absolute Monocytes 1.7 H, Absolute Eosinophils 0.2, Absolute Basophils 0.1, PUBS MCHC 34.0 Impression/Plan Impression/Plan Impression/Plan: Impression 61 year old woman hx breast ca - right intratrochanteric fracture - acute blood loss anemia - improved hypoxemic respiratory failure presumed ards - c.diff in stool and stenotrophomonas in sputum Plan Respiratory -cont mechanical ventilation -no VTE ID -ID consultation appreciated -cont abx -c.diff and stenotrophomonas CVS -f/u cardiology Heme -hx of breast ca, will need follow up with oncology after acute illness -acute blood loss anemia, stabilized now but intermittent drops in hematocrit -if + for VTE would require filter given anemia -monitor cbc, coags Metabolic -ins/outs, monitor electrolytes -finger sticks monitoring Alimentary -tube feeds Neuro -prolactin mildly elevated, check EEG, neuro consultation appreciated TTS 40 min Ortho follow up today
--- NOTE | 2016-10-22 09:45 | NUR ---
TUBE FEEDING TURNED OFF AT 0910 FOR POSSIBLE OR TODAY TO FIX R HIP. LASIX 20MG IV AT 0940 PER MD ORDER.
--- NOTE | 2016-10-22 10:29 | PN- Resident CRCU ---
See Addendum Subjective HPI/CRCU Issues: Patient seen and examined. She is seen lying upright in bed intubated on a ventilator with multiple lines in place. She is awake and following commands, however she is lethargic. She appears to be in no acute distress. She is still not able to answer questions with head nods or shakes to indicate yes or no. Review of systems is unobtainable. No overnight events reported. Objective Vital Signs & I&O Last 8 Hrs of Vitals and I&O: Vitals: - Temperature: 99.7-99.8 - Heart Rate: 88-100 - Respiratory Rate: 17-20 - Systolic Blood pressure: 87-119 - Diastolic Blood pressure: 57-80 - Oxygen Saturation: 96-98% on 35% FiO2 Exam General Appearance: awake, intubated, lethargic Other Physical Findings: General -frail/elderly woman in no acute distress HEENT - NCAT, PERRL, EOMI, anicteric sclera, endotracheal tube, OG tube Cardio - S1, S2 w/o murmurs/gallops/rubs Resp - CTA bilaterally w/o wheezing/rhochi/crackles GI -soft, nontender, nondistended, bowel sounds present Neuro -awake and following commands, pupils reactive to light Extremities-proximal right lower extremity swelling with ecchymosis, distal pulses intact Current Medications: Current Medications Sig/[place] Start time Last Medication Dose Route Stop Time Status Admin Acetaminophen 1,000 MG Q6P PRN 10/10 1630 AC 10/18 N/A 1 UNIT IV 2012 Acetaminophen 650 MG Q8 PRN 10/06 1945 AC 10/20 PO 2056 Albuterol Sulfate 3 ML EVERY 4 HRS/AWAKE 10/12 0800 AC 10/22 INH 1135 Artificial Tears 2 GTT TID 10/18 2200 AC 10/22 OPH 0925 Exemestane 25 MG DAILY 10/07 1000 AC 10/22 PO 0925 Folic Acid 1 MG DAILY 10/07 1000 AC 10/22 PO 924 Furosemide 20 MG ONCE ONE 10/22 914 DC 10/22 IV 10/22 915 0925 Glycerin 2 SPRAY Q2P PRN 10/15 1430 AC 10/17 PO 0627 Insulin Aspart 0 Q4 10/16 1800 AC 10/22 SC 0955 Insulin Detemir 5 UNITS BID 10/16 2200 AC 10/22 SC 0928 Magnesium Sulfate 1 GM Q2H 10/22 0730 DC 10/22 Dextrose/Water 100 ML IV 10/22 1129 0925 Magnesium Sulfate 1 GM Q2H 10/21 1015 DC 10/21 Dextrose/Water 100 ML IV 10/21 1414 1200 Pantoprazole Sodium 40 MG BID 10/20 2200 AC 10/22 IV 0925 Thiamine HCl 100 MG DAILY 10/20 1310 DC 10/22 Sodium Chloride 100 ML IV 10/22 1012 0925 Trimethoprim/ 12.5 ML Q8H 10/16 1415 AC 10/22 Sulfamethoxazole IV 0538 Dextrose/Water 250 ML Vancomycin HCl 125 MG Q6 10/17 1350 AC 10/22 PO 1216 Impression/Plan Impression/Problem List Impression: Patient is awake today and following simple commands. Hemoglobin remained stable after 2 units of packed red blood cells were transfused on Saturday. Orthopedic surgery was contacted today in regards to when the best time would be to pursue fixation of her femoral shaft fracture. She was made nothing by mouth in anticipation of a possible surgical procedure this evening, call back from their services pending. RPR and EEG results are still pending. Problem list: -Acute hypoxic respiratory failure, intubated on vent -Acute respiratory distress syndrome, intubated on vent -Displaced comminuted right proximal femoral shaft fracture -Proximal right lower extremity hematoma -Acute blood loss anemia, stable -EtOH withdrawal -Multilobar pneumonia, on antibiotics -History of breast cancer that is post bilateral mastectomy, chemotherapy/ radiation -Leukocytosis -C. Diff colitis, on oral vancomycin Respiratory/infectious disease: Patient remains intubated on ventilator. Lasix given as tolerated for fluid overload. Daily arterial blood gas/chest x-rays are to be obtained for assessment of respiratory disease. -Intubated on ventilator -Bactrim IV -Vancomycin 125mg PO Q6H -Sputum cultures: Stenotrophomonas resistant to ceftazidime -Follow up with surgical PA when medically clear for surgery Musculoskeletal: Sustained a fall from her bed resulting in a right hip fracture as demonstrated by x-ray and CT imaging. She was evaluated by orthopedic surgery, but surgical intervention was deferred as patient was found to have an acute drop in her hemoglobin requiring admission to the intensive care unit from the general medicine floor for medical optimization. -Monitor vital signs and hemoglobin -Cardiac clearance obtained -Orthopedic consult following Cardiology: Revised cardiac risk index calculated for a score of 0 suggesting a 0.4% risk of a major cardiac event. -RCRI: 0, 0.4 risk for major cardiac event -toy consultant cleared patient for surgery Hematology/oncology: Patient has a history of breast cancer with bilateral mastectomy, chemotherapy, and radiation. Last treatment reportedly received 6 months ago. She is a patient of Dr. Mejias of the [facility]. She has not had any follow- up imaging since this time apparently, but is reportedly in remission with a surveillance visit scheduled in January 2017. Patient has had persistent leukocytosis since admission. White blood cell count was elevated as recently as July to ,000, baseline level unclear. She denies taking any adjuvant chemotherapy regimens such as Neulasta/Neupogen that could possibly account for this, however records are unavailable at this time. Consent for blood transfusion was obtained and placed on chart, type and cross was ordered. Packed red blood cells were transfused. -PRBC transfused: 5 -Daily CBC, monitor for worsening anemia/leukocytosis Psychiatry: Patient has a history of alcohol abuse for which she reports drinking vodka several times a week. Serum alcohol on admission was negative. She remains tremulous with see what scores consistently minimally elevated. -Multivitamin/thiamine/folate -Bupropion on hold -Consider psychiatry/social work consult Endocrinology: Patient with a history of diabetes mellitus. Blood sugars have been consistently low requiring amps of dextrose. -Accu-Cheks -Novolog SSI Pain plan: -Acetaminophen 650 mg by mouth every 8 hours as needed for pain 1-3 -Oxycodone 1 tab by mouth every 6 hours as needed for pain 4-6 -Dilaudid 0.6 mg IV every 4 hours as needed for pain 7-10 Diet -NPO DVT prophylaxis-mechanical ppx to LLE Code Status-full code Problem List: 1. Displaced comminuted fracture of shaft of right femur Pain Ratin Tomorrow's Labs & Rationales: Complete blood count ICU bundle Arterial blood gas Chest x-ray Plan DVT/Prophylaxis: mechanical
--- NOTE | 2016-10-22 14:08 | Event Note ---
Event Note Event Note: Jah Trujillo MD of orthopedics contacted the primary medical team in regards to the patient's hip fracture and was made aware of her case. He was informed that the patient was now a candidate for surgery and should be reevaluated by their team. The case was discussed with him and he requested a PA/lateral film of the hip in anticipation for this. Patient was made nothing by mouth this morning as well. Patient is tentatively to be operated on "after 5" this evening per surgical staffing sales representative publications. Hip films should be followed up when they're available and patient should be restarted on tube feeds per orthopedic recommendations.
--- NOTE | 2016-10-22 14:19 | RADIOLOGY REPORT ---
EXAMINATION: XR HIP, RIGHT CLINICAL INFORMATION: Follow-up femoral fracture. COMPARISON: 10/06/2016 TECHNIQUE: Two views of the right hip (portable exam). FINDINGS: Again noted is a displaced intertrochanteric fracture with femoral varus deformity. The lesser trochanteric fragment is medially displaced by approximately 2.5 cm. The femoral head remains well-positioned within the intact acetabulum. Currently, no healing response is identified at the fracture site. IMPRESSION: Displaced intertrochanteric femur fracture with femoral varus deformity, similar in appearance compared to 10/06/2016.
--- NOTE | 2016-10-22 15:56 | NUR ---
PT IS NOT TO GO TO OR. TUBE FEEDING OF GLUCERNA 1.2 AT 52ML/HR RESTARTED AT THIS TIME PER MD ORDER.
[2016-10-22 16:00] VITALS: BP 145/90
--- NOTE | 2016-10-22 20:33 | Event Note ---
Event Note Event Note: Spoke with Dr. Trujillo, who evaluated the patient. Recommended that we give ortho a call, a day or two prior to when we anticipate her to be medically cleared for surgery. Also recommended that we can keep her intubated for a day, if we think from respiratory standpoint she is improvinga nd can undergo surgery. If however there is a delay of two days or more between when we she can go for surgery and we do not anticipate complexity in re-intubating her, she can be extubated. However, if we are unsure of her respiratory and other medical issues, then we need to touch base with ortho and decide whether surgery can be performed without extubating her.
--- NOTE | 2016-10-22 20:36 | ELECTROENCEPHALOGRAM REPORT ---
Electroencephalogram Report ELECTROENCEPHALOGRAM RESULTS Date of service: 10/22/16 Ordering Provider: DIRECTOR OF SOLUTIONS ARCHITECTURE: Roman EEG NUMBER: [id number] TEST UTILIZES: A reduced 10-channel format due to patient's restlessness and intolerance of the test. PERTINENT HX/PHYSICAL/NEURO FINDINGS/CLINICAL DIAG: Prolonged encephalopathy related to infection. MEDICATIONS: Pantoprazole, Vancoomycin, Insulin, Glycerin, Albuterol, Folic acid, INTERPRETATION: This is a limited EEG due to the use of a reduced amount of electrodes. Overall, there are preserved normal rhythms within the alpha ranges. The posterior dominant rhytm is 9 hertz bilaterally. There are no paroxysmal sharps or spikes. No focal slowing. IMPRESSION: This is a normal EEG in the awake state. Drowsiness was not acheived due to patient's restlessness.
[2016-10-23] VITALS: BP 148/86
[2016-10-23 04:57] LABS: ABSOLUTE BASOPHIL COUNT 0.1 /CUMM (0.0-0.2); ABSOLUTE EOSINOPHIL COUNT 0.3 /CUMM (0.0-0.7); ABSOLUTE LYMPH COUNT 1.3 /CUMM (1.2-3.4); ABSOLUTE MONOCYTE COUNT 1.8 /CUMM (0.10-0.60); BASOPHIL % 0.4 % (0.0-2.0); EOSINOPHIL % 1.2 % (0-5); GRANULOCYTE % 85.2 % (42.2-75.2); HEMATOCRIT 30.5 % (37-47); MEAN CORPUSCULAR HGB 29.3 PG (27.0-31.0); MEAN CORPUSCULAR HGB CONC 33.2 G/DL (33.0-37.0); MEAN CORPUSCULAR VOLUME 88.5 FL (81.0-99.0); MEAN PLATELET VOLUME 9.5 FL (7.4-10.4); PLATELET COUNT 512 /CUMM (130-400); RBC DISTRIBUTION WIDTH 17.5 % (11.5-14.5); RED BLOOD CELL CT 3.45 /CUMM (4.20-5.40); WHITE BLOOD CELL COUNT 23.5 /CUMM (4.8-10.8)
[2016-10-23 08:00] VITALS: BP 108/66
--- NOTE | 2016-10-23 08:16 | RADIOLOGY REPORT ---
EXAMINATION: XR PORTABLE CHEST CLINICAL INFORMATION: Intubated on ventilator. COMPARISON: CXR from 10/22/2016 TECHNIQUE: Portable view of the chest was obtained. FINDINGS: The tip of the endotracheal tube is approximately 6.5 cm above the king. Enteric tube extends below the diaphragm, into the stomach and beyond the [id number]. A right arm peripherally inserted catheter terminates at the cavoatrial junction. There is persistent abnormal patchy opacity within the retrocardiac region of the left lower lobe and there is suggestion of a trace left pleural effusion. No appreciable change in pulmonary disease compared to 10/22/2016. No pneumothorax. IMPRESSION: 1. Tubes/lines are in satisfactory position. 2. Persistent patchy opacity in left lower lobe and trace left pleural effusion.
--- NOTE | 2016-10-23 08:30 | NUR ---
REC'D THE PT ORALLY INTUBATED AND MECHANICALLY VENTILATED PER MD ORDER. PT IS AWAKE AND FOLLOWING COMMANDS-ATTEMPTING TO TALK BY MOUTING WORDS. MOVES BUE WELL ALTHOUGH THE RUE IS EDEMATOUS. AN ULTRASOUND OF ONLY THE RUE HAS BEEN ORDERED. THE R UPPER ARM CIRCUMFRENCE IS NOW 25CM-PER DOCUMENTATION BY PRATIK BEYER IV RN THE CIRCUMFRENCE WHEN THE PICC WAS PLACED WAS 24CM. DR MUMTAZ DAY AND DR LUIS ALBERTO SHAW NOTIFIED. PT IS IN A SR WITHOUT ECTOPY PER THE GENERAL ROAD PRODUCTION MANAGER. TATIANA BS ARE CLEAR WITH AN O2 SAT OF 96% ON FIO2 OF 35%. ABD IS SL DISTENDED BUT SOFT WITH NORMOACTIVE BOWEL SOUNDS. OGT REMAINS IN PLACE WITH GLUCERNA 1.2 INFUSING AT 52ML/HR ALONG WITH 50ML Q4H WATER FLUSHES. NO RESIDUAL NOTED. BOWER IN PLACE DRAINING CLEAR YELLOW URINE. PT CONTINUES TO HAVE LARGE HARDENED ECCHYMOTIC AREA WITH AN INDENTATION TO THE R HIP WELL AN ECCHYMOTIC AREA TO THE UNDERSIDE OF THE R THIGH-THIS AREA IS SOFT.
--- NOTE | 2016-10-23 09:58 | PN- CRCU ---
See Addendum Subjective HPI/Critical Care Issues: pt seen and examined awake surgery postponed picc on right ros limited some pain right hand swelling persists Objective Current Medications: Current Medications Sig/Hol[place] Start time Last Medication Dose Route Stop Time Status Admin Acetaminophen 1,000 MG Q6P PRN 10/10 1630 AC 10/18 N/A 1 UNIT IV 2012 Acetaminophen 650 MG Q8 PRN 10/06 1945 AC 10/20 PO 2056 Albuterol Sulfate 3 ML EVERY 4 HRS/AWAKE 10/12 08 AC 10/23 INH 0756 Artificial Tears 2 GTT TID 10/18 2200 AC 10/23 OPH 0952 Exemestane 25 MG DAILY 10/07 1000 AC 10/23 PO 0952 Folic Acid 1 MG DAILY 10/07 1000 AC 10/23 PO 0951 Glycerin 2 SPRAY Q2P PRN 10/15 1430 AC 10/17 PO 0627 Insulin Aspart 0 Q4 10/16 1800 AC 10/23 SC 0152 Insulin Detemir 5 UNITS BID 10/16 2200 AC 10/23 SC 0951 Lorazepam 0.5 MG ONCE ONE 10/23 0145 DC 10/23 IV 10/23 0146 0152 Magnesium Sulfate 1 GM Q2H 10/22 0730 DC 10/22 Dextrose/Water 100 ML IV 10/22 1129 0925 Multivitamins 1 TAB DAILY 10/23 1000 AC 10/23 PO 0951 Pantoprazole Sodium 40 MG BID 10/20 2200 AC 10/23 IV 0952 Thiamine HCl 100 MG DAILY 10/23 1000 AC 10/23 PO 0951 Thiamine HCl 100 MG DAILY 10/20 1310 DC 10/22 Sodium Chloride 100 ML IV 10/22 1012 0925 Trimethoprim/ 12.5 ML Q8H 10/16 1415 AC 10/23 Sulfamethoxazole IV 0558 Dextrose/Water 250 ML Vancomycin HCl 125 MG Q6 10/17 1350 AC 10/23 PO 0558 Vital Signs & I&O Last 24 Hrs of Vitals and I&O: Vital Signs Date Time Temp Pulse Resp B/P Pulse O2 O2 Flow FiO2 Ox Delivery Rate 10/23 0804 35 10/23 0624 35 10/23 0400 97 Ventilator 35% 10/23 0311 35 10/23 0053 35 10/23 0000 97 Ventilator 35% 10/23 0000 99.0 109 22 148/86 97 Ventilator 35% 10/22 2232 35 10/22 1999 35 10/22 1999 96 Ventilator 35% 10/22 1737 Ventilator 70% 10/22 1640 35 10/22 1600 97 Ventilator 35% 10/22 1600 98.8 99 14 145/90 97 Ventilator 35% 10/22 1402 35 10/22 1200 98 Ventilator 35% 10/22 1137 35 Intake & Output 10/23 1600 10/23 0800 10/23 0000 Intake Total 845 690 Output Total 400 600 Balance 445 90 Intake, IV 270 270 Intake, Oral 0 0 Intake, Other 220 50 Intake, Tube 355 370 Feeding Number 2 3 Bowel Movements Output, Urine 400 600 Patient 140 lb 133 lb Weight Exam Other Physical Findings: General - awake HEENT - ecchymosis around the eyes Cardiovascular - S1, S2 Lungs - clear to auscultation bilaterally Abdomen - soft, bowel sounds positive, no tenderness Extremities - right sided edema in upper extremity Results Last 24 Hrs of Lab Results: Laboratory Tests 10/23/16 0605: pH 7.54 H, pCO2 28 L, pO2 107 H, HCO3 24, ABG O2 Sat (Measured) 98.0, P-50 ( Temp Corrected) N, Carboxyhemoglobin 0.5 L, O2 Concentration % .35, Respiration Rate 12, O2 Delivery Method VENT, Vent Mode A/C, Expiratory Pressure 5, Tidal Volume 450, Phlebotomy Draw Site LEFT RADIAL 10/23/16 0425: Anion Gap 12, Estimated GFR > 60, Glucose 102 H, Calcium 8.5, Phosphorus 5.3 H , Magnesium 1.7, Total Bilirubin 0.7, AST 26, ALT 40, Albumin 2.3 L, CBC w Diff NO MAN DIFF REQ, RBC 3.45 L, MCV 88.5, MCH 29.3, RDW 17.5 H, MPV 9.5, Gran % 85.2 H, Lymphocytes % 5.7 L, Monocytes % 7.5, Eosinophils % 1.2, Basophils % 0.4, Absolute Granulocytes 20.0 H, Absolute Lymphocytes 1.3, Absolute Monocytes 1.8 H, Absolute Eosinophils 0.3, Absolute Basophils 0.1, PUBS MCHC 33.2 Impression/Plan Impression/Plan Impression/Plan: Impression 61 year old woman hx breast ca - right intratrochanteric fracture - acute blood loss anemia - improved hypoxemic respiratory failure presumed ards - c.diff in stool and stenotrophomonas in sputum - persistent leukocytosis - upper ext edema Plan Respiratory - CPAP trial today ID -ID consultation appreciated -cont abx -c.diff and stenotrophomonas CVS -f/u cardiology Heme -hx of breast ca, will need follow up with oncology after acute illness -cbc, coags monitoring Metabolic -ins/outs, monitor electrolytes -finger sticks monitoring Alimentary -tube feeds Neuro -awake TTS 35 min Ortho follow up CPAP trials 40mg lasix today
--- NOTE | 2016-10-23 10:17 | PN- Infect Dx ---
Subjective Subjective: Afebrile without complaints. Still with diarrhea, with 7 bowel movements reported yesterday, though with form to them. Objective Last 24 Hrs of Vital Signs/I&O Vital Signs Date Time Temp Pulse Resp B/P Pulse O2 O2 Flow FiO2 Ox Delivery Rate 10/23 0804 35 10/23 0624 35 10/23 0400 97 Ventilator 35% 10/23 0311 35 10/23 0053 35 10/23 0000 97 Ventilator 35% 10/23 0000 99.0 109 22 148/86 97 Ventilator 35% 10/22 2232 35 10/22 2000 35 10/22 2000 96 Ventilator 35% 10/22 1737 Ventilator 70% 10/22 1640 35 10/22 1600 97 Ventilator 35% 10/22 1600 98.8 99 14 145/90 97 Ventilator 35% 10/22 1402 35 10/22 1200 98 Ventilator 35% 10/22 1137 35 Intake & Output 10/23 1600 10/23 0800 10/23 0000 Intake Total 845 690 Output Total 400 600 Balance 445 90 Intake, IV 270 270 Intake, Oral 0 0 Intake, Other 220 50 Intake, Tube 355 370 Feeding Number 2 3 Bowel Movements Output, Urine 400 600 Patient 140 lb 133 lb Weight Physical Exam Other Physical Findings: She is awake and alert on the ventilator Lungs bilateral rhonchi Heart regular rhythm with no murmur Extremities right upper extremity edema; PICC in the right upper extremity with no inflammation at the site; no cyanosis, clubbing or edema of the lower extremities Palacio catheter remains in place Results Last 24 Hours of Lab Results: Laboratory Tests 10/23 10/23 0605 0425 Blood Gas pH (7.35 - 7.45 PH) 7.54 H pCO2 (35 - 45 TORR) 28 L pO2 (80 - 100 TORR) 107 H HCO3 (21 - 28 MEQ/L) 24 ABG O2 Sat (Measured) (>96.0 %) 98.0 P-50 (Temp Corrected) N Carboxyhemoglobin (1.5 - 5.0 %) 0.5 L O2 Concentration % .35 Respiration Rate (BPM) 12 O2 Delivery Method VENT Vent Mode A/C Expiratory Pressure (CMH2O/P) 5 Tidal Volume (CC) 450 Chemistry Sodium (137 - 145 mmol/L) 132 L Potassium (3.5 - 5.1 mmol/L) 4.4 Chloride (98 - 107 mmol/L) 93 L Carbon Dioxide (22 - 30 mmol/L) 27 Anion Gap (5 - 16) 12 BUN (7 - 17 mg/dL) 7 Creatinine (0.5 - 1.0 mg/dL) 0.5 Estimated GFR (>60 ml/min) > 60 Glucose (65 - 99 mg/dL) 102 H Calcium (8.4 - 10.2 mg/dL) 8.5 Phosphorus (2.5 - 4.5 mg/dL) 5.3 H Magnesium (1.6 - 2.3 mg/dL) 1.7 Total Bilirubin (0.2 - 1.3 mg/dL) 0.7 AST (14 - 36 U/L) 26 ALT (9 - 52 U/L) 40 Albumin (3.5 - 5.0 g/dL) 2.3 L Hematology CBC w Diff NO MAN DIFF REQ WBC (4.8 - 10.8 /CUMM) 23.5 H RBC (4.20 - 5.40 /CUMM) 3.45 L Hgb (12.0 - 16.0 G/DL) 10.1 L Hct (37 - 47 %) 30.5 L MCV (81.0 - 99.0 FL) 88.5 MCH (27.0 - 31.0 PG) 29.3 RDW (11.5 - 14.5 %) 17.5 H Plt Count (130 - 400 /CUMM) 512 H MPV (7.4 - 10.4 FL) 9.5 Gran % (42.2 - 75.2 %) 85.2 H Lymphocytes % (20.5 - 51.1 %) 5.7 L Monocytes % (1.7 - 9.3 %) 7.5 Eosinophils % (0 - 5 %) 1.2 Basophils % (0.0 - 2.0 %) 0.4 Absolute Granulocytes (1.4 - 6.5 /CUMM) 20.0 H Absolute Lymphocytes (1.2 - 3.4 /CUMM) 1.3 Absolute Monocytes (0.10 - 0.60 /CUMM) 1.8 H Absolute Eosinophils (0.0 - 0.7 /CUMM) 0.3 Absolute Basophils (0.0 - 0.2 /CUMM) 0.1 PUBS MCHC (33.0 - 37.0 G/DL) 33.2 Miscellaneous Phlebotomy Draw Site LEFT RADIAL Last 24 Hours of Charles Results: No recent cultures Recent Imaging Studies: CTA of the chest October 21 no evidence of pulmonary embolus; near-complete resolution of the dense consolidation of the right lung base, with persistent dense consolidation of the left lower lobe CT of the abdomen and pelvis October 21 no evidence of any retroperitoneal hematoma; a large 5.4 x 2.7 cm subacute hematoma within the proximal, upper medial aspect of the right thigh adjacent to the comminuted fracture involving the right proximal femur Chest x-ray October 23 persistent patchy opacity in the left lower lobe Assessment/Plan Impression: Stable with improvement in her mental status, temperatures now normal and with white blood cell count decreased, though still elevated, on po Vancomycin Day 6 of treatment for C. difficile infection, with diarrhea persisting, though reportedly improved, and Bactrim now Day 7 of treatment for Stenotrophomonas isolated from the sputum culture, though suspect this may just represent colonization. Her H&H is now stable after transfusion, with recent drop of unclear etiology with no obvious source of bleeding. The hematoma in her right thigh persists, but is unlikely to be infected, and she will ultimately require repair of her right hip fracture. Given what appears to be a chronic leukocytosis, at least for the past 3 months, an underlying bone marrow disorder must be considered. Suggestion: 1. Hematology input 2. Discontinue Bactrim 3. Continue po Vancomycin
--- NOTE | 2016-10-23 10:56 | NUR ---
PT WAS PLACED ON A WEANING TRIAL OF PS-8 AT 1005, THE PT WAS TACHYPNEIC IN THE HIGH 30'S UNTIL ABOUT 1045 WHEN SHE MAINTAINED A RR IN THE 40'S. MANUFACTURING QUALITY MANAGER RETURNED THE PT TO VENTILATOR AT PRESCRIBED SETTINGS AT 1050.
--- NOTE | 2016-10-23 12:21 | PN- Resident CRCU ---
Subjective HPI/CRCU Issues: Patient seen and examined. He is seen sitting upright in bed intubated on ventilator. She is awake and alert today, following commands. When asked if she is in any pain she shakes her head indicating no. Otherwise she appears to be in no acute distress. Review of systems is unobtainable. No overnight events reported. Objective Vital Signs & I&O Last 8 Hrs of Vitals and I&O: Vitals: - Temperature: 98.6-99.0 - Heart Rate: 90-114 - Respiratory Rate: 13-32 - Systolic Blood pressure: 102-131 - Diastolic Blood pressure: 36-58 - Oxygen Saturation: 96-99% Exam General Appearance: alert, awake, comfortable, intubated Other Physical Findings: General -frail elderly woman in no acute distress HEENT - NCAT, PERRL, EOMI, anicteric sclera, endotracheal tube, OG tube Cardio - S1, S2 w/o murmurs/gallops/rubs Resp - CTA bilaterally w/o wheezing/rhochi/crackles GI - Non-tender, non-distended abdomen, Bowel sounds present -Palacio catheter in place Neuro - Awake and alert, CN II - XII grossly intact, RUE 3/5 strength sensation intact with large amount of swelling in hand Weaning Parameters NIF: 39 Minute Volume: 8.8 Resp rate: 32 Vt: 279 Heart Rate: 100 Weaning Schedule Start Time: 1010 Minute Volume: 11.9 Resp Rate: 33 Vt: 300 Heart Rate: 100 End Time: 1050 Minute Volume: 12.4 Resp Rate: 40 Vt: 289 Heart Rate: 109 Current Medications: Current Medications Sig/[place] Start time Last Medication Dose Route Stop Time Status Admin Acetaminophen 1,000 MG Q6P PRN 10/10 1630 AC 10/18 N/A 1 UNIT IV 2012 Acetaminophen 650 MG Q8 PRN 10/06 1945 AC 10/20 PO 2056 Albuterol Sulfate 3 ML EVERY 4 HRS/AWAKE 10/12 0800 AC 10/23 INH 1154 Artificial Tears 2 GTT TID 10/18 2200 AC 10/23 OPH 0952 Exemestane 25 MG DAILY 10/07 1000 AC 10/23 PO 0952 Folic Acid 1 MG DAILY 10/07 1000 AC 10/23 PO 0951 Furosemide 40 MG ONCE ONE 10/23 1000 DC 10/23 IV 10/23 1001 1011 Glycerin 2 SPRAY Q2P PRN 10/15 1430 AC 10/17 PO 0627 Insulin Aspart 0 Q4 10/16 1800 AC 10/23 SC 1011 Insulin Detemir 5 UNITS BID 10/16 2200 AC 10/23 SC 0951 Lorazepam 0.5 MG ONCE ONE 10/23 0145 DC 10/23 IV 10/23 0146 0152 Multivitamins 1 TAB DAILY 10/23 1000 AC 10/23 PO 0951 Pantoprazole Sodium 40 MG BID 10/20 2200 AC 10/23 IV 0952 Thiamine HCl 100 MG DAILY 10/23 1000 AC 10/23 PO 0951 Trimethoprim/ 12.5 ML Q8H 10/16 1415 DC 10/23 Sulfamethoxazole IV 0558 Dextrose/Water 250 ML Vancomycin HCl 125 MG Q6 10/17 1350 AC 10/23 PO 0558 Impression/Plan Impression/Problem List Impression: Today patient is awake and alert and follows commands. Her right hand appears grossly more swollen than the proximal aspect of the limb or the contralateral extremity. Doppler ultrasound will be obtained to assess for deep vein thrombosis in the extremity. CPAP trial will occur today to assess if patient is ready for extubation. EEG results demonstrated yesterday a normal study. Lasix 40 mg IV will be given today to further diuresis the patient. Bactrim is discontinued today per recommendations of infectious disease [employer] portal consultant. Surgery is deferred at this time. Problem list: -Acute hypoxic respiratory failure, intubated on vent -Acute respiratory distress syndrome, intubated on vent -Displaced comminuted right proximal femoral shaft fracture -Proximal right lower extremity hematoma -Acute blood loss anemia, stable -EtOH withdrawal -Multilobar pneumonia, on antibiotics -History of breast cancer that is post bilateral mastectomy, chemotherapy/ radiation -Leukocytosis -C. Diff colitis, on oral vancomycin Respiratory/infectious disease: Patient remains intubated on ventilator. Lasix given as tolerated for fluid overload. Daily arterial blood gas/chest x-rays are to be obtained for assessment of respiratory disease. -Intubated on ventilator Jorge CPAP trial today -Bactrim discontinued -Vancomycin 125mg PO Q6H -Sputum cultures: Stenotrophomonas resistant to ceftazidime -Follow up with surgical PA when medically clear for surgery Musculoskeletal: Sustained a fall from her bed resulting in a right hip fracture as demonstrated by x-ray and CT imaging. She was evaluated by orthopedic surgery, but surgical intervention was deferred as patient was found to have an acute drop in her hemoglobin requiring admission to the intensive care unit from the general medicine floor for medical optimization. -Monitor vital signs and hemoglobin -Cardiac clearance obtained -Orthopedic consult following Cardiology: Revised cardiac risk index calculated for a score of 0 suggesting a 0.4% risk of a major cardiac event. -RCRI: 0, 0.4 risk for major cardiac event -[employer] workflow consultant cleared patient for surgery Hematology/oncology: Patient has a history of breast cancer with bilateral mastectomy, chemotherapy, and radiation. Last treatment reportedly received 6 months ago. She is a patient of Dr. Mejias of the [facility]. She has not had any follow- up imaging since this time apparently, but is reportedly in remission with a surveillance visit scheduled in January 2017. Patient has had persistent leukocytosis since admission. White blood cell count was elevated as recently as July to 20,000, baseline level unclear. She denies taking any adjuvant chemotherapy regimens such as Neulasta/Neupogen that could possibly account for this, however records are unavailable at this time. Consent for blood transfusion was obtained and placed on chart, type and cross was ordered. Packed red blood cells were transfused. -PRBC transfused: 5 -Daily CBC, monitor for worsening anemia/leukocytosis Psychiatry: Patient has a history of alcohol abuse for which she reports drinking vodka several times a week. Serum alcohol on admission was negative. She remains tremulous with see what scores consistently minimally elevated. -Multivitamin/thiamine/folate -Bupropion on hold -Consider psychiatry/social work consult Endocrinology: Patient with a history of diabetes mellitus. Blood sugars have been consistently low requiring amps of dextrose. -Accu-Cheks -Novolog SSI Pain plan: -Acetaminophen 650 mg by mouth every 8 hours as needed for pain 1-3 -Oxycodone 1 tab by mouth every 6 hours as needed for pain 4-6 -Dilaudid 0.6 mg IV every 4 hours as needed for pain 7-10 Diet -NPO DVT prophylaxis-mechanical ppx to LLE Code Status-full code Problem List: 1. Displaced comminuted fracture of shaft of right femur Pain Ratin Tomorrow's Labs & Rationales: Complete blood count-anemia ICU bundle-tube feeds Arterial blood gas/CXR-intubated on vent Plan DVT/Prophylaxis: mechanical
--- NOTE | 2016-10-23 15:44 | PN- Cardiology ---
Subjective Subjective: * Patient is alert but intubated. No specific complaints. * sinus rhythm * hemodynamically stable Objective Vital Signs and I&Os Vital Signs Date Time Temp Pulse Resp B/P Pulse O2 O2 Flow FiO2 Ox Delivery Rate 10/23 1449 35 10/23 1200 96 Ventilator 35% 10/23 1158 35 10/23 0804 35 10/23 0800 96 Ventilator 35% 10/23 0800 98.6 92 26 108/66 96 Ventilator 35% 10/23 0624 35 10/23 0400 97 Ventilator 35% 10/23 0311 35 10/23 0053 35 10/23 0000 97 Ventilator 35% 10/23 0000 99.0 109 22 148/86 97 Ventilator 35% 10/22 2232 35 10/22 2000 35 10/22 2000 96 Ventilator 35% 10/22 1737 Ventilator 70% 10/22 1640 35 10/22 1600 97 Ventilator 35% 10/22 1600 98.8 99 14 145/90 97 Ventilator 35% Intake & Output 10/23 1600 10/23 0800 10/23 0000 10/22 1600 10/22 0000 Intake Total 574 845 690 778 771 666 Output Total 1610 689 579 9467 510 470 Balance -1036 445 90 -1177 261 196 Intake, IV 44 270 270 585 265 265 Intake, Oral 0 0 Intake, Other 40 220 50 20 Intake, Tube 415 355 370 148 406 301 Feeding Intake, Tube 75 25 100 100 Irrigant Number 1 2 3 1 3 2 Bowel Movements Output, Urine 1610 270 508 0328 510 470 Patient 140 lb 133 lb 138 lb Weight Physical Exam: General: WD/ WN female. Intubated and sedated. Neck: no JVD, no carotid bruit Heart: regular rate and rhythm, no murmur Lungs: clear bilaterally anteriorly Extremities: no edema Assessment/Plan Assessment/Plan * Mild pulmonary edema remains. On weaning trials. Continue to diurese as tolerated by blood pressure. Continue telemetry? Yes
--- NOTE | 2016-10-23 15:47 | ULTRASOUND REPORT ---
EXAMINATION: US TRIPLEX UPPER EXTREMITY, right arm CLINICAL INFORMATION: The right upper extremity is swollen. COMPARISON: None. TECHNIQUE: Color-flow triplex imaging with spectral analysis and compression Doppler were performed on the right upper extremity. FINDINGS: Respiratory variation, normal compression and normal color flow are noted throughout the upper extremity. The visualized right internal jugular vein, innominate vein, subclavian vein, axillary vein, cephalic, basilic, and brachial veins, and ulnar and radial veins are well patent showing normal color fill-in and no thrombosis. The patient has a indwelling PICC line directed from the right side. IMPRESSION: Normal triplex scan without evidence of deep venous thrombosis involving the right upper extremity. PICC line in place.
[2016-10-23 16:00] VITALS: BP 130/76
--- NOTE | 2016-10-23 16:28 | NUR ---
UPON ENTERING THE PT'S ROOM AT 1610 TO PERFORM PT'S ASSESSMENT THE OGT WAS NOTED TO BE AT 30CM AT THE LIP NOT 55CM. TUBE FEED IMMEDIATELY TURNED OFF AND THE OGT WAS ADVANCED TO 55CM. PT SUCTIONED THOROUGHLY VIA THE OGT FOR MOD TO LG AMT OF PALE YELLOW CREAMY SPUTUM. DR MUMTAZ DAY NOTIFIED AND A STAT CXR WAS ORDERED TO R/O ASPIRATION WELL CONFIRM OGT PLACEMENT. TUBE FEEDS REMAIN OFF.
--- NOTE | 2016-10-23 17:44 | RADIOLOGY REPORT ---
EXAMINATION: XR PORTABLE CHEST CLINICAL INFORMATION: OG tube displacement, assess for position. COMPARISON: Chest radiograph 10/23/2016 at 6:14 AM. TECHNIQUE: 2 portable radiographs of the lower chest/upper abdomen were obtained to assess for enteric tube position. FINDINGS: Limited exam. The enteric tube tip appears to project below the level of the diaphragm, likely within the stomach. Limited views of the lungs demonstrate persistent patchy airspace opacities. IMPRESSION: Limited exam, NG tube tip does appear to terminate below the diaphragm, likely within the stomach.
--- NOTE | 2016-10-23 18:20 | NUR ---
CXR SHOWED OGT LIKELY IN STOMACH. TUBE FEED RESTARTED AT 1800. DR MUMTAZ DAY AWARE. ALSO MADE AWARE OF K+5.6.
--- NOTE | 2016-10-23 23:38 | RADIOLOGY REPORT ---
EXAMINATION: XR PORTABLE CHEST CLINICAL INFORMATION: Status post placement of orogastric tube COMPARISON: Chest x-ray 10/23/2016 4:[address] chest 11/02/2016 TECHNIQUE: Portable view of the chest was obtained. 11:15 PM FINDINGS: Oral gastric tube is in place. Catheter tip in the stomach. The sidehole is also within the stomach. Endotracheal tube catheter tip about 5.6 cm above the king. Right-sided PICC line catheter at cavoatrial junction. Small patchy left basilar infiltrate/atelectasis with improved aeration since prior chest x-ray. Right lung is clear. No pulmonary vascular congestion. IMPRESSION: Nasogastric tube tip in stomach. Improved aeration left lung base. Persistent left basilar density of infiltrate/atelectasis.
[2016-10-24] VITALS: BP 114/60
[2016-10-24 05:50] LABS: ABSOLUTE BASOPHIL COUNT 0.1 /CUMM (0.0-0.2); ABSOLUTE EOSINOPHIL COUNT 0.3 /CUMM (0.0-0.7); ABSOLUTE GRANULOCYTE CT 18.1 /CUMM (1.4-6.5); ABSOLUTE LYMPH COUNT 1.4 /CUMM (1.2-3.4); ABSOLUTE MONOCYTE COUNT 1.4 /CUMM (0.10-0.60); BASOPHIL % 0.6 % (0.0-2.0); EOSINOPHIL % 1.5 % (0-5); GRANULOCYTE % 84.8 % (42.2-75.2); HEMATOCRIT 29.1 % (37-47); MEAN CORPUSCULAR HGB 29.9 PG (27.0-31.0); MEAN CORPUSCULAR HGB CONC 33.5 G/DL (33.0-37.0); MEAN CORPUSCULAR VOLUME 89.2 FL (81.0-99.0); MEAN PLATELET VOLUME 9.4 FL (7.4-10.4); PLATELET COUNT 536 /CUMM (130-400); RBC DISTRIBUTION WIDTH 17.6 % (11.5-14.5); RED BLOOD CELL CT 3.27 /CUMM (4.20-5.40); WHITE BLOOD CELL COUNT 21.3 /CUMM (4.8-10.8)
[2016-10-24 08:00] VITALS: BP 112/70
--- NOTE | 2016-10-24 09:18 | NUR ---
PT TOLERATING WEAN TRIAL WELL ON PS OF 8. ABG OBTAINED. PT STARTED ON PS OF 6. AWAITING DR SHAW FOR FURTHER RECOMENDATIONS.
--- NOTE | 2016-10-24 10:49 | PN- Infect Dx ---
Subjective Subjective: Afebrile without complaints. Soft stools reported. Objective Last 24 Hrs of Vital Signs/I&O Vital Signs Date Time Temp Pulse Resp B/P Pulse O2 O2 Flow FiO2 Ox Delivery Rate 10/24 799 97.6 81 16 112/70 99 Ventilator 35% 10/24 0800 96 Ventilator 35% 10/24 0750 35 10/24 0559 35 10/24 0400 99 Ventilator 35% 10/24 0327 35 10/24 0042 35 10/24 0000 99 Ventilator 35% 10/24 0000 98.1 85 13 114/60 99 Ventilator 35% 10/23 2248 35 10/23 2000 97 Ventilator 35% 10/23 1925 35 10/23 1650 35 10/23 1600 98 Ventilator 35% 10/23 1600 98.8 110 21 130/76 98 Ventilator 35% 10/23 1449 35 10/23 1200 96 Ventilator 35% 10/23 1158 35 Intake & Output 10/24 1600 10/24 0800 10/24 0000 Intake Total 640 446 Output Total 250 425 Balance 390 21 Intake, IV 130 Intake, Oral 0 0 Intake, Other 5 Intake, Tube 360 341 Feeding Intake, Tube 150 100 Irrigant Number 2 2 Bowel Movements Output, Urine 250 425 Physical Exam Other Physical Findings: She appears comfortable on the ventilator in no acute distress Lungs bilateral rhonchi Heart regular rhythm with no murmur Abdomen is soft, nontender with positive bowel sounds Extremities PICC in the right upper extremity with no inflammation at the site; right thigh hematoma/swelling unchanged Palacio catheter remains in place Results Last 24 Hours of Lab Results: Laboratory Tests 10/24 10/24 0912 0800 Blood Gas pH (7.35 - 7.45 PH) 7.48 H pCO2 (35 - 45 TORR) 36 pO2 (80 - 100 TORR) 108 H HCO3 (21 - 28 MEQ/L) 26 ABG O2 Sat (Measured) (>96.0 %) 97.0 Carboxyhemoglobin (1.5 - 5.0 %) 0.6 L O2 Concentration % 35 Temperature (97.0 - 100.0 FARH) 98.1 O2 Delivery Method VENT Vent Mode CPAP Expiratory Pressure (CMH2O/P) 6 Pressure Support (CMH2O/P) 8 Chemistry Troponin I Cancelled Coagulation D-Dimer Cancelled Miscellaneous Phlebotomy Draw Site LEFT RADIAL 10/24 0351 Chemistry Sodium (137 - 145 mmol/L) 131 L Potassium (3.5 - 5.1 mmol/L) 4.7 Chloride (98 - 107 mmol/L) 93 L Carbon Dioxide (22 - 30 mmol/L) 28 Anion Gap (5 - 16) 10 BUN (7 - 17 mg/dL) 9 Creatinine (0.5 - 1.0 mg/dL) 0.5 Estimated GFR (>60 ml/min) > 60 Glucose (65 - 99 mg/dL) 121 H Calcium (8.4 - 10.2 mg/dL) 8.3 L Phosphorus (2.5 - 4.5 mg/dL) 5.5 H Magnesium (1.6 - 2.3 mg/dL) 1.7 Total Bilirubin (0.2 - 1.3 mg/dL) 0.8 AST (14 - 36 U/L) 39 H ALT (9 - 52 U/L) 52 Albumin (3.5 - 5.0 g/dL) 2.4 L Hematology CBC w Diff MAN DIFF ORDERED WBC (4.8 - 10.8 /CUMM) 21.3 H RBC (4.20 - 5.40 /CUMM) 3.27 L Hgb (12.0 - 16.0 G/DL) 9.8 L Hct (37 - 47 %) 29.1 L MCV (81.0 - 99.0 FL) 89.2 MCH (27.0 - 31.0 PG) 29.9 RDW (11.5 - 14.5 %) 17.6 H Plt Count (130 - 400 /CUMM) 536 H MPV (7.4 - 10.4 FL) 9.4 Gran % (42.2 - 75.2 %) 84.8 H Lymphocytes % (20.5 - 51.1 %) 6.5 L Monocytes % (1.7 - 9.3 %) 6.6 Eosinophils % (0 - 5 %) 1.5 Basophils % (0.0 - 2.0 %) 0.6 Absolute Granulocytes (1.4 - 6.5 /CUMM) 18.1 H Segmented Neutrophils (42.2 - 75.2 %) 81 H Band Neutrophils (0.0 - 5.0 %) 2 Absolute Lymphocytes (1.2 - 3.4 /CUMM) 1.4 Lymphocytes (20.5 - 51.1 %) 4 L Monocytes (1.7 - 9.3 %) 11 H Absolute Monocytes (0.10 - 0.60 /CUMM) 1.4 H Eosinophils (0 - 5.0 %) 1 Absolute Eosinophils (0.0 - 0.7 /CUMM) 0.3 Absolute Basophils (0.0 - 0.2 /CUMM) 0.1 Metamyelocytes (0.0 - 1.0 %) 1 Platelet Estimate (ADEQUATE) INCREASED Polychromasia 1+ Poikilocytosis 1+ Ovalocytes 1+ PUBS MCHC (33.0 - 37.0 G/DL) 33.5 Other Body Source Fld Total RBCs Counted (%) 100 Last 24 Hours of Charles Results: No recent cultures Recent Imaging Studies: Doppler of the right upper extremity October 23 negative Assessment/Plan Impression: Stable with improvement in her mental status and with temperatures remaining normal, though white blood cell count remains elevated, presumably secondary to some pre-existing process, though this has not been clarified. Her diarrhea has improved on po Vancomycin Day 7 of treatment for C. difficile infection. Her H& H is now stable after a recent transfusion for a drop in her H&H, which was of unclear etiology with no obvious source of bleeding. The hematoma in her right thigh persists, but is unlikely to be infected, and she will ultimately require repair of her right hip fracture. Suggestion: 1. Hematology input 2. Continue po Vancomycin
--- NOTE | 2016-10-24 12:47 | NUR ---
PT EXTUBATED AT 1123, PLACED ON AM 35% THEN TITRATED TO 4L NC. TUBE FEED OFF. PT NPO FOR PENDING SWALLOW EVAL. DR NUNEZ AND KATHRINE WILL BE NOTIFIED AND WILL FOLLOW UP ON PT CARE RECOMENDATIONS.
--- NOTE | 2016-10-24 13:40 | PN- CRCU ---
Subjective HPI/Critical Care Issues: Patient seen and examined. She was intubated overnight and successfully extubated this morning at the bedside. She is able to speak and fully alert and oriented. She has no pain at this time. Her white cell count is 21,000. There are no other new events. No nausea no vomiting no diarrhea or constipation no chest pain. Objective Current Medications: Current Medications Sig/[place] Start time Last Medication Dose Route Stop Time Status Admin Acetaminophen 1,000 MG .STK-MED ONE 10/24 0334 DC IV 10/24 0335 Acetaminophen 1,000 MG Q6P PRN 10/10 1630 AC 10/24 N/A 1 UNIT IV 0338 Acetaminophen 650 MG Q8 PRN 10/06 1945 AC 10/20 PO 205 Albuterol Sulfate 3 ML EVERY 4 HRS/AWAKE 10/12 08 AC 10/24 INH 1101 Artificial Tears 2 GTT TID 10/18 2200 AC 10/24 OPH 1026 Exemestane 25 MG DAILY 10/07 1000 AC 10/24 PO 1028 Folic Acid 1 MG DAILY 10/07 1000 AC 10/24 PO 1025 Glycerin 2 SPRAY Q2P PRN 10/15 1430 AC 10/17 PO 0627 Insulin Aspart 0 Q4 10/16 1800 AC 10/24 SC 0608 Insulin Detemir 5 UNITS BID 10/16 2200 AC 10/24 SC 1027 Magnesium Oxide 400 MG ONE ONE 10/24 0800 DC 10/24 PO 10/24 0801 1024 Multivitamins 1 TAB DAILY 10/23 1000 AC 10/24 PO 1024 Pantoprazole Sodium 40 MG BID 10/20 2200 AC 10/24 IV 1025 Thiamine HCl 100 MG DAILY 10/23 1000 AC 10/24 PO 1024 Vancomycin HCl 125 MG Q6 10/17 1350 AC 10/24 PO 1026 Vital Signs & I&O Last 24 Hrs of Vitals and I&O: Vital Signs Date Time Temp Pulse Resp B/P Pulse O2 O2 Flow FiO2 Ox Delivery Rate 10/24 1215 95 Nasal 4.0L Cannula 10/24 1200 97 Nasal 4.0L Cannula 10/24 1051 35 10/24 0800 97.6 81 16 112/70 99 Ventilator 35% 10/24 0800 96 Ventilator 35% 10/24 0750 35 10/24 0559 35 10/24 0400 99 Ventilator 35% 10/24 0327 35 10/24 0042 35 10/24 0000 99 Ventilator 35% 10/24 0000 98.1 85 13 114/60 99 Ventilator 35% 10/23 2248 35 10/23 1999 97 Ventilator 35% 10/23 1925 35 10/23 1650 35 10/23 1600 98 Ventilator 35% 10/23 1600 98.8 110 21 130/76 98 Ventilator 35% 10/23 1449 35 Intake & Output 10/24 1600 10/24 0800 10/24 0000 Intake Total 640 446 Output Total 250 425 Balance 390 21 Intake, IV 130 Intake, Oral 0 0 Intake, Other 5 Intake, Tube 360 341 Feeding Intake, Tube 150 100 Irrigant Number 2 2 Bowel Movements Output, Urine 250 425 Exam Other Physical Findings: General - awake, extubated HEENT - NCAT Cardiovascular - S1, S2 Lungs - clear to auscultation bilaterally Abdomen - soft, bowel sounds positive, no tenderness Extremities - right sided edema in upper extremity Results Last 24 Hrs of Lab Results: Laboratory Tests 10/24/16 1312: pH 7.47 H, pCO2 36, pO2 92, HCO3 26, ABG O2 Sat (Measured) 96.0, Carboxyhemoglobin 1.0 L, O2 Concentration % 4LPM, O2 Delivery Method NC, Phlebotomy Draw Site LEFT RADIAL 10/24/16 0912: pH 7.48 H, pCO2 36, pO2 108 H, HCO3 26, ABG O2 Sat (Measured) 97.0, Carboxyhemoglobin 0.6 L, O2 Concentration % 35, Temperature 98.1, O2 Delivery Method VENT, Vent Mode CPAP, Expiratory Pressure 6, Pressure Support 8, Phlebotomy Draw Site LEFT RADIAL 10/24/16 0800: Troponin I Cancelled, D-Dimer Cancelled 10/24/16 0351: Anion Gap 10, Estimated GFR > 60, Glucose 121 H, Calcium 8.3 L, Phosphorus 5.5 H, Magnesium 1.7, Total Bilirubin 0.8, AST 39 H, ALT 52, Albumin 2.4 L, CBC w Diff MAN DIFF ORDERED, RBC 3.27 L, MCV 89.2, MCH 29.9, RDW 17.6 H, MPV 9.4, Gran % 84.8 H, Lymphocytes % 6.5 L, Monocytes % 6.6, Eosinophils % 1.5, Basophils % 0.6, Absolute Granulocytes 18.1 H, Segmented Neutrophils 81 H, Band Neutrophils 2, Absolute Lymphocytes 1.4, Lymphocytes 4 L, Monocytes 11 H, Absolute Monocytes 1.4 H, Eosinophils 1, Absolute Eosinophils 0.3, Absolute Basophils 0.1, Metamyelocytes 1, Platelet Estimate INCREASED, Polychromasia 1+, Poikilocytosis 1+, Ovalocytes 1+, PUBS MCHC 33.5, Fld Total RBCs Counted 100 Impression/Plan Impression/Plan Impression/Plan: Impression 61 year old woman hx breast ca - right intratrochanteric fracture - acute blood loss anemia - improved hypoxemic respiratory failure presumed ards - c.diff in stool and stenotrophomonas in sputum - persistent leukocytosis - upper ext edema Plan Respiratory -Successfully asked extubated ID -ID consultation appreciated -cont abx -c.diff and stenotrophomonas CVS -Hemodynamics stable Heme -hx of breast ca, we will ask hematology to comment about leukocytosis -cbc, coags monitoring Metabolic -ins/outs, monitor electrolytes -finger sticks monitoring Alimentary -tube feeds Neuro -awake TTS 35 min Ortho follow up
[2016-10-24 16:00] VITALS: BP 120/75
--- NOTE | 2016-10-24 16:26 | PN- Resident CRCU ---
Subjective HPI/CRCU Issues: Patient seen and examined. She is seen sitting upright in her bed intubated on a ventilator while awake and alert. She appears to be in no acute distress. When asked if she feels ready to try to breathe on her own today she noncemented agreement. When asked if she has any pain she shakes her head indicating no. She denies any headache, fever, chills, chest pain, respiratory distress, nausea , vomiting, diarrhea. Overnight patient reportedly pulled out her OG tube. An x-ray was obtained after it was replaced to confirm positioning. Objective Vital Signs & I&O Last 8 Hrs of Vitals and I&O: Vitals: - Temperature: 97.6-98.1 - Heart Rate: 76-98 - Respiratory Rate: 12-32 - Systolic Blood pressure: 82-139 - Diastolic Blood pressure: 52-75 - Oxygen Saturation: 90-99% on 35% FiO2 Exam General Appearance: well developed/nourished, no apparent distress, alert, awake , comfortable, intubated Other Physical Findings: General -elderly woman intubated on a ventilator in no acute distress HEENT - NCAT, PERRL, EOMI, anicteric sclera, endotracheal tube in place, OG tube in place Cardio - S1, S2 w/o murmurs/gallops/rubs Resp - CTA bilaterally w/o wheezing/rhochi/crackles GI -soft, nontender, nondistended, bowel sounds present Neuro - Awake and alert, CN II - XII grossly intact Extremities: no distal lower extremity swell, distal pulses intact -RLE: proximal swelling with ecchymosis on dependent area Weaning Parameters NIF: 38 Minute Volume: 8.99 Resp rate: 31 Vt: 303 Heart Rate: 82 Weaning Schedule Start Time: 0800 Minute Volume: 8.99 Resp Rate: 31 Vt: 303 Heart Rate: 82 End Time: 1056 Minute Volume: 8.95 Resp Rate: 25 Vt: 239 Heart Rate: 88 Current Medications: Current Medications Sig/[place] Start time Last Medication Dose Route Stop Time Status Admin Acetaminophen 1,000 MG .STK-MED ONE 10/24 0334 DC IV 10/24 0335 Acetaminophen 1,000 MG Q6P PRN 10/10 1630 AC 10/24 N/A 1 UNIT IV 0338 Acetaminophen 650 MG Q8 PRN 10/06 1945 AC 10/20 PO 205 Albuterol Sulfate 3 ML EVERY 4 HRS/AWAKE 10/12 0800 AC 10/24 INH 1101 Artificial Tears 2 GTT TID 10/18 2200 AC 10/24 OPH 1026 Exemestane 25 MG DAILY 10/07 1000 AC 10/24 PO 1028 Folic Acid 1 MG DAILY 10/07 1000 AC 10/24 PO 1025 Glycerin 2 SPRAY Q2P PRN 10/15 1430 AC 10/17 PO 0627 Insulin Aspart 0 Q4 10/16 1800 AC 10/24 SC 0608 Insulin Detemir 5 UNITS BID 10/16 2200 AC 10/24 SC 1027 Magnesium Oxide 400 MG ONE ONE 10/24 0800 DC 10/24 PO 10/24 0801 1024 Multivitamins 1 TAB DAILY 10/23 1000 AC 10/24 PO 1024 Pantoprazole Sodium 40 MG BID 10/20 2200 AC 10/24 IV 1025 Thiamine HCl 100 MG DAILY 10/23 1000 AC 10/24 PO 1024 Vancomycin HCl 125 MG Q6 10/17 1350 AC 10/24 PO 1026 Impression/Plan Impression/Problem List Impression: Patient was successfully extubated this afternoon. Heme/onc consult was placed for her persistent leukocytosis. Swallow evaluation determined that she may only take meds with small tips of water. She should take her PO vancomycin but should be otherwise NPO. Case was discussed with Dr. Cuadra of orthopedics and it was tentatively decided that she would be taken into the OR for surgery in the morning. Problem list: -Acute hypoxic respiratory failure, exctubated -Acute respiratory distress syndrome, extubated -Displaced comminuted right proximal femoral shaft fracture -Proximal right lower extremity hematoma -Acute blood loss anemia, stable -EtOH withdrawal -Multilobar pneumonia, on antibiotics -History of breast cancer that is post bilateral mastectomy, chemotherapy/ radiation -Leukocytosis -C. Diff colitis, on oral vancomycin Respiratory/infectious disease: Patient remains intubated on ventilator. Lasix given as tolerated for fluid overload. Daily arterial blood gas/chest x-rays are to be obtained for assessment of respiratory disease. -Intubated on ventilator Jorge CPAP trial today -Bactrim discontinued -Vancomycin 125mg PO Q6H -Sputum cultures: Stenotrophomonas resistant to ceftazidime -Follow up with surgical PA when medically clear for surgery Musculoskeletal: Sustained a fall from her bed resulting in a right hip fracture as demonstrated by x-ray and CT imaging. She was evaluated by orthopedic surgery, but surgical intervention was deferred as patient was found to have an acute drop in her hemoglobin requiring admission to the intensive care unit from the general medicine floor for medical optimization. -Monitor vital signs and hemoglobin -Cardiac clearance obtained -Orthopedic consult following Cardiology: Revised cardiac risk index calculated for a score of 0 suggesting a 0.4% risk of a major cardiac event. -RCRI: 0, 0.4 risk for major cardiac event -software consultant cleared patient for surgery Hematology/oncology: Patient has a history of breast cancer with bilateral mastectomy, chemotherapy, and radiation. Last treatment reportedly received 6 months ago. She is a patient of Dr. Mejias of the [facility]. She has not had any follow- up imaging since this time apparently, but is reportedly in remission with a surveillance visit scheduled in January 2017. Patient has had persistent leukocytosis since admission. White blood cell count was elevated as recently as July to 20,000, baseline level unclear. She denies taking any adjuvant chemotherapy regimens such as Neulasta/Neupogen that could possibly account for this, however records are unavailable at this time. Consent for blood transfusion was obtained and placed on chart, type and cross was ordered. Packed red blood cells were transfused. -PRBC transfused: 5 -Daily CBC, monitor for worsening anemia/leukocytosis -Heme/onc placed, follow up recommendations Psychiatry: Patient has a history of alcohol abuse for which she reports drinking vodka several times a week. Serum alcohol on admission was negative. She remains tremulous with see what scores consistently minimally elevated. -Multivitamin/thiamine/folate -Bupropion on hold -Consider psychiatry/social work consult Endocrinology: Patient with a history of diabetes mellitus. Blood sugars have been consistently low requiring amps of dextrose. -Accu-Cheks -Novolog changed to Novolin NPO SSI Q6H -D51/2NS @ 75mL/hr while NPO Pain plan: -Acetaminophen 650 mg by mouth every 8 hours as needed for pain 1-3 -Oxycodone 1 tab by mouth every 6 hours as needed for pain 4-6 -Dilaudid 0.6 mg IV every 4 hours as needed for pain 7-10 Diet -NPO DVT prophylaxis-mechanical ppx to LLE Code Status-full code Problem List: 1. Displaced comminuted fracture of shaft of right femur Pain Ratin Tomorrow's Labs & Rationales: CBC ICU CXR Plan DVT/Prophylaxis: mechanical
--- NOTE | 2016-10-24 17:36 | Cons- Hematology ---
General Information and HPI Consulting Request Date of Consult: 10/24/16 Requested By: LUIS ALBERTO SHAW MD Reason for Consult: Leukocytosis Source of Information: patient, old records Exam Limitations: clinical condition History of Present Illness: Ms. 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 She was taken to the hospital and found to have WBC of 28,400. She had imaging demonstrating an acute displaced comminuted femoral shaft fracture with extension to the intertrochanteric region. She had an acute drop in her hemoglobin from normal to 7.2 overnight with increased swelling in the right lower extremity. She was sent to the ICU at the time and had RBC transfusion. She was to be taken to the OR but noted to be somnolent, febrile, and hypoxic. She was noted to have multi-lobar pneumonia and was subsequently intubated due to worsening respiratory distress. Surgical intervention was deferred. She had a right lower extremity hematoma. She was noted to have C. difficile colitis. She was placed on oral vancomycin. She is now improving and has been extubated. She is afebrile. Allergies/Medications Allergies: Coded Allergies: apple (Severe, THROAT CLOSURE 06/28/16) rose (Severe, THROAT CLOSURE 06/28/16) CHERRIES cezar (Severe, THROAT CLOSURE 06/28/16) peach (Severe, THROAT CLOSURE 06/28/16) sertraline (Intermediate, RASH 06/28/16) birch (UNKNOWN 06/28/16) Home Med List: Aspirin (Aspirin*) 81 MG TAB.CHEW 1 TAB PO DAILY Heart (Reported) Bupropion HCl (Bupropion HCl Sr) 150 MG TABLET.ER 1 TAB PO BID SMOKING CESSATION (Reported) Exemestane 25 MG TABLET 1 TAB PO DAILY BREAST CA (Reported) Folic Acid 1 MG TABLET 1 MG PO DAILY FOLIC ACID SUPPLEMENT (Reported) Insulin Aspart, Recombinant (Novolog Flexpen) 100 UNIT/ML INSULN.PEN DM ( Reported) Current Medications: Current Medications Sig/[place] Start time Last Medication Dose Route Stop Time Status Admin Acetaminophen 1,000 MG .STK-MED ONE 10/24 0334 DC IV 10/24 0335 Acetaminophen 1,000 MG Q6P PRN 10/10 1630 AC 10/24 N/A 1 UNIT IV 0338 Acetaminophen 650 MG Q8 PRN 10/06 1945 AC 10/20 PO 205 Albuterol Sulfate 3 ML EVERY 4 HRS/AWAKE 10/12 0800 AC 10/24 INH 1623 Artificial Tears 2 GTT TID 10/18 2200 AC 10/24 OPH 1026 Dextrose/Sodium 1,000 ML Q13H 10/24 1445 AC Chloride IV Exemestane 25 MG DAILY 10/07 1000 AC 10/24 PO 1028 Folic Acid 1 MG DAILY 10/07 1000 AC 10/24 PO 1025 Glycerin 2 SPRAY Q2P PRN 10/15 1430 AC 10/17 PO 0627 Insulin Aspart 0 Q4 10/16 1800 DC 10/24 SC 0608 Insulin Detemir 5 UNITS BID 10/16 2200 AC 10/24 SC 1027 Insulin Human Regular 0 Q6 10/24 1800 AC SC Magnesium Oxide 400 MG ONE ONE 10/24 0800 DC 10/24 PO 10/24 0801 1024 Multivitamins 1 TAB DAILY 10/23 1000 AC 10/24 PO 1024 Pantoprazole Sodium 40 MG BID 10/20 2200 AC 10/24 IV 1025 Thiamine HCl 100 MG DAILY 10/23 1000 AC 10/24 PO 1024 Vancomycin HCl 125 MG Q6 10/17 1350 AC 10/24 PO 1026 Review of Systems Review of Systems Constitutional: Reports: weakness. Denies: chills, fever. Cardiovascular: Denies: chest pain. Respiratory: Denies: short of breath. Musculoskeletal: Reports: back pain, joint pain, joint swelling. Hematologic/Endocrine: Denies: bleeding. Immunologic/Allergic: Denies: lymphadenopathy. 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 Home Services at Home: None Smoking Status: Current Everyday Smoker ETOH Use: heavy use, patient drinks a bottle of vodka a week Exam & Diagnostic Data Vital Signs and I&O Vital Signs Date Time Temp Pulse Resp B/P Pulse O2 O2 Flow FiO2 Ox Delivery Rate 10/24 1623 95 Nasal 2.0L Cannula 10/24 1600 98.0 80 30 120/75 96 Nasal 3.0L Cannula 10/24 1215 95 Nasal 4.0L Cannula 10/24 1200 97 Nasal 4.0L Cannula 10/24 1051 35 10/24 0800 97.6 81 16 112/70 99 Ventilator 35% 10/24 0800 96 Ventilator 35% 10/24 0750 35 10/24 0559 35 10/24 0400 99 Ventilator 35% 10/24 0327 35 10/24 0042 35 10/24 0000 99 Ventilator 35% 10/24 0000 98.1 85 13 114/60 99 Ventilator 35% 10/23 2248 35 10/23 2000 97 Ventilator 35% 10/23 1925 35 10/23 1650 35 Intake & Output 10/24 1600 10/24 0800 10/24 0000 Intake Total 640 446 Output Total 250 425 Balance 390 21 Intake, IV 130 Intake, Oral 0 0 Intake, Other 5 Intake, Tube 360 341 Feeding Intake, Tube 150 100 Irrigant Number 2 2 Bowel Movements Output, Urine 250 425 Physical Exam General Appearance: alert, awake, comfortable Head: atraumatic, normal appearance Eyes: Bilateral: PERRL. Ears, Nose, Throat: normal pharynx, NC in place Respiratory: chest non-tender, quiet respiration, crackles Cardiovascular: regular rate/rhythm Gastrointestinal: normal bowel sounds, soft, non-tender, no organomegaly Extremities: RLE: shortened and externally rotated, bruising and edema over right hip Neurologic/Psych: awake, alert, oriented x 2 Skin: warm/dry, ecchymosis Lymphatic: No adenopathy Last 48 Hours of Lab Results: Laboratory Tests 10/24 10/24 10/24 1312 0912 0800 Blood Gas pH (7.35 - 7.45 PH) 7.47 H 7.48 H pCO2 (35 - 45 TORR) 36 36 pO2 (80 - 100 TORR) 92 108 H HCO3 (21 - 28 MEQ/L) 26 26 ABG O2 Sat (Measured) (>96.0 %) 96.0 97.0 Carboxyhemoglobin (1.5 - 5.0 %) 1.0 L 0.6 L O2 Concentration % 4LPM 35 Temperature (97.0 - 100.0 FARH) 98.1 O2 Delivery Method NC VENT Vent Mode CPAP Expiratory Pressure (CMH2O/P) 6 Pressure Support (CMH2O/P) 8 Chemistry Troponin I Cancelled Coagulation D-Dimer Cancelled Miscellaneous Phlebotomy Draw Site LEFT RADIAL LEFT RADIAL 10/24 10/23 0351 0605 Blood Gas pH (7.35 - 7.45 PH) 7.54 H pCO2 (35 - 45 TORR) 28 L pO2 (80 - 100 TORR) 107 H HCO3 (21 - 28 MEQ/L) 24 ABG O2 Sat (Measured) (>96.0 %) 98.0 P-50 (Temp Corrected) N Carboxyhemoglobin (1.5 - 5.0 %) 0.5 L O2 Concentration % .35 Respiration Rate (BPM) 12 O2 Delivery Method VENT Vent Mode A/C Expiratory Pressure (CMH2O/P) 5 Tidal Volume (CC) 450 Chemistry Sodium (137 - 145 mmol/L) 131 L Potassium (3.5 - 5.1 mmol/L) 4.7 Chloride (98 - 107 mmol/L) 93 L Carbon Dioxide (22 - 30 mmol/L) 28 Anion Gap (5 - 16) 10 BUN (7 - 17 mg/dL) 9 Creatinine (0.5 - 1.0 mg/dL) 0.5 Estimated GFR (>60 ml/min) > 60 Glucose (65 - 99 mg/dL) 121 H Calcium (8.4 - 10.2 mg/dL) 8.3 L Phosphorus (2.5 - 4.5 mg/dL) 5.5 H Magnesium (1.6 - 2.3 mg/dL) 1.7 Total Bilirubin (0.2 - 1.3 mg/dL) 0.8 AST (14 - 36 U/L) 39 H ALT (9 - 52 U/L) 52 Albumin (3.5 - 5.0 g/dL) 2.4 L Hematology CBC w Diff MAN DIFF ORDERED WBC (4.8 - 10.8 /CUMM) 21.3 H RBC (4.20 - 5.40 /CUMM) 3.27 L Hgb (12.0 - 16.0 G/DL) 9.8 L Hct (37 - 47 %) 29.1 L MCV (81.0 - 99.0 FL) 89.2 MCH (27.0 - 31.0 PG) 29.9 RDW (11.5 - 14.5 %) 17.6 H Plt Count (130 - 400 /CUMM) 536 H MPV (7.4 - 10.4 FL) 9.4 Gran % (42.2 - 75.2 %) 84.8 H Lymphocytes % (20.5 - 51.1 %) 6.5 L Monocytes % (1.7 - 9.3 %) 6.6 Eosinophils % (0 - 5 %) 1.5 Basophils % (0.0 - 2.0 %) 0.6 Absolute Granulocytes (1.4 - 6.5 /CUMM) 18.1 H Segmented Neutrophils (42.2 - 75.2 %) 81 H Band Neutrophils (0.0 - 5.0 %) 2 Absolute Lymphocytes (1.2 - 3.4 /CUMM) 1.4 Lymphocytes (20.5 - 51.1 %) 4 L Monocytes (1.7 - 9.3 %) 11 H Absolute Monocytes (0.10 - 0.60 /CUMM) 1.4 H Eosinophils (0 - 5.0 %) 1 Absolute Eosinophils (0.0 - 0.7 /CUMM) 0.3 Absolute Basophils (0.0 - 0.2 /CUMM) 0.1 Metamyelocytes (0.0 - 1.0 %) 1 Platelet Estimate (ADEQUATE) INCREASED Polychromasia 1+ Poikilocytosis 1+ Ovalocytes 1+ PUBS MCHC (33.0 - 37.0 G/DL) 33.5 Miscellaneous Phlebotomy Draw Site LEFT RADIAL Other Body Source Fld Total RBCs Counted (%) 100 10/23 0425 Chemistry Sodium (137 - 145 mmol/L) 132 L Potassium (3.5 - 5.1 mmol/L) 4.4 Chloride (98 - 107 mmol/L) 93 L Carbon Dioxide (22 - 30 mmol/L) 27 Anion Gap (5 - 16) 12 BUN (7 - 17 mg/dL) 7 Creatinine (0.5 - 1.0 mg/dL) 0.5 Estimated GFR (>60 ml/min) > 60 Glucose (65 - 99 mg/dL) 102 H Calcium (8.4 - 10.2 mg/dL) 8.5 Phosphorus (2.5 - 4.5 mg/dL) 5.3 H Magnesium (1.6 - 2.3 mg/dL) 1.7 Total Bilirubin (0.2 - 1.3 mg/dL) 0.7 AST (14 - 36 U/L) 26 ALT (9 - 52 U/L) 40 Albumin (3.5 - 5.0 g/dL) 2.3 L Hematology CBC w Diff NO MAN DIFF REQ WBC (4.8 - 10.8 /CUMM) 23.5 H RBC (4.20 - 5.40 /CUMM) 3.45 L Hgb (12.0 - 16.0 G/DL) 10.1 L Hct (37 - 47 %) 30.5 L MCV (81.0 - 99.0 FL) 88.5 MCH (27.0 - 31.0 PG) 29.3 RDW (11.5 - 14.5 %) 17.5 H Plt Count (130 - 400 /CUMM) 512 H MPV (7.4 - 10.4 FL) 9.5 Gran % (42.2 - 75.2 %) 85.2 H Lymphocytes % (20.5 - 51.1 %) 5.7 L Monocytes % (1.7 - 9.3 %) 7.5 Eosinophils % (0 - 5 %) 1.2 Basophils % (0.0 - 2.0 %) 0.4 Absolute Granulocytes (1.4 - 6.5 /CUMM) 20.0 H Absolute Lymphocytes (1.2 - 3.4 /CUMM) 1.3 Absolute Monocytes (0.10 - 0.60 /CUMM) 1.8 H Absolute Eosinophils (0.0 - 0.7 /CUMM) 0.3 Absolute Basophils (0.0 - 0.2 /CUMM) 0.1 PUBS MCHC (33.0 - 37.0 G/DL) 33.2 Imaging/Other Studies: Abd/pelvis CT 10/06/2016: 1. Comminuted displaced right proximal femoral shaft fracture with extension into the intertrochanteric region, surrounded by extensive soft tissue edema, and hemorrhage. 2. Nonspecific subtle micronodularity is noted within the visualized lung parenchyma, either appears more pronounced or new since prior study. 3. Hepatic steatosis and stable indeterminate 1.1 cm hypodensity within the left lobe of the liver. 4. Stable noncomplicated chronic calcific pancreatitis. 5. Short segment apparent narrowing involving the proximal part of the sigmoid colon, not optimally characterized. Followup direct visualization/colonoscopy is recommended if not performed recently. 6. Mildly distended gallbladder with features suggestive of milk of calcium and tiny layering calculi. Chest/abd/pelvis CT 10/11/2016: 1. Pulmonary edema with trace bilateral pleural effusions. Although the mixture of consolidation and groundglass opacity in lower lobes could be secondary to edema, superimposed pneumonia is possible. 2. Within the chest, the tubes/lines are in satisfactory position. No pneumothorax. 3. Anasarca with increased edema in retroperitoneal soft tissues, and increased subcutaneous tissue edema along the abdominal wall/flanks. 4. Chronic pancreatitis, hepatic steatosis and calcified gallbladder sludge/ calculi. No evidence of acute cholecystitis. 5. Displaced intertrochanteric fracture of the right femur. Abd/pelvis CT 10/18/2016: 1. Anasarca. Small amount of fluid in the peritoneal cavity related to the anasarca. No interval change since 10/11/2016. No evidence of intra-abdominal or retroperitoneal bleed. 2. Mild thickening of the rectum sigmoid bowel wall similar to prior CAT scan . No bowel obstruction. Nasogastric tube in stomach. 3. Chronic pancreatitis without acute change of the pancreas. 4. Cholelithiasis. 5. Persistent bibasilar airspace disease. Improved aeration at the right lung base and worsening consolidation at the left lung base compared with the CAT scan of 10/11/2016. 6. Palacio catheter in bladder. 7. Continue displaced intertrochanteric fracture of right femur. Chest CTA 10/21/2016: 1. No CT evidence of pulmonary embolism. 2. Previously documented extensive bilateral groundglass airspace opacities show interval improvement with near complete resolution of dense consolidation at right lung base and persistent dense consolidation at left lower lobe of the lung. 3. Trace amount of left-sided pleural effusion, similar to prior study. 4. Stable mildly dilated ascending thoracic aorta, atherosclerotic disease including coronary arterial calcifications and new trace amount of pericardial effusion since the prior study dated 10/11/2016. Abd/pelvis CT 10/21/2016: 1. No acute intra-abdominal and/or intrapelvic pathology is present. Specifically, no evidence of any retroperitoneal hematoma identified. However, there is a large 5.4 x 2.7 cm subacute hematoma identified within the proximal, upper medial aspect of the right thigh adjacent to the comminuted fracture involving the right proximal femur. 2. 1.5 cm presumed hepatic cyst. 3. Few nonspecific splenic hypodensities are identified, the largest measures 2 cm. Possible differential diagnostic consideration is given as above. 4. Features consistent with generalized nonspecific subcutaneous edema. 5. Multiple shotty stable retroperitoneal nonspecific lymph nodes. Echocardiogram 10/08/2016: Normal EF of 70% with impaired LV relaxation. Mild mitral regurgitation. Trace tricuspid regurgitation. Echocardiogram 10/17/2016: Normal EF of 70%. Mild left ventricular hypertrophy. Trace tricuspid regurgitation. Assessment/Plan Assessment: Ms. 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 Her hospital course have been complicated including acute hypoxic respiratory failure, acute respiratory distress syndrome, intubation, displaced comminuted right proximal femoral shaft fracture, proximal right lower extremity hematoma, EtOH withdrawal, multilobar pneumonia, and C. Diff colitis, on oral vancomycin. She is now extubated. Hematology/oncology is consulted for evaluation of leukocytosis. Leukocytosis has been present since December 2015 with WBC around 15, 000s. Differential has been relatively normal. Recent increase to 30,000 is likely secondary to infection (pneumonia/C. difficile). This has improved down to 21,300 today. Her differentials are relatively normal with mostly granulocytes. The persistent elevation may still be related to inflammatory response and infectious. She has not had any recent fever or chills to suggest a potential active infection. C. difficile can cause elevation of her WBC. This is being treated with oral vancomycin. WBC improved from 30,000s to 20, 000s. Given the persistent elevation, flow cytometry may be done but may not be diagnostic in this setting without immature cells. Given stability of the leukocytosis, previously leukocytosis, and recent clinical status, she is unlikely to have an acute leukemic process. Imaging have not demonstrated significant lymphoadenopathy (shotty retroperitoneal lymph nodes) to suggest an underlying lymphoma. She may have a leukomoid reaction on top of possible proliferative disorder. I doubt this is causing her any clinical presentation at the moment. If undergoes surgery, I wonder if marrow may be able to be evaluated at the time. Otherwise, depending on flow cytometry findings she may need a bone marrow biopsy. Her smear was reviewed today, she has numerous bands, atypical lymphocytes, ?LGL, vaculated monocytes, and increased platelet count. No abnormal immature cells noted. Recommendations: 1. Monitor CBC daily 2. Can send peripheral flow cytometry 3. Follow up blood cultures 4. Follow up as outpatient for now Problem List: 1. Leukocytosis 2. Breast cancer 3. Acute blood loss anemia 4. Displaced comminuted fracture of shaft of right femur Other Findings/Comments: Please call [phone] with any questions or concerns Consult Acknowledgment - Thank you for your consult request.
--- NOTE | 2016-10-24 23:29 | NUR ---
AVSS.A/INT CONF.FOLLOW COMMANDS. RIGHT SIDE WEAKNESS NOTED.RIGHT ARM EDEMATOUS AND ELEVATED WITH PILLOW. RIGHT HIP FX CONT AND SITE ECCHYMOTIC WITH RIGHT INNER THIGH HEMATOMA. IVF CONT VIA RIGHT PICC SITE. BOWER DRAINING MOD UO. PLAN OF CARE REVIEWED.WILL CONT TO MONITOR
[2016-10-25] VITALS: BP 120/70
--- NOTE | 2016-10-25 00:19 | NUR ---
PATIENT RECEIVED ALERT AND RESPONSIVE, SPEECH CLEAR, PATIENT AWARE THAT SHE IS HOSPITALIZED IN BUT UNAWARE OF WHY AND WHEN ADMITTED, SKIN PINK, WARM AND DRY, INSURANCE PROFESSIONAL SINUS WITHOUT ECTOPY, HEART RATE 70'S TO 80'S/MIN, O2 AT 2L/MIN VIA NC- CONTINUOUS O2 SAT 96%, BREATHE SOUNDS CLEAR BUT DIMINISHED AT BOTH BASES, PRODUCTIVE COUGH NOTED- PATIENT ABLE TO CLEAR AIRWAY BUT DOES NOT EXPECTORATE SECRETIONS, ABDOMEN SOFT, +BS, PATIENT NPO FOR SURGERY IN AM BUT ABLE TO TAKE PO VANCOMYCIN EASILY, HANANE EDEMATOUS +1, RIGHT HAND +2, ELEVATED ON PILLOW, BOWER TO GRAVITY DRAINAGE WITH CLEAR YELLOW UO, PATIENT STATES RIGHT HIP/LEG DISCOMFORT WITH MOVING/TURNING BUT EASES WHEN MOVING CEASES, SETTLED FOR SLEEP, CALL LIGHT WITHIN REACH
[2016-10-25 04:45] LABS: ABSOLUTE BASOPHIL COUNT 0.1 /CUMM (0.0-0.2); ABSOLUTE EOSINOPHIL COUNT 0.5 /CUMM (0.0-0.7); ABSOLUTE GRANULOCYTE CT 12.6 /CUMM (1.4-6.5); ABSOLUTE LYMPH COUNT 1.4 /CUMM (1.2-3.4); ABSOLUTE MONOCYTE COUNT 1.2 /CUMM (0.10-0.60); BASOPHIL % 0.4 % (0.0-2.0); EOSINOPHIL % 2.9 % (0-5); GRANULOCYTE % 80.1 % (42.2-75.2); MEAN CORPUSCULAR HGB 29.8 PG (27.0-31.0); MEAN CORPUSCULAR VOLUME 90.1 FL (81.0-99.0); MEAN PLATELET VOLUME 9.3 FL (7.4-10.4); PLATELET COUNT 530 /CUMM (130-400); RBC DISTRIBUTION WIDTH 17.6 % (11.5-14.5); RED BLOOD CELL CT 3.33 /CUMM (4.20-5.40); WHITE BLOOD CELL COUNT 15.7 /CUMM (4.8-10.8)
--- NOTE | 2016-10-25 06:43 | NUR ---
0430 PATIENT SLEEPING AFTER EARLIER IV TYLENOL DOSE FOR RIGHT HIP/THIGH PAIN, VS STABLE, O2 SAT MAINTAINED 95 TO 99% ON 2L/MIN O2 VIA NC 0600 NO CHANGES IN STATUS NOTED OVERNIGHT, LITTLE USE OF RUE- EASILY PALPABLE RIGHT RADIAL PULSE, RH PINK AND WARM, PATIENT DENIES SENSATION OF PINS AND NEEDLES, PATIENT CONTINUES TO SLEEP IN NAPS, AWAITING AM MD ROUNDS, REMAINS NPO FOR POSSIBLE OR TODAY
[2016-10-25 08:00] VITALS: BP 122/68
--- NOTE | 2016-10-25 09:23 | PN- CRCU ---
See Addendum Subjective HPI/Critical Care Issues: pt seen and examined wbc significantly improved to 15.7 afebrile saturating 95% on 2LNC exutbated and tolerating well no significant pain Objective Current Medications: Current Medications Sig/[place] Start time Last Medication Dose Route Stop Time Status Admin Acetaminophen 1,000 MG Q6P PRN 10/25 0715 AC N/A 1 UNIT IV Acetaminophen 1,000 MG ONCE ONE 10/25 0315 DC 10/25 N/A 1 UNIT IV 10/25 0329 0347 Acetaminophen 1,000 MG Q6P PRN 10/10 1630 AC 10/24 N/A 1 UNIT IV 0338 Acetaminophen 650 MG Q8 PRN 10/06 1945 AC 10/20 PO 205 Albuterol Sulfate 3 ML EVERY 4 HRS/AWAKE 10/12 0800 AC 10/25 INH 0824 Artificial Tears 2 GTT TID 10/18 2200 AC 10/24 OPH 2226 Dextrose/Sodium 1,000 ML Q13H 10/24 1445 AC 10/25 Chloride IV 0348 Exemestane 25 MG DAILY 10/07 1000 AC 10/24 PO 1028 Folic Acid 1 MG DAILY 10/07 1000 AC 10/24 PO 1025 Glycerin 2 SPRAY Q2P PRN 10/15 1430 AC 10/17 PO 0627 Insulin Aspart 0 Q4 10/16 1800 DC 10/24 SC 0608 Insulin Detemir 5 UNITS BID 10/16 2200 AC 10/24 SC 2226 Insulin Human Regular 0 Q6 10/24 1800 AC 10/25 SC 0551 Magnesium Sulfate 1 GM Q2H 10/25 0715 AC 10/25 Dextrose/Water 100 ML IV 10/25 1114 0808 Morphine Sulfate 2 MG Q6P PRN 10/25 0715 IV Morphine Sulfate 1 MG Q6P PRN 10/25 0715 IV Multivitamins 1 TAB DAILY 10/23 1000 AC 10/24 PO 1024 Pantoprazole Sodium 40 MG BID 10/20 2200 AC 10/24 IV 2225 Thiamine HCl 100 MG DAILY 10/23 1000 AC 10/24 PO 1024 Vancomycin HCl 125 MG Q6 10/17 1350 AC 10/25 PO 0552 Vital Signs & I&O Last 24 Hrs of Vitals and I&O: Vital Signs Date Time Temp Pulse Resp B/P Pulse O2 O2 Flow FiO2 Ox Delivery Rate 10/25 0829 93 Nasal 2.0L Cannula 10/25 08 95 Nasal 2.0L Cannula 10/25 08 97.6 71 18 122/68 95 Nasal 2.0L Cannula 10/25 0400 99 Nasal 2.0L Cannula 10/25 0000 96 Nasal 2.0L Cannula 10/25 0000 97.0 78 20 120/70 96 Nasal 2.0L Cannula 10/24 1623 95 Nasal 2.0L Cannula 10/24 1600 96 Nasal 2.0L Cannula 10/24 1600 98.0 80 30 120/75 96 Nasal 3.0L Cannula 10/24 1215 95 Nasal 4.0L Cannula 10/24 1200 97 Nasal 4.0L Cannula 10/24 1051 35 Intake & Output 10/25 1600 10/25 0800 10/25 0000 Intake Total 686 600 Output Total 705 540 Balance -19 60 Intake, IV 686 600 Number 1 1 Bowel Movements Output, Urine 705 540 Patient 123 lb Weight Exam Other Physical Findings: General - awake, extubated HEENT - NCAT Cardiovascular - S1, S2 Lungs - clear to auscultation bilaterally Abdomen - soft, bowel sounds positive, no tenderness Extremities - right sided edema in upper extremity Results Last 24 Hrs of Lab Results: Laboratory Tests 10/25/16 0400: Anion Gap 8, Estimated GFR > 60, Glucose 74, Calcium 8.5, Phosphorus 4.9 H, Magnesium 1.6, Total Bilirubin 0.7, AST 20, ALT 35, Albumin 2.3 L, CBC w Diff NO MAN DIFF REQ, RBC 3.33 L, MCV 90.1, MCH 29.8, RDW 17.6 H, MPV 9.3, Gran % 80.1 H, Lymphocytes % 9.2 L, Monocytes % 7.4, Eosinophils % 2.9, Basophils % 0.4, Absolute Granulocytes 12.6 H, Absolute Lymphocytes 1.4, Absolute Monocytes 1.2 H, Absolute Eosinophils 0.5, Absolute Basophils 0.1, PUBS MCHC 33.0 10/24/16 1312: pH 7.47 H, pCO2 36, pO2 92, HCO3 26, ABG O2 Sat (Measured) 96.0, Carboxyhemoglobin 1.0 L, O2 Concentration % 4LPM, O2 Delivery Method NC, Phlebotomy Draw Site LEFT RADIAL Impression/Plan Impression/Plan Impression/Plan: Impression 61 year old woman hx breast ca - right intratrochanteric fracture - improved anemia - resolving respiratory failure - c.diff in stool and stenotrophomonas in sputum - improved leukocytosis - upper ext edema Plan Respiratory -Successfully asked extubated ID -ID consultation appreciated -cont po vancomycin for c.diff, completed bactrim -c.diff and stenotrophomonas CVS -Hemodynamics stable Heme -hx of breast ca -hematology appreciated -cbc, coags monitoring Metabolic -ins/outs, monitor electrolytes -finger sticks monitoring Alimentary -tube feeds Neuro -awake TTS 35 min Ortho follow up
--- NOTE | 2016-10-25 09:41 | NUR ---
PENDING OR TIME UNKNOWN GIVE PO MEDS HOLD LEVEMIR PER DR. DAY
--- NOTE | 2016-10-25 10:04 | PN- Hematology ---
See Addendum Subjective Subjective: She is doing better with breathing. She is still a little confused. She is answering question appropriately. She reports some stomach pain along with right leg pain. Review of Systems: Constitutional: Reports: weakness. Denies: chills, fever. Cardiovascular: Denies: chest pain. Respiratory: Denies: short of breath. Gastrointestinal: Reports: abdominal pain Musculoskeletal: Reports: back pain, joint pain, joint swelling. Hematologic/Endocrine: Denies: bleeding. Immunologic/Allergic: Denies: lymphadenopathy. All Other Systems: Reviewed and Negative Objective Vital Signs and I&Os Vital Signs Date Time Temp Pulse Resp B/P Pulse O2 O2 Flow FiO2 Ox Delivery Rate 10/25 0829 93 Nasal 2.0L Cannula 10/25 08 95 Nasal 2.0L Cannula 10/25 08 97.6 71 18 122/68 95 Nasal 2.0L Cannula 10/25 0400 99 Nasal 2.0L Cannula 10/25 0000 96 Nasal 2.0L Cannula 10/25 0000 97.0 78 20 120/70 96 Nasal 2.0L Cannula 10/24 1623 95 Nasal 2.0L Cannula 10/24 1600 96 Nasal 2.0L Cannula 10/24 1600 98.0 80 30 120/75 96 Nasal 3.0L Cannula 10/24 1215 95 Nasal 4.0L Cannula 10/24 1200 97 Nasal 4.0L Cannula 10/24 1051 35 Intake & Output 10/25 1600 10/25 0800 10/25 0000 10/24 1600 10/24 0800 10/24 0000 Intake Total 686 600 318 640 446 Output Total 705 540 425 250 425 Balance -19 60 -107 390 21 Intake, IV 686 600 130 Intake, Oral 0 0 Intake, Other 5 Intake, Tube 318 360 341 Feeding Intake, Tube 150 100 Irrigant Number 1 1 1 2 2 Bowel Movements Output, Urine 705 540 425 250 425 Patient 55.565 kg Weight Physical Exam: General Appearance: alert, awake, comfortable, on NC oxygen Head: atraumatic, normal appearance Eyes: Bilateral: PERRL. Ears, Nose, Throat: normal pharynx, NC in place Respiratory: chest non-tender, quiet respiration, crackles Cardiovascular: regular rate/rhythm Gastrointestinal: normal bowel sounds, soft, non-tender, no organomegaly Extremities: RLE: shortened and externally rotated, bruising and edema over right hip Neurologic/Psych: awake, alert, oriented x 2 Skin: warm/dry, ecchymosis Lymphatic: No adenopathy Current Medications: Current Medications Sig/[place] Start time Last Medication Dose Route Stop Time Status Admin Acetaminophen 1,000 MG Q6P PRN 10/25 0715 N/A 1 UNIT IV Acetaminophen 1,000 MG ONCE ONE 10/25 0315 DC 10/25 N/A 1 UNIT IV 10/25 0329 0347 Acetaminophen 1,000 MG Q6P PRN 10/10 1630 AC 10/24 N/A 1 UNIT IV 0338 Acetaminophen 650 MG Q8 PRN 10/06 1945 AC 10/20 PO 2057 Albuterol Sulfate 3 ML EVERY 4 HRS/AWAKE 10/12 0800 AC 10/25 INH 0824 Artificial Tears 2 GTT TID 10/18 2200 AC 10/24 OPH 2226 Dextrose/Sodium 1,000 ML Q13H 10/24 1445 AC 10/25 Chloride IV 0348 Exemestane 25 MG DAILY 10/07 1000 AC 10/24 PO 1028 Folic Acid 1 MG DAILY 10/07 1000 AC 10/24 PO 1025 Glycerin 2 SPRAY Q2P PRN 10/15 1430 AC 10/17 PO 0627 Insulin Aspart 0 Q4 10/16 1800 DC 10/24 SC 0608 Insulin Detemir 5 UNITS BID 10/16 2200 AC 10/24 SC 2226 Insulin Human Regular 0 Q6 10/24 1800 AC 10/25 SC 0551 Magnesium Sulfate 1 GM Q2H 10/25 0715 AC 10/25 Dextrose/Water 100 ML IV 10/25 1114 0808 Morphine Sulfate 2 MG Q6P PRN 10/25 0715 IV Morphine Sulfate 1 MG Q6P PRN 10/25 0715 IV Multivitamins 1 TAB DAILY 10/23 1000 AC 10/24 PO 1024 Pantoprazole Sodium 40 MG BID 10/20 2200 AC 10/24 IV 2225 Thiamine HCl 100 MG DAILY 10/23 1000 AC 10/24 PO 1024 Vancomycin HCl 125 MG Q6 10/17 1350 AC 10/25 PO 0552 Results Last 24 Hours of Lab Results: Laboratory Tests 10/25 10/24 0400 1312 Blood Gas pH (7.35 - 7.45 PH) 7.47 H pCO2 (35 - 45 TORR) 36 pO2 (80 - 100 TORR) 92 HCO3 (21 - 28 MEQ/L) 26 ABG O2 Sat (Measured) (>96.0 %) 96.0 Carboxyhemoglobin (1.5 - 5.0 %) 1.0 L O2 Concentration % 4LPM O2 Delivery Method NC Chemistry Sodium (137 - 145 mmol/L) 132 L Potassium (3.5 - 5.1 mmol/L) 4.5 Chloride (98 - 107 mmol/L) 95 L Carbon Dioxide (22 - 30 mmol/L) 28 Anion Gap (5 - 16) 8 BUN (7 - 17 mg/dL) 6 L Creatinine (0.5 - 1.0 mg/dL) 0.4 L Estimated GFR (>60 ml/min) > 60 Glucose (65 - 99 mg/dL) 74 Calcium (8.4 - 10.2 mg/dL) 8.5 Phosphorus (2.5 - 4.5 mg/dL) 4.9 H Magnesium (1.6 - 2.3 mg/dL) 1.6 Total Bilirubin (0.2 - 1.3 mg/dL) 0.7 AST (14 - 36 U/L) 20 ALT (9 - 52 U/L) 35 Albumin (3.5 - 5.0 g/dL) 2.3 L Hematology CBC w Diff NO MAN DIFF REQ WBC (4.8 - 10.8 /CUMM) 15.7 H RBC (4.20 - 5.40 /CUMM) 3.33 L Hgb (12.0 - 16.0 G/DL) 9.9 L Hct (37 - 47 %) 30.0 L MCV (81.0 - 99.0 FL) 90.1 MCH (27.0 - 31.0 PG) 29.8 RDW (11.5 - 14.5 %) 17.6 H Plt Count (130 - 400 /CUMM) 530 H MPV (7.4 - 10.4 FL) 9.3 Gran % (42.2 - 75.2 %) 80.1 H Lymphocytes % (20.5 - 51.1 %) 9.2 L Monocytes % (1.7 - 9.3 %) 7.4 Eosinophils % (0 - 5 %) 2.9 Basophils % (0.0 - 2.0 %) 0.4 Absolute Granulocytes (1.4 - 6.5 /CUMM) 12.6 H Absolute Lymphocytes (1.2 - 3.4 /CUMM) 1.4 Absolute Monocytes (0.10 - 0.60 /CUMM) 1.2 H Absolute Eosinophils (0.0 - 0.7 /CUMM) 0.5 Absolute Basophils (0.0 - 0.2 /CUMM) 0.1 PUBS MCHC (33.0 - 37.0 G/DL) 33.0 Miscellaneous Phlebotomy Draw Site LEFT RADIAL Assessment/Plan Assessment/Recommendations: Ms. 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 Her hospital course have been complicated including acute hypoxic respiratory failure, acute respiratory distress syndrome, intubation, displaced comminuted right proximal femoral shaft fracture, proximal right lower extremity hematoma, EtOH withdrawal, multilobar pneumonia, and C. Diff colitis, on oral vancomycin. She is improving. Her WBC is 15,700 from 21,300 yesterday. This has been her baseline since December 2015. Differentials remains unremarkable with mostly granulocytes. Flow cytometry is being sent. She does not have any evidence of immature cells on smears. I doubt leukemic process or lymphoma. She may have a leukomoid reaction on top of possible proliferative disorder. I doubt this is causing her any clinical presentation at the moment. Infectious process may be possible but less likely given lack of fever or other signs beside WBC. If undergoes surgery, I wonder if marrow may be able to be evaluated at the time. Otherwise, depending on flow cytometry findings she may need a bone marrow biopsy. Recommendations: 1. Monitor CBC daily 2. Follow up peripheral flow cytometry 3. Follow up as outpatient for now 4. Resume exemestane on discharge Please call [phone] with any questions or concerns Problem List: 1. Breast cancer 2. Leukocytosis 3. Displaced comminuted fracture of shaft of right femur
--- NOTE | 2016-10-25 10:09 | PN- Infect Dx ---
Subjective Subjective: Afebrile without complaints. She has been extubated. She continues to have diarrhea, with loose green stools, with 4 bowel movements reported yesterday. Objective Last 24 Hrs of Vital Signs/I&O Vital Signs Date Time Temp Pulse Resp B/P Pulse O2 O2 Flow FiO2 Ox Delivery Rate 10/25 828 93 Nasal 2.0L Cannula 10/25 08 95 Nasal 2.0L Cannula 10/25 08 97.6 71 18 122/68 95 Nasal 2.0L Cannula 10/25 0400 99 Nasal 2.0L Cannula 10/25 0000 96 Nasal 2.0L Cannula 10/25 0000 97.0 78 20 120/70 96 Nasal 2.0L Cannula 10/24 1623 95 Nasal 2.0L Cannula 10/24 1600 96 Nasal 2.0L Cannula 10/24 1600 98.0 80 30 120/75 96 Nasal 3.0L Cannula 10/24 1215 95 Nasal 4.0L Cannula 10/24 1200 97 Nasal 4.0L Cannula 10/24 1051 35 Intake & Output 10/25 1600 10/25 0800 10/25 0000 Intake Total 686 600 Output Total 705 540 Balance -19 60 Intake, IV 686 600 Number 1 1 Bowel Movements Output, Urine 705 540 Patient 123 lb Weight Physical Exam Other Physical Findings: She appears comfortable, extubated, in no acute distress Lungs bibasilar crackles Heart regular rhythm with no murmur Abdomen is soft, nontender with positive bowel sounds Extremities right thigh hematoma unchanged; PICC in the right upper extremity with no inflammation at the site Palacio catheter remains in place Results Last 24 Hours of Lab Results: Laboratory Tests 10/25 10/24 0400 1312 Blood Gas pH (7.35 - 7.45 PH) 7.47 H pCO2 (35 - 45 TORR) 36 pO2 (80 - 100 TORR) 92 HCO3 (21 - 28 MEQ/L) 26 ABG O2 Sat (Measured) (>96.0 %) 96.0 Carboxyhemoglobin (1.5 - 5.0 %) 1.0 L O2 Concentration % 4LPM O2 Delivery Method NC Chemistry Sodium (137 - 145 mmol/L) 132 L Potassium (3.5 - 5.1 mmol/L) 4.5 Chloride (98 - 107 mmol/L) 95 L Carbon Dioxide (22 - 30 mmol/L) 28 Anion Gap (5 - 16) 8 BUN (7 - 17 mg/dL) 6 L Creatinine (0.5 - 1.0 mg/dL) 0.4 L Estimated GFR (>60 ml/min) > 60 Glucose (65 - 99 mg/dL) 74 Calcium (8.4 - 10.2 mg/dL) 8.5 Phosphorus (2.5 - 4.5 mg/dL) 4.9 H Magnesium (1.6 - 2.3 mg/dL) 1.6 Total Bilirubin (0.2 - 1.3 mg/dL) 0.7 AST (14 - 36 U/L) 20 ALT (9 - 52 U/L) 35 Albumin (3.5 - 5.0 g/dL) 2.3 L Hematology CBC w Diff NO MAN DIFF REQ WBC (4.8 - 10.8 /CUMM) 15.7 H RBC (4.20 - 5.40 /CUMM) 3.33 L Hgb (12.0 - 16.0 G/DL) 9.9 L Hct (37 - 47 %) 30.0 L MCV (81.0 - 99.0 FL) 90.1 MCH (27.0 - 31.0 PG) 29.8 RDW (11.5 - 14.5 %) 17.6 H Plt Count (130 - 400 /CUMM) 530 H MPV (7.4 - 10.4 FL) 9.3 Gran % (42.2 - 75.2 %) 80.1 H Lymphocytes % (20.5 - 51.1 %) 9.2 L Monocytes % (1.7 - 9.3 %) 7.4 Eosinophils % (0 - 5 %) 2.9 Basophils % (0.0 - 2.0 %) 0.4 Absolute Granulocytes (1.4 - 6.5 /CUMM) 12.6 H Absolute Lymphocytes (1.2 - 3.4 /CUMM) 1.4 Absolute Monocytes (0.10 - 0.60 /CUMM) 1.2 H Absolute Eosinophils (0.0 - 0.7 /CUMM) 0.5 Absolute Basophils (0.0 - 0.2 /CUMM) 0.1 PUBS MCHC (33.0 - 37.0 G/DL) 33.0 Miscellaneous Phlebotomy Draw Site LEFT RADIAL Last 24 Hours of [place] Results: No recent cultures Assessment/Plan Impression: Stable status post successful extubation with temperatures remaining normal and white blood cell count decreasing on po Vancomycin now Day 8 of treatment for C. difficile infection. Hematology input appreciated, with comments regarding elevated white blood cell count since December 2015 noted. She is scheduled for repair of her right hip fracture tonight, at which point aspiration of the hematoma will be performed. Suggestion: 1. Await orthopedic surgery later today 2. Continue po Vancomycin
--- NOTE | 2016-10-25 11:09 | NUR ---
SPEECH THERAPY: PT NPO PENDING SURGICAL PROCEDURE TO TAKE PLACE IN THE EVENING. ST CONTINUE TO FOLLOW FOR COMPLETE SWALLOW EVALUATION/ DIET INITIATION 10/26. D/W RN & MD.
--- NOTE | 2016-10-25 11:43 | PN- Resident CRCU ---
Subjective HPI/CRCU Issues: Patient seen and examined. She is seen sitting upright in bed resting comfortably. She appears to be in no acute distress. She denies any pain or any other complaints at this time. She denies any headache, fever, chills, chest pain, shortness of breath, cough, nausea, vomiting, diarrhea. No overnight events reported. Objective Vital Signs & I&O Last 8 Hrs of Vitals and I&O: Vitals: - Temperature: 97.6 - Heart Rate: 70-82 - Respiratory Rate: 20-26 - Systolic Blood pressure: 95-115 - Diastolic Blood pressure: 55-74 - Oxygen Saturation: 95-99% on 1.0 L via nasal cannula Exam General Appearance: no apparent distress, alert, awake, comfortable Other Physical Findings: General -elderly female in no acute distress HEENT - NCAT, PERRL, EOMI, anicteric sclera Cardio - S1, S2 w/o murmurs/gallops/rubs Resp - CTA bilaterally w/o wheezing/rhochi/crackles GI - Non-tender, non-distended abdomen, Bowel sounds present -Palacio catheter in place Neuro - Awake and alert, CN II - XII grossly intact Extremities-no lower extremity edema, distal pulses intact, proximal swelling of right lower extremity with ecchymosis of dependent area Weaning Parameters NIF: 38 Minute Volume: 8.99 Resp rate: 31 Vt: 303 Heart Rate: 82 Weaning Schedule Start Time: 0800 Minute Volume: 8.99 Resp Rate: 31 Vt: 303 Heart Rate: 82 End Time: 1056 Minute Volume: 8.95 Resp Rate: 25 Vt: 239 Heart Rate: 88 Current Medications: Current Medications Sig/[place] Start time Last Medication Dose Route Stop Time Status Admin Acetaminophen 1,000 MG Q6P PRN 10/25 0715 AC N/A 1 UNIT IV Acetaminophen 1,000 MG ONCE ONE 10/25 0315 DC 10/25 N/A 1 UNIT IV 10/25 0329 0347 Acetaminophen 1,000 MG Q6P PRN 10/10 1630 AC 10/24 N/A 1 UNIT IV 0338 Acetaminophen 650 MG Q8 PRN 10/06 1945 AC 10/20 PO 2057 Albuterol Sulfate 3 ML EVERY 4 HRS/AWAKE 10/12 0800 AC 10/25 INH 0824 Artificial Tears 2 GTT TID 01/05 2200 AC 10/25 OPH 0948 Dextrose/Sodium 1,000 ML Q13H 10/24 1445 AC 10/25 Chloride IV 0348 Exemestane 25 MG DAILY 10/07 1000 AC 10/25 PO 0952 Folic Acid 1 MG DAILY 10/07 1000 AC 10/25 PO 0952 Glycerin 2 SPRAY Q2P PRN 10/15 1430 AC 10/17 PO 0627 Insulin Aspart 0 Q4 10/16 1800 DC 10/24 SC 0608 Insulin Detemir 5 UNITS BID 10/16 2200 AC 10/24 SC 2226 Insulin Human Regular 0 Q6 10/24 1800 AC 10/25 SC 0551 Magnesium Sulfate 1 GM Q2H 10/25 0715 DC 10/25 Dextrose/Water 100 ML IV 10/25 1114 0939 Morphine Sulfate 2 MG Q6P PRN 10/25 0715 AC IV Morphine Sulfate 1 MG Q6P PRN 10/25 0715 AC IV Multivitamins 1 TAB DAILY 10/23 1000 AC 10/25 PO 0952 Pantoprazole Sodium 40 MG BID 10/20 2200 AC 10/25 IV 0952 Thiamine HCl 100 MG DAILY 10/23 1000 AC 10/25 PO 0952 Vancomycin HCl 125 MG Q6 10/17 1350 AC 10/25 PO 0552 Impression/Plan Impression/Problem List Impression: Patient continues to appear well today and is not suffering any respiratory distress. Hematology/audit consultant recommended obtaining flow cytometry and a bone marrow biopsy for further evaluation of the patients leukocytosis with eventual outpatient follow-up. Patient is to undergo surgical fixation of her right femur fracture at some point today. Swallow evaluation will occur tomorrow and patient will be started on a diet per their recommendations. She is to be maintained nothing by mouth and maintained on D5 until then, informal swallow evaluation determind that patient can tolerate oral medications with small sips of water. Problem list: -Acute hypoxic respiratory failure, exctubated -Acute respiratory distress syndrome, extubated -Displaced comminuted right proximal femoral shaft fracture -Proximal right lower extremity hematoma -Acute blood loss anemia, stable -EtOH withdrawal -Multilobar pneumonia, on antibiotics -History of breast cancer that is post bilateral mastectomy, chemotherapy/ radiation -Leukocytosis -C. Diff colitis, on oral vancomycin Respiratory/infectious disease: Patient remains intubated on ventilator. Lasix given as tolerated for fluid overload. Daily arterial blood gas/chest x-rays are to be obtained for assessment of respiratory disease. -Intubated on ventilator Jorge CPAP trial today -Vancomycin 125mg PO Q6H -Sputum cultures: Stenotrophomonas resistant to ceftazidime Musculoskeletal: Sustained a fall from her bed resulting in a right hip fracture as demonstrated by x-ray and CT imaging. She was evaluated by orthopedic surgery, but surgical intervention was deferred as patient was found to have an acute drop in her hemoglobin requiring admission to the intensive care unit from the general medicine floor for medical optimization. -Monitor vital signs and hemoglobin -Cardiac clearance obtained -Orthopedic consult following Cardiology: Revised cardiac risk index calculated for a score of 0 suggesting a 0.4% risk of a major cardiac event. -RCRI: 0, 0.4 risk for major cardiac event -hearing consultant cleared patient for surgery Hematology/oncology: Patient has a history of breast cancer with bilateral mastectomy, chemotherapy, and radiation. Last treatment reportedly received 6 months ago. She is a patient of Dr. Mejias of the [facility]. She has not had any follow- up imaging since this time apparently, but is reportedly in remission with a surveillance visit scheduled in January 2017. Patient has had persistent leukocytosis since admission. White blood cell count was elevated as recently as July to 20,000, baseline level unclear. She denies taking any adjuvant chemotherapy regimens such as Neulasta/Neupogen that could possibly account for this, however records are unavailable at this time. Consent for blood transfusion was obtained and placed on chart, type and cross was ordered. Packed red blood cells were transfused. -PRBC transfused: 5 -Daily CBC, monitor for worsening anemia/leukocytosis -Heme/onc placed, follow up recommendations Psychiatry: Patient has a history of alcohol abuse for which she reports drinking vodka several times a week. Serum alcohol on admission was negative. She remains tremulous with see what scores consistently minimally elevated. -Multivitamin/thiamine/folate -Bupropion on hold -Consider psychiatry/social work consult Endocrinology: Patient with a history of diabetes mellitus. Blood sugars have been consistently low requiring amps of dextrose. -Accu-Cheks -Novolin NPO SSI Q6H -D51/2NS @ 75mL/hr while NPO Pain plan: -Acetaminophen 650 mg by mouth every 8 hours as needed for pain 1-3 -Oxycodone 1 tab by mouth every 6 hours as needed for pain 4-6 -Dilaudid 0.6 mg IV every 4 hours as needed for pain 7-10 Diet -NPO DVT prophylaxis-mechanical ppx to LLE Code Status-full code Problem List: 1. Displaced comminuted fracture of shaft of right femur Pain Ratin Tomorrow's Labs & Rationales: CBC ICU bundle Plan DVT/Prophylaxis: mechanical
[2016-10-25 16:00] VITALS: BP 140/80
--- NOTE | 2016-10-25 17:54 | NUR ---
ESCORTING PATIENT TO OR
--- NOTE | 2016-10-25 22:00 | NUR ---
PATIENT FROM PACU VIA BED.PATIENT ALERT.VERBALLY RESPONSIVE. ABLE TO TELL ME THE MONTH CORRECTLY BUT OFTEN SAYS SHE WANTS TO GO HOME. EXPLAINED SHE HAD JUST HAD HIP SURGERY,SHE IS AWARE OF THIS.MONITOR SINUS RHYTHM AT RATE OF 64. NJ=091/70. NASAL O2 ON AT 2L. SAT=97%.NO DYSPNEA NOTED. R HIP DRESSING DRY AND INTACT. LEG WARM.PEDAL PULSE PALPABLE.IVF OF D51/2 NS STARTED AT 75 ML/HR VIA PICC LINE R ARM
--- NOTE | 2016-10-25 23:21 | RADIOLOGY REPORT ---
EXAMINATION: XR HIP, RIGHT CLINICAL INFORMATION: Right hip fracture COMPARISON: 10/22/2016 TECHNIQUE: 2 fluoroscopic views of the right hip, 5 images. Total fluoroscopic time 139.6 seconds. FINDINGS: There is evidence of manipulation of the fracture fragments involving the intertrochanteric right femur fracture. There is placement of a compression hip screw transfixing the fracture in near-anatomic alignment. Separate lesser trochanteric fracture fragment remains. IMPRESSION: Fluoroscopic guidance for internal fixation of the right femoral intertrochanteric fracture.
[2016-10-26] VITALS: BP 164/91
[2016-10-26 04:54] LABS: ABSOLUTE BASOPHIL COUNT 0.1 /CUMM (0.0-0.2); ABSOLUTE EOSINOPHIL COUNT 0.2 /CUMM (0.0-0.7); ABSOLUTE LYMPH COUNT 1.1 /CUMM (1.2-3.4); ABSOLUTE MONOCYTE COUNT 1.3 /CUMM (0.10-0.60); BASOPHIL % 0.4 % (0.0-2.0); GRANULOCYTE % 87.8 % (42.2-75.2); HEMATOCRIT 30.6 % (37-47); MEAN CORPUSCULAR HGB 29.6 PG (27.0-31.0); MEAN CORPUSCULAR HGB CONC 33.2 G/DL (33.0-37.0); MEAN CORPUSCULAR VOLUME 89.1 FL (81.0-99.0); MEAN PLATELET VOLUME 9.2 FL (7.4-10.4); PLATELET COUNT 583 /CUMM (130-400); RBC DISTRIBUTION WIDTH 16.8 % (11.5-14.5); RED BLOOD CELL CT 3.44 /CUMM (4.20-5.40); WHITE BLOOD CELL COUNT 22.7 /CUMM (4.8-10.8)
--- NOTE | 2016-10-26 05:36 | PN- Orthopedic ---
See Addendum Subjective Subjective: The patient seen this morning postoperatively day #1. She reports that pain is under adequate control with current pain regiment has no other complaints the current time. Objective Vital Signs and I&Os Vital Signs Date Time Temp Pulse Resp B/P Pulse O2 O2 Flow FiO2 Ox Delivery Rate 10/26 0400 99 Nasal 2.0L Cannula 10/26 0000 97 Nasal 2.0L Cannula 10/26 0000 99.3 89 20 164/91 97 Nasal 2.0L Cannula 10/25 1630 95 Nasal 1.0L Cannula 10/25 1600 94 Nasal 1.0L Cannula 10/25 1600 97.4 84 26 140/80 94 Nasal 1.0L Cannula 10/25 1200 98 Nasal 1.0L Cannula 10/25 0829 93 Nasal 2.0L Cannula 10/25 08 95 Nasal 2.0L Cannula 10/25 08 97.6 71 18 122/68 95 Nasal 2.0L Cannula Intake & Output 10/26 0800 10/26 0000 10/25 1600 10/25 0800 10/25 0000 10/24 1600 Intake Total 1325 800 686 600 318 Output Total 1250 600 705 540 425 Balance 75 200 -19 60 -107 Intake, IV 1325 800 686 600 Intake, Oral 0 Intake, Tube 318 Feeding Number 2 1 1 1 Bowel Movements Output, Urine 1250 600 [phone] Patient 123 lb Weight Physical Exam: Gen.: Alert and in no obvious distress Skin: Warm and dry Was: Bilateral lower extremities are warm without calf tenderness and there is trace edema. Gross motor and sensory are intact. Right hip surgical dressing is clean, dry, and intact. Assessment/Plan Assessment/Plan Assessment: 61-year-old female status post right hip ORIF postoperative day #1. The patient is progressing as expected and her pain is under adequate control. Recommendations: Patient may be out of bed and ambulate with physical therapy she is weightbearing as tolerated GI and DVT prophylaxis with Alps and subcutaneous heparin Follow-up morning laboratory studies May Hep-Lock IV and DC Palacio catheter For surgical dressing change tomorrow
[2016-10-26 08:00] VITALS: BP 140/70
--- NOTE | 2016-10-26 09:01 | PN- CRCU ---
Subjective HPI/Critical Care Issues: pt seen and examined saturating 95% on ra post op right hip orif bone marrow bx completed no n/v/d/c no cp no dyspnea at rest Objective Current Medications: Current Medications Sig/[place] Start time Last Medication Dose Route Stop Time Status Admin Acetaminophen 1,000 MG Q6P PRN 10/25 0715 [place] 10/25 N/A 1 UNIT IV 1717 Acetaminophen 1,000 MG Q6P PRN 10/10 1630 AC 10/24 N/A 1 UNIT IV 0338 Acetaminophen 650 MG Q8 PRN 10/06 1945 AC 10/20 PO 205 Albuterol Sulfate 3 ML EVERY 4 HRS/AWAKE 10/12 0800 AC 10/26 INH 0755 Artificial Tears 2 GTT TID 10/18 2200 AC 10/25 OPH 2255 Dextrose/Sodium 1,000 ML Q13H 10/24 1445 AC 10/26 Chloride IV 0612 Exemestane 25 MG DAILY 10/07 1000 AC 10/25 PO 0952 Fentanyl Citrate 250 MCG .STK-MED ONE 10/25 180 DC IM 10/25 1802 Fentanyl Citrate 100 MCG .STK-MED ONE 10/25 180 DC IM 10/25 1802 Folic Acid 1 MG DAILY 10/07 1000 AC 10/25 PO 0952 Glycerin 2 SPRAY Q2P PRN 10/15 1430 AC 10/17 PO 0627 Heparin Sodium 5,000 UNIT Q8 10/26 0600 AC 10/26 (Porcine) SC 0540 Insulin Detemir 5 UNITS BID 10/16 2200 AC 10/25 SC 2254 Insulin Human Regular 0 TIDAC/HS 10/25 2100 SC Insulin Human Regular 0 Q6 10/24 1800 DC 10/25 SC 0551 Magnesium Sulfate 1 GM Q2H 10/26 0813 AC Dextrose/Water 100 ML IV 10/26 1212 Magnesium Sulfate 1 GM Q2H 10/25 0715 DC 10/25 Dextrose/Water 100 ML IV 10/25 1114 0939 Midazolam HCl 2 MG .STK-MED ONE 10/25 180 DC IM 10/25 1802 Morphine Sulfate 2 MG Q6P PRN 10/25 0715 AC IV Morphine Sulfate 1 MG Q6P PRN 10/25 0715 DC IV Multivitamins 1 TAB DAILY 10/23 1000 AC 10/25 PO 0952 Ondansetron HCl 4 MG .STK-MED ONE 10/25 2102 DC 10/25 2103 Oxycodone/ 1 TAB Q4P PRN 10/25 193 AC 10/26 Acetaminophen PO 07 Oxycodone/ 2 TAB Q4P PRN 10/25 1929 AC Acetaminophen PO Pantoprazole Sodium 40 MG BID 10/20 220 AC 10/25 IV 2255 Thiamine HCl 100 MG DAILY 10/23 1000 AC 10/25 PO 0952 Vancomycin HCl 1,000 MG Q12 10/26 0700 AC 10/26 Dextrose/Water 250 ML IV 10/26 2258 0613 Vancomycin HCl 125 MG Q6 10/17 1350 AC 10/26 PO 0541 Vital Signs & I&O Last 24 Hrs of Vitals and I&O: Vital Signs Date Time Temp Pulse Resp B/P Pulse O2 O2 Flow FiO2 Ox Delivery Rate 10/26 0801 95 Room Air 10/26 0400 99 Nasal 2.0L Cannula 10/26 0000 97 Nasal 2.0L Cannula 10/26 0000 99.3 89 20 164/91 97 Nasal 2.0L Cannula 10/25 1630 95 Nasal 1.0L Cannula 10/25 1600 94 Nasal 1.0L Cannula 10/25 1600 97.4 84 26 140/80 94 Nasal 1.0L Cannula 10/25 1200 98 Nasal 1.0L Cannula Intake & Output 10/26 1600 10/26 0800 10/26 0000 Intake Total 500 1325 Output Total 730 1250 Balance -230 75 Intake, IV 500 1325 Number 1 Bowel Movements Output, Urine 730 1250 Patient 130 lb Weight Exam Other Physical Findings: General - awake, extubated HEENT - NCAT Cardiovascular - S1, S2 Lungs - clear to auscultation bilaterally Abdomen - soft, bowel sounds positive, no tenderness Extremities - right sided edema in upper extremity Results Last 24 Hrs of Lab Results: Laboratory Tests 10/26/16 0345: Anion Gap 11, Estimated GFR > 60, Glucose 153 H, Calcium 8.5, Phosphorus 4.1, Magnesium 1.4 L, Total Bilirubin 0.8, AST 23, ALT 40, Albumin 2.5 L, CBC w Diff NO MAN DIFF REQ, RBC 3.44 L, MCV 89.1, MCH 29.6, RDW 16.8 H, MPV 9.2, Gran % 87.8 H, Lymphocytes % 4.9 L, Monocytes % 5.9, Eosinophils % 1.0, Basophils % 0.4, Absolute Granulocytes 20.0 H, Absolute Lymphocytes 1.1 L, Absolute Monocytes 1.3 H, Absolute Eosinophils 0.2, Absolute Basophils 0.1, PUBS MCHC 33.2 Impression/Plan Impression/Plan Impression/Plan: Impression 61 year old woman hx breast ca - right intratrochanteric fracture - improved anemia - resolving respiratory failure - c.diff in stool and stenotrophomonas in sputum - improved leukocytosis - upper ext edema Plan Respiratory -doing well, will need repeat imaging within 1 month ID -ID consultation appreciated -cont po vancomycin for c.diff, completed bactrim -c.diff and stenotrophomonas CVS -Hemodynamics stable Heme - f/u bone marrow bx -hx of breast ca -hematology appreciated -cbc, coags monitoring Metabolic -ins/outs, monitor electrolytes -finger sticks monitoring Alimentary -tube feeds Neuro -awake TTS 35 min Ortho appreciated, s/p surgery DG GM
--- NOTE | 2016-10-26 11:00 | Operative Report ---
Operative/Inv Procedure Report Surgery Date: 10/25/16 Name of Procedure: 1) Open Reduction And Internal Fixation Of Right Closed Comminuted Displaced Intertrochanteric Hip Fracture Using Dynamic Compression Screw And Barrel Side Plate Fixation Construct ([place] 3) (Ronnie) 2) Biopsy Of Right Intertrochanteric Cortical And Cancellous Bone To Rule Out Neoplastic Or Other Pathologic Osseous Process Given Reported Diagnosis Of Neoplasm (Ronnie) 3) Intraoperative Fluoroscopic Evaluation of Fracture Reduction And Alignment, Hardware Placement and Stable Anatomic Fixation (Ronnie) 4) Right Anterolateral Iliac Crest Bone Marrow Biopsy Also Attempted But Yield Was Insufficient For Diagnosis Or Analysis (Ronnie) [Not Separately Coded] Pre-Operative Diagnosis: Surgically Treated Pre-Operative Diagnoses: 1) Right Hip Closed, Comminuted, Displaced, Angulated 3-Part Intertrochanteric Fracture Post-Operative Diagnosis: Same As Preoperative Diagnosis List With The Addition Of: 1) Acute Postoperative Right Hip Region Pain Following Open Reduction And Internal Fixation For Intertrochanteric Hip Fracture 2) Presence of Intertrochanteric Region Osseous Stabilization Dynamic Compression Screw And Barrel Side Plate ([place] 3 Plate-Screw) Construct Implant Estimated Blood Loss: 50ml to 100ml Surgeon/Physically Impaired Teacher: SUSANNA TRUJILLO MD - Primary Consulting Orthopaedic Surgeon Surgical Providers: Susanna Trujillo M.D. - Primary Operating Orthopaedic Surgeon Anesthesia: Spinal Anesthesia, Refer to anesthesia service documentationfor details. Monitors: Standard perioperative monitoring per anesthesia. Refer to anesthesia records for details. IV Fluids: Standard anesthesia fluid management without requirement for additional or emergent fluid resuscitation. Refer to anesthesia records for details. Implants: [place] Bellevue 3 Dynamic Compression Screw And Barrel Side Plate Fixation Construct 1 x Bellevue 3 4-Hole 135 Degree, Keyed, Standard Barrel Side Plate 1 x Bellevue Cephalad (Lag) Screw - 95 mm 4 x Bellevue Bicortical Plate Fixation Screws - [38, 36, 34, 34] mm (from proximal to distal) Urine Output: Refer to anesthesia records for details. Drains: None Specimens: Biopsy Specimen of drill reamings and cortical bone from inferior end of greater trochanteric fracture fragment sent to pathology for analysis Microbiology: Swab and aspirate of small fracture hematoma sent to microbiology for culture Complications: None Condition: Initial Preoperative Condition: The patients condition was stable to the operating room without vital sign, hemodynamic, cardiopulmonary or other organ system abnormality and without extremity neurovascular or musculoskeletal deficit except for her right lower extremity related to hip fracture and some dyscoordination and tremor of the right upper extremity which may be her baseline and makes it difficult to sign her name. She was cleared as optimized for surgery by her primary admitting medicine service and all requested subspecialty medicine consultation evaluations prior to surgery. There was no adverse change evident in the patients condition between the medical clearance and the immediate preoperative evaluations. Intraoperative Condition: The patient was stable throughout the procedure without vital sign, cardiopulmonary or other monitoring changes, lability, instability or abnormality. See the intraoperative anesthesia records for details. Final Postoperative Condition: The patient was stable to the recovery room with no new deficit or change in stable baseline preoperative condition evident on limited evaluation during initial recovery from anesthesia. The patient demonstrated grossly normal distal spontaneous motion as well as baseline motion and function to command in all extremities. Final assessment will have to be deferred until the patient recovers from spinal anesthesia in order to fully assess neurovascular and musculoskeletal status. Operative Indication: Pratibha Nelson is a 61 year old white female admitted to [facility] on 10/06 after a fall from a standing height which resulted in a closed, comminuted , displaced and angulated right hip intertrochanteric fracture. She was unable to bear weight on the right thereafter and was brought to the [facility] Emergency Department for evaluation and treatment. Shortly after admission she decompensated medically (particularly from a pulmonary standpoint) and required prolonged ICU supportive care including intubation. She is now extubated, is oxygenating reasonably well, has stabilized medically and is cleared by medicine to undergo delayed ORIF for her intertrochanteric hip fracture. She has recently been diagnosed with C-Diff infection and has nearly but not fully completed her prescribed PO Vancomycin course. She is being followed by ID for this. She is not currently being treated for any other infection. She was previously on the CWA protocol for positive history but it is unclear whether she has been in DTs. At present she is sufficiently communicative and demonstrates fairly normal cognitive function such that she is able to understand the implications of her medical and orthopaedic conditions as well as the potential relative risks and benefits of surgical intervention versus other options. She demonstrates the ability to comprehend, recall and verbalize understanding of the information she is given even over several hours time. She does have a significant discoordination and mild tremor of her dominant arm making it difficult for her to write clearly. She understands and accepts the potential significant risks associated with surgery including but not limited to inability to stabilize or heal fracture, loss of function including ambulatory ability, pulmonary complications requiring reintubation, neurologic complications permanently affecting cognition or function and severe or catastrophic medical complications. Signed operative consent was obtained from the patient with good understanding of all reasonable alternatives, indications, goals, expectations, limitations, risks and benefits of the planned procedure. Operative/Procedure Note Note: Preoperative Holding Area Assessment/Preparation: The patient was evaluated in the preoperative holding area prior to surgery and no clinical changes or contraindications to surgical intervention were documented compared to the preoperative orthopaedic consultation follow-up and medical clearance evaluations earlier in the day. The surgical plan and site were confirmed with the patient and preoperative paperwork was finalized. The region of the intended surgical site was cleansed, prepped and marked per protocol. The surgeon and operating room staff confirmed the patient identity, surgical procedure, and operative site as well as other clinical details with the patient in a preoperative confirmation (awake time out) prior to anesthesia. Operative Procedure: The procedure was performed by Dr. Trujillo who was present and served as the primary surgeon for all critical intraoperative and perioperative decisions and interventions. Setup/Positioning - The patient was brought to the operating room in stable condition and underwent uncomplicated spinal and MAC anesthesia followed by placement of all appropriate monitors, lines and catheters without difficulty. Administration of 1 gram of IV Vancomycin (based on discussion with ID consult service) for surgical antibiotic prophylaxis was completed at least 30 minutes prior to making an incision. The patient was positioned supine on the operating traction fracture taking care to protect and stabilize the hip during transfer, abduct the left arm on an arm board and adduct the right arm over the torso so as to avoid positions of nerve stretch with all pressure points either floating freely without contact or optimally padded. The pelvis was stabilized against the perineal post and the right foot was well padded and secured in the traction boot. The left leg was flexed, abducted and internally rotated as much as possible without causing increased soft tissue tension and secured on the padded leg norris in that position taking care to pad all pressure points and document adequate baseline pulse and capillary refill before proceeding. Gentle longitudinal traction was applied to the operative (right) leg and the foot was slightly internally rotated until optimal preoperative fracture fragment alignment was achieved taking care to avoid any additional displacement or excessive distraction of the fracture. Optimal final preoperative fracture fragment alignment was documented on AP, lateral and oblique fluoroscopic spot views. The surgeon and operating room staff again documented the patient identity, surgical procedure, and operative site in a final confirmation (final time out) prior to beginning the procedure. Exposure - After sterile prep and drape performed using standard technique, reference lines for the femoral neck and shaft as well as the tip and flare of the greater trochanter and extent of incision were drawn with a marking pen along the trajectory of a radiopaque marker placed on the skin and projected over these structures on AP, lateral and oblique fluoroscopic views. A linear incision was then made longitudinally along the proximal lateral thigh extending from the line marking the level of the flare of the greater trochanter distally for approximately 10 cm using a #10 scalpel blade. Hemostasis was achieved using Bovie electrocautery beginning with the incision and continuing throughout the procedure. The incision was carried down through the subcutaneous layer and the fascia was divided in line with the incision starting at one end with the knife and then throughout the remaining length of the incision using Ferrell scissors with a sliding technique. Hematoma had been reported on prior radiologic studies but none was identified intraoperatively. Any hematoma that may have been present after the original injury and detected on prior scan appears to have largely resorbed and/or consolidated into the fibrotic adherent tissue noted during dissection. There was a small amount of bleeding during the dissection some of which may have represented old hematoma but it was low volume. Approximately 5 cc of this aspirate was sent to microbiology for culture. Digital blunt dissection was attempted medially and posteriorly in the plane between the deep surface of the fascia and the superficial surface of the vastus lateralis muscle however this plane was quite adherent due to the prolonged interval between the fracture and surgery. Consequently a vastus lateralis muscle splitting (rather than elevating) technique was used. The muscle was split longitudinally in line with its fibers and dissected until the lateral surface of the femur was palpated. The vastus lateralis muscle was then elevated from the lateral proximal femur extending from the lateral femoral flare to the junction of proximal and middle thirds of the femur using a Baker elevator. A Ibarra retractor was placed over the anterior surface of the femur and used to retract the anterior vastus lateralis forward so as to optimize exposure of the deep surgical site and intended implant placement site on the lateral femoral cortical surface. Open Reduction/Internal Fixation A partially threaded guide-pin was then advanced using a drill with freehand technique checking trajectory and length on orthogonal C-arm views to insure central placement in the femoral neck and head with the tip approximately 5 mm below the chondral surface of the joint. There was sufficient offset displacement of the fragments on the lateral view in this case that a manual open reduction of the fracture was required to achieve optimal near-anatomic alignment for pin fixation across the fracture and up the center of the femoral neck which could not have been achieved without this manual reduction. The slotted depth gauge measured the compression screw length from the lateral femoral cortex per its subtraction measurement design. A fixed angle cannulated drill guide was passed over the guide-pin and placed flush on the lateral femoral cortex to confirm the optimal 135 degree cephalomedullary angle of the guide-pin. Based on these measurements, a 95 mm length standard, stainless steel Bellevue-3 lag screw was selected along with a 4-hole 135 degree angled short barrel, keyed stainless steel Bellevue-3 side-plate. The cannulated step-cut drill bit was used to drill the path for the lag screw with orthogonal C-arm views monitoring the depth and trajectory to ensure maintenance of central path in the femoral neck and head, drill tip depth approximately 1 cm below the chondral surface and step cut depth at the lateral cortex. Because of the reported recent history of outpatient workup and treatment for neoplasm, after drilling was complete the drill bit was cleaned and the normal appearing tissue obtained was sent to pathology for analysis. No abnormal bone or tissue was noted on visual inspection of the lateral femoral cortex and limited visual inspection available of the femoral neck drill hole. A Leksell rongeur was then used to obtain a cortical bone biopsy from the intertrochanteric region at the inferior extent of the greater trochanteric fragment of this 3-part moderately comminuted fracture configuration and this was sent with the above cancellous specimen for analysis. The 95 mm cannulated lag screw was then advanced with good insertional and final torque over the guide-pin through the lateral femoral cortical opening created by the step cut drill, across and generally perpendicular to the fracture site, and into the femoral neck and head. Placement was intermittently monitored with AP fluoroscopic views to insure that the proper depth was achieved with the distal end of the lag screw at approximately 1 cm below the chondral surface and the proximal end at or just below the lateral femoral cortex. Care was taken to avoid any rotation of the head-neck fragment during lag screw insertion. The final lag screw rotation (as determined by the interlocking design and alignment of the specialized screwdriver) was set to be parallel to the long axis of the femur so that, when the plate was placed longitudinally against the lateral cortex of the femur, the keyed barrel of the plate matching the keyed shaft of the lag screw to prevent any postoperative rotation with motion. The final position of the lag screw was confirmed to be optimal on orthogonal C-arm views. During lag screw placement excellent bone quality and fixation (given patient age and clinical condition) was appreciated by palpation and there was no mechanical or radiographic suggestion of soft or pathologic bone in the femoral diaphyseal, intertrochanteric, neck or head regions. The lag screw spotter driver was removed and the barrel of the side-plate was then passed over the guide-pin and lag screw guidance attachment, manually inserted into the lateral femoral cortical opening created by the step cut drill, and keyed with the lag screw. The plate was then impacted flush against the lateral femoral cortex using the angled impactor, the guidance extension was removed from the lag screw, and the plate was secured in its final position with a uxilly-lacxiq-bgvdal-proximal arm Bhavna clamp. Traction was released with maintenance of optimal position and the plate was permanently secured with four bicortical screws placed through the static fixation holes of the plate using standard technique of drilling both cortices through a centralizing drill guide taking care to avoid distal penetration beyond the medial cortex, measuring between outer cortices using a direct measurement depth gauge, and placement of appropriate length screws (listed above) in each position with good insertional and final torque as well as stable final fixation. During plate fixation screw placement excellent bone quality and fixation was again appreciated by palpation and there was no suggestion of soft or pathologic bone in the subtrochanteric or diaphyseal regions. The fracture and final fixation construct were found to be stable and well positioned on static C-arm spot views and fluoroscopic views with gentle rotation applied prior to closure. Final C-arm images were saved to the [facility] PACS system. Closure/Recovery - The surgical site was thoroughly irrigated and hemostasis was carefully achieved. All preliminary counts were correct prior to closure. The vastus lateralis muscle and fascia were reapproximated using a running zero Vicryl suture. This succeeded in returning the vastus lateralis to its normal anatomic position and minimizing tension or risk of muscle herniation at the vastus fascial edge closure. The tensor fascial closure was achieved with running zero Vicryl suture. The deep and superficial subcutaneous closure was achieved as a single layer with #2-0 Vicryl using an inverted, interrupted technique. The skin was closed using bj with the skin edges everted. A standard, sterile Xeroform and 4x4 dressing was placed, covered with an ABD pad and held with paper tape. All final counts were correct prior to removing the drapes. The foot section of the table was reattached, the patient's lower extremities were removed from the traction table attachments and returned to the resting position , and bilateral pulses and capillary refill were confirmed to be similar to their documented preoperative states. The patient was transferred to the hospital bed in the supine position without difficulty. Recovery Room Assessment: The patient was taken to the recovery room in stable condition where gross neurological examination showed no deficits although evaluation was limited due to the use of spinal anesthesia. Final postoperative neurovascular and musculoskeletal assessment will obviously have to be deferred until the patient fully recovers from spinal anesthesia. The patient will follow the usual postoperative protocol for open reduction and internal fixation of stable- configuration intertrochanteric hip fracture including early mobilization, supervised weight-bearing as tolerated, and inpatient rehabilitation program transfer once cleared for discharge from the hospital by the primary medical team. Findings: 1) Good alignment and fixation of fracture. 2) Good position and fixation of implants. 3) No obvious osseous or soft tissue pathology. Biopsy sent based on preoperative report of outpatient workup and treatment for neoplasm. 4) Final images saved to PACS. Discharge Disposition: PACU Additional Comments: Patient will return to the ICU once cleared by anesthesia in the recovery room and will continue management on the [facility] postoperatively because of her extremely complex combination of medical issues which are more likely to acutely affect her overall health status and outcome than her orthopaedic surgical conditions. We will continue consultative follow- up throughout the perioperative period and be available for any acute issues related to her perioperative care or orthopaedic surgical condition. The patient's previously designated resuscitation status will be reinstated in the recovery room unless otherwise designated by the operating surgeon and/or the anesthesia team. Once the patient returns to the ICU, her Health Care Directives status will be determined by her primary medical team. The patient may mobilize to a chair and for progressive ambulation with initial physical therapy and then subsequent nursing care supervision and may be weight- bearing as tolerated on her operated right lower extremity. Dressing changes should be performed at POD #2 and then daily thereafter until POD #5 or until the dressing and incision are clean and dry for 48 hours, whichever is latest. The patient is at standard intravascular thromboembolic risk for hip fracture ORIF procedures from an orthopaedic standpoint based on available literature. Early mobilization and sequential compression devices should be sufficient for standard anti-thromboembolic prophylaxis and will be instituted and monitored per protocol. If the patient is unable to mobilize with nursing and physical therapy supervision per protocol by the end of the first postoperative day, then consideration for additional subcutaneous heparin therapy may be made. Final decisions in this regard will be deferred to the primary medical team. If any additional alterations to this standard prophylaxis protocol are required because of medical or any other considerations please consult Dr. Trujillo prior to initiating this change in treatment so that other protocol changes (such as DVT and/or surgical site monitoring) can be made accordingly if necessary. The patient is an excellent candidate for an inpatient rehabilitation program and so discharge planning preparations for transfer to an inpatient rehabilitation facility should begin as soon as the patient begins to demonstrate progress toward meeting clinical and functional criteria for that type of program. If the patient cannot meet criteria for rehabilitation then long-term nursing care may be necessary and this would more likely be related to her debilitated medical status than to her hip injury. Assuming standard postoperative course, arrangements should be made for staple removal as well as anterior-posterior and lateral right hip radiographs at approximately 14 days postoperatively. If the patient is still at the hospital or rehabilitation center, has difficulty with transportation, and does not specifically need orthopaedic surgical assessment based on supervising physician evaluation then staple removal and portable radiographs can be performed at the treating facility and the radiographs sent for office review. Otherwise the patient will be seen at the office for initial follow-up as recommended above. CC: RONNIE BUSTOS,SUSANNA Cotto
--- NOTE | 2016-10-26 11:16 | NUR ---
1016: PATIENT MADE GEN MED STATUS, VSS, DENIES CP. WEAKNESS NOTED TO RIGHT ARM. PATIENT STILL ABLE TO PICK IT UP BUT W/ GREAT EFFORT NEEDED. DR. SHAW ASSESSED AND HOUSE STAFF NOTED/AWARE. OT ORDER PLACED. ATTEMPTED TO GET OOB W/ PT. PATIENT IS TOO WEAK/UNSAFE TO AMBULATE TO REATTEMPT TOMORROW. PATIENT RESETTLED IN BED. GIVEN CALL BED, REORIENTED TO ROOM. TO PULL BOWER OUT PER DR. CHEEMA.
--- NOTE | 2016-10-26 11:59 | PN- Hematology ---
Subjective Subjective: She underwent ORIF yesterday. Unfortunate bone marrow aspirate was not able to be done due to dry tap. She tolerated the surgery well without issues. Review of Systems: Constitutional: Reports: weakness. Denies: chills, fever. Cardiovascular: Denies: chest pain. Respiratory: Denies: short of breath. Gastrointestinal: Denies: abdominal pain. Musculoskeletal: Reports: back pain, joint pain, joint swelling. Hematologic/Endocrine: Denies: bleeding. Immunologic/Allergic: Denies: lymphadenopathy. All Other Systems: Reviewed and Negative Objective Vital Signs and I&Os Vital Signs Date Time Temp Pulse Resp B/P Pulse O2 O2 Flow FiO2 Ox Delivery Rate 10/26 0801 95 Room Air 10/26 08 98 Nasal 2.0L Cannula 10/26 0800 99.2 88 24 140/70 97 Nasal 2.0L Cannula 10/26 0400 99 Nasal 2.0L Cannula 10/26 0000 97 Nasal 2.0L Cannula 10/26 0000 99.3 89 20 164/91 97 Nasal 2.0L Cannula 10/25 1630 95 Nasal 1.0L Cannula 10/25 1600 94 Nasal 1.0L Cannula 10/25 1600 97.4 84 26 140/80 94 Nasal 1.0L Cannula 10/25 1200 98 Nasal 1.0L Cannula Intake & Output 10/26 1600 10/26 0800 10/26 0000 10/25 1600 10/25 0800 10/25 0000 Intake Total 500 1325 800 686 600 Output Total 730 1250 600 705 540 Balance -230 75 200 -19 60 Intake, IV 500 1325 800 686 600 Intake, Oral 0 Number 1 2 1 1 Bowel Movements Output, Urine 730 1250 600 705 540 Patient 58.967 kg 55.565 kg Weight Physical Exam: General Appearance: alert, awake, comfortable, on NC oxygen Head: atraumatic, normal appearance Eyes: Bilateral: PERRL. Ears, Nose, Throat: normal pharynx, NC in place Respiratory: chest non-tender, quiet respiration, crackles Cardiovascular: regular rate/rhythm Gastrointestinal: normal bowel sounds, soft, non-tender, no organomegaly Extremities: RLE: dressing intact without drainage. Neurologic/Psych: awake, alert, oriented x 2 Skin: warm/dry, ecchymosis Lymphatic: No adenopathy Current Medications: Current Medications Sig/[place] Start time Last Medication Dose Route Stop Time Status Admin Acetaminophen 1,000 MG Q6P PRN 10/25 0715 DC 10/25 N/A 1 UNIT IV 1717 Acetaminophen 1,000 MG Q6P PRN 10/10 1630 AC 10/24 N/A 1 UNIT IV 0338 Acetaminophen 650 MG Q8 PRN 10/06 1945 AC 10/20 PO 2057 Albuterol Sulfate 3 ML EVERY 4 HRS/AWAKE 10/12 0800 AC 10/26 INH 0755 Artificial Tears 2 GTT TID 10/18 2200 AC 10/26 OPH 1010 Dextrose/Sodium 1,000 ML Q13H 10/24 1445 AC 10/26 Chloride IV 0612 Exemestane 25 MG DAILY 10/07 1000 AC 10/26 PO 1013 Fentanyl Citrate 250 MCG .STK-MED ONE 10/25 180 DC IM 10/25 1802 Fentanyl Citrate 100 MCG .STK-MED ONE 10/25 1801 DC IM 10/25 1802 Folic Acid 1 MG DAILY 10/07 1000 AC 10/26 PO 1013 Glycerin 2 SPRAY Q2P PRN 10/15 1430 AC 10/17 PO 0627 Heparin Sodium 5,000 UNIT Q8 10/26 0600 AC 10/26 (Porcine) SC 0540 Insulin Detemir 5 UNITS BID 10/16 2200 AC 10/25 SC 2254 Insulin Human Regular 0 TIDAC/HS 10/25 2100 AC SC Insulin Human Regular 0 Q6 10/24 1800 DC 10/25 SC 0551 Magnesium Sulfate 1 GM Q2H 10/26 0813 AC 10/26 Dextrose/Water 100 ML IV 10/26 1212 1013 Midazolam HCl 2 MG .STK-MED ONE 10/25 1801 DC IM 10/25 1802 Morphine Sulfate 2 MG Q6P PRN 10/25 0715 AC IV Morphine Sulfate 1 MG Q6P PRN 10/25 0715 DC IV Multivitamins 1 TAB DAILY 10/23 1000 AC 10/26 PO 1010 Ondansetron HCl 4 MG .STK-MED ONE 10/25 2102 DC IM 10/25 2104 Oxycodone/ 1 TAB Q4P PRN 10/25 1930 AC 10/26 Acetaminophen PO 0727 Oxycodone/ 2 TAB Q4P PRN 10/25 193 AC Acetaminophen PO Pantoprazole Sodium 40 MG BID 10/20 2200 AC 10/26 IV 1009 Thiamine HCl 100 MG DAILY 10/23 1000 AC 10/26 PO 1009 Vancomycin HCl 1,000 MG Q12 10/26 0700 AC 10/26 Dextrose/Water 250 ML IV 10/26 8469 0649 Vancomycin HCl 125 MG Q6 10/17 1350 AC 10/26 PO 0541 Results Last 24 Hours of Lab Results: Laboratory Tests 10/26 0345 Chemistry Sodium (137 - 145 mmol/L) 130 L Potassium (3.5 - 5.1 mmol/L) 4.5 Chloride (98 - 107 mmol/L) 93 L Carbon Dioxide (22 - 30 mmol/L) 26 Anion Gap (5 - 16) 11 BUN (7 - 17 mg/dL) 5 L Creatinine (0.5 - 1.0 mg/dL) 0.4 L Estimated GFR (>60 ml/min) > 60 Glucose (65 - 99 mg/dL) 153 H Calcium (8.4 - 10.2 mg/dL) 8.5 Phosphorus (2.5 - 4.5 mg/dL) 4.1 Magnesium (1.6 - 2.3 mg/dL) 1.4 L Total Bilirubin (0.2 - 1.3 mg/dL) 0.8 AST (14 - 36 U/L) 23 ALT (9 - 52 U/L) 40 Albumin (3.5 - 5.0 g/dL) 2.5 L Hematology CBC w Diff NO MAN DIFF REQ WBC (4.8 - 10.8 /CUMM) 22.7 H RBC (4.20 - 5.40 /CUMM) 3.44 L Hgb (12.0 - 16.0 G/DL) 10.2 L Hct (37 - 47 %) 30.6 L MCV (81.0 - 99.0 FL) 89.1 MCH (27.0 - 31.0 PG) 29.6 RDW (11.5 - 14.5 %) 16.8 H Plt Count (130 - 400 /CUMM) 583 H MPV (7.4 - 10.4 FL) 9.2 Gran % (42.2 - 75.2 %) 87.8 H Lymphocytes % (20.5 - 51.1 %) 4.9 L Monocytes % (1.7 - 9.3 %) 5.9 Eosinophils % (0 - 5 %) 1.0 Basophils % (0.0 - 2.0 %) 0.4 Absolute Granulocytes (1.4 - 6.5 /CUMM) 20.0 H Absolute Lymphocytes (1.2 - 3.4 /CUMM) 1.1 L Absolute Monocytes (0.10 - 0.60 /CUMM) 1.3 H Absolute Eosinophils (0.0 - 0.7 /CUMM) 0.2 Absolute Basophils (0.0 - 0.2 /CUMM) 0.1 PUBS MCHC (33.0 - 37.0 G/DL) 33.2 Assessment/Plan Assessment/Recommendations: Ms. 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 Her hospital course have been complicated including acute hypoxic respiratory failure, acute respiratory distress syndrome, intubation, displaced comminuted right proximal femoral shaft fracture, proximal right lower extremity hematoma, EtOH withdrawal, multilobar pneumonia, and C. Diff colitis, on oral vancomycin. She underwent ORIF yesterday. She is recovering. WBC increased to 22,7000 today. This is likely reactive from surgery. Unfortunately, marrow aspirate was unable to be obtain during surgery. Some bone sample was able to be sent. Flow cytometry for peripheral will be held off until outpatient after discussion with pathologist. 1. Monitor CBC daily 2. Peripheral flow cytometry as outpatient 3. Follow up bone sample result 4. Follow up as outpatient for now 5. Resume exemestane on discharge Please call [phone] with any questions or concerns Problem List: 1. Breast cancer 2. Displaced comminuted fracture of shaft of right femur 3. Leukocytosis 4. Acute blood loss anemia
--- NOTE | 2016-10-26 12:39 | PN- Infect Dx ---
Subjective Subjective: Afebrile. She notes some discomfort in the right hip. One loose, dark green stool reported overnight Objective Last 24 Hrs of Vital Signs/I&O Vital Signs Date Time Temp Pulse Resp B/P Pulse O2 O2 Flow FiO2 Ox Delivery Rate 10/26 0801 95 Room Air 10/26 08 98 Nasal 2.0L Cannula 10/26 08 99.2 88 24 140/70 97 Nasal 2.0L Cannula 10/26 0400 99 Nasal 2.0L Cannula 10/26 0000 97 Nasal 2.0L Cannula 10/26 0000 99.3 89 20 164/91 97 Nasal 2.0L Cannula 10/25 1630 95 Nasal 1.0L Cannula 10/25 1600 94 Nasal 1.0L Cannula 10/25 1600 97.4 84 26 140/80 94 Nasal 1.0L Cannula Intake & Output 10/26 1600 10/26 0800 10/26 0000 Intake Total 500 1325 Output Total 730 1250 Balance -230 75 Intake, IV 500 1325 Number 1 Bowel Movements Output, Urine 730 1250 Patient 130 lb Weight Physical Exam Other Physical Findings: She appears comfortable in no acute distress Lungs are clear Heart regular rhythm with no murmur Abdomen is soft, nontender with positive bowel sounds Extremities right hip dressing intact; PICC in the right upper extremity with no inflammation at the site Palacio catheter remains in place Results Last 24 Hours of Lab Results: Laboratory Tests 10/26 0345 Chemistry Sodium (137 - 145 mmol/L) 130 L Potassium (3.5 - 5.1 mmol/L) 4.5 Chloride (98 - 107 mmol/L) 93 L Carbon Dioxide (22 - 30 mmol/L) 26 Anion Gap (5 - 16) 11 BUN (7 - 17 mg/dL) 5 L Creatinine (0.5 - 1.0 mg/dL) 0.4 L Estimated GFR (>60 ml/min) > 60 Glucose (65 - 99 mg/dL) 153 H Calcium (8.4 - 10.2 mg/dL) 8.5 Phosphorus (2.5 - 4.5 mg/dL) 4.1 Magnesium (1.6 - 2.3 mg/dL) 1.4 L Total Bilirubin (0.2 - 1.3 mg/dL) 0.8 AST (14 - 36 U/L) 23 ALT (9 - 52 U/L) 40 Albumin (3.5 - 5.0 g/dL) 2.5 L Hematology CBC w Diff NO MAN DIFF REQ WBC (4.8 - 10.8 /CUMM) 22.7 H RBC (4.20 - 5.40 /CUMM) 3.44 L Hgb (12.0 - 16.0 G/DL) 10.2 L Hct (37 - 47 %) 30.6 L MCV (81.0 - 99.0 FL) 89.1 MCH (27.0 - 31.0 PG) 29.6 RDW (11.5 - 14.5 %) 16.8 H Plt Count (130 - 400 /CUMM) 583 H MPV (7.4 - 10.4 FL) 9.2 Gran % (42.2 - 75.2 %) 87.8 H Lymphocytes % (20.5 - 51.1 %) 4.9 L Monocytes % (1.7 - 9.3 %) 5.9 Eosinophils % (0 - 5 %) 1.0 Basophils % (0.0 - 2.0 %) 0.4 Absolute Granulocytes (1.4 - 6.5 /CUMM) 20.0 H Absolute Lymphocytes (1.2 - 3.4 /CUMM) 1.1 L Absolute Monocytes (0.10 - 0.60 /CUMM) 1.3 H Absolute Eosinophils (0.0 - 0.7 /CUMM) 0.2 Absolute Basophils (0.0 - 0.2 /CUMM) 0.1 PUBS MCHC (33.0 - 37.0 G/DL) 33.2 Last 24 Hours of Charles Results: Right hip hematoma October 25 negative after 1 day Right hip culture post irrigation negative Assessment/Plan Impression: Stable status post right hip ORIF yesterday with bone marrow apparently attempted, but, unfortunately, with a dry aspirate obtained. She remains afebrile, though white blood cell count is increased, possible secondary to the stress of the recent surgery, on po Vancomycin now Day 9 of treatment for C. difficile. Suggestion: 1. Follow-up OR cultures 2. Remove Palacio catheter 3. Continue po Vancomycin
--- NOTE | 2016-10-26 13:28 | PN- Neurology ---
Subjective Subjective: Re-consult requested due to right arm weakess. this was noted as patient improved from prior encephalopathy and was extubated yesterday. She is still lethargic and cannot give much useful history. S/P right ORIF hip yesterday Review of Systems: headache, neck pain denied. she does report pain in right arm but does not localize it. Objective Vital Signs and I&Os Vital Signs Date Time Temp Pulse Resp B/P Pulse O2 O2 Flow FiO2 Ox Delivery Rate 10/26 0801 95 Room Air 10/26 08 98 Nasal 2.0L Cannula 10/26 08 99.2 88 24 140/70 97 Nasal 2.0L Cannula 10/26 0400 99 Nasal 2.0L Cannula 10/26 0000 97 Nasal 2.0L Cannula 10/26 0000 99.3 89 20 164/91 97 Nasal 2.0L Cannula 10/25 1630 95 Nasal 1.0L Cannula 10/25 1600 94 Nasal 1.0L Cannula 10/25 1600 97.4 84 26 140/80 94 Nasal 1.0L Cannula Intake & Output 10/26 1600 10/26 0800 10/26 0000 10/25 1600 10/25 0800 10/25 0000 Intake Total 500 1325 800 686 600 Output Total 730 1250 600 705 540 Balance -230 75 200 -19 60 Intake, IV 500 1325 800 686 600 Intake, Oral 0 Number 1 2 1 1 Bowel Movements Output, Urine 730 1250 600 705 540 Patient 130 lb 123 lb Weight Physical Exam: lethargic, slow to respond, reduced hesitant speech. no dysnomia for common objects. O x name only. follows simple commands VFF non-cooperative for funduscopic EOM appear full, [id number] VII and XII normal RUE power 3/5 prox and 4/5 distal tone decreased right arm and leg less spontaneous use of right arm DTRs brisker on right with a Babinski sign sensation reportedly reduced right arm below elbow, reported normal in face and foot Current Medications: Current Medications Sig/[place] Start time Last Medication Dose Route Stop Time Status Admin Acetaminophen 1,000 MG Q6P PRN 10/25 0715 DC 10/25 N/A 1 UNIT IV 1717 Acetaminophen 1,000 MG Q6P PRN 10/10 1630 AC 10/24 N/A 1 UNIT IV 0338 Acetaminophen 650 MG Q8 PRN 10/06 1945 AC 10/20 PO 2057 Albuterol Sulfate 3 ML BID 10/26 2200 AC INH Albuterol Sulfate 3 ML EVERY 4 HRS/AWAKE 10/12 0800 DC 10/26 INH 0755 Artificial Tears 2 GTT TID 10/18 2200 AC 10/26 OPH 1010 Dextrose/Sodium 1,000 ML Q13H 10/24 1445 AC 10/26 Chloride IV 0612 Exemestane 25 MG DAILY 10/07 1000 AC 10/26 PO 1013 Fentanyl Citrate 250 MCG .STK-MED ONE 10/25 1801 DC IM 10/25 1802 Fentanyl Citrate 100 MCG .STK-MED ONE 10/25 1801 DC IM 10/25 1802 Folic Acid 1 MG DAILY 10/07 1000 AC 10/26 PO 1013 Glycerin 2 SPRAY Q2P PRN 10/15 1430 AC 10/17 PO 0627 Heparin Sodium 5,000 UNIT Q8 10/26 0600 AC 10/26 (Porcine) SC 0540 Insulin Detemir 5 UNITS BID 10/16 2200 AC 10/25 SC 2254 Insulin Human Regular 0 TIDAC/HS 10/25 2100 AC SC Insulin Human Regular 0 Q6 10/24 1800 DC 10/25 SC 0551 Magnesium Sulfate 1 GM Q2H 10/26 0813 DC 10/26 Dextrose/Water 100 ML IV 10/26 1212 1013 Midazolam HCl 2 MG .STK-MED ONE 10/25 1801 DC IM 10/25 1802 Morphine Sulfate 2 MG Q6P PRN 10/25 0715 AC IV Morphine Sulfate 1 MG Q6P PRN 10/25 0715 DC IV Multivitamins 1 TAB DAILY 10/23 1000 AC 10/26 PO 1010 Ondansetron HCl 4 MG .STK-MED ONE 10/25 2103 DC IM 10/25 2104 Oxycodone/ 1 TAB Q4P PRN 10/25 1930 AC 10/26 Acetaminophen PO 0727 Oxycodone/ 2 TAB Q4P PRN 10/25 1930 AC Acetaminophen PO Pantoprazole Sodium 40 MG BID 10/20 2200 AC 10/26 IV 1009 Thiamine HCl 100 MG DAILY 10/23 1000 AC 10/26 PO 1009 Vancomycin HCl 1,000 MG Q12 10/26 0700 AC 10/26 Dextrose/Water 250 ML IV 10/26 2259 0613 Vancomycin HCl 125 MG Q6 10/17 1350 AC 10/26 PO 1214 Results Last 24 Hours of Lab Results: Laboratory Tests 10/26 0345 Chemistry Sodium (137 - 145 mmol/L) 130 L Potassium (3.5 - 5.1 mmol/L) 4.5 Chloride (98 - 107 mmol/L) 93 L Carbon Dioxide (22 - 30 mmol/L) 26 Anion Gap (5 - 16) 11 BUN (7 - 17 mg/dL) 5 L Creatinine (0.5 - 1.0 mg/dL) 0.4 L Estimated GFR (>60 ml/min) > 60 Glucose (65 - 99 mg/dL) 153 H Calcium (8.4 - 10.2 mg/dL) 8.5 Phosphorus (2.5 - 4.5 mg/dL) 4.1 Magnesium (1.6 - 2.3 mg/dL) 1.4 L Total Bilirubin (0.2 - 1.3 mg/dL) 0.8 AST (14 - 36 U/L) 23 ALT (9 - 52 U/L) 40 Albumin (3.5 - 5.0 g/dL) 2.5 L Hematology CBC w Diff NO MAN DIFF REQ WBC (4.8 - 10.8 /CUMM) 22.7 H RBC (4.20 - 5.40 /CUMM) 3.44 L Hgb (12.0 - 16.0 G/DL) 10.2 L Hct (37 - 47 %) 30.6 L MCV (81.0 - 99.0 FL) 89.1 MCH (27.0 - 31.0 PG) 29.6 RDW (11.5 - 14.5 %) 16.8 H Plt Count (130 - 400 /CUMM) 583 H MPV (7.4 - 10.4 FL) 9.2 Gran % (42.2 - 75.2 %) 87.8 H Lymphocytes % (20.5 - 51.1 %) 4.9 L Monocytes % (1.7 - 9.3 %) 5.9 Eosinophils % (0 - 5 %) 1.0 Basophils % (0.0 - 2.0 %) 0.4 Absolute Granulocytes (1.4 - 6.5 /CUMM) 20.0 H Absolute Lymphocytes (1.2 - 3.4 /CUMM) 1.1 L Absolute Monocytes (0.10 - 0.60 /CUMM) 1.3 H Absolute Eosinophils (0.0 - 0.7 /CUMM) 0.2 Absolute Basophils (0.0 - 0.2 /CUMM) 0.1 PUBS MCHC (33.0 - 37.0 G/DL) 33.2 Assessment/Plan Assessment: Right weakness, exam limited by patient's mental status and hip surgery yesterday but some suggestion of UMN process. CT 10/18 showed only atrophy, EEG non focal Plan: CT head and Cspine follow clinically
--- NOTE | 2016-10-26 15:37 | PN- Resident CRCU ---
Subjective HPI/CRCU Issues: Patient seen and examined. She is seen sitting upright in bed resting comfortably. She appears to be in no acute distress. She says that she is recovering well after her surgery last night and has minimal discomfort in her right leg. She reports that her breathing is adequate on room air think she needs any supplemental oxygen at this time. She seems mildly confused but follows commands. When asked if she and move her right upper extremity she hesitates and seemingly moves her left upper extremity in lieu of this. Otherwise she denies any headache, fever, chills, chest pain, increased shortness of breath, palpitations, cough, nausea, vomiting, diarrhea. No overnight events reported. Objective Vital Signs & I&O Last 8 Hrs of Vitals and I&O: Vitals: - Temperature: 99.2 - Heart Rate: 88 - Respiratory Rate: 44 - Systolic Blood pressure: 140 - Diastolic Blood pressure: 70 - Oxygen Saturation: 95-99% on room air Exam General Appearance: alert, awake, comfortable Other Physical Findings: General -well-developed, well-nourished female in no acute distress HEENT - NCAT, PERRL, EOMI, anicteric sclera Cardio - S1, S2 w/o murmurs/gallops/rubs Resp - CTA bilaterally w/o wheezing/rhochi/crackles GI - soft, nontender, nondistended, bowel sounds present Neuro - Awake and alert but somewhat confused, CN II - XII grossly intact, RUE strength 2/5 proximally 4/5 distally, sensation diffusely intact Extremities - no edema, pulses intact, right lower extremity with dry/clean appearing surgical dressing on thigh Weaning Parameters NIF: 38 Minute Volume: 8.99 Resp rate: 31 Vt: 303 Heart Rate: 82 Weaning Schedule Start Time: 0800 Minute Volume: 8.99 Resp Rate: 31 Vt: 303 Heart Rate: 82 End Time: 1056 Minute Volume: 8.95 Resp Rate: 25 Vt: 239 Heart Rate: 88 Current Medications: Current Medications Sig/[place] Start time Last Medication Dose Route Stop Time Status Admin Acetaminophen 1,000 MG Q6P PRN 10/25 0715 DC 10/25 N/A 1 UNIT IV 1717 Acetaminophen 1,000 MG Q6P PRN 10/10 1630 AC 10/24 N/A 1 UNIT IV 0338 Acetaminophen 650 MG Q8 PRN 10/06 1945 AC 10/20 PO 2057 Albuterol Sulfate 3 ML BID 10/26 2200 AC INH Albuterol Sulfate 3 ML EVERY 4 HRS/AWAKE 10/12 0800 DC 10/26 INH 0755 Artificial Tears 2 GTT TID 10/18 2200 AC 10/26 OPH 1010 Dextrose/Sodium 1,000 ML Q13H 10/24 1445 AC 10/26 Chloride IV 0612 Exemestane 25 MG DAILY 10/07 1000 AC 10/26 PO 1013 Fentanyl Citrate 250 MCG .STK-MED ONE 10/25 1801 DC IM 10/25 1802 Fentanyl Citrate 100 MCG .STK-MED ONE 10/25 1801 DC IM 10/25 1802 Folic Acid 1 MG DAILY 10/07 1000 AC 10/26 PO 1013 Glycerin 2 SPRAY Q2P PRN 10/15 1430 AC 10/17 PO 0627 Heparin Sodium 5,000 UNIT Q8 10/26 0600 AC 10/26 (Porcine) SC 1438 Insulin Detemir 5 UNITS BID 10/16 2200 AC 10/25 SC 2254 Insulin Human Regular 0 TIDAC/HS 10/25 2100 AC 10/26 SC 1300 Insulin Human Regular 0 Q6 10/24 1800 DC 10/25 SC 0551 Magnesium Sulfate 1 GM Q2H 10/26 0813 DC 10/26 Dextrose/Water 100 ML IV 10/26 1212 1013 Midazolam HCl 2 MG .STK-MED ONE 10/25 1801 DC IM 10/25 1802 Morphine Sulfate 2 MG Q6P PRN 10/25 0715 AC IV Morphine Sulfate 1 MG Q6P PRN 10/25 0715 DC IV Multivitamins 1 TAB DAILY 10/23 1000 AC 10/26 PO 1010 Ondansetron HCl 4 MG .STK-MED ONE 10/25 210 DC IM 10/25 210 Oxycodone/ 1 TAB Q4P PRN 10/25 1930 AC 10/26 Acetaminophen PO 1506 Oxycodone/ 2 TAB Q4P PRN 10/25 193 AC Acetaminophen PO Pantoprazole Sodium 40 MG BID 10/20 2200 AC 10/26 IV 1009 Thiamine HCl 100 MG DAILY 10/23 1000 AC 10/26 PO 1009 Vancomycin HCl 1,000 MG Q12 10/26 0700 AC 10/26 Dextrose/Water 250 ML IV 10/26 2259 0613 Vancomycin HCl 125 MG Q6 10/17 1350 AC 10/26 PO 1214 Impression/Plan Impression/Problem List Impression: Patient had surgical fixation of her right femoral shaft fracture last night by the orthopedics team for which she reportedly tolerated the procedure well. A bone marrow biopsy was obtained during this procedure at the request of hematology to further assess the patient's persistent leukocytosis. Flow cytometry testing is to be deferred as an outpatient. She is saturating adequately on room air and denies any increased shortness of breath. Neurology was reconsulted today in regards to patient's right upper extremity weakness for which a CT scan of her head/neck was ordered to assess for intracranial pathology or brachial plexus/nerve injury. Swallow evaluation today determined patient was a candidate for a pure/thin diet for which she was started on and is tolerating well. Problem list: -Acute hypoxic respiratory failure, exctubated -Acute respiratory distress syndrome, extubated -Displaced comminuted right proximal femoral shaft fracture s/p ORIF -Proximal right lower extremity hematoma, evacuated -Acute blood loss anemia, stable -EtOH withdrawal -Multilobar pneumonia, on antibiotics -History of breast cancer that is post bilateral mastectomy, chemotherapy/ radiation -Leukocytosis -C. Diff colitis, on oral vancomycin Respiratory/infectious disease: Patient remains intubated on ventilator. Lasix given as tolerated for fluid overload. Daily arterial blood gas/chest x-rays are to be obtained for assessment of respiratory disease. -Intubated on ventilator Jorge CPAP trial today -Vancomycin 125mg PO Q6H -Sputum cultures: Stenotrophomonas resistant to ceftazidime Musculoskeletal: Sustained a fall from her bed resulting in a right hip fracture as demonstrated by x-ray and CT imaging. She was evaluated by orthopedic surgery, but surgical intervention was deferred as patient was found to have an acute drop in her hemoglobin requiring admission to the intensive care unit from the general medicine floor for medical optimization. -Monitor vital signs and hemoglobin -Cardiac clearance obtained -Orthopedic consult following Cardiology: Revised cardiac risk index calculated for a score of 0 suggesting a 0.4% risk of a major cardiac event. -RCRI: 0, 0.4 risk for major cardiac event -managed services consultant cleared patient for surgery Hematology/oncology: Patient has a history of breast cancer with bilateral mastectomy, chemotherapy, and radiation. Last treatment reportedly received 6 months ago. She is a patient of Dr. Mejias of the [facility]. She has not had any follow- up imaging since this time apparently, but is reportedly in remission with a surveillance visit scheduled in January 2017. Patient has had persistent leukocytosis since admission. White blood cell count was elevated as recently as July to 20,000, baseline level unclear. She denies taking any adjuvant chemotherapy regimens such as Neulasta/Neupogen that could possibly account for this, however records are unavailable at this time. Consent for blood transfusion was obtained and placed on chart, type and cross was ordered. Packed red blood cells were transfused. -PRBC transfused: 5 -Daily CBC, monitor for worsening anemia/leukocytosis -Heme/onc placed, follow up recommendations Psychiatry: Patient has a history of alcohol abuse for which she reports drinking vodka several times a week. Serum alcohol on admission was negative. She remains tremulous with see what scores consistently minimally elevated. -Multivitamin/thiamine/folate -Bupropion on hold -Consider psychiatry/social work consult Endocrinology: Patient with a history of diabetes mellitus. Blood sugars have been consistently low requiring amps of dextrose. -Accu-Cheks -Novolin NPO SSI Q6H -D51/2NS @ 75mL/hr while NPO Pain plan: -Acetaminophen 650 mg by mouth every 8 hours as needed for pain 1-3 -Oxycodone 1 tab by mouth every 6 hours as needed for pain 4-6 -Dilaudid 0.6 mg IV every 4 hours as needed for pain 7-10 Diet -diabetic diet (puree/thin) DVT prophylaxis-mechanical ppx to LLE Code Status-full code Problem List: 1. Displaced comminuted fracture of shaft of right femur Pain Ratin Tomorrow's Labs & Rationales: CBC ICU Plan DVT/Prophylaxis: mechanical
--- NOTE | 2016-10-26 15:59 | CT SCAN REPORT ---
EXAMINATION: HEAD CT WITHOUT CONTRAST. SOFT TISSUE NECK CT WITHOUT CONTRAST. CLINICAL INFORMATION: Evaluate for cerebrovascular accident. The proximal right upper extremity weakness. Question brachial plexus injury. Deltoid atrophy. COMPARISON: CT scan of the head 10/18/2016. TECHNIQUE: Lineman Service Or Work Dispatcher images were obtained. A CT acquisition of the head and neck was performed without intravenous administration of contrast. DLP: 1019.99 mGy-cm. FINDINGS: Head: There is a tiny focus of chronic cortical encephalomalacia involving the left superior parietal lobule that remains unchanged since the 10/18/2016 examination. There is no acute intracranial hemorrhage or abnormal extra-axial collection. No intracranial mass effect or midline shift. Lateral and third ventricles are proportionate to the subarachnoid spaces. No hydrocephalus. There is no evidence of acute territorial infarct. The calvarium and skull base are intact. Mastoid air cells and middle ear cavities are well aerated. Visualized paranasal sinuses are well-aerated with the exception of mild disease within the right posterior ethmoid air cells. Globes and orbits are symmetric. Neck: The diagnostic accuracy of this examination is limited due to the absence of intravenous contrast. A few prominent albeit nonspecific mediastinal lymph nodes are partially included within the [id number] this examination. Grossly there are no pathologically enlarged cervical lymph nodes. The nasopharyngeal and oropharyngeal mucosal spaces are grossly symmetric. Parapharyngeal and retromaxillary fat is preserved. Insurance Account Manager spaces are symmetric. Parotid and submandibular glands are unremarkable. The glottic and subglottic airways are grossly unremarkable. The thyroid gland is normal. The remainder of the visualized visceral soft tissues are normal. The carotid spaces are symmetric. There is eccentric calcified atheromatous plaque involving the posterior wall of the proximal left internal carotid artery. Limited visualization of the intrathoracic structures demonstrates a small left pleural effusion and mixed interstitial and alveolar opacities within the apices of both lungs. There is no worrisome lytic or sclerotic osseous lesion. There is mild multilevel degenerative spondylosis of the cervical spine with loss of intervertebral disc height and sclerotic degenerative endplate changes at C3-C4, C5-C6, and C6-C7. Asymmetric uncovertebral joint spurring causes moderate to severe left neuroforaminal encroachment at the levels of C3-C4 and C5-C6. IMPRESSION: Head: Stable chronic changes. No evidence of acute territorial infarct or hemorrhage. Neck: There is a small left pleural effusion and mixed interstitial and alveolar opacities involving both lungs. Grossly there is no worrisome soft tissue mass. A few prominent albeit nonspecific mediastinal lymph nodes are partially visualized within the [id number] this examination. There is multilevel degenerative spondylosis of the cervical spine. No evidence of canal compromise. Asymmetric uncovertebral joint spurring causes moderate to severe left neuroforaminal encroachment at C3-C4 and C5-C6.
[2016-10-26 16:00] VITALS: BP 140/70
--- NOTE | 2016-10-26 19:10 | NUR ---
PT ARRIVED TO FLOOR FROM ICU. REPORT GIVEN TO MY BAJWA- TO MONITOR.
--- NOTE | 2016-10-26 19:18 | Transfer of Care Summary ---
Hospital Course Course Hospital Course: 61-year-old woman with a past medical history of insulin-dependent diabetes mellitus, chronic pancreatitis, EtOH abuse/dependence, breast cancer status post chemotherapy/radiation, osteopenia, persistent leukocytosis brought in by ambulance on 10/06/16 after rolling out of bed complaining of excruciating right hip pain. At this time she denied any head trauma or any other symptoms. Patient was found to have a displaced femoral shaft fracture with extension to the intertrochanteric region via CT imaging with leukocytosis and hemoglobin and hematocrit 12.2/35.8. She was admitted to the general medicine floor pending orthopedic evaluation and medical optimization for her hip injury. Patient was transferred to the intensive care unit the day after admission when her hemoglobin was found to be 7.2. Patient was evaluated by cardiology and orthopedics who stated that the blood loss represented that of a local hematoma in the site of the injury and from a cardiac perspective patient had a low cardiac risk for surgery. During medical optimization and risk stratification patient subsequently developed hypoxia and tachypnea for which a chest x-ray obtained was suggestive of a multi lobar pneumonia and patient was started on antibiotics. Shortly thereafter her respiratory status declined and she was intubated. She became hemodynamically unstable and was placed on a Levophed drip, propofol drip, and Ativan drip and was treated for ARDS. During the time she was intubated she was found to have positive sputum cultures for stenotrophomonas for which she received Bactrim and C. difficile colitis for which she received oral vancomycin. Neurology consultation was placed as patient was difficult to rouse when the sedation and Ativan drips were discontinued. CT head obtained at this time was negative for any intracranial pathology. Patient was eventually successfully extubated and then evaluated by hematology for her persistent leukocytosis whom determined that this should be evaluated as an outpatient after discharge. She underwent ORIF of her right hip fracture and tolerated the procedure well. They obtained a bone marrow biopsy during this procedure at the request of hematology consultants that needs to be followed up. Her right upper extremity was found to be very weak after assessing her when she was awake and alert and extubated. Neurology was reconsulted and a CT head/neck was obtained that demonstrated severe neural foraminal stenosis of the contralateral side that was affected. Patient is considered medically stable from an intensive care unit perspective and is to be transferred to the general medicine floor for further care. Problem list on transfer: -Right femoral shaft fracture, s/p ORIF -RUE proximal weakness, neurology evaluation condura -ARDS s/p intubation, now extubated -Multilobar pneumonia s/p Bactrim therapy -C. Diff colitis on 10-14 day course Vancomycin PO -Persistent baseline leukocytosis -Acute blood loss anemia s/p 5 units PRBC, now stable -EtOH abuse/dependence s/p ativan drip, now stable -Hx of breast cancer s/p chemo/radiation Follow-up: -ID recommendations for PO vancomycin duration -Neurology recommendation for RUE weakness -F/U Bone marrow results, include this in DC Summary -F/U PT, probable DC to STR -F/U OT, right handed weakness -F/U Ortho, Cardio, Neuro, Heme/Onc, ID recommendations Assessment/Plan: above
[2016-10-26 20:23] VITALS: BP 117/66
--- NOTE | 2016-10-26 21:30 | NUR ---
PT BLOOD SUGAR 57. MD ALICIA CALLED AND MADE AWARE. ORDER FOR PO DEXTROSE OBTAINED. PT OFFERED MILK, CRACKERS AND PEANUT BUTTER. WILL CONTINUE TO MONITOR.
[2016-10-26 23:40] VITALS: BP 120/75
--- NOTE | 2016-10-27 00:10 | NUR ---
PT BLOOD SUGAR 147. WILL MONITOR.
[2016-10-27 07:13] VITALS: BP 126/70
[2016-10-27 08:41] LABS: ABSOLUTE BASOPHIL COUNT 0.2 /CUMM (0.0-0.2); ABSOLUTE EOSINOPHIL COUNT 0.3 /CUMM (0.0-0.7); ABSOLUTE GRANULOCYTE CT 13.9 /CUMM (1.4-6.5); ABSOLUTE LYMPH COUNT 1.9 /CUMM (1.2-3.4); ABSOLUTE MONOCYTE COUNT 1.5 /CUMM (0.10-0.60); BASOPHIL % 0.9 % (0.0-2.0); EOSINOPHIL % 1.7 % (0-5); GRANULOCYTE % 78.3 % (42.2-75.2); HEMATOCRIT 27.5 % (37-47); MEAN CORPUSCULAR HGB 29.8 PG (27.0-31.0); MEAN CORPUSCULAR HGB CONC 33.3 G/DL (33.0-37.0); MEAN CORPUSCULAR VOLUME 89.7 FL (81.0-99.0); MEAN PLATELET VOLUME 9.6 FL (7.4-10.4); PLATELET COUNT 513 /CUMM (130-400); RBC DISTRIBUTION WIDTH 16.5 % (11.5-14.5); RED BLOOD CELL CT 3.07 /CUMM (4.20-5.40); WHITE BLOOD CELL COUNT 17.8 /CUMM (4.8-10.8)
--- NOTE | 2016-10-27 09:03 | PN- Orthopedic ---
Subjective Subjective: POD #2 s/p ORIF right hip. Resting flat in bed. No complaints of CP/SOB, N/V, F /C. Ambulating with assitance. Voiding spontaneously. Objective Vital Signs and I&Os Vital Signs Date Time Temp Pulse Resp B/P Pulse O2 O2 Flow FiO2 Ox Delivery Rate 10/27 712 98.3 83 20 126/70 92 Room Air 10/26 2340 98.8 89 20 120/75 94 Room Air 10/26 2022 98.5 78 18 117/66 95 Room Air 10/26 2008 98 Room Air 10/26 1600 94 Room Air Room Air 10/26 1600 98.9 93 20 140/70 95 Room Air Room Air Intake & Output 10/27 1600 10/27 0800 10/27 0000 10/26 1600 10/26 0810/26 0000 Intake Total 511 584 2626 500 1325 Output Total 200 6753 388 4695 Balance 240 320 0 -230 75 Intake, IV 280 487 638 6130 Intake, Oral 240 240 400 Number 1 1 1 1 Bowel Movements Output, Urine 200 3712 409 7453 Patient 130 lb Weight Physical Exam: Gen: AAOx3 in NAD Cor: S1+S2+ Lungs: CTA chrystal Abd: soft, NT, ND, +Bs x4 Ext: right hip dressing changed. Incision C/D/I with bj. Right groin dressing removed. Incision C/D/I with two bj. No surrounding erythema or drainage to each incision. Dorsiflexion and plantar flexion intact. DP pulse palpable. Foot warm. Sensation intact. Calf compartments soft, non-tender, no edema. Current Medications: Current Medications Sig/[place] Start time Last Medication Dose Route Stop Time Status Admin Acetaminophen 1,000 MG Q6P PRN 10/10 1630 AC 10/24 N/A 1 UNIT IV 0338 Acetaminophen 650 MG Q8 PRN 10/06 1945 AC 10/20 PO 2056 Albuterol Sulfate 3 ML BID 10/26 2199 AC 10/26 INH 2006 Albuterol Sulfate 3 ML EVERY 4 HRS/AWAKE 10/12 08 DC 10/26 INH 075 Artificial Tears 2 GTT TID 10/18 2199 AC 10/27 OPH 0841 Dextrose 15 GM ONCE ONE 10/26 2129 DC 10/26 PO 10/26 2130 2257 Dextrose/Sodium 1,000 ML Q13H 10/24 1445 DC 10/26 Chloride IV 0612 Exemestane 25 MG DAILY 10/07 1000 AC 10/27 PO 0841 Folic Acid 1 MG DAILY 10/07 1000 AC 10/27 PO 0841 Glycerin 2 SPRAY Q2P PRN 10/15 1430 AC 10/17 PO 0627 Heparin Sodium 5,000 UNIT Q8 10/26 0600 AC 10/27 (Porcine) SC 0600 Insulin Aspart 0 TIDAC 10/26 1700 AC 10/26 SC 1715 Insulin Detemir 5 UNITS BID 10/16 2200 AC 10/25 SC 2254 Insulin Human Regular 0 TIDAC/HS 10/25 2100 DC 10/26 SC 1300 Magnesium Sulfate 1 GM Q2H 10/26 0813 DC 10/26 Dextrose/Water 100 ML IV 10/26 1212 1013 Morphine Sulfate 2 MG Q6P PRN 10/25 0715 AC IV Multivitamins 1 TAB DAILY 10/23 1000 AC 10/27 PO 0841 Oxycodone/ 1 TAB Q4P PRN 10/25 1930 AC 10/26 Acetaminophen PO 1506 Oxycodone/ 2 TAB Q4P PRN 10/25 1930 AC Acetaminophen PO Pantoprazole Sodium 40 MG BID 10/20 2200 AC 10/27 IV 0841 Thiamine HCl 100 MG DAILY 10/23 1000 AC 10/27 PO 0841 Vancomycin HCl 1,000 MG Q12 10/26 0700 DC 10/26 Dextrose/Water 250 ML IV 10/26 2259 2107 Vancomycin HCl 125 MG Q6 10/17 1350 AC 10/27 PO 0600 Results Last 48 Hours of Labs: Laboratory Tests 10/27 10/26 0627 0345 Chemistry Sodium (137 - 145 mmol/L) 132 L 130 L Potassium (3.5 - 5.1 mmol/L) 4.5 4.5 Chloride (98 - 107 mmol/L) 95 L 93 L Carbon Dioxide (22 - 30 mmol/L) 25 26 Anion Gap (5 - 16) 12 11 BUN (7 - 17 mg/dL) 3 L 5 L Creatinine (0.5 - 1.0 mg/dL) 0.3 L 0.4 L Estimated GFR (>60 ml/min) > 60 > 60 Glucose (65 - 99 mg/dL) 137 H 153 H Calcium (8.4 - 10.2 mg/dL) 8.3 L 8.5 Phosphorus (2.5 - 4.5 mg/dL) 4.9 H 4.1 Magnesium (1.6 - 2.3 mg/dL) 1.5 L 1.4 L Total Bilirubin (0.2 - 1.3 mg/dL) 0.7 0.8 AST (14 - 36 U/L) 18 23 ALT (9 - 52 U/L) 38 40 Albumin (3.5 - 5.0 g/dL) 2.5 L 2.5 L Hematology CBC w Diff Pending NO MAN DIFF REQ WBC (4.8 - 10.8 /CUMM) Pending 22.7 H RBC (4.20 - 5.40 /CUMM) Pending 3.44 L Hgb (12.0 - 16.0 G/DL) Pending 10.2 L Hct (37 - 47 %) Pending 30.6 L MCV (81.0 - 99.0 FL) Pending 89.1 MCH (27.0 - 31.0 PG) Pending 29.6 RDW (11.5 - 14.5 %) Pending 16.8 H Plt Count (130 - 400 /CUMM) Pending 583 H MPV (7.4 - 10.4 FL) Pending 9.2 Gran % (42.2 - 75.2 %) 87.8 H Lymphocytes % (20.5 - 51.1 %) 4.9 L Monocytes % (1.7 - 9.3 %) 5.9 Eosinophils % (0 - 5 %) 1.0 Basophils % (0.0 - 2.0 %) 0.4 Absolute Granulocytes (1.4 - 6.5 /CUMM) 20.0 H Absolute Lymphocytes (1.2 - 3.4 /CUMM) 1.1 L Absolute Monocytes (0.10 - 0.60 /CUMM) 1.3 H Absolute Eosinophils (0.0 - 0.7 /CUMM) 0.2 Absolute Basophils (0.0 - 0.2 /CUMM) 0.1 PUBS MCHC (33.0 - 37.0 G/DL) Pending 33.2 Assessment/Plan Assessment/Plan A: POD #2 s/p ORIF right hip; AVSS. Plan: Continue physical therapy Continue heparin sq. Patient having BMs regularly- no need for aggressive regimen at this time. F/U am labwork. Case management to follow for STR- looks as if no weekend d/c expected.
--- NOTE | 2016-10-27 09:15 | PN- Housestaff ---
JOSE BUSTOS,ELZA 10/27/16 0915: Subjective Follow-up For: Right hip fracture status post surgery Alcohol detox Aspiration pneumonia versus ARDS C. difficile colitis Complaints: no complaints Subjective: Examined the patient today. The patient was resting comfortably on the bed with apparent distress. When questioned, she mentioned that she had some pain over her right hip. Her vitals have been stable, no overnight issues. Of note, she was transferred from ICU to general medical floor yesterday. Review of Systems Constitutional: Reports: no symptoms. Cardiovascular: Reports: no symptoms. Respiratory: Reports: no symptoms. Gastrointestinal: Reports: no symptoms. Genitourinary: Reports: no symptoms. Musculoskeletal: Reports: see HPI. Objective Last 24 Hrs of Vital Signs/I&O Vital Signs Date Time Temp Pulse Resp B/P Pulse O2 O2 Flow FiO2 Ox Delivery Rate 10/27 1643 98.2 82 19 124/64 94 10/27 1117 94 Room Air 10/27 0713 98.3 83 20 126/70 92 Room Air 10/26 2340 98.8 89 20 120/75 94 Room Air 10/26 202 98.5 78 18 117/66 95 Room Air 10/26 2009 98 Room Air Intake & Output 10/27 1600 10/27 0800 10/27 0000 Intake Total 720 240 520 Output Total 200 Balance 720 240 320 Intake, IV 20 280 Intake, Oral 700 240 240 Number 0 1 1 Bowel Movements Output, Urine 200 Physical Exam General Appearance: Alert, Oriented X3, Cooperative, No Acute Distress Cardiovascular: Regular Rate, Normal S1, Normal S2 Lungs: Clear to Auscultation, Normal Air Movement Abdomen: Normal Bowel Sounds, Soft, No Tenderness Neurological: grossly intact Extremities: right thigh has progressing placed recently, no soakage, no leakage Vascular: distal neurovascular status intact Current Medications: Current Medications Sig/[place] Start time Last Medication Dose Route Stop Time Status Admin Acetaminophen 1,000 MG Q6P PRN 10/10 1630 AC 10/24 N/A 1 UNIT IV 0338 Acetaminophen 650 MG Q8 PRN 10/06 1945 AC 10/20 PO 2056 Albuterol Sulfate 3 ML BID 10/26 2199 AC 10/27 INH 1116 Artificial Tears 2 GTT TID 10/18 2199 AC 10/27 OPH 0841 Dextrose 15 GM ONCE ONE 10/26 2129 DC 10/26 PO 10/26 2130 225 Dextrose/Sodium 1,000 ML Q13H 10/24 1445 DC 10/26 Chloride IV 0612 Docusate Sodium 100 MG BID 10/27 1000 CAN PO Exemestane 25 MG DAILY 10/07 1000 AC 10/27 PO 0841 Folic Acid 1 MG DAILY 10/07 1000 AC 10/27 PO 0841 Glycerin 2 SPRAY Q2P PRN 10/15 1430 AC 10/17 PO 0627 Heparin Sodium 5,000 UNIT Q8 10/26 0600 AC 10/27 (Porcine) SC 1351 Insulin Aspart 0 TIDAC 10/26 1700 AC 10/27 SC 1232 Insulin Detemir 5 UNITS BID 10/16 2200 AC 10/27 SC 1044 Morphine Sulfate 2 MG Q6P PRN 10/25 0715 AC IV Multivitamins 1 TAB DAILY 10/23 1000 AC 10/27 PO 0841 Oxycodone/ 1 TAB Q4P PRN 10/25 1930 AC 10/27 Acetaminophen PO 1458 Oxycodone/ 2 TAB Q4P PRN 10/25 1930 AC Acetaminophen PO Pantoprazole Sodium 40 MG BID 10/20 2200 AC 10/27 IV 0841 Polyethylene Glycol 17 GM DAILY 10/27 1000 CAN PO Thiamine HCl 100 MG DAILY 10/23 1000 AC 10/27 PO 0841 Vancomycin HCl 1,000 MG Q12 10/26 07 DC 10/26 Dextrose/Water 250 ML IV 10/26 2258 210 Vancomycin HCl 125 MG Q6 10/17 1350 AC 10/27 PO 1232 Last 24 Hrs of Lab/Charles Results Last 24 Hrs of Labs/Mics: Laboratory Tests 10/27/16 0627: Anion Gap 12, Estimated GFR > 60, Glucose 137 H, Calcium 8.3 L, Phosphorus 4.9 H, Magnesium 1.5 L, Total Bilirubin 0.7, AST 18, ALT 38, Albumin 2.5 L, CBC w Diff NO MAN DIFF REQ, RBC 3.07 L, MCV 89.7, MCH 29.8, RDW 16.5 H, MPV 9.6, Gran % 78.3 H, Lymphocytes % 10.5 L, Monocytes % 8.6, Eosinophils % 1.7, Basophils % 0.9, Absolute Granulocytes 13.9 H, Absolute Lymphocytes 1.9, Absolute Monocytes 1.5 H, Absolute Eosinophils 0.3, Absolute Basophils 0.2, PUBS MCHC 33.3 Assessment/Plan Assessment: This is a 61-year-old female with past medical history significant for insulin independent diabetes, chronic pancreatitis secondary to alcoholism, breast cancer treated with chemotherapy, osteopenia, who was brought in by ambulance for chief complaint of right hip pain secondary to fall. Workup in ED showed comminuted displaced right proximal femur shaft fracture with extension into intertrochanteric region. Additionally, patient was noted have significant leukocytosis with bands. She was admitted for possible ORIF after medical stabilization. UA negative; CBC showed white count 28.4, with 6 bands hemoglobin 12.2, hematocrit 35.8, platelets 278. Glucose 112. AST 67, ALT 35. Alkaline phosphatase 155. Neg amylase. Negative lipase. In ED she received a bolus of normal saline, Dilaudid for pain control, Zofran, morphine and Tylenol. CT IMPRESSION: 1. Comminuted displaced right proximal femoral shaft fracture with extensioninto the intertrochanteric region, surrounded by extensive soft tissue edema,and hemorrhage. 2. Nonspecific subtle micronodularity is noted within the visualized lungparenchyma, either appears more pronounced or new since prior study. 3. Hepatic steatosis and stable indeterminate 1.1 cm hypodensity within theleft lobe of the liver. 4. Stable noncomplicated chronic calcific pancreatitis. 5. Short segment apparent narrowing involving the proximal part of thesigmoid colon, not optimally characterized. Followup directvisualization/colonoscopy is recommended if not performed recently. 6. Mildly distended gallbladder with features suggestive of milk of calciumand tiny layering calculi. CXR IMPRESSION: Normal chest. XRAY HIP IMPRESSION: Comminuted intratrochanteric fracture of right hip. PLAN Leukocytosis: Patient comes in with a white count of 28.4 with 6 bands, today increasing to 34. Possible reactive leukocytosis secondary secondary to her trauma. Patient has had leukocytosis chronically during previous admissions. However, this is higher than previously noted and additionally she has bands during admission. In ED temperature measured was 95-96 today at 99, she is tachycardic, with hypotension. There was concern for sepsis, alcohol withdrawl, adrenal insufficiency, and given acute anemia and swollen RLE, compartment syndrome. * Follow blood cultures * Transfer to ICU Hypotension: Per CT there is extensive edema and hemorrhage around the fracture site. Possibility that patient is developing hematoma, causing significant volume loss and hypertension. She received 3 L of bolus in the ED last night and a subsequent pressure measured in the 90s systolic. This AM systolic with doppler measured in 70s. Concern for sepsis/significant hemorrhage into fracture site/adrenal insufficiency/alcohol withdrawl. * Her vitals have been stable since he came to the general medical floor yesterday Non-comminuted fracture of right hip: Patient has history of osteopenia and has now sustained noncommitted right hip fracture. Orthopedic consult was placed, ORIF was carried out on 10/26/2016 * Physical therapy to try to mobilize her * Oxycodone for pain * Morphine when necessary Alcohol abuse: She didn't has had history significant for alcohol abuse. She has been to rehabilitation over 10 years ago for detox. Patient is now resumed drinking. She quantified around 1 bottle of vodka per week. Last drink was yesterday, per patient she had 3 beverages. * Monitor for withdrawal symptoms * CIWA protocol * Folic acid Smoking cessation: Chronic and stable * Continue Wellbutrin Full code Diabetic diet Chemical DVT prophylaxis Problem List: 1. Displaced comminuted fracture of shaft of right femur 2. Aspiration pneumonia 3. ALCOHOL WITHDRAWAL 4. C. difficile colitis Pain Ratin Pain Location: Right thigh, and hip Pain Goal: Pain 4 or less Pain Plan: Pain medications when necessary and scheduled Tomorrow's Labs & Rationales: CBC, BP, to follow-up on her recent surgery for infections, electrolyte imbalance KITTY SALGADO MD 10/27/16 1603: Attending MD Review Statement Attending Statement Attending MD Statement: examined this patient, discuss w/resident/PA/MOVIE ACTOR, agreed w/resident/PA/MOVIE ACTOR, reviewed EMR data (avail) Attending Assessment/Plan: 61F PMH IDDM, EtOH abuse, history of breast cancer, persistent leukocytosis admitted initially on 10/06 for right hip pain with hip fracture. Initially admitted for hip repair, course was complicated by sepsis with multilobular pneumonia with ARDS requiring intubation. Sputum cultures were positive for stenotrophomonas treated with Bactrim, and course complicated by C.diff colitis treated with PO Vancomycin. She underwent ORIF of right hip with bone marrow biopsy done during procedure. Post-op patient had RUE weakness, being followed by neurology. She has been transferred to general medicine floor for futher management. Plan - Obtain MRI head, carotid dopplers - Continue PO Vancomycin - Follow ID recommendations - Will follow up with hematology as outpatient for bone marrow biopsy results and peripheral flow cytometry -Neurology recommendation for RUE weakness - Continue home medications - Physical therapy - DVT PPx
--- NOTE | 2016-10-27 14:27 | PN- Neurology ---
Subjective Subjective: Right arm still weak Review of Systems: No headache, no visual complaints no neck pain or shoulder pain Objective Vital Signs and I&Os Vital Signs Date Time Temp Pulse Resp B/P Pulse O2 O2 Flow FiO2 Ox Delivery Rate 10/27 1117 94 Room Air 10/27 0713 98.3 83 20 126/70 92 Room Air 10/26 2340 98.8 89 20 120/75 94 Room Air 10/26 2022 98.5 78 18 117/66 95 Room Air 10/26 2008 98 Room Air 10/26 1600 94 Room Air Room Air 10/26 1600 98.9 93 20 140/70 95 Room Air Room Air Intake & Output 10/27 1600 10/27 0800 10/27 0000 10/26 1600 10/26 0800 10/26 0000 Intake Total 620 179 208 9183 500 1325 Output Total 200 6372 451 3173 Balance 620 240 320 0 -230 75 Intake, IV 20 280 573 133 5176 Intake, Oral 600 240 240 400 Number 0 1 1 1 1 Bowel Movements Output, Urine 200 5000 123 6613 Patient 130 lb Weight Physical Exam: Awake, language intact, speech clear VFF [id number] EOMI VII and XII normal RUE 3-4/5 prox, 4/5 distally DTRs increased on right with ankle clonus Current Medications: Current Medications Sig/Hol[place] Start time Last Medication Dose Route Stop Time Status Admin Acetaminophen 1,000 MG Q6P PRN 10/10 1630 AC 10/24 N/A 1 UNIT IV 0338 Acetaminophen 650 MG Q8 PRN 10/06 1945 AC 10/20 PO 2057 Albuterol Sulfate 3 ML BID 10/26 2200 AC 10/27 INH 1116 Artificial Tears 2 GTT TID 10/18 2200 AC 10/27 OPH 0841 Dextrose 15 GM ONCE ONE 10/26 2130 DC 10/26 PO 10/26 2131 2257 Dextrose/Sodium 1,000 ML Q13H 10/24 1445 DC 10/26 Chloride IV 0612 Docusate Sodium 100 MG BID 10/27 1000 CAN PO Exemestane 25 MG DAILY 10/07 1000 AC 10/27 PO 0841 Folic Acid 1 MG DAILY 10/07 1000 AC 10/27 PO 0841 Glycerin 2 SPRAY Q2P PRN 10/15 1430 AC 10/17 PO 0627 Heparin Sodium 5,000 UNIT Q8 10/26 0600 AC 10/27 (Porcine) SC 1351 Insulin Aspart 0 TIDAC 10/26 1700 AC 10/27 SC 1232 Insulin Detemir 5 UNITS BID 10/16 2200 AC 10/27 SC 1044 Insulin Human Regular 0 TIDAC/HS 10/25 2100 DC 10/26 SC 1300 Morphine Sulfate 2 MG Q6P PRN 10/25 0715 AC IV Multivitamins 1 TAB DAILY 10/23 1000 AC 10/27 PO 0841 Oxycodone/ 1 TAB Q4P PRN 10/25 1930 AC 10/26 Acetaminophen PO 1506 Oxycodone/ 2 TAB Q4P PRN 10/25 1930 AC Acetaminophen PO Pantoprazole Sodium 40 MG BID 10/20 2200 AC 10/27 IV 0841 Polyethylene Glycol 17 GM DAILY 10/27 1000 CAN PO Thiamine HCl 100 MG DAILY 10/23 1000 AC 10/27 PO 0841 Vancomycin HCl 1,000 MG Q12 10/26 0700 DC 10/26 Dextrose/Water 250 ML IV 10/26 2259 2107 Vancomycin HCl 125 MG Q6 10/17 1350 AC 10/27 PO 1232 Results Last 24 Hours of Lab Results: Laboratory Tests 10/27 0627 Chemistry Sodium (137 - 145 mmol/L) 132 L Potassium (3.5 - 5.1 mmol/L) 4.5 Chloride (98 - 107 mmol/L) 95 L Carbon Dioxide (22 - 30 mmol/L) 25 Anion Gap (5 - 16) 12 BUN (7 - 17 mg/dL) 3 L Creatinine (0.5 - 1.0 mg/dL) 0.3 L Estimated GFR (>60 ml/min) > 60 Glucose (65 - 99 mg/dL) 137 H Calcium (8.4 - 10.2 mg/dL) 8.3 L Phosphorus (2.5 - 4.5 mg/dL) 4.9 H Magnesium (1.6 - 2.3 mg/dL) 1.5 L Total Bilirubin (0.2 - 1.3 mg/dL) 0.7 AST (14 - 36 U/L) 18 ALT (9 - 52 U/L) 38 Albumin (3.5 - 5.0 g/dL) 2.5 L Hematology CBC w Diff NO MAN DIFF REQ WBC (4.8 - 10.8 /CUMM) 17.8 H RBC (4.20 - 5.40 /CUMM) 3.07 L Hgb (12.0 - 16.0 G/DL) 9.1 L Hct (37 - 47 %) 27.5 L MCV (81.0 - 99.0 FL) 89.7 MCH (27.0 - 31.0 PG) 29.8 RDW (11.5 - 14.5 %) 16.5 H Plt Count (130 - 400 /CUMM) 513 H MPV (7.4 - 10.4 FL) 9.6 Gran % (42.2 - 75.2 %) 78.3 H Lymphocytes % (20.5 - 51.1 %) 10.5 L Monocytes % (1.7 - 9.3 %) 8.6 Eosinophils % (0 - 5 %) 1.7 Basophils % (0.0 - 2.0 %) 0.9 Absolute Granulocytes (1.4 - 6.5 /CUMM) 13.9 H Absolute Lymphocytes (1.2 - 3.4 /CUMM) 1.9 Absolute Monocytes (0.10 - 0.60 /CUMM) 1.5 H Absolute Eosinophils (0.0 - 0.7 /CUMM) 0.3 Absolute Basophils (0.0 - 0.2 /CUMM) 0.2 PUBS MCHC (33.0 - 37.0 G/DL) 33.3 Recent Imaging Studies: CT Scans: Head: Stable chronic changes. No evidence of acute territorial infarct or hemorrhage. Neck: There is multilevel degenerative spondylosis of the cervical spine. No evidence of canal compromise. Asymmetric uncovertebral joint spurring causes moderate to severe left neuroforaminal encroachment at C3-C4 and C5-C6. Assessment/Plan Assessment: Right hemiparesis with UMN signs but negative CT Plan: MRI brain carotid dopplers PT/OT further f/u after imaging
[2016-10-27 16:43] VITALS: BP 124/64
[2016-10-27 23:40] VITALS: BP 123/71
[2016-10-28 08:08] LABS: ABSOLUTE BASOPHIL COUNT 0.1 /CUMM (0.0-0.2); ABSOLUTE EOSINOPHIL COUNT 0.6 /CUMM (0.0-0.7); ABSOLUTE GRANULOCYTE CT 14.1 /CUMM (1.4-6.5); ABSOLUTE LYMPH COUNT 2.2 /CUMM (1.2-3.4); ABSOLUTE MONOCYTE COUNT 1.8 /CUMM (0.10-0.60); BASOPHIL % 0.6 % (0.0-2.0); EOSINOPHIL % 3.4 % (0-5); GRANULOCYTE % 74.6 % (42.2-75.2); HEMATOCRIT 28.2 % (37-47); MEAN CORPUSCULAR HGB 30.1 PG (27.0-31.0); MEAN CORPUSCULAR HGB CONC 33.5 G/DL (33.0-37.0); MEAN CORPUSCULAR VOLUME 89.8 FL (81.0-99.0); MEAN PLATELET VOLUME 9.2 FL (7.4-10.4); PLATELET COUNT 515 /CUMM (130-400); RED BLOOD CELL CT 3.14 /CUMM (4.20-5.40); WHITE BLOOD CELL COUNT 18.9 /CUMM (4.8-10.8)
--- NOTE | 2016-10-28 08:39 | PN- Housestaff ---
MONISHA CYR 10/28/16 0838: Subjective Follow-up For: Right hip fracture status post surgery Alcohol detox Aspiration pneumonia versus ARDS C. difficile colitis Subjective: seen and examined pt. offers no complaints. FS 59 this morning Review of Systems Constitutional: Denies: chills, diaphoresis, fever, malaise, weakness, unexplained weight loss. Cardiovascular: Denies: chest pain, edema, orthopena, palpitations, peripheral edema, syncope. Respiratory: Denies: cough, hemoptysis, orthopnea, short of breath, sputum production, stridor, wheezing. Objective Last 24 Hrs of Vital Signs/I&O Vital Signs Date Time Temp Pulse Resp B/P Pulse O2 O2 Flow FiO2 Ox Delivery Rate 10/28 1018 96 Room Air Room Air 10/28 0907 98.3 69 18 130/72 96 Room Air 10/27 2340 98.7 87 20 123/71 95 Room Air 10/27 1915 95 Room Air 10/27 1643 98.2 82 19 124/64 94 Intake & Output 10/28 1600 10/28 0800 10/28 0000 Intake Total 680 Output Total 250 Balance -250 680 Intake, IV 30 Intake, Oral 650 Output, Urine 250 Physical Exam General Appearance: Alert, Cooperative, No Acute Distress Cardiovascular: Normal S1, Normal S2 Lungs: Clear to Auscultation, Normal Air Movement Abdomen: Normal Bowel Sounds, Soft, No Tenderness Extremities: PICC in right upper extremity Current Medications: Current Medications Sig/Hol[place] Start time Last Medication Dose Route Stop Time Status Admin Acetaminophen 1,000 MG Q6P PRN 10/10 1630 10/24 N/A 1 UNIT IV 0338 Acetaminophen 650 MG Q8 PRN 10/06 1945 AC 10/20 PO 2056 Albuterol Sulfate 3 ML BID 10/26 2199 AC 10/28 INH 1014 Alteplase, 2 MG ONE ONE 10/28 929 DC 10/28 Recombinant IV 10/28 0931 1133 Artificial Tears 2 GTT TID 10/18 2199 AC 10/28 OPH 0915 Dextrose 25 GM ONCE ONE 10/28 929 DC 10/28 IV 10/28 0831 0926 Exemestane 25 MG DAILY 10/07 1000 AC 10/28 PO 0915 Folic Acid 1 MG DAILY 10/07 1000 AC 10/28 PO 0915 Glycerin 2 SPRAY Q2P PRN 10/15 1430 AC 10/17 PO 0627 Heparin Sodium 5,000 UNIT Q8 10/26 0600 AC 10/28 (Porcine) SC 0612 Insulin Aspart 0 TIDAC 10/26 1700 AC 10/27 SC 1705 Insulin Detemir 5 UNITS BID 10/16 2200 AC 10/27 SC 2144 Morphine Sulfate 2 MG Q6P PRN 10/25 0715 AC IV Multivitamins 1 TAB DAILY 10/23 1000 AC 10/28 PO 0915 Oxycodone/ 1 TAB Q4P PRN 10/25 1930 AC 10/27 Acetaminophen PO 1458 Oxycodone/ 2 TAB Q4P PRN 10/25 1930 AC Acetaminophen PO Pantoprazole Sodium 40 MG BID 10/20 2200 AC 10/28 IV 0915 Thiamine HCl 100 MG DAILY 10/23 1000 AC 10/28 PO 0915 Vancomycin HCl 125 MG Q6 10/17 1350 AC 10/28 PO 1132 Last 24 Hrs of Lab/Charles Results Last 24 Hrs of Labs/Mics: Laboratory Tests 10/28/16 0615: Anion Gap 14, Estimated GFR > 60, BUN/Creatinine Ratio 16.7, CBC w Diff NO MAN DIFF REQ, RBC 3.14 L, MCV 89.8, MCH 30.1, RDW 17.0 H, MPV 9.2, Gran % 74.6, Lymphocytes % 11.6 L, Monocytes % 9.8 H, Eosinophils % 3.4, Basophils % 0.6, Absolute Granulocytes 14.1 H, Absolute Lymphocytes 2.2, Absolute Monocytes 1.8 H, Absolute Eosinophils 0.6, Absolute Basophils 0.1, PUBS MCHC 33.5 Assessment/Plan Assessment: 61-year-old woman with past medical history significant for insulin independent diabetes, chronic pancreatitis secondary to alcoholism, breast cancer treated with chemotherapy, osteopenia, who was brought in by ambulance for chief complaint of right hip pain secondary to fall. Found to have comminuted displaced right proximal femur shaft fracture with extension into intertrochanteric region and leukocytosis, now 3 days status post right hip ORIF. Neuro consulted for right UE weakness. Diabetes hypoglycemic this morning 1 amp dextrose given continue to monitor on levemir and ISS Leukocytosis: * afebrile, wbc 18.9 * Follow blood cultures * continue PO vanco Non-comminuted fracture of right hip: Orthopedic on board apprec rec, ORIF on 10/26/2016 * continue Physical therapy * Oxycodone for pain * Morphine when necessary Alcohol abuse: S * Monitor for withdrawal symptoms * CIWA protocol * Folic acid Smoking cessation: Chronic and stable * Continue Wellbutrin Full code Diabetic diet Chemical DVT prophylaxis Problem List: 1. ALCOHOL WITHDRAWAL 2. Leukocytosis 3. Displaced comminuted fracture of shaft of right femur Pain Ratin Pain Location: na Pain Goal: Pain 4 or less Pain Plan: current regimen Tomorrow's Labs & Rationales: cbc/bep KITTY SALGADO MD 10/28/16 1221: Attending MD Review Statement Attending Statement Attending MD Statement: examined this patient, discuss w/resident/PA/CENSUS CLERK, agreed w/resident/PA/CENSUS CLERK, reviewed EMR data (avail) Attending Assessment/Plan: 61F PMH IDDM, EtOH abuse, history of breast cancer, persistent leukocytosis admitted initially on 10/06 for right hip pain with hip fracture. Initially admitted for hip repair, course was complicated by sepsis with multilobular pneumonia with ARDS requiring intubation. Sputum cultures were positive for stenotrophomonas treated with Bactrim, and course complicated by C.diff colitis treated with PO Vancomycin. She underwent ORIF of right hip with bone marrow biopsy done during procedure. Post-op patient had RUE weakness, being followed by neurology. She has been transferred to general medicine floor for futher management. 1. Right hip fracture s/p repair 2. Sepsis secondary to Strenotrophomonas (resolved) 3. Multilobar pneumonia (resolved) 4. C.difficile colitis 5. Chronic leukocytosis 6. Chronic anemia 7. Right upper extremity paralysis 8. ARDS requiring intubation (resolved) Plan - Obtain MRI head, carotid dopplers - Continue PO Vancomycin - Follow ID recommendations - Will follow up with hematology as outpatient for bone marrow biopsy results and peripheral flow cytometry -Neurology recommendation for RUE weakness - Continue home medications - Physical therapy - DVT PPx
--- NOTE | 2016-10-28 09:00 | NUR ---
ACCUCHECK 61; PATIENT DENIES SYMPTOMS OF HYPOGLYCEMIA; PATIENT EATING BREAKFAST AT THIS TIME; DR WORLEY AWARE; WILL RECHECK ACCUCHECK;
[2016-10-28 09:07] VITALS: BP 130/72
--- NOTE | 2016-10-28 09:30 | NUR ---
ACCUCHECK 58 AFTER EATING BREAKFAST; PATIENT CONTINUES TO DENY SYMPTOMS OF HYPOGLYCEMIA; DR WORLEY AT BEDSIDE TO ASSESS PATIENT; DEXTROSE GIVEN PER ORDER (SEE EMAR); WILL RECHECK ACCUCHECK;
--- NOTE | 2016-10-28 11:00 | PN- Infect Dx ---
Subjective Subjective: Afebrile without complaints. No recent diarrhea reported. She has apparent weakness in the right upper extremity, for which a workup is in progress. Objective Last 24 Hrs of Vital Signs/I&O Vital Signs Date Time Temp Pulse Resp B/P Pulse O2 O2 Flow FiO2 Ox Delivery Rate 10/28 1018 96 Room Air Room Air 10/28 0907 98.3 69 18 130/72 96 Room Air 10/27 2340 98.7 87 20 123/71 95 Room Air 10/27 1915 95 Room Air 10/27 1643 98.2 82 19 124/64 94 10/27 1117 94 Room Air Intake & Output 10/28 1600 10/28 0800 10/28 0000 Intake Total 680 Output Total 250 Balance -250 680 Intake, IV 30 Intake, Oral 650 Output, Urine 250 Physical Exam Other Physical Findings: She appears comfortable in no acute distress Lungs are clear Heart regular rhythm with no murmur Abdomen is soft, nontender with positive bowel sounds Extremities right hip dressing intact; PICC in the right upper extremity with no inflammation at the site Neuro right upper extremity weakness Results Last 24 Hours of Lab Results: Laboratory Tests 10/28 0615 Chemistry Sodium (137 - 145 mmol/L) 135 L Potassium (3.5 - 5.1 mmol/L) 3.8 Chloride (98 - 107 mmol/L) 96 L Carbon Dioxide (22 - 30 mmol/L) 25 Anion Gap (5 - 16) 14 BUN (7 - 17 mg/dL) 5 L Creatinine (0.5 - 1.0 mg/dL) 0.3 L Estimated GFR (>60 ml/min) > 60 BUN/Creatinine Ratio (7 - 25 %) 16.7 Hematology CBC w Diff NO MAN DIFF REQ WBC (4.8 - 10.8 /CUMM) 18.9 H RBC (4.20 - 5.40 /CUMM) 3.14 L Hgb (12.0 - 16.0 G/DL) 9.4 L Hct (37 - 47 %) 28.2 L MCV (81.0 - 99.0 FL) 89.8 MCH (27.0 - 31.0 PG) 30.1 RDW (11.5 - 14.5 %) 17.0 H Plt Count (130 - 400 /CUMM) 515 H MPV (7.4 - 10.4 FL) 9.2 Gran % (42.2 - 75.2 %) 74.6 Lymphocytes % (20.5 - 51.1 %) 11.6 L Monocytes % (1.7 - 9.3 %) 9.8 H Eosinophils % (0 - 5 %) 3.4 Basophils % (0.0 - 2.0 %) 0.6 Absolute Granulocytes (1.4 - 6.5 /CUMM) 14.1 H Absolute Lymphocytes (1.2 - 3.4 /CUMM) 2.2 Absolute Monocytes (0.10 - 0.60 /CUMM) 1.8 H Absolute Eosinophils (0.0 - 0.7 /CUMM) 0.6 Absolute Basophils (0.0 - 0.2 /CUMM) 0.1 PUBS MCHC (33.0 - 37.0 G/DL) 33.5 Last 24 Hours of Charles Results: OR cultures October 25 labeled right hip and right hip hematoma negative Recent Imaging Studies: CT of the head reveals no acute process CT of the cervical spine multilevel degenerative spondylosis Assessment/Plan Impression: Stable with temperatures remaining normal and diarrhea overall improved on po Vancomycin now Day 11 of treatment for C. difficile. She is now 3 days status post right hip ORIF. Her white blood cell count remains elevated, presumably secondary to some underlying process, and she has been evaluated by Hematology. The etiology of her right upper extremity weakness is unclear and workup is in progress. Suggestion: 1. Follow-up final OR cultures 2. Further evaluation of her right upper extremity weakness per Neurology 3. Continue po Vancomycin
--- NOTE | 2016-10-28 12:33 | ULTRASOUND REPORT ---
EXAMINATION: US DUPLEX CAROTID AND VERTEBRAL CLINICAL INFORMATION: Right hemiparesis COMPARISON: None. TECHNIQUE: Real-time ultrasound and Doppler techniques (integrating B-mode 2D vascular images, Doppler spectral analysis and color flow Doppler imaging) were utilized to interrogate the extracranial carotid and vertebral arteries bilaterally. The degree of stenosis determined by criteria similar to NASCET. FINDINGS: On the right, there is no significant plaque present at the carotid bifurcation. In the distal CCA, the peak systolic velocity is 85 cm/sec. In the proximal ICA, the peak systolic velocity is 67 cm/sec, and the end diastolic velocity is 23 cm/sec. Peak systolic velocity of the external carotid artery is 57 cm/s. . On the left, there is no significant plaque present at the carotid bifurcation. In the distal CCA, the peak systolic velocity is 97 cm/sec. In the proximal ICA, the peak systolic velocity is 50 cm/sec, and the end diastolic velocity is 21 cm/sec. Peak systolic velocity of external carotid artery is 54 cm/s. The vertebral arteries show antegrade flow with normal waveforms bilaterally. IMPRESSION: 1. The right internal carotid artery shows no hemodynamically significant stenosis. 2. The left internal carotid artery shows no hemodynamically significant stenosis. Right and left internal carotid artery stenoses fall in the 0-49% category by duplex Doppler velocity spectral waveform analysis.
--- NOTE | 2016-10-28 15:20 | NUR ---
CALLED INTO ROOM BY PATIENT; PATIENT REPORTS "I SPILLED COFFEE ON MY GOWN AND SHEETS"; WHEN CHANGING PATIENT RED PATCHY AREAS WERE NOTED ON HER STOMACH; THIS RN ASKED THE PATIENT IF THE COFFEE SHE SPILLED WAS HOT AND SHE STATED "OH YES, VERY"; DR WORLEY NOTIFIED OF PATCHY RED AREAS TO STOMACH; ONCOMING AYDEE GUTIERREZ IN ROOM AND AWARE; WILL CONTINUE TO MONITOR PATIENT;
[2016-10-28 16:10] VITALS: BP 116/61
[2016-10-29 00:28] VITALS: BP 134/74
--- NOTE | 2016-10-29 06:24 | PN- Housestaff ---
JOSE BUSTOS,ELZA 10/29/16 0624: Subjective Follow-up For: Right hip fracture status post surgery Alcohol detox Aspiration pneumonia versus ARDS C. difficile colitis Complaints: no complaints Subjective: I followed up and examined the patient today. She is lying comfortably on the bed and is not in any acute distress. Not have any complaints, has been started ambulating with help of physical therapy, and with nurse at other times. Her pain is adequately controlled. She has not had any fever, loose stools by previously, does not have symptoms of alcohol withdrawal, does not have any shortness of breath, chest pain, palpitations, cough. Review of Systems Constitutional: Reports: no symptoms. EENTM: Reports: no symptoms. Cardiovascular: Reports: no symptoms. Respiratory: Reports: no symptoms. Gastrointestinal: Reports: no symptoms. Genitourinary: Reports: no symptoms. Musculoskeletal: Reports: see HPI. Skin: Reports: no symptoms. Neurological/Psychological: Reports: no symptoms. Hematologic/Endocrine: Reports: no symptoms. Objective Last 24 Hrs of Vital Signs/I&O Vital Signs Date Time Temp Pulse Resp B/P Pulse O2 O2 Flow FiO2 Ox Delivery Rate 10/29 0028 98.0 82 20 134/74 96 10/28 1905 96 Room Air 10/28 1610 97.8 83 19 116/61 95 10/28 1018 96 Room Air Room Air 10/28 0907 98.3 69 18 130/72 96 Room Air Intake & Output 10/29 0800 10/29 0000 10/28 1600 Intake Total 50 500 400 Output Total 400 Balance 50 500 0 Intake, IV 0 Intake, Oral 50 500 400 Number 1 1 1 Bowel Movements Output, Urine 400 Physical Exam General Appearance: Alert, Oriented X3, Cooperative, No Acute Distress Other Physical Findings: Physical Exam General Appearance: Alert, Oriented X3, Cooperative, No Acute Distress Cardiovascular: Regular Rate, Normal S1, Normal S2 Lungs: Clear to Auscultation, Normal Air Movement Abdomen: Normal Bowel Sounds, Soft, No Tenderness Neurological: grossly intact Extremities: right thigh has dressing placed recently, no soakage, no leakage Vascular: distal neurovascular status intact Current Medications: Current Medications Sig/[place] Start time Last Medication Dose Route Stop Time Status Admin Acetaminophen 1,000 MG Q6P PRN 10/10 1630 AC 10/24 N/A 1 UNIT IV 0338 Acetaminophen 650 MG Q8 PRN 10/06 1945 AC 10/20 PO 205 Albuterol Sulfate 3 ML BID 10/26 2200 AC 10/28 INH 1905 Alteplase, 2 MG ONE ONE 10/28 929 DC 10/28 Recombinant IV 10/28 0931 1133 Artificial Tears 2 GTT TID 10/18 2200 AC 10/28 OPH 2141 Dextrose 25 GM ONCE ONE 10/28 929 DC 10/28 IV 10/28 0931 0926 Exemestane 25 MG DAILY 10/07 1000 AC 10/28 PO 0915 Folic Acid 1 MG DAILY 10/07 1000 AC 10/28 PO 0915 Glycerin 2 SPRAY Q2P PRN 10/15 1430 AC 10/17 PO 0627 Heparin Sodium 5,000 UNIT Q8 10/26 0600 AC 10/29 (Porcine) SC 0624 Insulin Aspart 0 TIDAC 10/26 1700 AC 10/28 SC 1814 Insulin Detemir 5 UNITS BID 10/16 2200 AC 10/28 SC 2140 Morphine Sulfate 2 MG Q6P PRN 10/25 0715 AC IV Multivitamins 1 TAB DAILY 10/23 1000 AC 10/28 PO 0915 Oxycodone/ 1 TAB Q4P PRN 10/25 1930 AC 10/27 Acetaminophen PO 1458 Oxycodone/ 2 TAB Q4P PRN 10/25 193 AC Acetaminophen PO Pantoprazole Sodium 40 MG BID 10/20 2200 AC 10/28 IV 2140 Thiamine HCl 100 MG DAILY 10/23 1000 AC 10/28 PO 0915 Vancomycin HCl 1,000 MG Q12 10/28 2200 CAN Dextrose/Water 250 ML IV 10/29 1059 Vancomycin HCl 125 MG Q6 10/17 1350 AC 10/29 PO 0624 Last 24 Hrs of Lab/Cahrles Results Last 24 Hrs of Labs/Mics: Laboratory Tests 10/29/16 06: Anion Gap 5, Estimated GFR > 60, BUN/Creatinine Ratio 13.3, Magnesium 1.4 L, CBC w Diff NO MAN DIFF REQ, RBC 3.07 L, MCV 90.2, MCH 30.0, RDW 17.2 H, MPV 9.4, Gran % 73.4, Lymphocytes % 13.4 L, Monocytes % 9.0, Eosinophils % 3.2, Basophils % 1.0, Absolute Granulocytes 11.7 H, Absolute Lymphocytes 2.2, Absolute Monocytes 1.4 H, Absolute Eosinophils 0.5, Absolute Basophils 0.2, PUBS MCHC 33.2 Assessment/Plan Assessment: 61-year-old woman with past medical history significant for insulin independent diabetes, chronic pancreatitis secondary to alcoholism, breast cancer treated with chemotherapy, osteopenia, who was brought in by ambulance for chief complaint of right hip pain secondary to fall. Found to have comminuted displaced right proximal femur shaft fracture with extension into intertrochanteric region and leukocytosis, now 4 days status post right hip ORIF. Neuro consulted for right UE weakness. Right femur fracture status post ORIF day 4 (done on 10/26/16): * No fracture complications so far, patient already ambulating with assistance to short distances * Distal neurovascular sensitivity intact * Range of motion severely limited by pain * Will follow orthopedic advice * Anticoagulation post surgery: Subcutaneous heparin 3 times a day has been changed to Lovenox from today. Plan to continue the same. * If the patient can ambulate well, and other conditions improve, she can be discharged tomorrow or day after tomorrow to a short-term rehabilitation requiring physical therapy, and assistance for now. She has been living alone without assistance before this, and is at risk of suboptimal care if she is discharged alone to her house * Pain management: Morphine and oxycodone when necessary Diabetes * hypoglycemic yesterday morning, for which one amp of dextrose was given. * 1 hypoglycemic episode this morning * continue to monitor * on levemir and ISS Leukocytosis: * afebrile, wbc 18.9 * Follow blood cultures * continue PO vanco Day 13 Alcohol abuse: * Monitor for withdrawal symptoms, continue * CIWA protocol, socre range in last 24 hrs: 0-5, mostly in orientation * Continue Folic acid Smoking cessation: Chronic and stable * Continue Wellbutrin Full code Diabetic diet Chemical DVT prophylaxis Problem List: 1. Closed right femoral fracture 2. C. difficile colitis 3. ETOH abuse 4. Aspiration pneumonia Pain Ratin Pain Location: right thigh Pain Goal: Pain 4 or less Pain Plan: Morphine, oxycodone when necessary Tomorrow's Labs & Rationales: CBC, BP, to follow-up on her recent surgery for infections, electrolyte imbalance KITTY SALGADO MD 10/29/16 1216: Attending MD Review Statement Attending Statement Attending MD Statement: examined this patient, discuss w/resident/PA/GIZZARD PULLER, agreed w/resident/PA/GIZZARD PULLER, reviewed EMR data (avail) Attending Assessment/Plan: 61F PMH IDDM, EtOH abuse, history of breast cancer, persistent leukocytosis admitted initially on 10/06 for right hip pain with hip fracture. Initially admitted for hip repair, course was complicated by sepsis with multilobular pneumonia with ARDS requiring intubation. Sputum cultures were positive for stenotrophomonas treated with Bactrim, and course complicated by C.diff colitis treated with PO Vancomycin. She underwent ORIF of right hip with bone marrow biopsy done during procedure. Post-op patient had RUE weakness, being followed by neurology. She has been transferred to general medicine floor for futher management. 1. Right hip fracture s/p repair 2. Sepsis secondary to Strenotrophomonas (resolved) 3. Multilobar pneumonia (resolved) 4. C.difficile colitis 5. Chronic leukocytosis 6. Chronic anemia 7. Right upper extremity paralysis 8. ARDS requiring intubation (resolved) Plan - Obtain MRI head, carotid dopplers - Continue PO Vancomycin - Follow ID recommendations - Will follow up with hematology as outpatient for bone marrow biopsy results and peripheral flow cytometry -Neurology recommendation for RUE weakness - Continue home medications - Physical therapy - DVT PPx
[2016-10-29 08:01] VITALS: BP 128/78
[2016-10-29 08:28] LABS: ABSOLUTE BASOPHIL COUNT 0.2 /CUMM (0.0-0.2); ABSOLUTE EOSINOPHIL COUNT 0.5 /CUMM (0.0-0.7); ABSOLUTE GRANULOCYTE CT 11.7 /CUMM (1.4-6.5); ABSOLUTE LYMPH COUNT 2.2 /CUMM (1.2-3.4); ABSOLUTE MONOCYTE COUNT 1.4 /CUMM (0.10-0.60); EOSINOPHIL % 3.2 % (0-5); GRANULOCYTE % 73.4 % (42.2-75.2); HEMATOCRIT 27.7 % (37-47); MEAN CORPUSCULAR HGB CONC 33.2 G/DL (33.0-37.0); MEAN CORPUSCULAR VOLUME 90.2 FL (81.0-99.0); MEAN PLATELET VOLUME 9.4 FL (7.4-10.4); PLATELET COUNT 453 /CUMM (130-400); RBC DISTRIBUTION WIDTH 17.2 % (11.5-14.5); RED BLOOD CELL CT 3.07 /CUMM (4.20-5.40)
--- NOTE | 2016-10-29 09:04 | PN- Student ---
Subjective Subjective: Source: Patient History of Present Illness: Follow-up for: R-hip fracture & R-sided hemiparesis I visited Ms. Nelson this morning and she was lying supine comfortably in her bed waiting for her breakfast. She didn't have any major complaints regarding pain in her R leg neither her R arm. The patient denies any constipation, nausea, vomiting or diarrhea. She mentioned that while she was on her sonography procedure she felt imbalanced for a moment and lost propioception in both arms. However she denies any loss of consciousness or syncope while this was occuring. The patient still on Vancomycin PO until tomorrow for Tx for C. difficile. Overall Ms. Nelson feels well and doesn't appear to be deteriorating in her conditions and vital signs. Psychosocial History: Where do you live? Home Who Do You Live With? Alone Services at Home: None Primary Language: [place] Smoking Status: None EtOH Use: Heavy drinker (1 bottle of Vodka/week) Illicit Drug Use: Denies any use of Illicit drugs Functional Ability: ADLs Independent: dressing, eating, toileting, bathing. Ambulation: with walker due to surgery on R Hip due to fracture. IADLs Independent: shopping, housework, finances, food prep, telephone, transportation , medication admin. Review of Systems: General: Patient is in proper attire, alert and the are no signs of respiratory distress. She denies any weigt loss, night sweats, chillls and fever. HEENT: NONE Cardiovascular: NONE Respiratory: NONE Breast: PHx of Breast cancer Tx w/chemotherapy. GI: No nausea, vomiting or constipation. Hx of Pancreatitis & Liver Cirrhosis. Genitourinary: NONE Skin: No changes. Upper Limbs: Episode of lack of propioception. Lower Limbs: Refer to HPI MSK: Hx of Osteopenia. Objective Objective: Current Medications Sig/[place] Start time Last Medication Dose Route Stop Time Status Admin Acetaminophen 1,000 MG Q6P PRN 10/10 1630 AC 10/24 N/A 1 UNIT IV 0338 Acetaminophen 650 MG Q8 PRN 10/06 1945 AC 10/20 PO 2056 Albuterol Sulfate 3 ML BID 10/26 2200 AC 10/28 INH 1905 Artificial Tears 2 GTT TID 10/18 2200 AC 10/29 OPH 0900 Exemestane 25 MG DAILY 10/07 1000 AC 10/29 PO 0901 Folic Acid 1 MG DAILY 10/07 1000 AC 10/29 PO 0901 Glycerin 2 SPRAY Q2P PRN 10/15 1430 AC 10/17 PO 0627 Heparin Sodium 5,000 UNIT Q8 10/26 0600 AC 10/29 (Porcine) SC 0624 Insulin Aspart 0 TIDAC 10/26 1700 AC 10/28 SC 1814 Insulin Detemir 5 UNITS BID 10/16 2200 AC 10/29 SC 0900 Magnesium Sulfate 1 GM ONCE ONE 10/29 0945 AC Dextrose/Water 100 ML IV 10/29 1344 Morphine Sulfate 2 MG Q6P PRN 10/25 0715 AC IV Multivitamins 1 TAB DAILY 10/23 1000 AC 10/29 PO 0901 Oxycodone/ 1 TAB Q4P PRN 10/25 1930 AC 10/27 Acetaminophen PO 1458 Oxycodone/ 2 TAB Q4P PRN 10/25 1930 AC Acetaminophen PO Pantoprazole Sodium 40 MG BID 10/20 2200 AC 10/29 IV 0900 Thiamine HCl 100 MG DAILY 10/23 1000 AC 10/29 PO 0901 Vancomycin HCl 1,000 MG Q12 10/28 2200 CAN Dextrose/Water 250 ML IV 10/29 1059 Vancomycin HCl 125 MG Q6 10/17 1350 AC 10/29 PO 0624 Vital Signs Date Time Temp Pulse Resp B/P Pulse O2 O2 Flow FiO2 Ox Delivery Rate 10/29 0801 98.3 64 20 128/78 94 Room Air 10/29 0028 98.0 82 20 134/74 96 10/28 1905 96 Room Air 10/28 1610 97.8 83 19 116/61 95 Intake & Output 10/29 1600 10/29 0800 10/29 0000 Intake Total 50 500 Output Total Balance 50 500 Intake, Oral 50 500 Number 1 1 1 Bowel Movements Physical Examination: General: 61 y/o F without any respiratory distress, vomiting, diarrhea, weight loss, fever, chills and night sweats. HEENT: Not assessed Neck: Not assessed Mouth: Not assessed Lungs: Not assessed CV: S1, S2 sounds were heard; no murmurs were heard. GI: No palpable massess were felt on light/deep palpation. No hepato- splenomegaly was appreciated upon plapation. Genitourinary: Not assessed MSK: Upper Extremities: No signs of peripheral cyanosis and moderate finger clubbing splecially on the R index finger. Lower Extremities: Mild edematous R-knee with increased temperature on palpation. Baloting negative but there is palpable effusion. Capillary refill of 5secs. bilaterally and both feet are cold on palpation. Neurological: Normal Speech. Results Results: Laboratory Tests 10/29/16 0612: Anion Gap 5, Estimated GFR > 60, BUN/Creatinine Ratio 13.3, Magnesium 1.4 L, CBC w Diff NO MAN DIFF REQ, RBC 3.07 L, MCV 90.2, MCH 30.0, RDW 17.2 H, MPV 9.4, Gran % 73.4, Lymphocytes % 13.4 L, Monocytes % 9.0, Eosinophils % 3.2, Basophils % 1.0, Absolute Granulocytes 11.7 H, Absolute Lymphocytes 2.2, Absolute Monocytes 1.4 H, Absolute Eosinophils 0.5, Absolute Basophils 0.2, PUBS MCHC 33.2 10/28/16 0615: Anion Gap 14, Estimated GFR > 60, BUN/Creatinine Ratio 16.7, Magnesium 1.4 L, CBC w Diff NO MAN DIFF REQ, RBC 3.14 L, MCV 89.8, MCH 30.1, RDW 17.0 H, MPV 9.2, Gran % 74.6, Lymphocytes % 11.6 L, Monocytes % 9.8 H, Eosinophils % 3.4, Basophils % 0.6, Absolute Granulocytes 14.1 H, Absolute Lymphocytes 2.2, Absolute Monocytes 1.8 H, Absolute Eosinophils 0.6, Absolute Basophils 0.1, PUBS MCHC 33.5 10/27/16 0627: Anion Gap 12, Estimated GFR > 60, Glucose 137 H, Calcium 8.3 L, Phosphorus 4.9 H, Magnesium 1.5 L, Total Bilirubin 0.7, AST 18, ALT 38, Albumin 2.5 L, CBC w Diff NO MAN DIFF REQ, RBC 3.07 L, MCV 89.7, MCH 29.8, RDW 16.5 H, MPV 9.6, Gran % 78.3 H, Lymphocytes % 10.5 L, Monocytes % 8.6, Eosinophils % 1.7, Basophils % 0.9, Absolute Granulocytes 13.9 H, Absolute Lymphocytes 1.9, Absolute Monocytes 1.5 H, Absolute Eosinophils 0.3, Absolute Basophils 0.2, PUBS MCHC 33.3 /Plan Assessment: Ms. Nelson is a 61 y/o F with a PMHx of Breast Cancer, Pancreatitis, Osteopenia and Alcoholism that has been treated for R-hip fracture and Nosocomial C. difficile infection. The patient seems to be doing well today and there has not been deterioration of her previous health status. #1) The patient denies any GI symptoms that could possibly be related to her current infection. #2) On examination there was weakness on the R-arm specially in the hand; when hand jinriksha driver was tested it was found to be diminished in strength. #3) Follow up the patient tomorrow to assess GI symptoms. #4) The patient is in need of physical activity to improve hemiparesis of the R-side and eventually to strengthen the site of operation. Plan: #1) Continue the patient on PO Vancomycin until tomorrow as requested by ID physician. #2) Educate the patient on different bedside exercises to improve the neurological deficits on the R-hand and thus prevent any potential spasticity. #3) If the patient doesn't present any symptoms by tomorrow she can be a candidate for discharge into a Rehabilitation Facility. #4) If possible schedule a Physiatry consult to start the patient on Physical Therapy upon discharge or as an inpatient.
--- NOTE | 2016-10-29 09:41 | PN- Pulmonary ---
Subjective HPI/Critical Care Issues: pt seen and examined transferred out of icu 94% ra no n/v/d/c afebrile no cullen Objective Current Medications: Current Medications Sig/[place] Start time Last Medication Dose Route Stop Time Status Admin Acetaminophen 1,000 MG Q6P PRN 10/10 1630 AC 10/24 N/A 1 UNIT IV 0338 Acetaminophen 650 MG Q8 PRN 10/06 1945 AC 10/20 PO 205 Albuterol Sulfate 3 ML BID 10/26 2200 AC 10/28 INH 1905 Artificial Tears 2 GTT TID 10/18 2200 AC 10/29 OPH 0900 Exemestane 25 MG DAILY 10/07 1000 AC 10/29 PO 0901 Folic Acid 1 MG DAILY 10/07 1000 AC 10/29 PO 0901 Glycerin 2 SPRAY Q2P PRN 10/15 1430 AC 10/17 PO 0627 Heparin Sodium 5,000 UNIT Q8 10/26 0600 AC 10/29 (Porcine) SC 0624 Insulin Aspart 0 TIDAC 10/26 1700 AC 10/28 SC 1814 Insulin Detemir 5 UNITS BID 10/16 2200 AC 10/29 SC 0900 Morphine Sulfate 2 MG Q6P PRN 10/25 0715 AC IV Multivitamins 1 TAB DAILY 10/23 1000 AC 10/29 PO 0901 Oxycodone/ 1 TAB Q4P PRN 10/25 1930 AC 10/27 Acetaminophen PO 1458 Oxycodone/ 2 TAB Q4P PRN 10/25 193 AC Acetaminophen PO Pantoprazole Sodium 40 MG BID 10/20 2200 AC 10/29 IV 0900 Thiamine HCl 100 MG DAILY 10/23 1000 AC 10/29 PO 0901 Vancomycin HCl 1,000 MG Q12 10/28 220 CAN Dextrose/Water 250 ML IV 10/29 1059 Vancomycin HCl 125 MG Q6 10/17 1350 AC 10/29 PO 0624 Vital Signs & I&O Last 24 Hrs of Vitals and I&O: Vital Signs Date Time Temp Pulse Resp B/P Pulse O2 O2 Flow FiO2 Ox Delivery Rate 10/29 08 98.3 64 20 128/78 94 Room Air 10/29 0028 98.0 82 20 134/74 96 10/28 1905 96 Room Air 10/28 1610 97.8 83 19 116/61 95 10/28 1018 96 Room Air Room Air Intake & Output 10/29 1600 10/29 0800 10/29 0000 Intake Total 50 500 Output Total Balance 50 500 Intake, Oral 50 500 Number 1 1 Bowel Movements Exam Other Physical Findings: General - awake, extubated HEENT - NCAT Cardiovascular - S1, S2 Lungs - clear to auscultation bilaterally Abdomen - soft, bowel sounds positive, no tenderness Extremities - right sided edema in upper extremity Results Last 24 Hrs of Lab Results: Laboratory Tests 10/29/16 0612: Anion Gap 5, Estimated GFR > 60, BUN/Creatinine Ratio 13.3, Magnesium 1.4 L, CBC w Diff NO MAN DIFF REQ, RBC 3.07 L, MCV 90.2, MCH 30.0, RDW 17.2 H, MPV 9.4, Gran % 73.4, Lymphocytes % 13.4 L, Monocytes % 9.0, Eosinophils % 3.2, Basophils % 1.0, Absolute Granulocytes 11.7 H, Absolute Lymphocytes 2.2, Absolute Monocytes 1.4 H, Absolute Eosinophils 0.5, Absolute Basophils 0.2, PUBS MCHC 33.2 Impression/Plan Impression/Plan Impression/Plan: Impression 61 year old woman hx breast ca - fixed - right intratrochanteric fracture - improved anemia - resolved respiratory failure - c.diff in stool and stenotrophomonas in sputum - improved leukocytosis - upper ext edema Plan -will need repeat imaging within 1 month, with myself or pmd, please ensure this is ordered -f/u ID recs -f/u ortho recs
--- NOTE | 2016-10-29 10:05 | Discharge Summary ---
Visit Information Visit Dates Admission Date: 10/06/16 Discharge Date: 10/31/16 Hospital Course Course Attending Physician: KITTY SALGADO MD Primary Care Physician: ANDRES SANTILLAN MD Consulting Request: 1 Consulting Specialty: Orthopedics Consulting Physician: Dr. Trujillo Reason for Consult: Rt. femoral shaft fracture s/p ORIF Consulting Request: 2 Consulting Specialty: Infectious Disease Consulting Physician: Dr. Sarabia Reason for Consult: C. diff colitis Consulting Request: 3 Consulting Specialty: Critical Care Consulting Physician: Dr. Villegas Reason for Consult: Respiratory failure requiring ICU care Consulting Request: 4 Consulting Specialty: Hematology/Oncology Consulting Physician: Dr. Martinez Reason for Consult: Leukocytosis Hospital Course: 61-year-old woman with a past medical history of insulin-dependent diabetes mellitus, chronic pancreatitis, EtOH abuse/dependence, breast cancer status post chemotherapy/radiation, osteopenia, persistent leukocytosis brought in by ambulance on 10/06/16 after rolling out of bed complaining of excruciating right hip pain. Patient was found to have a displaced femoral shaft fracture with extension to the intertrochanteric region via CT imaging with leukocytosis and hemoglobin and hematocrit 12.2/35.8. She was admitted to the general medicine floor pending orthopedic evaluation and medical optimization for her hip injury. Patient was transferred to the intensive care unit the day after admission when her hemoglobin was found to be 7.2. Patient was evaluated by cardiology and orthopedics who stated that the blood loss represented that of a local hematoma in the site of the injury and from a cardiac perspective patient had a low cardiac risk for surgery. During medical optimization and risk stratification patient subsequently developed hypoxia and tachypnea for which a chest x-ray obtained was suggestive of a multi lobar pneumonia and patient was started on antibiotics. Shortly thereafter her respiratory status declined and she was intubated. She became hemodynamically unstable and was placed on a Levophed drip, propofol drip, and Ativan drip and was treated for ARDS. During the time she was intubated she was found to have positive sputum cultures for stenotrophomonas for which she received Bactrim and C. difficile colitis for which she received oral vancomycin. Neurology consultation was placed as patient was difficult to rouse when the sedation and Ativan drips were discontinued. CT head obtained at this time was negative for any intracranial pathology. Patient was eventually successfully extubated and then evaluated by hematology for her persistent leukocytosis whom determined that this should be evaluated as an outpatient after discharge. She underwent ORIF of her right hip fracture and tolerated the procedure well. They obtained a bone marrow biopsy during this procedure at the request of hematology consultants that needs to be followed up. Her right upper extremity was found to be very weak after assessing her when she was awake and alert and extubated. Neurology was reconsulted and a CT head/neck was obtained that demonstrated severe neural foraminal stenosis of the contralateral side that was affected. Patient is considered medically stable from an intensive care unit perspective and is to be transferred to the general medicine floor for further care. Course in the hospital while in GM floor: Dictated by Dr. Santillan 1. C diff colitis: Diarrhea was better and she completed 14 days of abx course with Vancomycin. 2. Right upper extremity weakness: MRI was done showed Multiple deep white matter infarcts acute. In the absence of significant carotid disease or emboligenic findings on echocardiogram this is most likely due to episodes of reduced cerebral perfusion when the patient was critically ill.Recommended to start Aspirin, continue PT/OT. 3. Chronic Leucocytosis: Bone marroe biopsy results pending. Peripheral flow cytometry as outpatient. Has a follow up appointment on 11/19/2016 at 9:00AM with . Complications: - Right femoral shaft fracture, s/p ORIF -RUE proximal weakness, neurology evaluation condura -ARDS s/p intubation, now extubated -Multilobar pneumonia s/p Bactrim therapy -C. Diff colitis on 10-14 day course Vancomycin PO -Persistent baseline leukocytosis -Acute blood loss anemia s/p 5 units PRBC, now stable -EtOH abuse/dependence s/p ativan drip, now stable Allergies: Coded Allergies: apple (Severe, THROAT CLOSURE 06/28/16) rose (Severe, THROAT CLOSURE 06/28/16) CHERRIES cezar (Severe, THROAT CLOSURE 06/28/16) peach (Severe, THROAT CLOSURE 06/28/16) sertraline (Intermediate, RASH 06/28/16) birch (UNKNOWN 06/28/16) Significant Procedures: ELECTROENCEPHALOGRAM RESULTS Date of service: 10/22/16 Surgery Date: 10/25/16 Name of Procedure: 1) Open Reduction And Internal Fixation Of Right Closed Comminuted Displaced Intertrochanteric Hip Fracture Using Dynamic Compression Screw And Barrel Side Plate Fixation Construct (Gisele [place] 3) (Ronnie) 2) Biopsy Of Right Intertrochanteric Cortical And Cancellous Bone To Rule Out Neoplastic Or Other Pathologic Osseous Process Given Reported Diagnosis Of Neoplasm (Ronnie) 3) Intraoperative Fluoroscopic Evaluation of Fracture Reduction And Alignment, Hardware Placement and Stable Anatomic Fixation (Ronnie) 4) Right Anterolateral Iliac Crest Bone Marrow Biopsy Also Attempted But Yield Was Insufficient For Diagnosis Or Analysis (Ronnie) Disposition Summary Disposition Principal Diagnosis: -Acute hypoxic respiratory failure, exctubated -Acute respiratory distress syndrome, extubated -Displaced comminuted right proximal femoral shaft fracture s/p ORIF -Proximal right lower extremity hematoma, evacuated -Acute blood loss anemia, stable -EtOH withdrawal -Multilobar pneumonia, on antibiotics -History of breast cancer that is post bilateral mastectomy, chemotherapy/ radiation -Leukocytosis -C. Diff colitis, on oral vancomycin Additional Diagnosis: Diabetes mellitus Discharge Disposition: STR Discharge Instructions General Discharge Information Code Status: Full Code Patient's Diet: Diabetic diet Patient's Activity: As tolerated with PT Follow-Up Instructions/Appts: 1.Please schedule of peripheral flow cytometry with hematology as an outpatient, after discharge. 2. Please continue Exemestane even after discharge. 3. Please follow-up with hematology within 7-10 days of discharge. Per Pulmonary: 1. Please get a repeat chest CT in one month, after discharge. 3. Follow-up with pulmonary doctor (lung doctor) in ten days after discharge. Please follow-up with your primary care physician within 7-10 days of discharge. Please return to emergency if symptoms worsen. Medications at Discharge Discharge Medications: Continue taking these medications: Folic Acid (Folic Acid) 1 MG TABLET 1 Milligram ORAL DAILY Insulin Aspart, Recombinant (Novolog Flexpen) 100 UNIT/ML INSULN.PEN Units Inject into fatty tissue 3 TIMES DAILY BEFORE MEALS Instructions: Blood glucose Insulin 80-150 mg/dl one unit 151-200 mg/dl two units 251-300 mg/dl threee units 301-350 mg/dl four units 351-400 mg/dl six units more than 400 mg/dl eight units please call MD. Comments: Last Taken: 10/31/16 Time: 1215PM Exemestane (Exemestane) 25 MG TABLET 1 Tablet ORAL DAILY Qty = 30 Comments: Last Taken: 10/31/16 Time: 1000AM Bupropion HCl (Bupropion HCl Sr) 150 MG TABLET.ER 1 Tablet ORAL TWICE DAILY Qty = 60 Comments: NOT GIVEN IN HOSPITAL Aspirin (Aspirin*) 81 MG TAB.CHEW 1 Tablet ORAL DAILY Comments: Last Taken: 10/31/16 Time: 1000AM Start taking the following new medications: Thiamine HCl (Vitamin B-1) 100 MG TABLET 100 Milligram ORAL DAILY Qty = 30 No Refills Comments: Last Taken: 10/31/16 Time: 1000AM Atorvastatin Calcium (Atorvastatin Calcium) 40 MG TABLET 1 Tablet ORAL DAILY Qty = 30 No Refills Comments: Last Taken:10/30/16 Time: 1700PM Insulin Detemir (Levemir Flextouch) 100 UNIT/ML (3 ML) INSULN.PEN 5 Units Inject into fatty tissue TWICE DAILY Qty = 30 No Refills Comments: Last Taken: 10/31/16 Time: 1000AM Pantoprazole Sodium (Protonix) 40 MG TABLET.DR 1 Tablet ORAL DAILY Qty = 30 No Refills Comments: IV PROTONIX GIVEN 10/31/16 @1000AM Enoxaparin Sodium (Lovenox) 40 MG/0.4 ML SYRINGE 0.4 Milliliters Inject into fatty tissue DAILY Days = 30 Refills = 2 Instructions: Please talk to your orthopedic surgeon about continuation of this medication. Comments: Last Taken: 10/31/16 Time: 1000AM Copies To: ANGÉLICA BUSTOS,ANDRES Attending MD Review Statement Documenting Attending: KITTY SALGADO MD
--- NOTE | 2016-10-29 11:19 | Patient Discharge Instructions ---
Discharge Instructions General Discharge Information Special Instructions: 1.Please schedule of peripheral flow cytometry with hematology as an outpatient, after discharge. 2. Please continue Exemestane even after discharge. 3. Please follow-up with hematology within 7-10 days of discharge. 4. Please get a repeat chest CT in one month, after discharge. 5. Follow-up with pulmonary doctor (lung doctor) in ten days after discharge. 6. Please follow-up with your primary care physician within 7-10 days of discharge. 7. Please return to emergency if symptoms worsen. Acute Coronary Syndrome Inclusion Criteria At DC or during hospital stay patient has or had the following: ACS DIAGNOSIS No Discharge Core Measures Meds if any: Prescribed or Continued at Discharge Meds if any: NOT Prescribed or Continued at Discharge Congestive Heart Failure Inclusion Criteria At DC or during hospital stay patient has or had the following: CHF DIAGNOSIS No Discharge Core Measures Meds if any: Prescribed or Continued at Discharge Meds if any: NOT Prescribed or Continued at Discharge Cerebrovascular accident Inclusion Criteria At DC or during hospital stay patient has or had the following: CVA/TIA Diagnosis No Discharge Core Measures Meds if any: Prescribed or Continued at Discharge Meds if any: NOT Prescribed or Continued at Discharge Venous thromboembolism Inclusion Criteria VTE Diagnosis No VTE Type NONE VTE Confirmed by (Test) NONE Discharge Core Measures - Per Current guidelines, there needs to be overlap - treatment for the first 5 days of Warfarin therapy. - If discharged on Warfarin prior to 5 days of - overlap therapy, the patient will need to be - assessed for post discharge needs including - *Post discharge parental anticoagulation - *Warfarin and/or parental anticoagulation education - *Follow up date to check INR post discharge At least 5 days overlap therapy as Inpatient No Meds if any: Prescribed or Continued at Discharge Note: Overlap Therapy is Warfarin and Anticoagulant Meds if any: NOT Prescribed or Continued at Discharge
--- NOTE | 2016-10-29 11:47 | MRI REPORT ---
EXAMINATION: MR BRAIN WITHOUT CONTRAST CLINICAL INFORMATION: Right-sided hemiparesis. COMPARISON: Head CT 10/26/2015. TECHNIQUE: MRI of the brain without contrast was obtained using routine sequences. FINDINGS: Motion degraded study. There are multiple foci of increased signal on diffusion-weighted imaging within the left greater than right centrum semiovale that exhibits intermediate to low signal on the ADC map suggestive of subacute infarcts. There is also likely a subacute infarct within the medial right cerebellum that exhibits similar signal characteristics. Chronic ischemic changes exhibiting facilitated diffusion within the left perirolandic region on the right frontal precentral gyrus. There is no hemorrhagic transformation. Small focus of chronic hemosiderin deposition versus mineralization within the posterior left temporal periventricular white matter. Background T2 signal changes within the supratentorial white matter and central luis suggest chronic microangiopathy. There is no hydrocephalus, extra-axial surface collection, or herniation. The major flow voids at the skull base are preserved. The midline structures are normal. The cerebellar tonsils are normally positioned. The cerebellum and brainstem are normal. The craniocervical junction is normal. Osseous marrow signal intensity is homogenous. The visualized soft tissues are unremarkable. IMPRESSION: - Motion degraded exam. Imaging findings suggest multiple subacute infarcts within the left greater than right centrum semiovale and likely the medial right cerebellum in keeping with an embolic etiology. No hemorrhagic transformation. - Mild to moderate chronic microangiopathy.
--- NOTE | 2016-10-29 11:47 | NUR ---
PHYSICAL THERAPY- PT CURRENTLY OFF THE FLOOR FOR MRI OF THE BRAIN 2* HEMIPLEGIA. WILL CHECK BACK AND FOLLOW APPROPRIATE.
--- NOTE | 2016-10-29 13:46 | PN- Infect Dx ---
Subjective Subjective: Afebrile. She complains of weakness of the lower extremities. She had a soft stool reported overnight and one small loose stool this morning. Objective Last 24 Hrs of Vital Signs/I&O Vital Signs Date Time Temp Pulse Resp B/P Pulse O2 O2 Flow FiO2 Ox Delivery Rate 10/29 1123 98 Room Air 10/29 0801 98.3 64 20 128/78 94 Room Air 10/29 0028 98.0 82 20 134/74 96 10/28 1905 96 Room Air 10/28 1610 97.8 83 19 116/61 95 Intake & Output 10/29 1600 10/29 0800 10/29 0000 Intake Total 50 500 Output Total Balance 50 500 Intake, Oral 50 500 Number 1 1 1 Bowel Movements Physical Exam Other Physical Findings: She appears comfortable in no acute distress Lungs are clear Abdomen is soft, nontender with positive bowel sounds Extremities PICC in the right upper extremity with no inflammation at the site Results Last 24 Hours of Lab Results: Laboratory Tests 10/29 0612 Chemistry Sodium (137 - 145 mmol/L) 134 L Potassium (3.5 - 5.1 mmol/L) 4.3 Chloride (98 - 107 mmol/L) 102 Carbon Dioxide (22 - 30 mmol/L) 27 Anion Gap (5 - 16) 5 BUN (7 - 17 mg/dL) 4 L Creatinine (0.5 - 1.0 mg/dL) 0.3 L Estimated GFR (>60 ml/min) > 60 BUN/Creatinine Ratio (7 - 25 %) 13.3 Magnesium (1.6 - 2.3 mg/dL) 1.4 L Hematology CBC w Diff NO MAN DIFF REQ WBC (4.8 - 10.8 /CUMM) 16.0 H RBC (4.20 - 5.40 /CUMM) 3.07 L Hgb (12.0 - 16.0 G/DL) 9.2 L Hct (37 - 47 %) 27.7 L MCV (81.0 - 99.0 FL) 90.2 MCH (27.0 - 31.0 PG) 30.0 RDW (11.5 - 14.5 %) 17.2 H Plt Count (130 - 400 /CUMM) 453 H MPV (7.4 - 10.4 FL) 9.4 Gran % (42.2 - 75.2 %) 73.4 Lymphocytes % (20.5 - 51.1 %) 13.4 L Monocytes % (1.7 - 9.3 %) 9.0 Eosinophils % (0 - 5 %) 3.2 Basophils % (0.0 - 2.0 %) 1.0 Absolute Granulocytes (1.4 - 6.5 /CUMM) 11.7 H Absolute Lymphocytes (1.2 - 3.4 /CUMM) 2.2 Absolute Monocytes (0.10 - 0.60 /CUMM) 1.4 H Absolute Eosinophils (0.0 - 0.7 /CUMM) 0.5 Absolute Basophils (0.0 - 0.2 /CUMM) 0.2 PUBS MCHC (33.0 - 37.0 G/DL) 33.2 Last 24 Hours of Charles Results: No new cultures Recent Imaging Studies: MRI of the head October 29 reveals multiple subacute infarcts within the left greater than right centrum semiovale and likely the medial right cerebellum Carotid Dopplers reveal no hemodynamically significant stenosis Assessment/Plan Impression: Stable with temperatures remaining normal and diarrhea overall improved on po Vancomycin now Day 12 of treatment for C. difficile. She is now 4 days status post right hip ORIF, with no evidence of any hematoma intraoperatively. Her white blood cell count remains elevated, but overall decreased, felt likely to be secondary to some underlying process, and she has been evaluated by Hematology. The MRI findings are noted and may explain her right upper extremity weakness. Suggestion: 1. Further management regarding her MRI findings per Medicine/Neurology 2. Continue po Vancomycin to complete a 14 day course
--- NOTE | 2016-10-29 15:22 | PN- Neurology ---
Subjective Subjective: somewhat better Review of Systems: denied headache Objective Vital Signs and I&Os Vital Signs Date Time Temp Pulse Resp B/P Pulse O2 O2 Flow FiO2 Ox Delivery Rate 10/29 1123 98 Room Air 10/29 0801 98.3 64 20 128/78 94 Room Air 10/29 0028 98.0 82 20 134/74 96 10/28 1905 96 Room Air 10/28 1610 97.8 83 19 116/61 95 Intake & Output 10/29 1600 10/29 0800 10/29 0000 10/28 1600 10/28 0800 10/28 0000 Intake Total 720 50 500 400 680 Output Total 400 250 Balance 720 50 500 0 -250 680 Intake, IV 0 30 Intake, Oral 720 50 500 400 650 Number 1 1 1 1 Bowel Movements Output, Urine 400 250 Physical Exam: Awake, language intact, no dysarthria VFF [id number] EOMI VII and XII normal RUE 4/5 prox, 4/5 distally DTRs increased on right with ankle clonus Current Medications: Current Medications Sig/[place] Start time Last Medication Dose Route Stop Time Status Admin Acetaminophen 1,000 MG Q6P PRN 10/10 1630 AC 10/24 N/A 1 UNIT IV 0338 Acetaminophen 650 MG Q8 PRN 10/06 1945 AC 10/20 PO 205 Albuterol Sulfate 3 ML BID 10/26 2200 AC 10/29 INH 1120 Artificial Tears 2 GTT TID 10/18 2200 AC 10/29 OPH 0900 Exemestane 25 MG DAILY 10/07 1000 AC 10/29 PO 0901 Folic Acid 1 MG DAILY 10/07 1000 AC 10/29 PO 0901 Glycerin 2 SPRAY Q2P PRN 10/15 1430 AC 10/17 PO 0627 Heparin Sodium 5,000 UNIT Q8 10/26 0600 AC 10/29 (Porcine) SC 0624 Insulin Aspart 0 TIDAC 10/26 1700 AC 10/29 SC 1206 Insulin Detemir 5 UNITS BID 10/16 2200 AC 10/29 SC 0900 Magnesium Sulfate 1 GM ONCE ONE 10/29 0945 DC Dextrose/Water 100 ML IV 10/29 1344 Morphine Sulfate 2 MG Q6P PRN 10/25 0715 AC IV Multivitamins 1 TAB DAILY 10/23 1000 AC 10/29 PO 0901 Oxycodone/ 1 TAB Q4P PRN 10/25 1930 AC 10/27 Acetaminophen PO 1458 Oxycodone/ 2 TAB Q4P PRN 10/25 1930 AC Acetaminophen PO Pantoprazole Sodium 40 MG BID 10/20 2200 AC 10/29 IV 0900 Thiamine HCl 100 MG DAILY 10/23 1000 AC 10/29 PO 0901 Vancomycin HCl 1,000 MG Q12 10/28 2200 CAN Dextrose/Water 250 ML IV 10/29 1059 Vancomycin HCl 125 MG Q6 10/17 1350 AC 10/29 PO 1205 Results Last 24 Hours of Lab Results: Laboratory Tests 10/29 0612 Chemistry Sodium (137 - 145 mmol/L) 134 L Potassium (3.5 - 5.1 mmol/L) 4.3 Chloride (98 - 107 mmol/L) 102 Carbon Dioxide (22 - 30 mmol/L) 27 Anion Gap (5 - 16) 5 BUN (7 - 17 mg/dL) 4 L Creatinine (0.5 - 1.0 mg/dL) 0.3 L Estimated GFR (>60 ml/min) > 60 BUN/Creatinine Ratio (7 - 25 %) 13.3 Magnesium (1.6 - 2.3 mg/dL) 1.4 L Hematology CBC w Diff NO MAN DIFF REQ WBC (4.8 - 10.8 /CUMM) 16.0 H RBC (4.20 - 5.40 /CUMM) 3.07 L Hgb (12.0 - 16.0 G/DL) 9.2 L Hct (37 - 47 %) 27.7 L MCV (81.0 - 99.0 FL) 90.2 MCH (27.0 - 31.0 PG) 30.0 RDW (11.5 - 14.5 %) 17.2 H Plt Count (130 - 400 /CUMM) 453 H MPV (7.4 - 10.4 FL) 9.4 Gran % (42.2 - 75.2 %) 73.4 Lymphocytes % (20.5 - 51.1 %) 13.4 L Monocytes % (1.7 - 9.3 %) 9.0 Eosinophils % (0 - 5 %) 3.2 Basophils % (0.0 - 2.0 %) 1.0 Absolute Granulocytes (1.4 - 6.5 /CUMM) 11.7 H Absolute Lymphocytes (1.2 - 3.4 /CUMM) 2.2 Absolute Monocytes (0.10 - 0.60 /CUMM) 1.4 H Absolute Eosinophils (0.0 - 0.7 /CUMM) 0.5 Absolute Basophils (0.0 - 0.2 /CUMM) 0.2 PUBS MCHC (33.0 - 37.0 G/DL) 33.2 Recent Imaging Studies: MRI of brain: Imaging findings suggest multiple subacute infarcts within the left greater than right centrum semiovale and likely the medial right cerebellum in keeping with an embolic etiology. No hemorrhagic transformation. - Mild to moderate chronic microangiopathy. Carotid Dopplers: No significant stenosis Echocardiogram: 1. Normal EF of 70%. 2. Mild left ventricular hypertrophy. 3. Trace tricuspid regurgitation. Assessment/Plan Assessment: Multiple deep white matter infarcts acute. In the absence of significant carotid disease or emboligenic findings on echocardiogram this is most likely due to episodes of reduced cerebral perfusion when the patient was critically ill. Plan: Continue with PT, OT and short-term rehabilitation Would empirically add aspirin 81 MG EC daily to her regimen watching for any blood loss. Please call back if further assistance can be provided.
[2016-10-29 15:54] VITALS: BP 128/80
[2016-10-29 23:44] VITALS: BP 134/74
--- NOTE | 2016-10-30 05:40 | PN- Housestaff ---
ANURADHA AVALOS 10/30/16 0540: Subjective Follow-up For: Fracture of right hip status post ORIF D5 C. difficile colitis Alcohol abuse hypotension Complaints: no complaints Subjective: The patient was comfortable this morning. She did not complain of any abdominal pain. As per the patient, she had 2 bowel movements overnight- formed, no associated pain. Patient was afebrile overnight. Vitals remained stable. Currently on day 13 of oral vancomycin. Review of Systems Constitutional: Reports: see HPI. Objective Last 24 Hrs of Vital Signs/I&O Vital Signs Date Time Temp Pulse Resp B/P Pulse O2 O2 Flow FiO2 Ox Delivery Rate 10/29 2344 98.6 86 20 134/74 96 Room Air 10/29 2115 97 Room Air 10/29 1554 97.7 80 20 128/80 95 10/29 1123 98 Room Air 10/29 0801 98.3 64 20 128/78 94 Room Air Intake & Output 10/30 0800 10/30 0000 10/29 1600 Intake Total 340 720 Output Total Balance 340 720 Intake, IV 100 Intake, Oral 240 720 Number 1 Bowel Movements Physical Exam General Appearance: No Acute Distress Other Physical Findings: General Exam: AAOx3, No acute distress, Skin: No rashes, hematoma-resolving on the right lower extremity(at the site of surgery) HEENT: PERRLA, EOMI Neck: Supple, No JVD No cervical lymphadenopathy CVS: Reg Rate, Normal S1,S2, No MGR Resp: Normal air entry, no ronchi/rales Abdomen: Soft, No tenderness, Normal Bowel Sounds Neuro: Normal Speech, Strength 5/5 b/l x 4 extremities, Sensation intact, CN III -XII NL, Reflexes 2+ Extremities: No cyanosis, no pedal edema. Current Medications: Current Medications Sig/Hol[place] Start time Last Medication Dose Route Stop Time Status Admin Acetaminophen 1,000 MG Q6P PRN 10/10 1630 AC 10/24 N/A 1 UNIT IV 0338 Acetaminophen 650 MG Q8 PRN 10/06 194 AC 10/20 PO 205 Albuterol Sulfate 3 ML Q4P PRN 10/29 1715 AC INH Albuterol Sulfate 3 ML BID 10/26 220 DC 10/29 INH 1120 Artificial Tears 2 GTT TID 10/18 2199 AC 10/29 OPH 2139 Exemestane 25 MG DAILY 10/07 1000 AC 10/29 PO 0901 Folic Acid 1 MG DAILY 10/07 1000 AC 10/29 PO 0901 Glycerin 2 SPRAY Q2P PRN 10/15 1430 AC 10/17 PO 0627 Heparin Sodium 5,000 UNIT Q8 10/26 0600 AC 10/30 (Porcine) SC 0535 Insulin Aspart 0 TIDAC 10/26 1700 AC 10/29 SC 1730 Insulin Detemir 5 UNITS BID 10/16 2200 AC 10/29 SC 2138 Magnesium Sulfate 1 GM ONCE ONE 10/29 0945 DC 10/29 Dextrose/Water 100 ML IV 10/29 1344 1730 Morphine Sulfate 2 MG Q6P PRN 10/25 0715 AC IV Multivitamins 1 TAB DAILY 10/23 1000 AC 10/29 PO 0901 Oxycodone/ 1 TAB Q4P PRN 10/25 1930 AC 10/29 Acetaminophen PO 2138 Oxycodone/ 2 TAB Q4P PRN 10/25 1930 AC Acetaminophen PO Pantoprazole Sodium 40 MG BID 10/20 2200 AC 10/29 IV 2139 Thiamine HCl 100 MG DAILY 10/23 1000 AC 10/29 PO 0901 Vancomycin HCl 125 MG Q6 10/17 1350 AC 10/30 PO 0535 Last 24 Hrs of Lab/Charles Results Last 24 Hrs of Labs/Mics: Laboratory Tests 10/29/1612: Anion Gap 5, Estimated GFR > 60, BUN/Creatinine Ratio 13.3, Magnesium 1.4 L, CBC w Diff NO MAN DIFF REQ, RBC 3.07 L, MCV 90.2, MCH 30.0, RDW 17.2 H, MPV 9.4, Gran % 73.4, Lymphocytes % 13.4 L, Monocytes % 9.0, Eosinophils % 3.2, Basophils % 1.0, Absolute Granulocytes 11.7 H, Absolute Lymphocytes 2.2, Absolute Monocytes 1.4 H, Absolute Eosinophils 0.5, Absolute Basophils 0.2, PUBS MCHC 33.2 Assessment/Plan Assessment: 61-year-old woman with past medical history significant for insulin independent diabetes, chronic pancreatitis secondary to alcoholism, breast cancer treated with chemotherapy, osteopenia, who was brought in by ambulance for chief complaint of right hip pain secondary to fall. Found to have comminuted displaced right proximal femur shaft fracture with extension into intertrochanteric region and leukocytosis, now 5 days status post right hip ORIF. Neuro consulted for right UE weakness. Right femur fracture status post ORIF day 5 (done on 10/26/16): * No fracture complications so far, patient already ambulating with assistance to short distances * Distal neurovascular sensitivity intact * Range of motion severely limited by pain * Will follow orthopedic advice * Anticoagulation post surgery: Subcutaneous heparin 3 times a day has been changed to Lovenox from today. Plan to continue the same. * If the patient can ambulate well, and other conditions improve, she can be discharged tomorrow or day after tomorrow to a short-term rehabilitation requiring physical therapy, and assistance. She has been living alone without assistance before this, and is at risk of suboptimal care if she is discharged alone to her house. * Pain management: Morphine and oxycodone when necessary Diabetes * BS 86, 205, 173. * on levemir 5 units twice a day and ISS. * Leukocytosis: * afebrile, wbc 16.0 * Follow blood cultures * continue PO vanco Day 13 * Continue PO vancomycin for a total of 14 days. Alcohol abuse: * Monitor for withdrawal symptoms, continue * CIWA protocol, socre range in last 24 hrs: 0-5 * Continue Folic acid Smoking cessation: Chronic and stable * Continue Wellbutrin Problem List: 1. C. difficile colitis 2. ETOH abuse 3. Acute blood loss anemia Pain Ratin Pain Location: right lower extremity Pain Goal: Pain 4 or less Pain Plan: tylenol prn Tomorrow's Labs & Rationales: cbc bep KITTY SALGADO MD 10/30/16 1059: Attending MD Review Statement Attending Statement Attending MD Statement: examined this patient, discuss w/resident/PA/SENIOR TECHNOLOGIST, agreed w/resident/PA/SENIOR TECHNOLOGIST, reviewed EMR data (avail) Attending Assessment/Plan: 61F PMH IDDM, EtOH abuse, history of breast cancer, persistent leukocytosis admitted initially on 10/06 for right hip pain with hip fracture. Initially admitted for hip repair, course was complicated by sepsis with multilobular pneumonia with ARDS requiring intubation. Sputum cultures were positive for stenotrophomonas treated with Bactrim, and course complicated by C.diff colitis treated with PO Vancomycin. She underwent ORIF of right hip with bone marrow biopsy done during procedure. Post-op patient had RUE weakness, being followed by neurology. She has been transferred to general medicine floor for futher management. 1. Right hip fracture s/p repair 2. Sepsis secondary to Strenotrophomonas (resolved) 3. Multilobar pneumonia (resolved) 4. C.difficile colitis 5. Chronic leukocytosis 6. Chronic anemia 7. Right upper extremity paralysis 8. ARDS requiring intubation (resolved) Plan - Stable for discharge to [facility] - MRI shows bilateral multiple subacute infarcts - Start ASA and high dose statin - Continue PO Vancomycin for one more day - Follow ID recommendations - Will follow up with hematology as outpatient for bone marrow biopsy results and peripheral flow cytometry - Follow neurology recommendations - Continue home medications
[2016-10-30 07:01] VITALS: BP 138/78
--- NOTE | 2016-10-30 12:17 | PN- Pulmonary ---
Subjective HPI/Critical Care Issues: Patient seen and examined. No chest pain, at respiratory baseline. No nausea, vomiting, diarrhea or constipation. Afebrile and hemodynamically stable. Objective Current Medications: Current Medications Sig/Holland Start time Last Medication Dose Route Stop Time Status Admin Acetaminophen 1,000 MG Q6P PRN 10/10 1630 10/24 N/A 1 UNIT IV 0338 Acetaminophen 650 MG Q8 PRN 10/06 1945 AC 10/20 PO 2057 Albuterol Sulfate 3 ML Q4P PRN 10/29 1715 AC INH Albuterol Sulfate 3 ML BID 10/26 2200 DC 10/29 INH 1120 Artificial Tears 2 GTT TID 10/18 2200 AC 10/30 OPH 0953 Aspirin 81 MG DAILY 10/30 1000 AC 10/30 PO 1135 Enoxaparin Sodium 40 MG DAILY 10/30 1000 AC 10/30 SC 1135 Exemestane 25 MG DAILY 10/07 1000 AC 10/30 PO 0953 Folic Acid 1 MG DAILY 10/07 1000 AC 10/30 PO 0953 Glycerin 2 SPRAY Q2P PRN 10/15 1430 AC 10/17 PO 0627 Guaifenesin 600 MG Q12 10/30 1000 CAN PO Heparin Sodium 5,000 UNIT Q8 10/26 0600 DC 10/30 (Porcine) SC 0535 Insulin Aspart 0 TIDAC 10/26 1700 AC 10/29 SC 1730 Insulin Detemir 5 UNITS BID 10/16 2200 AC 10/30 SC 0953 Magnesium Sulfate 1 GM ONCE ONE 10/29 0945 DC 10/29 Dextrose/Water 100 ML IV 10/29 1344 1730 Morphine Sulfate 2 MG Q6P PRN 10/25 0715 IV Multivitamins 1 TAB DAILY 10/23 1000 AC 10/30 PO 0953 Oxycodone/ 1 TAB Q4P PRN 10/25 1930 AC 10/29 Acetaminophen PO 2138 Oxycodone/ 2 TAB Q4P PRN 10/25 193 AC Acetaminophen PO Pantoprazole Sodium 40 MG BID 10/20 2200 AC 10/30 IV 0953 Patient Medication 1 UNIT ONE NR 10/30 0915 Teaching ED 10/30 1515 Thiamine HCl 100 MG DAILY 10/23 1000 AC 10/30 PO 0953 Vancomycin HCl 125 MG Q6 10/17 1350 AC 10/30 PO 0535 Vital Signs & I&O Last 24 Hrs of Vitals and I&O: Vital Signs Date Time Temp Pulse Resp B/P Pulse O2 O2 Flow FiO2 Ox Delivery Rate 10/30 0810 99 Room Air 10/30 0701 98.8 80 20 138/78 97 Room Air 10/29 2344 98.6 86 20 134/74 96 Room Air 10/29 2115 97 Room Air 10/29 1554 97.7 80 20 128/80 95 Intake & Output 10/30 1600 10/30 0800 10/30 0000 Intake Total 240 340 Output Total 350 Balance -110 340 Intake, IV 100 Intake, Oral 240 240 Number 1 2 Bowel Movements Output, Urine 350 Exam Other Physical Findings: General - awake HEENT - NCAT Cardiovascular - S1, S2 Lungs - clear to auscultation bilaterally Abdomen - soft, bowel sounds positive, no tenderness Extremities - no lower extremity edema Impression/Plan Impression/Plan Impression/Plan: Impression 61 year old woman hx breast ca - fixed - right intratrochanteric fracture - improved anemia - resolved respiratory failure - c.diff in stool and stenotrophomonas in sputum - improved leukocytosis - upper ext edema Plan -will need repeat imaging within 1 month, with myself or pmd, please ensure this is ordered -f/u ID recs -f/u ortho recs will sign off
[2016-10-30 16:10] VITALS: BP 124/66
[2016-10-31 00:01] VITALS: BP 128/74
--- NOTE | 2016-10-31 05:45 | PN- Housestaff ---
ANURADHA AVALOS 10/31/16 0545: Subjective Follow-up For: Multilobar pneumonia Non-comminuted fracture of right hip ORIF day 5 C. difficile colitis Subjective: The patient was comfortable this morning. She only had 1 bowel movement overnight which was formed. No diarrhea. She stated that pain was adequately controlled. Review of Systems Constitutional: Reports: see HPI. Objective Last 24 Hrs of Vital Signs/I&O Vital Signs Date Time Temp Pulse Resp B/P Pulse O2 O2 Flow FiO2 Ox Delivery Rate 10/31 0001 98.5 87 19 128/74 92 Room Air 10/30 1928 93 Room Air 10/30 1610 98.5 85 20 124/66 95 10/30 0810 99 Room Air 10/30 0701 98.8 80 20 138/78 97 Room Air Intake & Output 10/31 0800 10/31 0000 10/30 1600 Intake Total 600 950 Output Total Balance 600 950 Intake, IV 50 Intake, Oral 600 900 Number 2 2 Bowel Movements Physical Exam General Appearance: No Acute Distress Current Medications: Current Medications Sig/Holland Start time Last Medication Dose Route Stop Time Status Admin Acetaminophen 1,000 MG Q6P PRN 10/10 1630 AC 10/24 N/A 1 UNIT IV 0338 Acetaminophen 650 MG Q8 PRN 10/06 1945 AC 10/20 PO 2057 Albuterol Sulfate 3 ML Q4P PRN 10/29 1715 AC INH Artificial Tears 2 GTT TID 10/18 2200 AC 10/30 OPH 2104 Aspirin 81 MG DAILY 10/30 1000 AC 10/30 PO 1135 Atorvastatin Calcium 40 MG 1700 10/30 1700 AC 10/30 PO 1614 Enoxaparin Sodium 40 MG DAILY 10/30 1000 AC 10/30 SC 1135 Exemestane 25 MG DAILY 10/07 1000 AC 10/30 PO 0953 Folic Acid 1 MG DAILY 10/07 1000 AC 10/30 PO 0953 Glycerin 2 SPRAY Q2P PRN 10/15 1430 AC 10/17 PO 0627 Guaifenesin 600 MG Q12 10/30 1000 CAN PO Heparin Sodium 5,000 UNIT Q8 10/26 0600 DC 10/30 (Porcine) SC 0535 Insulin Aspart 0 TIDAC 10/26 1700 AC 10/30 SC 1657 Insulin Detemir 5 UNITS BID 10/16 2200 AC 10/30 SC 2105 Morphine Sulfate 2 MG Q6P PRN 10/25 0715 AC IV Multivitamins 1 TAB DAILY 10/23 1000 AC 10/30 PO 0953 Oxycodone/ 1 TAB Q4P PRN 10/25 1930 AC 10/30 Acetaminophen PO 2118 Oxycodone/ 2 TAB Q4P PRN 10/25 1930 AC Acetaminophen PO Pantoprazole Sodium 40 MG BID 10/20 2200 AC 10/30 IV 2105 Patient Medication 1 UNIT ONE NR 10/30 0915 OR Teaching ED 10/30 1515 Thiamine HCl 100 MG DAILY 10/23 1000 AC 10/30 PO 0953 Vancomycin HCl 125 MG Q6 10/17 1350 AC 10/30 PO 2331 Assessment/Plan Assessment: 61-year-old woman with past medical history significant for insulin independent diabetes, chronic pancreatitis secondary to alcoholism, breast cancer treated with chemotherapy, osteopenia, who was brought in by ambulance for chief complaint of right hip pain secondary to fall. Found to have comminuted displaced right proximal femur shaft fracture with extension into intertrochanteric region and leukocytosis, now 5 days status post right hip ORIF. Neuro consulted for right UE weakness. Right femur fracture status post ORIF day 6 (done on 10/26/16): * No fracture complications so far, patient already ambulating with assistance to short distances * Distal neurovascular sensitivity intact * Range of motion severely limited by pain * Will follow orthopedic advice * Anticoagulation post surgery: Subcutaneous heparin 3 times a day has been changed to Lovenox from today. Plan to continue the same. To be discharged on Lovenox. * The patient has been getting up out of the bed with assistance of physical therapy. Was able to stand. * Pain management: Morphine and oxycodone when necessary Diabetes * BS adequately controlled. * on levemir 5 units twice a day and ISS. * Leukocytosis: * afebrile, no leukocytosis * Follow blood cultures * continue PO vanco Day 14 * His continue vancomycin. Alcohol abuse: * Monitor for withdrawal symptoms, continue * CIWA protocol, socre range in last 24 hrs: 0-5 * Continue Folic acid Smoking cessation: Chronic and stable * Continue Wellbutrin Problem List: 1. Right femoral fracture 2. C. difficile colitis Pain Ratin Pain Location: Right hip Pain Goal: Pain 4 or less Pain Plan: Tylenol when necessary Tomorrow's Labs & Rationales: No labs necessary KITTY SALGADO MD 10/31/16 1612: Attending MD Review Statement Attending Statement Attending MD Statement: examined this patient, discuss w/resident/PA/DIVERSITY MANAGER, agreed w/resident/PA/DIVERSITY MANAGER, reviewed EMR data (avail) Attending Assessment/Plan: 61F PMH IDDM, EtOH abuse, history of breast cancer, persistent leukocytosis admitted initially on 10/06 for right hip pain with hip fracture. Initially admitted for hip repair, course was complicated by sepsis with multilobular pneumonia with ARDS requiring intubation. Sputum cultures were positive for stenotrophomonas treated with Bactrim, and course complicated by C.diff colitis treated with PO Vancomycin. She underwent ORIF of right hip with bone marrow biopsy done during procedure. Post-op patient had RUE weakness, being followed by neurology. She has been transferred to general medicine floor for futher management. 1. Right hip fracture s/p repair 2. Sepsis secondary to Strenotrophomonas (resolved) 3. Multilobar pneumonia (resolved) 4. C.difficile colitis 5. Chronic leukocytosis 6. Chronic anemia 7. Right upper extremity paralysis 8. ARDS requiring intubation (resolved) Plan - Stable for discharge to [facility] - MRI shows bilateral multiple subacute infarcts - Start ASA and high dose statin - Continue PO Vancomycin for one more day - Follow ID recommendations - Will follow up with hematology as outpatient for bone marrow biopsy results and peripheral flow cytometry - Follow neurology recommendations - Continue home medications
--- NOTE | 2016-10-31 07:27 | PN- Hematology ---
Subjective Subjective: She has some pain in her right lower extremity. She denies any fever or chills. She denies any shortness of breath or chest pain. Review of Systems Cardiovascular: Denies: chest pain. Respiratory: Denies: short of breath. Gastrointestinal: Denies: abdominal pain, constipation. Musculoskeletal: Reports: see HPI. Neurological/Psychological: Denies: confusion. All Other Systems: Reviewed and Negative Objective Vital Signs and I&Os Vital Signs Date Time Temp Pulse Resp B/P Pulse O2 O2 Flow FiO2 Ox Delivery Rate 10/31 0001 98.5 87 19 128/74 92 Room Air 10/30 1928 93 Room Air 10/30 1610 98.5 85 20 124/66 95 10/30 0810 99 Room Air Intake & Output 10/31 0800 10/31 0000 10/30 1600 10/30 0800 10/30 0000 10/29 1600 Intake Total 600 950 240 340 720 Output Total 400 350 Balance -400 600 950 -110 340 720 Intake, IV 50 100 Intake, Oral 600 900 240 240 720 Number 1 2 2 2 1 Bowel Movements Output, Urine 400 350 Physical Exam: General Appearance: alert, awake, comfortable on RA Head: atraumatic, normal appearance Ears, Nose, Throat: normal pharynx Respiratory: chest non-tender, quiet respiration, crackles Cardiovascular: regular rate/rhythm Gastrointestinal: normal bowel sounds, soft, non-tender, no organomegaly Extremities: RLE: dressing intact without drainage. Tender to palpation. Neurologic/Psych: awake, alert, oriented x 2 Skin: warm/dry Current Medications: Current Medications Sig/[place] Start time Last Medication Dose Route Stop Time Status Admin Acetaminophen 1,000 MG Q6P PRN 10/10 1630 10/24 N/A 1 UNIT IV 0338 Acetaminophen 650 MG Q8 PRN 10/06 194 AC 10/20 PO 205 Albuterol Sulfate 3 ML Q4P PRN 10/29 1715 AC INH Artificial Tears 2 GTT TID 10/18 2200 AC 10/30 OPH 2104 Aspirin 81 MG DAILY 10/30 1000 AC 10/30 PO 1135 Atorvastatin Calcium 40 MG 1700 10/30 1700 AC 10/30 PO 1614 Enoxaparin Sodium 40 MG DAILY 10/30 1000 AC 10/30 SC 1135 Exemestane 25 MG DAILY 10/07 1000 AC 10/30 PO 0953 Folic Acid 1 MG DAILY 10/07 1000 AC 10/30 PO 0953 Glycerin 2 SPRAY Q2P PRN 10/15 1430 AC 10/17 PO 0627 Guaifenesin 600 MG Q12 10/30 1000 CAN PO Heparin Sodium 5,000 UNIT Q8 10/26 0600 DC 10/30 (Porcine) SC 0535 Insulin Aspart 0 TIDAC 10/26 1700 AC 10/30 SC 1657 Insulin Detemir 5 UNITS BID 10/16 2200 AC 10/30 SC 2105 Morphine Sulfate 2 MG Q6P PRN 10/25 0715 AC IV Multivitamins 1 TAB DAILY 10/23 1000 AC 10/30 PO 0953 Oxycodone/ 1 TAB Q4P PRN 10/25 1930 AC 10/30 Acetaminophen PO 2118 Oxycodone/ 2 TAB Q4P PRN 10/25 1930 AC Acetaminophen PO Pantoprazole Sodium 40 MG BID 10/20 2200 AC 10/30 IV 2105 Patient Medication 1 UNIT ONE NR 10/30 0915 DC Teaching ED 10/30 1515 Thiamine HCl 100 MG DAILY 10/23 1000 AC 10/30 PO 0953 Vancomycin HCl 125 MG Q6 10/17 1350 AC 10/31 PO 0612 Results Last 24 Hours of Lab Results: Laboratory Tests 10/31 0620 Chemistry Sodium Pending Potassium Pending Chloride Pending Carbon Dioxide Pending Anion Gap Pending BUN Pending Creatinine Pending BUN/Creatinine Ratio Pending Magnesium Pending Hematology CBC w Diff Pending WBC Pending RBC Pending Hgb Pending Hct Pending MCV Pending MCH Pending RDW Pending Plt Count Pending MPV Pending PUBS MCHC Pending Recent Imaging Studies: MRI brain 10/29/2016: Motion degraded exam. Imaging findings suggest multiple subacute infarcts within the left greater than right centrum semiovale and likely the medial right cerebellum in keeping with an embolic etiology. No hemorrhagic transformation. Mild to moderate chronic microangiopathy. Assessment/Plan Assessment/Recommendations: Ms. 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 Her hospital course have been complicated including acute hypoxic respiratory failure, acute respiratory distress syndrome, intubation, displaced comminuted right proximal femoral shaft fracture, proximal right lower extremity hematoma, EtOH withdrawal, multilobar pneumonia, and C. Diff colitis, on oral vancomycin. She is status post ORIF. She is recovering well. WBC remains elevated and stable. No need to work up as inpatient at the moment. This can be done as outpatient once she recovers. 1. Monitor CBC daily 2. Peripheral flow cytometry as outpatient 3. Continue exemestane 25 mg PO daily 4. Follow up appointment on 11/19/2016 at 9:00AM Please call [phone] with any questions or concerns. Problem List: 1. C. difficile colitis 2. Right femoral fracture 3. Breast cancer 4. Leukocytosis
[2016-10-31 08:01] VITALS: BP 140/64
[2016-10-31 08:24] LABS: ABSOLUTE BASOPHIL COUNT 0.1 /CUMM (0.0-0.2); ABSOLUTE EOSINOPHIL COUNT 0.5 /CUMM (0.0-0.7); ABSOLUTE LYMPH COUNT 1.6 /CUMM (1.2-3.4); ABSOLUTE MONOCYTE COUNT 1.6 /CUMM (0.10-0.60); BASOPHIL % 0.7 % (0.0-2.0); EOSINOPHIL % 2.8 % (0-5); GRANULOCYTE % 77.5 % (42.2-75.2); HEMATOCRIT 29.7 % (37-47); MEAN CORPUSCULAR HGB 30.3 PG (27.0-31.0); MEAN CORPUSCULAR HGB CONC 33.6 G/DL (33.0-37.0); MEAN CORPUSCULAR VOLUME 90.1 FL (81.0-99.0); MEAN PLATELET VOLUME 9.2 FL (7.4-10.4); PLATELET COUNT 371 /CUMM (130-400); RBC DISTRIBUTION WIDTH 16.8 % (11.5-14.5); RED BLOOD CELL CT 3.29 /CUMM (4.20-5.40); WHITE BLOOD CELL COUNT 16.8 /CUMM (4.8-10.8)
[2016-10-31] MEDS ORDERED: ATORVASTATIN CA40 M1 PO (10:12)
[2016-10-31] MEDS ORDERED: LEVEMIR FL100 UNIT/1 SC (10:13)
[2016-10-31] MEDS ORDERED: VITAMIN B-1100 MG PO (10:25)
[2016-10-31] MEDS ORDERED: LOVENOX40 MG/0.1 SC (10:28)
[2016-10-31] MEDS ORDERED: PROTONIX40 M3 PO (10:28)
--- NOTE | 2016-10-31 11:36 | PN- Infect Dx ---
Subjective Subjective: Afebrile without complaints. No diarrhea reported. Objective Last 24 Hrs of Vital Signs/I&O Vital Signs Date Time Temp Pulse Resp B/P Pulse O2 O2 Flow FiO2 Ox Delivery Rate 10/31 0801 98.6 72 20 140/64 94 Room Air 10/31 0001 98.5 87 19 128/74 92 Room Air 10/30 1928 93 Room Air 10/30 1610 98.5 85 20 124/66 95 Intake & Output 10/31 1600 10/31 0800 10/31 0000 Intake Total 600 Output Total 400 Balance -400 600 Intake, Oral 600 Number 1 2 Bowel Movements Output, Urine 400 Physical Exam Other Physical Findings: She appears comfortable in no acute distress Abdomen is soft, nontender Extremities PICC in the right upper extremity with no inflammation at the site Results Last 24 Hours of Lab Results: Laboratory Tests 10/31 0620 Chemistry Sodium (137 - 145 mmol/L) 133 L Potassium (3.5 - 5.1 mmol/L) 4.3 Chloride (98 - 107 mmol/L) 97 L Carbon Dioxide (22 - 30 mmol/L) 26 Anion Gap (5 - 16) 9 BUN (7 - 17 mg/dL) 4 L Creatinine (0.5 - 1.0 mg/dL) 0.4 L Estimated GFR (>60 ml/min) > 60 BUN/Creatinine Ratio (7 - 25 %) 10.0 Magnesium (1.6 - 2.3 mg/dL) 1.3 L Hematology CBC w Diff NO MAN DIFF REQ WBC (4.8 - 10.8 /CUMM) 16.8 H RBC (4.20 - 5.40 /CUMM) 3.29 L Hgb (12.0 - 16.0 G/DL) 10.0 L Hct (37 - 47 %) 29.7 L MCV (81.0 - 99.0 FL) 90.1 MCH (27.0 - 31.0 PG) 30.3 RDW (11.5 - 14.5 %) 16.8 H Plt Count (130 - 400 /CUMM) 371 MPV (7.4 - 10.4 FL) 9.2 Gran % (42.2 - 75.2 %) 77.5 H Lymphocytes % (20.5 - 51.1 %) 9.3 L Monocytes % (1.7 - 9.3 %) 9.7 H Eosinophils % (0 - 5 %) 2.8 Basophils % (0.0 - 2.0 %) 0.7 Absolute Granulocytes (1.4 - 6.5 /CUMM) 13.0 H Absolute Lymphocytes (1.2 - 3.4 /CUMM) 1.6 Absolute Monocytes (0.10 - 0.60 /CUMM) 1.6 H Absolute Eosinophils (0.0 - 0.7 /CUMM) 0.5 Absolute Basophils (0.0 - 0.2 /CUMM) 0.1 PUBS MCHC (33.0 - 37.0 G/DL) 33.6 Last 24 Hours of [place] Results: No recent cultures Assessment/Plan Impression: Stable with temperatures remaining normal and diarrhea improved on po Vancomycin now Day 14 of treatment for C. difficile. She is now 6 days status post right hip ORIF, with no evidence of any hematoma intraoperatively. Her white blood cell count remains elevated, but overall decreased, felt to be secondary to some underlying process, and she has been evaluated by Hematology. Suggestion: 1. Remove PICC prior to discharge 2. Discontinue po Vancomycin and follow off antibiotics
--- NOTE | 2016-10-31 12:00 | NUR ---
NURSING NOTE: EMI ESPINOSA PER DR CHEEMA, PT COMPLETED HER COURSE PER DR Yancey. DR SALGADO ATTENDING AWARE
[2016-10-31 16:05] VITALS: BP 134/80
[2016-10-31 16:12] VITALS: BP 134/80
== END 2016-10-31 18:22 | DRG 477 ==
LOC: ERH 13:27 → ENPENDDIS 16:40 → CRI 16:40 → ERHI 16:40 → 2NB 20:10 → CRI 10-07 09:56 → 2NB 10-26 19:10
PROVIDERS: Internal Medicine; Internal Medicine Endocrinology, Diabetes & Metabolism; Internal Medicine Infectious Disease; Internal Medicine Interventional Cardiology; Physician Assistant Medical; Student in an Organized Health Care Education/Training Program; ADMIT Student in an Organized Health Care Education/Training Program
PROC: 02HV33Z Insertion of Infusion Device into Superior Vena Cava, Percutaneous Approach (ICD-10-PCS; 2016-10-10)
PROC: 5A1955Z Respiratory Ventilation, Greater than 96 Consecutive Hours (ICD-10-PCS; 2016-10-10)
PROC: 0BH17EZ Insertion of Endotracheal Airway into Trachea, Via Natural or Artificial Opening (ICD-10-PCS; 2016-10-10)
PROC: 30233N1 Transfusion of Nonautologous Red Blood Cells into Peripheral Vein, Percutaneous Approach (ICD-10-PCS; 2016-10-10)
PROC: 0QS604Z Reposition Right Upper Femur with Internal Fixation Device, Open Approach (ICD-10-PCS; principal; 2016-10-25)
PROC: 0QB60ZX Excision of Right Upper Femur, Open Approach, Diagnostic (ICD-10-PCS; principal; 2016-10-25)
DX: S72.141A Displaced intertrochanteric fracture of right femur, initial encounter for closed fracture (principal); J96.01 Acute respiratory failure with hypoxia; J18.9 Pneumonia, unspecified organism; I11.0 Hypertensive heart disease with heart failure; J80 Acute respiratory distress syndrome; E11.649 Type 2 diabetes mellitus with hypoglycemia without coma; I50.32 Chronic diastolic (congestive) heart failure; K86.0 Alcohol-induced chronic pancreatitis; I95.9 Hypotension, unspecified; A04.7 Enterocolitis due to Clostridium difficile; D62 Acute posthemorrhagic anemia; F10.239 Alcohol dependence with withdrawal, unspecified; W06.XXXA Fall from bed, initial encounter; Y92.003 Bedroom of unspecified non-institutional (private) residence as the place of occurrence of the external cause; F17.200 Nicotine dependence, unspecified, uncomplicated; I25.2 Old myocardial infarction; Z79.4 Long term (current) use of insulin; M47.812 Spondylosis without myelopathy or radiculopathy, cervical region; Z85.3 Personal history of malignant neoplasm of breast
CPT/HCPCS: 2NBP; 2NSBP; 70551; 87070; 87075; CCU; 36415; 73501; 73502-RT; 74000; 74176; 74177; 80307; 81001; 82436; 83010; 86920; 87040; 87071; 87086; 87450; 88305; 93005; 93010; 93306; 93970; 94799; 95816; 96361; 96374; 96375; 97110-GO; 97163-GP; 97165-GO; 97530-GO; C1713; C1769; G0480; J0131; J0456; J0610; J0690; J0696; J0713; J1200; J1644; J1650; J1815; J1940; J2060; J2405; J2920; J2997; J3010; J3370; J3490; J7040; J7042; J7060; P9016; S0156